=== PATIENT | female | born 1955 | race Caucasian/White ===

== ENCOUNTER 2016-10-02 20:45 | Observation (INO) | payer MEDICARE ==
[~2016-10-02] VITALS: Ht 165.1 cm; Wt 68.7 kg
[~2016-10-02 20:45] MED LIST: 1-ME1LIQ PO; ASPI81TA82 PO; CARV25TA PO; CLOP75 PO; HYDR7.5T32 PO; MEPR400T4 PO; NITR0.2D TD; POTA10IN2 PO; PROT40TA PO; SIMV40TA PO; TRAZ50TA4 PO; VENTAER INH; VITA100018 PO; ZOLP10TA3 PO
[2016-10-02 20:48] VITALS: BP 201/111; PULSE 118; RESP 20; TEMP 98; O2SAT 96
[2016-10-02] MEDS ORDERED: SODIUM CHLOR 0.9% 1000 ML INJ 1,000 ML IV SCH (21:06)
[2016-10-02 21:10] VITALS: O2SAT 98
[2016-10-02] MEDS ORDERED: MORPHINE SULFATE 4 MG/ML INJ IV PUSH ONE (21:15)
[2016-10-02] MEDS ORDERED: SODIUM CHLORIDE 0.9% FLUSH 10 ML FLUSH IV FLUSH PRN (21:15)
[2016-10-02] MEDS ORDERED: ONDANSETRON HCL 4 MG/2 ML VIAL IVP ONE (21:15)
--- NOTE | 2016-10-02 21:26 | PD ---
HPI Chief Complaint: GI Complaint Time Seen by Provider: 20:51 Travel History International Travel<30 days: No Contact w/Intl Traveler<30days: No Traveled to known affect area: No History of Present Illness HPI This is a 61-year-old female who presents to the emergency department with vomiting that's been present since early this afternoon, constant, severe, associated with lower abdominal cramping. She denies any fevers or chills. She said she had one episode of coffee ground emesis. She's never had symptoms like this before. She said her last bowel movement was yesterday and was normal. She has had a bleeding ulcer in the past and has a hiatal hernia. One week ago she started on a new medication for rheumatoid arthritis. She says she doesn't take any anti-inflammatories for pain. PFSH Past Medical History Arthritis: Yes Blood Disorders: No Cancer: No Cardiac Catheterization: Yes (stents placed) Cardiovascular Problems: Yes (HTN) High Cholesterol: Yes Chemotherapy: No Chest Pain: Yes COPD: Yes Coronary Artery Disease: Yes Endocrine: No Genitourinary: Yes Hypertension: Yes Immune Disorder: No Implanted Vascular Access Dvce: Yes Kidney Stones: Yes Musculoskeletal: Yes Neurologic: Yes Psychiatric: No Reproductive: No Respiratory: Yes Radiation Therapy: No : 2 Para: 2 Past Surgical History Body Medical Devices: STENTS IN PAST AND PLATE IN NECK Section: Yes (x2) Coronary Stent: Yes (3) Gynecologic Surgery: Yes (2 C- SECTION) Joint Replacement: Yes Tonsillectomy: Yes Other Surgery: Yes Social History Alcohol Use: Yes (occassional) Tobacco Use: Yes (1/2 PPD) Substance Use: No Allergies-Medications (Allergen,Severity, Reaction): Coded Allergies: Terbutaline (Verified Allergy, Intermediate, 10/02/16) Neurontin (Verified Allergy, Mild, 10/02/16) Reported Meds & Prescriptions Reported Meds & Active Scripts Active Reported K-Tab (Potassium Chloride) 8 Meq Tab 8 Meq PO HS Ventolin Hfa 18 GM Inh (Albuterol Sulfate) 90 Mcg/Act Aer 2 Puff INH Q4H PRN Amlodipine (Amlodipine Besylate) 10 Mg Tab 10 Mg PO DAILY Aspirin EC (Aspirin) 81 Mg Tabdr 81 Mg PO HS Carvedilol 25 Mg Tab 25 Mg PO BID Plavix (Clopidogrel Bisulfate) 75 Mg Tab 75 Mg PO HS Hydrocodone-Acetaminophen 10-325 mg Tab 1 Tab PO Q8HR PRN Meprobamate 400 Mg Tab 400 Mg PO TID Pantoprazole (Pantoprazole Sodium) 40 Mg Tab 40 Mg PO HS Simvastatin 40 Mg Tab 40 Mg PO HS Hydrochlorothiazide 25 Mg Tab 25 Mg PO HS Lyrica (Pregabalin) Unknown Strength Cap Unknown Dose PO BID Elavil (Amitriptyline HCl) 25 Mg Tab 25 Mg PO HS Xeljanz Xr (Tofacitinib ER) 11 Mg Tab 11 Mg PO HS Sulfasalazine 500 Mg Tab 500 Mg PO HS Review of Systems Except as stated in HPI: all other systems reviewed are Neg Physical Exam Narrative GENERAL: Uncomfortable appearing SKIN: Dry with skin tenting HEAD: Atraumatic. Normocephalic. EYES: Pupils equal and round. No injection or drainage. ENT: Dry mucous membranes NECK: Trachea midline. CARDIOVASCULAR: Regular rate and rhythm. No murmur appreciated. RESPIRATORY: Clear to auscultation. Breath sounds equal bilaterally. GASTROINTESTINAL: Abdomen soft, diffusely tender to palpation worse in the lower abdomen MUSCULOSKELETAL: No obvious deformities. NEUROLOGICAL: Awake and alert. No obvious cranial nerve deficits. Moving all extremities. PSYCHIATRIC: Appropriate mood and affect; insight and judgment normal. Data Data Last Documented VS Vital Signs Date Time Temp Pulse Resp B/P Pulse Ox O2 Delivery O2 Flow Rate FiO2 10/02/16 22:20 16 10/02/16 21:10 98 10/02/16 20:48 98.0 118 201/111 Orders Complete Blood Count With Diff (10/02/16 21:06) Comprehensive Metabolic Panel (10/02/16 21:06) Lipase (10/02/16 21:06) Prothrombin Time / Inr (Pt) (10/02/16 21:06) Act Partial Throm Time (Ptt) (10/02/16 21:06) Urinalysis - C+S If Indicated (10/02/16 21:06) Iv Access Insert/Monitor (10/02/16 21:06) Ecg Monitoring (10/02/16 21:06) Oximetry (10/02/16 21:06) Ondansetron Inj (Zofran Inj) (10/02/16 21:15) Sodium Chlor 0.9% 1000 Ml Inj (Ns 1000 M (10/02/16 21:06) Sodium Chloride 0.9% Flush (Ns Flush) (10/02/16 21:15) Ct Abd/Pel W Iv Contrast(Rout) (10/02/16 ) Labetalol Inj (Trandate Inj) (10/02/16 21:15) Morphine Inj (Morphine Inj) (10/02/16 21:15) Potassium Chlor 20 Meq Premix (Kcl 20 Me (10/02/16 22:00) Iohexol 350 Inj (Omnipaque 350 Inj) (10/02/16 22:13) Type And Screen (10/02/16 22:25) Troponin I (10/02/16 22:35) Electrocardiogram (10/02/16 ) Pantoprazole Inj (Protonix Inj) (10/02/16 22:45) Pantoprazole Inj (Protonix Inj) (10/02/16 22:45) Vital Signs (Adult) ANGEL LUIS.Q4H (10/02/16 23:04) Activity Bed Rest (10/02/16 23:04) Scd&Teds Bilateral/Knee High ANGEL LUIS.QSHIFT (10/02/16 23:04) Diet Clear Liquid (10/03/16 Breakfast) Ondansetron Inj (Zofran Inj) (10/02/16 23:15) Ns + Kcl 20 Meq Inj (Ns + Kcl 20 Meq Inj (10/02/16 23:15) Basic Metabolic Panel (Bmp) (10/03/16 06:00) Complete Blood Count With Diff (10/03/16 06:00) Consult Gastroenterology (10/02/16 ) Carvedilol (Coreg) (10/03/16 09:00) Amlodipine (Norvasc) (10/03/16 09:00) Pantoprazole Inj (Protonix Inj) (10/03/16 00:00) Admit Order (Ed Use Only) (10/02/16 23:18) Labs Laboratory Tests Test 10/02/16 10/02/16 21:15 22:35 White Blood Count 8.8 TH/MM3 Red Blood Count 4.37 MIL/MM3 Hemoglobin 14.5 GM/DL Hematocrit 41.6 % Mean Corpuscular Volume 95.3 FL Mean Corpuscular Hemoglobin 33.1 PG Mean Corpuscular Hemoglobin 34.8 % Concent Red Cell Distribution Width 14.5 % Platelet Count 296 TH/MM3 Mean Platelet Volume 8.9 FL Neutrophils (%) (Auto) 68.4 % Lymphocytes (%) (Auto) 22.7 % Monocytes (%) (Auto) 8.3 % Eosinophils (%) (Auto) 0.3 % Basophils (%) (Auto) 0.3 % Neutrophils # (Auto) 6.0 TH/MM3 Lymphocytes # (Auto) 2.0 TH/MM3 Monocytes # (Auto) 0.7 TH/MM3 Eosinophils # (Auto) 0.0 TH/MM3 Basophils # (Auto) 0.0 TH/MM3 CBC Comment DIFF FINAL Differential Comment Prothrombin Time 11.7 SEC Prothromb Time International 1.1 RATIO Ratio Activated Partial 27.0 SEC Thromboplast Time Sodium Level 139 MEQ/L Potassium Level 2.9 MEQ/L Chloride Level 100 MEQ/L Carbon Dioxide Level 28.8 MEQ/L Anion Gap 10 MEQ/L Blood Urea Nitrogen 7 MG/DL Creatinine 0.78 MG/DL Estimat Glomerular Filtration 75 ML/MIN Rate Random Glucose 133 MG/DL Calcium Level 9.6 MG/DL Total Bilirubin 0.4 MG/DL Aspartate Amino Transf 27 U/L (AST/SGOT) Alanine Aminotransferase 23 U/L (ALT/SGPT) Alkaline Phosphatase 88 U/L Total Protein 8.1 GM/DL Albumin 4.2 GM/DL Lipase 82 U/L Urine Color YELLOW Urine Turbidity CLEAR Urine pH 7.0 Urine Specific [place] 1.014 Urine Protein NEG mg/dL Urine Glucose (UA) NEG mg/dL Urine Ketones NEG mg/dL Urine Occult Blood NEG Urine Nitrite NEG Urine Bilirubin NEG Urine Urobilinogen LESS THAN 2.0 MG/DL Urine Leukocyte Esterase NEG Urine RBC LESS THAN 1 /hpf Urine WBC 1 /hpf Urine Bacteria RARE /hpf Urine Mucus FEW /lpf Microscopic Urinalysis Comment CULT NOT INDICATED MDM Medical Decision Making Medical Screen Exam Complete: Yes Emergency Medical Condition: Yes Interpretation(s) Afebrile, tachycardic, hypertensive No leukocytosis Urinalysis: No infection Differential Diagnosis Ulcer, gastritis, pancreatitis, hiatal hernia, bowel obstruction, myocardial infarction Narrative Course This is a 61-year-old female who has a history of ulcers in the past who presents to the emergency department with abdominal discomfort and multiple episodes of vomiting including an episode of coffee ground emesis prior to arrival. Here in the emergency department she was initially tachycardic in markedly hypertensive. She was unable to keep down any of her blood pressure medications today. She was given IV labetalol in the emergency department, IV hydration and Zofran. Hemoccult was negative but minimal stool was collected. Patient was started on IV Protonix. I'm concerned that she may have an upper GI bleed in the setting of her history of ulcer disease. Patient will be placed in observation for GI evaluation. H[facility]Prompt Point of Care Internal Pos. & Neg. Controls: Passed Fecal Specimen Occult Blood: Negative Physician Communication Physician Communication Discussed with Dr. antunez Diagnosis Primary Impression: Upper GI bleed Admitting Information Admitting Physician Requests: Observation Fallon Castillo MD October 02, 2016 21:26
[2016-10-02 21:30] LABS: BASOPHIL % 0.3 % (0.0-2.0); EOSINOPHIL % 0.3 % (0.0-4.0); HEMATOCRIT 41.6 % (35.0-46.0); HEMO FLAGS DIFF FINAL; LYMPH % 22.7 % (9.0-44.0); MEAN CELL VOLUME 95.3 FL (80.0-100.0); MEAN CORPUSCULAR HEMOGLOBIN 33.1 PG (27.0-34.0); MEAN CORPUSCULAR HGB CONC 34.8 % (32.0-36.0); MONO % 8.3 % (0.0-8.0); NEUT % 68.4 % (16.0-70.0); PLATELET COUNT 296 TH/MM3 (150-450); RED BLOOD COUNT 4.37 MIL/MM3 (4.00-5.30); RED CELL DISTRIBUTION WIDTH 14.5 % (11.6-17.2); WHITE BLOOD COUNT 8.8 TH/MM3 (4.0-11.0)
[2016-10-02] MEDS: LABETALOL HCL 100 MG/20 ML VIAL IV PUSH PRN (21:31)
[2016-10-02 21:47] LABS: INTERNATIONAL NORMALIZED RATIO 1.1 RATIO; PROTHROMBIN TIME - PATIENT 11.7 SEC (9.8-11.6)
[2016-10-02 21:57] LABS: ALKALINE PHOSPHATASE 88 U/L (45-117); ALT (GPT) 23 U/L (10-53); ANION GAP 10 MEQ/L (5-15); AST (GOT) 27 U/L (15-37); BICARBONATE 28.8 MEQ/L (21.0-32.0); BLOOD UREA NITROGEN 7 MG/DL (7-18); CHLORIDE 100 MEQ/L (98-107); GLOMERULAR FILTRATION RATE 75 ML/MIN (>89); SODIUM (NA) 139 MEQ/L (136-145); TOTAL BILIRUBIN ADULT 0.4 MG/DL (0.2-1.0)
[2016-10-02 21:59] LABS: POTASSIUM 2.9 MEQ/L (3.5-5.1)
[2016-10-02] MEDS ORDERED: IOHEXOL 350 MG/ML 10 ML VIAL (for RAD DIAG) IV ONE (22:13)
[2016-10-02] MEDS: POTASSIUM CHLOR 20 MEQ PREMIX 100 ML IV SCH (22:22)
--- NOTE | 2016-10-02 22:33 | RADRPT ---
EXAM DATE/TIME: 10/02/2016 22:10 [facility] COMPARISON: No previous studies available for comparison. INDICATIONS : Right lower quadrant pain. IV CONTRAST: 96 cc Omnipaque 350 (iohexol) IV ORAL CONTRAST: No oral contrast ingested. RADIATION DOSE: 4.54 CTDIvol (mGy) MEDICAL HISTORY : Hypertension. Cardiovascular disease Chronic obstructive pulmonary disease. SURGICAL HISTORY : section. C4-5 fusion ENCOUNTER: Initial ACUITY: 1 day PAIN SCALE: 6/10 LOCATION: Right abdomen TECHNIQUE: Volumetric scanning of the abdomen and pelvis was performed. Using automated exposure control and ad justment of the mA and/or kV according to patient size, radiation dose was kept as low as reasonably achievable to obtain optimal diagnostic quality images. FINDINGS: LOWER LUNGS: The visualized lower lungs are clear. LIVER: Homogeneous density without lesion. There is no dilation of the biliary tree. No calcified gallston es. SPLEEN: Normal size without lesion. PANCREAS: Within normal limits. KIDNEYS: There is a 1 cm cyst of the right lower pole and a subcentimeter cyst of the left mid zone. ADRENAL GLANDS: Within normal limits. VASCULAR: There is aortoiliac atherosclerosis. No aneurysm. BOWEL/MESENTERY: The stomach, small bowel, and colon demonstrate no acute abnormality. There is no free intraperitone al air or fluid. No evidence of appendicitis. ABDOMINAL WALL: Within normal limits. RETROPERITONEUM: There is no lymphadenopathy. BLADDER: No wall thickening or mass. REPRODUCTIVE: Within normal limits. INGUINAL: There is no lymphadenopathy or hernia. MUSCULOSKELETAL: Within normal limits for patient age. CONCLUSION: 1. No obstruction or acute inflammatory changes are demonstrated. 2. Atherosclerotic aorta. No aneurysm. 3. Benign-appearing bilateral renal cysts. Joseph Ledezma MD on October 02, 2016 at 22:28 Board Certified Radiologist. This report was verified electronically.
[2016-10-02] MEDS ORDERED: PANTOPRAZOLE INJ 80 MG in SODIUM CHLORIDE 0.9% INJ 35 ML IV ONE (22:45)
[2016-10-02] MEDS ORDERED: PANTOPRAZOLE INJ 80 MG in SODIUM CHLORIDE 0.9% INJ 100 ML IV SCH (22:45)
[2016-10-02] MEDS ORDERED: LYRI150C PO (22:58)
[2016-10-02] MEDS ORDERED: TOFA1TAB PO (22:58)
[2016-10-02] MEDS ORDERED: SULF500T3 PO (22:58)
[2016-10-02] MEDS ORDERED: AMIT1TAB79 PO (22:58)
[2016-10-02] MEDS ORDERED: MEPR400T4 PO (23:05)
[2016-10-02] MEDS ORDERED: PANT40TA3 PO (23:05)
[2016-10-02] MEDS ORDERED: PLAV75TA29 PO (23:05)
[2016-10-02] MEDS ORDERED: ASPI81TA11 PO (23:05)
[2016-10-02] MEDS ORDERED: SIMV40TA PO (23:05)
[2016-10-02] MEDS ORDERED: AMLO10TA2 PO (23:05)
[2016-10-02] MEDS ORDERED: CARV25TA PO (23:05)
[2016-10-02] MEDS ORDERED: HYDR-3583 PO (23:05)
[2016-10-02] MEDS ORDERED: HYDR25TA5 PO (23:05)
[2016-10-02] MEDS ORDERED: VENTAER INH (23:05)
[2016-10-02] MEDS ORDERED: POTA1TAB77 PO (23:06)
[2016-10-02] MEDS ORDERED: NS + KCL 20 MEQ INJ 1,000 ML IV SCH (23:15)
[2016-10-02] MEDS ORDERED: ONDANSETRON HCL 4 MG/2 ML VIAL IV PUSH PRN (23:15)
[2016-10-02 23:19] LABS: BACTERIA, URINE RARE /hpf; BLOOD, URINE NEG (NEG); COMMENT (UR) CULT NOT INDICATED; CULTURE IF INDICATED CULT NOT INDICATED; GLUCOSE,URINE NEG (NEG); KETONE, URINE NEG (NEG); MUCUS URINE FEW /lpf (OCC); NITRITE,URINE NEG (NEG); URINE COLOR YELLOW (YELLW/STRAW)
[2016-10-02] MEDS ORDERED: POTASSIUM CHLORIDE 25 MEQ EFFERVESCENT TAB PO ONE (23:30)
[2016-10-02 23:36] VITALS: BP 152/100; PULSE 77; RESP 16; O2SAT 95
[2016-10-03] VITALS (23 sets, daily range): BP systolic 121–167; BP diastolic 77–104; PULSE 54–76; RESP 16–18; TEMP 97.5–98.4; O2SAT 95–99
[2016-10-03] MEDS: LABETALOL HCL 100 MG/20 ML VIAL IV PUSH PRN (02:50)
[2016-10-03] MEDS: POTASSIUM CHLOR 20 MEQ PREMIX 100 ML IV SCH (03:33)
[2016-10-03 07:42] LABS: AUTOMATED NEUTROPHIL # 3.8 TH/MM3 (1.8-7.7); BASOPHIL % 0.7 % (0.0-2.0); EOSINOPHIL # 0.1 TH/MM3 (0-0.4); EOSINOPHIL % 1.7 % (0.0-4.0); HEMATOCRIT 35.3 % (35.0-46.0); HEMO FLAGS DIFF FINAL; LYMPH % 33.6 % (9.0-44.0); LYMPHOCYTE # 2.3 TH/MM3 (1.0-4.8); MEAN CELL VOLUME 97.9 FL (80.0-100.0); MEAN CORPUSCULAR HEMOGLOBIN 32.8 PG (27.0-34.0); MEAN CORPUSCULAR HGB CONC 33.5 % (32.0-36.0); MONO % 9.4 % (0.0-8.0); NEUT % 54.6 % (16.0-70.0); PLATELET COUNT 230 TH/MM3 (150-450); RED CELL DISTRIBUTION WIDTH 14.4 % (11.6-17.2)
[2016-10-03] MEDS: CARVEDILOL 12.5 MG TAB PO SCH ×2 (08:10→20:50)
[2016-10-03 08:12] LABS: BICARBONATE 27.9 MEQ/L (21.0-32.0); POTASSIUM 3.1 MEQ/L (3.5-5.1)
--- NOTE | 2016-10-03 09:49 | PD.CONS ---
HPI History of Present Illness This is a 61 year old female with hx of bleeding ulcer, hiatal hernia, CAD, cardiac stents 5 yrs ago on ASA, Plavix, HTN, COPD, RA who presents with acute onset of multiple episodes of vomiting and coffee ground emesis associated with sharp severe lower abdomen pain. This started noon time yesterday, and continued all day. She reports 2 episodes of coffee ground emesis. She denies melena, or hematochezia or change in bowels. She had a bowel movement yesterday and that was normal. She has had no vomiting today. States the abdomen pain is what promoted her to seek medical attention. The pain is much better now. CT on (10/02/16) --->1. No obstruction or acute inflammatory changes are demonstrated. 2. Atherosclerotic aorta. No aneurysm. 3. Benign-appearing bilateral renal cysts. She has chronic GERD which is under good control with Omeprazole. She denies NSAIDs or excessive alcohol intake. She is every day smoker. She was recently started on new medication for RA, Xeljanze. She report sporadic episodes of loose bloody stools that last for 2 days then followed by colts, then subsides. States this happened average of 3 different occasions in the last year. She had EGD/colonoscopy on (04/27/12) ------> antrum ulcer, three polyps in the ascending colon, sessile polyp in the descending colon, medium hemorrhoids with recommendation to have a repeat in 2 months and one year respectively, but that wasn't done. bx showed tubular adenoma and benign bx from the EGD. She had another EGD on (06/24/12) and that showed irregular Z-line , hiatal hernia, gastritis, ulcer int he antrum, bx was benign, she then had another EGD on (09/07/12) and that was normal. There is a drop in hgb from yesterday 14.5 ---> 11.8. Labs were also significant for hypokalemia, but that has improved. (Jose Champion) PFSH Past Medical History COPD HTN RA fibromyalgia Chest pain CAD cardiac stents neck plate degenerative disc kidney stones scoliosis gastric ulcers polyps GERD Past Surgical History neck plate tons. cardiac stents EGD/colonoscopy (Jose Champion) Coded Allergies: Terbutaline (Verified Allergy, Intermediate, 10/02/16) Neurontin (Verified Allergy, Mild, 10/02/16) Medications Current Medications Medications (Trade) Dose Ordered Sig/Carmencita Route Start Time Stop Time Status Last Admin (NS Flush) 2 ml UNSCH PRN IV FLUSH 10/02/16 21:15 (Trandate Inj) 10 mg Q20M PRN IV PUSH 10/02/16 21:15 10/03/16 02:50 Ondansetron HCl 4 mg 4 mg Q6H PRN IV PUSH 10/02/16 23:15 (NS + KCl 20 Meq Inj) 1,000 ml @ 84 mls/hr [id number] IV 10/02/16 23:15 10/03/16 03:05 (Protonix Inj) 40 mg Q24H IV PUSH 10/03/16 00:00 (Coreg) 25 mg Q12HR PO 10/03/16 09:00 10/03/16 08:10 (Norvasc) 10 mg DAILY PO 10/03/16 09:00 10/03/16 08:10 Family History No family hx of colon or gastric cancer Social History occasional alcohol every day smoker 1/2 Pack per day No illicit drug use (Jose Champion) Review of Systems Constitutional: COMPLAINS OF: Fatigue, Chills Endocrine: DENIES: Polyuria Eyes: DENIES: Double Vision Ears, nose, mouth, throat: DENIES: Hoarseness Respiratory: DENIES: Shortness of breath Cardiovascular: DENIES: Lower Extremity Edema Gastrointestinal: COMPLAINS OF: Abdominal pain, Nausea, Vomiting, Anorexia, Heartburn, Hematemesis, DENIES: Black stools, Bloody stools, Constipation, Diarrhea, Difficulty Swallowing, Odynophagia, Swelling of Abdomen Genitourinary: DENIES: Hematuria Musculoskeletal: DENIES: Neck pain Integumentary: DENIES: Jaundice Hematologic/lymphatic: DENIES: Bruising Immunologic/allergic: DENIES: Eczema Neurologic: DENIES: Abnormal gait Psychiatric: DENIES: Anxiety (Jose Champion) GI Exam Vitals I&O Vital Signs Date Time Temp Pulse Resp B/P Pulse Ox O2 Delivery O2 Flow Rate FiO2 10/03/16 08:12 61 10/03/16 08:12 98.0 61 18 148/81 96 10/03/16 07:31 76 5/6/17 06:00 60 10/03/16 05:00 58 10/03/16 04:00 54 10/03/16 03:13 97.7 60 18 154/94 97 10/03/16 03:00 56 10/03/16 02:45 167/104 10/03/16 01:51 61 16 156/93 96 10/02/16 23:36 77 16 152/100 95 10/02/16 22:20 16 10/02/16 21:10 98 10/02/16 20:48 98.0 118 20 201/111 96 I/O 10/02/16 10/02/16 10/02/16 10/03/16 10/03/16 10/03/16 07:00 15:00 23:00 07:00 15:00 23:00 Intake Total 540 ml Balance 540 ml Intake Oral 240 ml IV Total 300 ml # Voids 2 # Bowel Movements 0 Imaging Last Impressions Abdomen/Pelvis CT 10/02/16 0000 Signed Impressions: Service Date/Time: Sunday, October 02, 2016 22:10 - CONCLUSION: 1. No obstruction or acute inflammatory changes are demonstrated. 2. Atherosclerotic aorta. No aneurysm. 3. Benign-appearing bilateral renal cysts. Joseph Ledezma MD Laboratory Test 10/02/16 10/02/16 10/02/16 10/03/16 21:15 21:23 22:35 07:03 White Blood Count 8.8 TH/MM3 7.0 TH/MM3 Red Blood Count 4.37 MIL/MM3 3.60 MIL/MM3 Hemoglobin 14.5 GM/DL 11.8 GM/DL Hematocrit 41.6 % 35.3 % Mean Corpuscular Volume 95.3 FL 97.9 FL Mean Corpuscular Hemoglobin 33.1 PG 32.8 PG Mean Corpuscular Hemoglobin 34.8 % 33.5 % Concent Red Cell Distribution Width 14.5 % 14.4 % Platelet Count 296 TH/MM3 230 TH/MM3 Mean Platelet Volume 8.9 FL 8.7 FL Neutrophils (%) (Auto) 68.4 % 54.6 % Lymphocytes (%) (Auto) 22.7 % 33.6 % Monocytes (%) (Auto) 8.3 % 9.4 % Eosinophils (%) (Auto) 0.3 % 1.7 % Basophils (%) (Auto) 0.3 % 0.7 % Neutrophils # (Auto) 6.0 TH/MM3 3.8 TH/MM3 Lymphocytes # (Auto) 2.0 TH/MM3 2.3 TH/MM3 Monocytes # (Auto) 0.7 TH/MM3 0.7 TH/MM3 Eosinophils # (Auto) 0.0 TH/MM3 0.1 TH/MM3 Basophils # (Auto) 0.0 TH/MM3 0.0 TH/MM3 CBC Comment DIFF FINAL DIFF FINAL Differential Comment Prothrombin Time 11.7 SEC Prothromb Time International 1.1 RATIO Ratio Activated Partial 27.0 SEC Thromboplast Time Sodium Level 139 MEQ/L 143 MEQ/L Potassium Level 2.9 MEQ/L 3.1 MEQ/L Chloride Level 100 MEQ/L 108 MEQ/L Carbon Dioxide Level 28.8 MEQ/L 27.9 MEQ/L Anion Gap 10 MEQ/L 7 MEQ/L Blood Urea Nitrogen 7 MG/DL 5 MG/DL Creatinine 0.78 MG/DL 0.58 MG/DL Estimat Glomerular Filtration 75 ML/MIN 105 ML/MIN Rate Random Glucose 133 MG/DL 128 MG/DL Calcium Level 9.6 MG/DL 8.1 MG/DL Total Bilirubin 0.4 MG/DL Aspartate Amino Transf 27 U/L (AST/SGOT) Alanine Aminotransferase 23 U/L (ALT/SGPT) Alkaline Phosphatase 88 U/L Total Protein 8.1 GM/DL Albumin 4.2 GM/DL Lipase 82 U/L Troponin I LESS THAN 0.02 NG/ML Urine Color YELLOW Urine Turbidity CLEAR Urine pH 7.0 Urine Specific [place] 1.014 Urine Protein NEG mg/dL Urine Glucose (UA) NEG mg/dL Urine Ketones NEG mg/dL Urine Occult Blood NEG Urine Nitrite NEG Urine Bilirubin NEG Urine Urobilinogen LESS THAN 2.0 MG/DL Urine Leukocyte Esterase NEG Urine RBC LESS THAN 1 /hpf Urine WBC 1 /hpf Urine Bacteria RARE /hpf Urine Mucus FEW /lpf Microscopic Urinalysis Comment CULT NOT INDICATED Blood Type A POSITIVE Antibody Screen NEGATIVE Blood Bank Comment Physical Examination HEENT: Pupils round and reactive to light; normocephalic; atraumatic; no jaundice. Throat is clear. NECK: Neck is supple, no JVD, no lymphadenopathy. CHEST: Chest is clear to auscultation and percussion. CARDIAC: Regular rate and rhythm with no murmur gallop or rubs. ABDOMEN: Soft, nondistended, mild tenderness in lower abd.; no hepatosplenomegaly; bowel sounds are present in all four quadrants. EXTREMITIES: No clubbing, cyanosis, or edema. SKIN: Normal; no rash; no jaundice. SOFTWARE ANALYST: No focal deficits; alert and oriented times three. (Jose Champion) Assessment and Plan Plan - GI bleed/coffee ground emesis- with hx of bleeding ulcer, hiatal hernia, cardiac stents 5 yrs ago on ASA, Plavix presents with acute onset of multiple episodes of vomiting and coffee ground emesis associated with sharp severe lower abdomen pain that started yesterday. She was recently started on new medication for RA, Xeljanze.She denies NSAIDs or excessive alcohol intake. She is every day smoker. There is a drop in hgb from yesterday 14.5 --- > 11.8. ppi CT on (10/02/16) --->1. No obstruction or acute inflammatory changes are demonstrated. 2. Atherosclerotic aorta. No aneurysm. 3. Benign-appearing bilateral renal cysts. EGD/colonoscopy on (04/27/12) ------> antrum ulcer, three polyps in the ascending colon, sessile polyp in the descending colon, medium hemorrhoids with recommendation to have a repeat in 2 months and one year respectively, but that wasn't done. bx showed tubular adenoma and benign bx from the EGD. EGD on (06/24/12) and that showed irregular Z-line, hiatal hernia, gastritis, ulcer int he antrum, bx was benign, she then had another EGD on (09/07/12) and that was normal. - multiple random episodes of loose bloody diarrhea followed by clots over the past year- averages 3 times, lasts for few days then subsides, last episode was 2 months ago EGD/colonoscopy on (04/27/12) ------> antrum ulcer, three polyps in the ascending colon, sessile polyp in the descending colon, medium hemorrhoids with recommendation to have a repeat in 2 months and one year respectively, but that wasn't done. bx showed tubular adenoma and benign bx from the EGD. - GERD which is under good control with Omeprazole - Cardiac stents on ASA, Plavix on hold - CAD,, HTN, COPD, RA per attending Plan: - Full liquid diet - EGD/colonoscopy on Wednesday - Obtain consents - Mikely tomorrow - Clear liquids in am - Monitor hh - Transfuse as needed - Notify GI for active bleeding - Cont. PPI - Supportive care - Patient seen and examined by Dr. Harrison and myself and this note is written on his behalf. (Jose Champion) Physician Comments Seen and examined with BE, egd/colonoscopy planned for wednesday. Monitor labs. Liquid diet. Will follow. Thank you (Julieth Harrison MD) Jose Champion October 03, 2016 09:49 Julieth Harrison MD October 03, 2016 14:20
--- NOTE | 2016-10-03 09:54 | HHI.HP ---
HPI Service [facility] Hospitalists Primary Care Physician Eric Cowan MD Admission Diagnosis upper gi bleed Chief Complaint: vomiting blood Travel History International Travel<30 Days: No Contact w/Intl Traveler <30 Da: No Traveled to Known Affected Are: No History of Present Illness Pt is 61 yo with hx of gastric ulcer and RA on plavix. Pt on sulfasalazine and recently added Xeljantz. Says over past 6-9 months saw 3 episodes of bloody stool but yesterday have several episodes of vomiting up to 6 or 7 times with coffee grounds. Some lower abdomen pains. denies motrin/advil/alleve,etc. denies recent etoh intake. Pt says she was seen by [facility] in past and dx with "gastric ulcer". Hgb stable overnight. Review of Systems Other vomiting with coffee grounds some brbpr Past Family Social History Past Medical History cad. pci ruthy ramus intermedius. renal art. stent right iliac stent. pad cervical neck fusion anxiety gerd "gastric ulcer" says she had egd and colon 4 or 5 yrs ago. polyps hemorrhoids. RA htn hyperlipidemia Reported Medications K-Tab (Potassium Chloride) 8 Meq Tab 8 Meq PO HS Ventolin Hfa 18 GM Inh (Albuterol Sulfate) 90 Mcg/Act Aer 2 Puff INH Q4H PRN Amlodipine (Amlodipine Besylate) 10 Mg Tab 10 Mg PO DAILY Aspirin EC (Aspirin) 81 Mg Tabdr 81 Mg PO HS Carvedilol 25 Mg Tab 25 Mg PO BID Plavix (Clopidogrel Bisulfate) 75 Mg Tab 75 Mg PO HS Hydrocodone-Acetaminophen 10-325 mg Tab 1 Tab PO Q8HR PRN Meprobamate 400 Mg Tab 400 Mg PO TID Pantoprazole (Pantoprazole Sodium) 40 Mg Tab 40 Mg PO HS Simvastatin 40 Mg Tab 40 Mg PO HS Hydrochlorothiazide 25 Mg Tab 25 Mg PO HS Lyrica (Pregabalin) Unknown Strength Cap Unknown Dose PO BID Elavil (Amitriptyline HCl) 25 Mg Tab 25 Mg PO HS Xeljanz Xr (Tofacitinib ER) 11 Mg Tab 11 Mg PO HS Sulfasalazine 500 Mg Tab 500 Mg PO HS Allergies: Coded Allergies: Terbutaline (Verified Allergy, Intermediate, 10/02/16) Neurontin (Verified Allergy, Mild, 10/02/16) Physical Exam Vital Signs nad heart reg lung cta abd s/nt ext no edema Vital Signs Date Time Temp Pulse Resp B/P Pulse Ox O2 Delivery O2 Flow Rate FiO2 10/03/16 09:24 60 10/03/16 08:12 61 10/03/16 08:12 98.0 61 18 148/81 96 10/03/16 07:31 76 10/03/16 06:00 60 10/03/16 05:00 58 10/03/16 04:00 54 10/03/16 03:13 97.7 60 18 154/94 97 10/03/16 03:00 56 10/03/16 02:45 167/104 10/03/16 01:51 61 16 156/93 96 10/02/16 23:36 77 16 152/100 95 10/02/16 22:20 16 10/02/16 21:10 98 10/02/16 20:48 98.0 118 20 201/111 96 Laboratory Laboratory Tests Test 10/02/16 10/02/16 10/02/16 10/03/16 21:15 21:23 22:35 07:03 White Blood Count 8.8 7.0 Red Blood Count 4.37 3.60 Hemoglobin 14.5 11.8 Hematocrit 41.6 35.3 Mean Corpuscular Volume 95.3 97.9 Mean Corpuscular Hemoglobin 33.1 32.8 Mean Corpuscular Hemoglobin 34.8 33.5 Concent Red Cell Distribution Width 14.5 14.4 Platelet Count 296 230 Mean Platelet Volume 8.9 8.7 Neutrophils (%) (Auto) 68.4 54.6 Lymphocytes (%) (Auto) 22.7 33.6 Monocytes (%) (Auto) 8.3 9.4 Eosinophils (%) (Auto) 0.3 1.7 Basophils (%) (Auto) 0.3 0.7 Neutrophils # (Auto) 6.0 3.8 Lymphocytes # (Auto) 2.0 2.3 Monocytes # (Auto) 0.7 0.7 Eosinophils # (Auto) 0.0 0.1 Basophils # (Auto) 0.0 0.0 CBC Comment DIFF FINAL DIFF FINAL Differential Comment Prothrombin Time 11.7 Prothromb Time International 1.1 Ratio Activated Partial 27.0 Thromboplast Time Sodium Level 139 143 Potassium Level 2.9 3.1 Chloride Level 100 108 Carbon Dioxide Level 28.8 27.9 Anion Gap 10 7 Blood Urea Nitrogen 7 5 Creatinine 0.78 0.58 Estimat Glomerular Filtration 75 105 Rate Random Glucose 133 128 Calcium Level 9.6 8.1 Total Bilirubin 0.4 Aspartate Amino Transf 27 (AST/SGOT) Alanine Aminotransferase 23 (ALT/SGPT) Alkaline Phosphatase 88 Total Protein 8.1 Albumin 4.2 Lipase 82 Troponin I LESS THAN 0.02 Urine Color YELLOW Urine Turbidity CLEAR Urine pH 7.0 Urine Specific [place]ondo 1.014 Urine Protein NEG Urine Glucose (UA) NEG Urine Ketones NEG Urine Occult Blood NEG Urine Nitrite NEG Urine Bilirubin NEG Urine Urobilinogen LESS THAN 2.0 Urine Leukocyte Esterase NEG Urine RBC LESS THAN 1 Urine WBC 1 Urine Bacteria RARE Urine Mucus FEW Microscopic Urinalysis Comment CULT NOT INDICATED Blood Type A POSITIVE Antibody Screen NEGATIVE Blood Bank Comment Result Diagram: 10/03/1670210/03/16702 Assessment and Plan Problem List: (1) Upper GI bleed Status: Acute Plan: Pt is 61 yo with cad, pad, RA Presents with ugib/coffee ground emesis and c/p brbpr x 3 over past 6-9 months pt says she had egd/colon over past 5 yrs. "polyps/ulcer" GI consulted to determine egd /colon iv ppi hold plavix today. dvt prophylaxis liquids (2) BRBPR (bright red blood per rectum) Status: Acute Plan: see above (3) RA (rheumatoid arthritis) Status: Chronic Plan: cont home meds (4) HTN (hypertension) Status: Chronic Plan: home meds (5) CAD (coronary artery disease) Status: Chronic Plan: home meds hold plavix today (6) PAD (peripheral artery disease) Status: Chronic James Olivier MD October 03, 2016 09:54
--- NOTE | 2016-10-03 09:55 | EKG ---
Date Performed: 10/02/2016 Time Performed: 23:24:12 PTAGE: 61 years EKG: Sinus rhythm NORMAL ECG PREVIOUS TRACING : 03/21/2012 08.48 DOCTOR: Ke Milligan Interpretating Date/Time 10/03/2016 09:52:53
[2016-10-03] MEDS: NS + KCL 40 MEQ INJ 1,000 ML IV SCH ×2 (10:15→20:50)
[2016-10-03] MEDS ORDERED: cloNIDine HCL 0.1 MG TAB PO PRN (10:15)
[2016-10-03] MEDS ORDERED: INSULIN ASPART SUPPLEMENTAL SCALE SQ SCH (11:00)
[2016-10-03] MEDS: PRAVASTATIN SOD 80 MG TAB PO SCH (20:50)
[2016-10-03] MEDS: sulfaSALAzine 500 MG TAB PO SCH (20:50)
[2016-10-03] MEDS ORDERED: TEMAZEPAM 15 MG CAP PO ONE (22:00)
[2016-10-03] MEDS: PANTOPRAZOLE SODIUM 40 MG VIAL IV PUSH SCH ×2 (22:04)
[2016-10-03] MEDS ORDERED: TEMAZEPAM 15 MG CAP PO PRN (22:15)
[2016-10-04] VITALS (25 sets, daily range): BP systolic 108–154; BP diastolic 73–104; PULSE 54–70; RESP 16–18; TEMP 97.4–98.4; O2SAT 97–100
[2016-10-04 06:10] LABS: BICARBONATE 27.2 MEQ/L (21.0-32.0)
[2016-10-04 06:14] LABS: AUTOMATED NEUTROPHIL # 2.2 TH/MM3 (1.8-7.7); BASOPHIL # 0.1 TH/MM3 (0-0.2); BASOPHIL % 2.2 % (0.0-2.0); EOSINOPHIL # 0.1 TH/MM3 (0-0.4); EOSINOPHIL % 1.9 % (0.0-4.0); HEMATOCRIT 38.1 % (35.0-46.0); HEMO FLAGS DIFF FINAL; LYMPH % 45.3 % (9.0-44.0); LYMPHOCYTE # 2.4 TH/MM3 (1.0-4.8); MEAN CELL VOLUME 99.2 FL (80.0-100.0); MEAN CORPUSCULAR HEMOGLOBIN 32.5 PG (27.0-34.0); MEAN CORPUSCULAR HGB CONC 32.7 % (32.0-36.0); MONO % 9.1 % (0.0-8.0); NEUT % 41.5 % (16.0-70.0); PLATELET COUNT 223 TH/MM3 (150-450); RED BLOOD COUNT 3.84 MIL/MM3 (4.00-5.30); RED CELL DISTRIBUTION WIDTH 14.8 % (11.6-17.2); WHITE BLOOD COUNT 5.3 TH/MM3 (4.0-11.0)
[2016-10-04] MEDS: CARVEDILOL 12.5 MG TAB PO SCH ×2 (08:16→21:39)
--- NOTE | 2016-10-04 11:21 | HHI.PR ---
Subjective Remarks no bleeding overnight. Objective Vitals heart reg lung cta abd s/nt ext no edema Vital Signs Date Time Temp Pulse Resp B/P Pulse Ox O2 Delivery O2 Flow Rate FiO2 10/04/16 06:00 62 10/04/16 05:00 70 10/04/16 04:00 Room Air 10/04/16 04:00 98.4 68 18 110/73 99 10/04/16 04:00 66 10/04/16 03:00 64 10/04/16 02:00 54 10/04/16 01:00 54 10/04/16 00:00 62 10/03/16 23:00 60 10/03/16 23:00 97.8 62 18 121/83 96 10/03/16 23:00 Room Air 10/03/16 22:07 124/85 10/03/16 22:00 62 10/03/16 21:00 58 10/03/16 20:00 Room Air 10/03/16 20:00 97.7 63 18 155/100 97 10/03/16 20:00 60 10/03/16 19:00 62 10/03/16 18:48 62 10/03/16 17:00 62 10/03/16 16:00 65 10/03/16 15:48 98.4 61 18 157/97 99 10/03/16 15:00 60 10/03/16 14:00 58 10/03/16 10/03/16 10/04/16 15:00 23:00 07:00 Intake Total 1909 ml 1443 ml Output Total 350 ml Balance 1909 ml 1093 ml Intake Oral 750 ml 480 ml IV Total 1159 ml 963 ml Output Urine Total 350 ml # Voids 5 # Bowel Movements 2 1 Result Diagram: 10/04/16 0413 10/04/16 0413 A/P Problem List: (1) Upper GI bleed Status: Acute Plan: Pt is 61 yo with cad, pad, RA Presents with ugib/coffee ground emesis and c/p brbpr x 3 over past 6-9 months pt says she had egd/colon over past 5 yrs. "polyps/ulcer" GI consulted and egd/colon in AM. prep tonight. iv ppi hold plavix today. dvt prophylaxis liquids d/c home after procedure tomorrow (2) BRBPR (bright red blood per rectum) Status: Acute Plan: see above (3) RA (rheumatoid arthritis) Status: Chronic Plan: cont home meds (4) HTN (hypertension) Status: Chronic Plan: home meds (5) CAD (coronary artery disease) Status: Chronic Plan: home meds hold plavix today (6) PAD (peripheral artery disease) Status: Chronic James Olivier MD October 04, 2016 11:21
--- NOTE | 2016-10-04 14:32 | HHI.GIFU ---
Subjective Remarks Pt resting comfortably in bed. Had tarry stools yesterday, no BM today. No n/v , hematemesis today. No abd pain. (Milena Jain) Objective Vitals I&O Vital Signs Date Time Temp Pulse Resp B/P Pulse Ox O2 Delivery O2 Flow Rate FiO2 10/04/16 12:00 98.0 68 18 111/81 97 10/04/16 08:00 97.5 68 18 108/73 99 10/04/16 06:00 62 10/04/16 05:00 70 10/04/16 04:00 Room Air 10/04/16 04:00 98.4 68 18 110/73 99 10/04/16 04:00 66 10/04/16 03:00 64 10/04/16 02:00 54 10/04/16 01:00 54 10/04/16 00:00 62 10/03/16 23:00 60 10/03/16 23:00 97.8 62 18 121/83 96 10/03/16 23:00 Room Air 10/03/16 22:07 124/85 10/03/16 22:00 62 10/03/16 21:00 58 10/03/16 20:00 Room Air 10/03/16 20:00 97.7 63 18 155/100 97 10/03/16 20:00 60 10/03/16 19:00 62 10/03/16 18:48 62 10/03/16 17:00 62 10/03/16 16:00 65 10/03/16 15:48 98.4 61 18 157/97 99 10/03/16 15:00 60 I/O 10/03/16 10/03/16 10/03/16 10/04/16 10/04/16 10/04/16 07:00 15:00 23:00 07:00 15:00 23:00 Intake Total 540 ml 1909 ml 1443 ml Output Total 350 ml Balance 540 ml 1909 ml 1093 ml Intake Oral 240 ml 750 ml 480 ml IV Total 300 ml 1159 ml 963 ml Output Urine Total 350 ml # Voids 2 5 # Bowel Movements 0 2 1 Laboratory Laboratory Tests Test 10/04/16 04:13 White Blood Count 5.3 Red Blood Count 3.84 Hemoglobin 12.5 Hematocrit 38.1 Mean Corpuscular Volume 99.2 Mean Corpuscular Hemoglobin 32.5 Mean Corpuscular Hemoglobin 32.7 Concent Red Cell Distribution Width 14.8 Platelet Count 223 Mean Platelet Volume 9.0 Neutrophils (%) (Auto) 41.5 Lymphocytes (%) (Auto) 45.3 Monocytes (%) (Auto) 9.1 Eosinophils (%) (Auto) 1.9 Basophils (%) (Auto) 2.2 Neutrophils # (Auto) 2.2 Lymphocytes # (Auto) 2.4 Monocytes # (Auto) 0.5 Eosinophils # (Auto) 0.1 Basophils # (Auto) 0.1 CBC Comment DIFF FINAL Differential Comment Sodium Level 144 Potassium Level 4.0 Chloride Level 111 Carbon Dioxide Level 27.2 Anion Gap 6 Blood Urea Nitrogen 4 Creatinine 0.59 Estimat Glomerular Filtration 103 Rate Random Glucose 84 Calcium Level 8.2 Imaging Last Impressions Abdomen/Pelvis CT 10/02/16 0000 Signed Impressions: Service Date/Time: Sunday, October 02, 2016 22:10 - CONCLUSION: 1. No obstruction or acute inflammatory changes are demonstrated. 2. Atherosclerotic aorta. No aneurysm. 3. Benign-appearing bilateral renal cysts. Joseph Ledezma MD Physical Exam HEENT: EOMI; normocephalic; atraumatic; no jaundice. CHEST: Chest is clear to auscultation and percussion. CARDIAC: Regular rate and rhythm with no murmur gallop or rubs. ABDOMEN: Soft, nondistended, nontender; no hepatosplenomegaly; bowel sounds are present in all four quadrants. EXTREMITIES: No clubbing, cyanosis, or edema. SKIN: Normal; no rash; no jaundice. SPRAY DYER: No focal deficits; alert and oriented times three. (Milena Jain [facility]) Assessment and Plan Plan - GI bleed/coffee ground emesis- with hx of bleeding ulcer, hiatal hernia, cardiac stents 5 yrs ago on ASA, Plavix presents with acute onset of multiple episodes of vomiting and coffee ground emesis associated with sharp severe lower abdomen pain that started yesterday. She was recently started on new medication for RA, Xeljanze.She denies NSAIDs or excessive alcohol intake. She is every day smoker. There is a drop in hgb from yesterday 14.5 --- > 11.8. ppi CT on (10/02/16) --->1. No obstruction or acute inflammatory changes are demonstrated. 2. Atherosclerotic aorta. No aneurysm. 3. Benign-appearing bilateral renal cysts. EGD/colonoscopy on (04/27/12) ------> antrum ulcer, three polyps in the ascending colon, sessile polyp in the descending colon, medium hemorrhoids with recommendation to have a repeat in 2 months and one year respectively, but that wasn't done. bx showed tubular adenoma and benign bx from the EGD. EGD on (06/24/12) and that showed irregular Z-line, hiatal hernia, gastritis, ulcer int he antrum, bx was benign, she then had another EGD on (09/07/12) and that was normal. - multiple random episodes of loose bloody diarrhea followed by clots over the past year- averages 3 times, lasts for few days then subsides, last episode was 2 months ago EGD/colonoscopy on (04/27/12) ------> antrum ulcer, three polyps in the ascending colon, sessile polyp in the descending colon, medium hemorrhoids with recommendation to have a repeat in 2 months and one year respectively, but that wasn't done. bx showed tubular adenoma and benign bx from the EGD. - GERD which is under good control with Omeprazole - Cardiac stents on ASA, Plavix on hold - CAD,, HTN, COPD, RA per attending Plan: - EGD/colonoscopy on Wednesday - Obtain consents - Golytely today - Clear liquids - Monitor hh - Transfuse as needed - Notify GI for active bleeding - Cont. PPI - Supportive care - Patient seen and examined by Dr. Harrison and myself and this note is written on his behalf. (Milena Jain) Physician Comments Seen and examined with SISAL OPERATOR, no active bleeding. EGD/Colonoscopy planned for tomorrow. Dr. Moser will follow. (Julieth Harrison MD) Milena Jain October 04, 2016 14:32 Julieth Harrison MD October 04, 2016 16:34
[2016-10-04] MEDS ORDERED: PEG (High)/E-LYTE SOLN 4000 ML BTL PO ONE (16:00)
[2016-10-04] MEDS: PRAVASTATIN SOD 80 MG TAB PO SCH (21:39)
[2016-10-04] MEDS: sulfaSALAzine 500 MG TAB PO SCH (21:39)
[2016-10-05] VITALS (10 sets, daily range): BP systolic 107–136; BP diastolic 68–80; PULSE 54–67; RESP 12–14; TEMP 96.6–98.3; O2SAT 96–98
[2016-10-05] MEDS: PANTOPRAZOLE SODIUM 40 MG VIAL IV PUSH SCH
[2016-10-05] MEDS ORDERED: PROPOFOL 200 MG/20 ML AMP IV ONE (12:17)
--- NOTE | 2016-10-05 12:37 | GIPROC ---
[facility] [address] [facility], [address] COLONOSCOPY PROCEDURE REPORT EXAM DATE: 10/05/2016 PATIENT NAME: Yessica Alanis MR #: [id number] BIRTHDATE: 1955 ENDOSCOPIST: Radha Moser MD ORDER #: [id number] COOK MORNING: Mitesh Mullins Hogan, Darren, and Tonia Miller STATUS: inpatient INDICATIONS: The patient is a 61 yr old female here for a colonoscopy due to abdominal pain PROCEDURE PERFORMED: Colonoscopy with polypectomy MEDICATIONS: Per Anesthesia and None. PREP QUALITY: fair PREP TYPE:GoLytely ESTIMATED BLOOD LOSS: None CONSENT: The patient understands the risks and benefits of the procedure and understands that these risks include, but are not limited to: sedation, allergic reaction, infection, perforation and/or bleeding. Alternative means of evaluation and treatment include, among others: physical exam, x-rays, and/or surgical intervention. The patient elects to proceed with this endoscopic procedure. medical equipment was checked for proper function. Hand hygiene and appropriate measures for infection prevention was taken. After the risks, benefits and alternatives of the procedure were thoroughly explained, Informed consent was verified, confirmed and timeout was successfully executed by the treatment team. A digital exam revealed external hemorrhoids The Pentax EC-[id number] endoscope was introduced through the anus and advanced to the cecum, which was identified by both the appendix and ileocecal valve. The instrument was then slowly withdrawn as the colon was fully examined. COLON FINDINGS: Diverticulosis sigmoid,descending polyp sessile in ascending colon-7 mm-cold snare polypectomy with complete removal. Retroflexed views revealed internal hemorrhoids and Retroflexed views revealed small internal hemorrhoids The scope was then completely withdrawn from the patient and the procedure terminated. PROCEDURE WITHDRAWAL TIME:6minutes ADVERSE EVENTS: There were no complications. IMPRESSIONS: 1. Diverticulosis sigmoid,descending polyp sessile in ascending colon-7 mm-cold snare polypectomy with complete removal 2. Retroflexed views revealed internal hemorrhoids 3. Retroflexed views revealed small internal hemorrhoids 4. Revealed external hemorrhoids RECOMMENDATIONS: 1. Await biopsy results. Biopsy results will not be ready for 7-10 days. If you don't hear from us in two weeks, call our office for results. 2. Benefiber 2 tsp daily 3. Probiotics from any [employer] or health food store 4. Yearly rectal exams RECALL: Colonoscopy, pending biopsy results Radha Moser MD eSigned: Radha Moser MD 10/05/2016 12:36 PM cc: PATIENT NAME: Yessica Alanis MR#: [id number]
--- NOTE | 2016-10-05 12:40 | GIPROC ---
[facility] [address] [facility]. [facility], [address] EGD PROCEDURE REPORT EXAM DATE: 10/05/2016 PATIENT NAME: Yessica Alanis MR #: [id number] BIRTHDATE: 1955 ATTENDING: Radha Moser MD ORDER #: [id number] HEAD GREASE MAKER: Mitesh Mullins Hogan, Darren, and Tonia Miller STATUS: inpatient INDICATIONS: The patient is a 61 yr old female here for an EGD due to nausea, vomiting, abdominal pain PROCEDURE PERFORMED: EGD w/ biopsy MEDICATIONS: Per Anesthesia and None. TOPICAL ANESTHETIC: none CONSENT: The patient understands the risks and benefits of the procedure and understands that these risks include, but are not limited to: sedation, allergic reaction, infection, perforation and/or bleeding. Alternative means of evaluation and treatment include, among others: physical exam, x-rays, and/or surgical intervention. The patient elects to proceed with this endoscopic procedure. medical equipment was checked for proper function. Hand hygiene and appropriate measures for infection prevention was taken. After the risks, benefits and alternatives of the procedure were thoroughly explained, Informed consent was verified, confirmed and timeout was successfully executed by the treatment team. The patient was anesthetized with topical anesthesia and the EC-[id number] (Pedi C) endoscope was introduced through the mouth and advanced to the second portion of the duodenum. Retroflexed views revealed a hiatal hernia The gastroscope was then slowly withdrawn and removed. Gastritis antrum-biopsy duodenitis second portion-biopsy esophagitis distal esophagus-biopsy. ADVERSE EVENTS: There were no complications. IMPRESSIONS: 1. Gastritis antrum-biopsy duodenitis second portion-biopsy esophagitis distal esophagus-biopsy 2. Retroflexed views revealed a hiatal hernia RECOMMENDATIONS: 1. Await biopsy results. Biopsy results will not be ready for 7-10 days. If you don't hear from us in two weeks, call our office for biopsy results. 2. Anti-reflux regimen 3. Continue PPI PATIENT CONDITION: stable DISPOSITION: Inpatient REPEAT EXAM: EGD pending biopsy results Radha Moser MD eSigned: Radha Moser MD 10/05/2016 12:39 PM cc: PATIENT NAME: Yessica Alanis MR#: [id number]
[2016-10-05] MEDS ORDERED: DO NOT ADM ANY ANTICOAGULANT DRUGS PRN (12:42)
[2016-10-05] MEDS ORDERED: POTA10CA PO ×2 (14:12→14:13)
--- NOTE | 2016-10-05 14:15 | HHI.DCPOC ---
Discharge Care Plan Diagnosis: (1) Upper GI bleed (2) BRBPR (bright red blood per rectum) (3) RA (rheumatoid arthritis) (4) HTN (hypertension) (5) CAD (coronary artery disease) (6) PAD (peripheral artery disease) (7) Hypokalemia Goals to Promote Your Health - We will recheck a BMP on 10/09/16, with results to her PCP. - Patient is being prescribed an increase her dose of potassium chloride to 10meq twice daily and she will hold the HCTZ at discharge. - Patient will need to keep a log of her BP to provide to her PCP upon followup. - Pt will need to followup with GI in 2 weeks. Call for this appt. - Pt will need to followup with her PCP, Dr. Cowan in 1 week. Call for this appt Directions to Meet Your Goals Take your medications as prescribed Follow your dietary instruction Follow activity as directed Keep your appointments as scheduled Take your immunizations and boosters as scheduled If your symptoms worsen call your PCP, if no PCP go to Urgent Care Center or Emergency Room Smoking is Dangerous to Your Health. Avoid second hand smoke Call the 24-hour hour crisis hotline for domestic abuse at [facility] October 05, 2016 14:15 Pietro Wood DO October 06, 2016 00:27
[2016-10-05] MEDS: CARVEDILOL 12.5 MG TAB PO SCH (14:35)
--- NOTE | 2016-10-05 14:35 | HHI.DS ---
Discharge Summary Admission Date October 02, 2016 at 23:19 Discharge Date: October 05, 2016 Admitting Diagnosis upper gi bleed (1) Upper GI bleed Diagnosis: Principal (2) BRBPR (bright red blood per rectum) Diagnosis: Secondary (3) RA (rheumatoid arthritis) Diagnosis: Secondary (4) HTN (hypertension) Diagnosis: Secondary (5) CAD (coronary artery disease) (6) PAD (peripheral artery disease) Diagnosis: Secondary Consultants Dr. Julieth Harrison/Dr. Radha Moser Procedures EGd/colonoscopy (10/05/16) --> Esophagitis, gastritis, duodenitis, hiatal hernia, diverticulosis in the sigmoid and descending colon, and sessile polyp in ascending colon, and small internal hemorrhoids Brief History Pt is 61 yo with hx of gastric ulcer and RA on plavix. Pt on sulfasalazine and recently added Xeljantz. Says over past 6-9 months saw 3 episodes of bloody stool but yesterday have several episodes of vomiting up to 6 or 7 times with coffee grounds. Some lower abdomen pains. denies motrin/advil/alleve,etc. denies recent etoh intake. Pt says she was seen by [facility] in past and dx with "gastric ulcer". Hgb stable overnight. CBC/BMP: 10/04/16 0413 10/04/16 0413 Significant Findings Laboratory Tests Test 10/02/16 10/02/16 10/02/16 10/03/16 21:15 21:23 22:35 07:03 Monocytes (%) (Auto) 8.3 % (0.0-8.0) 9.4 % (0.0-8.0) Prothrombin Time 11.7 SEC (9.8-11.6) Potassium Level 2.9 MEQ/L 3.1 MEQ/L (3.5-5.1) (3.5-5.1) Estimat Glomerular Filtration 75 ML/MIN (>89) Rate Random Glucose 133 MG/DL 128 MG/DL (74-106) (74-106) Troponin I LESS THAN 0.02 NG/ML (0.02-0.05) Urine Bacteria RARE /hpf (NONE) Urine Mucus FEW /lpf (OCC) Red Blood Count 3.60 MIL/MM3 (4.00-5.30) Chloride Level 108 MEQ/L (98-107) Blood Urea Nitrogen 5 MG/DL (7-18) Calcium Level 8.1 MG/DL (8.5-10.1) Test 10/04/16 04:13 Red Blood Count 3.84 MIL/MM3 (4.00-5.30) Lymphocytes (%) (Auto) 45.3 % (9.0-44.0) Monocytes (%) (Auto) 9.1 % (0.0-8.0) Basophils (%) (Auto) 2.2 % (0.0-2.0) Chloride Level 111 MEQ/L (98-107) Blood Urea Nitrogen 4 MG/DL (7-18) Calcium Level 8.2 MG/DL (8.5-10.1) Imaging Last Impressions Abdomen/Pelvis CT 10/02/16 0000 Signed Impressions: Service Date/Time: Sunday, October 02, 2016 22:10 - CONCLUSION: 1. No obstruction or acute inflammatory changes are demonstrated. 2. Atherosclerotic aorta. No aneurysm. 3. Benign-appearing bilateral renal cysts. Joseph Ledezma MD Hospital Course Pt is 61 y/o female with CAD, PAD, and RA who presented to the ED at [facility] on 10/02 with reported UGIB/coffee ground emesis and BRBPR x 3 episodes over past 6- 9 months. Pt is on ASA and Plavix as an outpt. CT Abd/pelvis on (10/02/16) noted no obstruction or acute inflammatory changes are demonstrated, atherosclerotic aorta, no aneurysm, and benign-appearing bilateral renal cysts. There was a drop in hgb from 14.5 ---> 11.8 following admission. She was also found to have significant hypokalemia at admission. HCTZ was held and potassium was replaced. GI was consulted and pt underwent EGD/colonoscopy on 10/05/16 which noted esophagitis, gastritis, duodenitis, hiatal hernia, diverticulosis in the sigmoid and descending colon, and sessile polyp in ascending colon, and small internal hemorrhoids. Pt did not have any active bleeding during the admission. Pts H/H remained stable. Pt will be continued on her Protonix. The case was discussed with GI, Dr. Moser, prior to discharge and pt was cleared to resume her Plavix upon discharge. We will recheck a BMP on 10/09/16, with results to her PCP. We will increase her dose of KCL to 10meq BID and she will hold the HCTZ at discharge. Pt will need to keep a log of her BP to provide to her PCP upon followup. Pt will need to followup with GI in 2 weeks Pt will need to followup with her PCP, Dr. Cowan in 1 week. Pt Condition on Discharge: Stable Discharge Disposition: Discharge Home Discharge Instructions DIET: Follow Instructions for: Heart Healthy Diet Activities you can perform: Regular-No Restrictions Follow up Referrals: Gastroenterology - 2 Weeks with Radha Moser MD PCP Follow-up - [address] Donis Contreras Changed Medications: Potassium Chloride ER (Potassium Chloride ER) 10 Meq Cap 10 MEQ PO BID Electrolyte Replacement #30 Ref 0 CAP (Changed from: DAILY) Continued Medications: Albuterol 18 GM Inh (Ventolin Hfa 18 GM Inh) 90 Mcg/Act Aer 2 PUFF INH Q4H PRN SHORTNESS OF BREATH #1 Ref 0 INHALER Amitriptyline HCl (Elavil) 25 Mg Tab 25 MG PO HS Amlodipine (Amlodipine) 10 Mg Tab 10 MG PO DAILY Blood Pressure Management #[address] (Aspirin EC) 81 Mg Tabdr 81 MG PO HS Ref 0 TAB Carvedilol (Carvedilol) 25 Mg Tab 25 MG PO BID #60 Ref 0 TAB Clopidogrel (Plavix) 75 Mg Tab 75 MG PO HS Blood Clot Prevention #30 Ref 0 TAB Hydrocodone-Acetaminophen (Hydrocodone-Acetaminophen) 10-325 mg Tab 1 TAB PO Q8HR PRN PAIN Ref 0 TAB Meprobamate (Meprobamate) 400 Mg Tab 400 MG PO TID ANXIETY Ref 0 TAB Pantoprazole (Pantoprazole) 40 Mg Tab 40 MG PO HS Reflux #30 Ref 0 TAB Pregabalin (Lyrica) Unknown Strength Cap Unknown Dose PO BID #60 Ref 0 CAP Simvastatin (Simvastatin) 40 Mg Tab 40 MG PO HS Cholesterol Management #30 Ref 0 TAB Sulfasalazine (Sulfasalazine) 500 Mg Tab 500 MG PO HS #90 Ref 0 TAB Tofacitinib ER (Xeljanz Xr) 11 Mg Tab 11 MG PO HS Arthritis #30 Ref 0 TAB Discontinued Medications: Hydrochlorothiazide (Hydrochlorothiazide) 25 Mg Tab 25 MG PO HS #30 Ref 0 TAB Additional Information Patient examined. Assessment and plan formulated with Nisa Salmon PA-C. I agree with the above. Detail of pt's hospitalization were reviewed with Ms. Alanis and 2 granddaughters at the bedside. I explained in detail the results of her EGD/Colonoscopy. Pt to keep f/u with Dr. Moser. We discussed the pt's blood pressure at length and my decision to stop her HCTZ at this time d/t electrolyte abnormalities. Pt will keep home BP log and f/u with her [facility] PCP, Dr. Cowan, in 1 week. Nisa Salmon October 05, 2016 14:35 Pietro Wood DO October 06, 2016 00:26
== END 2016-10-05 16:27 | disposition home or self-care (01) ==
LOC: NEPE 20:45 → NEDA 23:19 → HCIS 10-03 02:20 → N07B 10-05 06:10
PROVIDERS: ADMIT Hospitalist; ATTEND Hospitalist
PROC: 0DB68ZX Excision of Stomach, Via Natural or Artificial Opening Endoscopic, Diagnostic (ICD-10-PCS; 2016-10-05)
PROC: 0DB38ZX Excision of Lower Esophagus, Via Natural or Artificial Opening Endoscopic, Diagnostic (ICD-10-PCS; 2016-10-05)
PROC: 0DBK8ZX Excision of Ascending Colon, Via Natural or Artificial Opening Endoscopic, Diagnostic (ICD-10-PCS; principal; 2016-10-05 11:29)
PROC: 0DB98ZX Excision of Duodenum, Via Natural or Artificial Opening Endoscopic, Diagnostic (ICD-10-PCS; 2016-10-05 11:29)
DX: D12.2 Benign neoplasm of ascending colon (principal); K29.70 Gastritis, unspecified, without bleeding; K29.80 Duodenitis without bleeding; K57.30 Diverticulosis of large intestine without perforation or abscess without bleeding; K64.8 Other hemorrhoids; K64.4 Residual hemorrhoidal skin tags; M06.9 Rheumatoid arthritis, unspecified; I10 Essential (primary) hypertension; I25.10 Atherosclerotic heart disease of native coronary artery without angina pectoris; I73.9 Peripheral vascular disease, unspecified; K44.9 Diaphragmatic hernia without obstruction or gangrene; R00.0 Tachycardia, unspecified; K21.0 Gastro-esophageal reflux disease with esophagitis; I70.0 Atherosclerosis of aorta; N28.1 Cyst of kidney, acquired; J44.9 Chronic obstructive pulmonary disease, unspecified; E78.00 Pure hypercholesterolemia, unspecified; M79.7 Fibromyalgia; F41.9 Anxiety disorder, unspecified; M41.9 Scoliosis, unspecified; M19.90 Unspecified osteoarthritis, unspecified site; F17.200 Nicotine dependence, unspecified, uncomplicated; E78.5 Hyperlipidemia, unspecified; M54.9 Dorsalgia, unspecified; M54.2 Cervicalgia; Z98.1 Arthrodesis status; Z95.5 Presence of coronary angioplasty implant and graft; Z79.82 Long term (current) use of aspirin; Z79.899 Other long term (current) drug therapy
CPT/HCPCS: 00740; 00810; 43239; 45385; 74177; 80048; 80053; 81001; 83690; 84484; 85025; 85610; 85730; 86850; 86900; 86901; 88305; 88312; 93005; 96361; 96365; 96375; 99285; C9113; G0378; J2270; J2405; J3480; J7030; Q9967

== ENCOUNTER 2017-10-05 17:45 | Inpatient (IN) | payer MEDICARE ==
[~2017-10-05] VITALS: Ht 157.5 cm; Wt 48.2 kg
[~2017-10-05 17:45] MED LIST changes: -1-ME1LIQ PO; +AMIT1TAB79 PO; +AMLO10TA2 PO; +ASPI81TA23 PO; -ASPI81TA82 PO; -CLOP75 PO; +HYDR-3583 PO; -HYDR7.5T32 PO; +LYRI150C PO; -NITR0.2D TD; +PANT40TA3 PO; +PLAV75TA29 PO; +POTA10CA PO; -POTA10IN2 PO; -PROT40TA PO; +SULF500T3 PO; +TOFA1TAB PO; -TRAZ50TA4 PO; -VITA100018 PO; -ZOLP10TA3 PO
[2017-10-05 17:51] VITALS: BP 148/88; PULSE 104; RESP 21; TEMP 98.7; O2SAT 98
[2017-10-05 18:12] VITALS: BP 133/93; PULSE 81; RESP 18; O2SAT 98
[2017-10-05] MEDS ORDERED: AMIT25TA9 PO (18:19)
--- NOTE | 2017-10-05 18:29 | PD ---
HPI Chief Complaint: Respiratory Symptoms Time Seen by Provider: 18:17 Travel History International Travel<30 days: No Contact w/Intl Traveler<30days: No Traveled to known affect area: No History of Present Illness HPI 62-year-old female presents with cough and chest pain since May. She states in May, July and in July she was treated for pneumonia. She states she went to her primary today it did outpatient imaging that was concerning and she was advised to come here. She states that she has not had heart workup for a couple of years. She denies having a current cruise agent. She denies any other concurrent complaints. She denies specific modifying factors. Intermittently and duration since May. PFSH Past Medical History Arthritis: Yes Blood Disorders: No Cancer: No Cardiac Catheterization: Yes (stents placed) Cardiovascular Problems: Yes High Cholesterol: Yes Chemotherapy: No Chest Pain: Yes COPD: Yes Coronary Artery Disease: Yes Endocrine: No Gastrointestinal Disorders: No Genitourinary: Yes (kidney stents) Hiatal Hernia: Yes Hypertension: Yes Immune Disorder: No Implanted Vascular Access Dvce: No Kidney Stones: Yes Musculoskeletal: Yes Neurologic: No Psychiatric: No Reproductive: No Respiratory: Yes Radiation Therapy: No Ulcer: Yes Influenza Vaccination: No ?: Not : 2 Para: 2 Past Surgical History Body Medical Devices: STENTS IN PAST AND PLATE IN NECK Cardiac Surgery: Yes (stent placement) Section: Yes (x2) Coronary Stent: Yes (3) Gynecologic Surgery: Yes () Joint Replacement: Yes Tonsillectomy: Yes Other Surgery: Yes Social History Alcohol Use: Yes (occassional) Tobacco Use: Yes (1/2 PPD) Substance Use: No Allergies-Medications (Allergen,Severity, Reaction): Coded Allergies: terbutaline (Unverified Allergy, Intermediate, 10/05/17) gabapentin (Unverified Allergy, Mild, 10/05/17) Reported Meds & Prescriptions Reported Meds & Active Scripts Active Potassium Chloride ER (Potassium Chloride) 10 Meq Cap 10 Meq PO BID Reported Amitriptyline (Amitriptyline HCl) 25 Mg Tab 25 Mg PO HS Ventolin Hfa 18 GM Inh (Albuterol Sulfate) 90 Mcg/Act Aer 2 Puff INH Q4H PRN Amlodipine (Amlodipine Besylate) 10 Mg Tab 10 Mg PO DAILY Aspirin EC (Aspirin) 81 Mg Tabdr 81 Mg PO HS Carvedilol 25 Mg Tab 25 Mg PO BID Plavix (Clopidogrel Bisulfate) 75 Mg Tab 75 Mg PO HS Hydrocodone-Acetaminophen 10-325 mg Tab 1 Tab PO Q8HR PRN Meprobamate 400 Mg Tab 400 Mg PO TID Pantoprazole (Pantoprazole Sodium) 40 Mg Tab 40 Mg PO HS Simvastatin 40 Mg Tab 40 Mg PO HS Lyrica (Pregabalin) Unknown Strength Cap Unknown Dose PO BID Sulfasalazine 500 Mg Tab 500 Mg PO HS Review of Systems Except as stated in HPI: all other systems reviewed are Neg Physical Exam Narrative GENERAL: 62 y/o female presents in no apparent distress SKIN: Focused skin assessment warm/dry. HEAD: Atraumatic. Normocephalic. EYES: Pupils equal and round. No scleral icterus. No injection or drainage. ENT: No nasal bleeding or discharge. Mucous membranes pink and moist. NECK: Trachea midline. No JVD. CARDIOVASCULAR: Regular rate and rhythm. RESPIRATORY: No accessory muscle use. Clear to auscultation. Breath sounds equal bilaterally. GASTROINTESTINAL: Abdomen soft, non-tender, nondistended. MUSCULOSKELETAL: No obvious deformities. No clubbing. No cyanosis. NEUROLOGICAL: Awake and alert. No obvious cranial nerve deficits. Motor grossly within normal limits. Normal speech. PSYCHIATRIC: Appropriate mood and affect; insight and judgment normal. Data Data Last Documented VS Vital Signs Date Time Temp Pulse Resp B/P (MAP) Pulse Ox O2 Delivery O2 Flow Rate FiO2 10/05/17 18:42 18 98 Room Air 10/05/17 18:12 81 10/05/17 17:51 98.7 Orders Orders Electrocardiogram (10/05/17 18:17) Complete Blood Count With Diff (10/05/17 18:17) Comprehensive Metabolic Panel (10/05/17 18:17) Prothrombin Time / Inr (Pt) (10/05/17 18:17) Act Partial Throm Time (Ptt) (10/05/17 18:17) Lactic Acid Sepsis Protocol (10/05/17 18:17) Magnesium (Mg) (10/05/17 18:17) Phosphorus (Po4) (10/05/17 18:17) Ckmb (Isoenzyme) Profile (10/05/17 18:17) Troponin I (10/05/17 18:17) Influenzae A/B Antigen (10/05/17 18:17) Blood Culture (10/05/17 18:17) Chest, Single Ap (10/05/17 18:17) Blood Glucose (10/05/17 18:17) Ecg Monitoring (10/05/17 18:17) Iv Access Insert/Monitor (10/05/17 18:17) Oximetry (10/05/17 18:17) B-Type Natriuretic Peptide (10/05/17 18:17) Aspirin (Aspirin) (10/05/17 18:30) Albuterol-Ipratropium Neb (Duoneb Neb) (10/05/17 18:30) Ceftriaxone Inj (Rocephin Inj) (10/05/17 18:45) Azithromycin Inj (Zithromax Inj) (10/05/17 18:45) Labs Laboratory Tests Test 10/05/17 18:23 White Blood Count 7.4 TH/MM3 Red Blood Count 4.72 MIL/MM3 Hemoglobin 15.6 GM/DL Hematocrit 44.8 % Mean Corpuscular Volume 94.9 FL Mean Corpuscular Hemoglobin 33.0 PG Mean Corpuscular Hemoglobin Concent 34.8 % Red Cell Distribution Width 14.5 % Platelet Count 315 TH/MM3 Mean Platelet Volume 10.2 FL Neutrophils (%) (Auto) 61.2 % Lymphocytes (%) (Auto) 25.0 % Monocytes (%) (Auto) 7.6 % Eosinophils (%) (Auto) 4.9 % Basophils (%) (Auto) 1.3 % Neutrophils # (Auto) 4.5 TH/MM3 Lymphocytes # (Auto) 1.8 TH/MM3 Monocytes # (Auto) 0.6 TH/MM3 Eosinophils # (Auto) 0.4 TH/MM3 Basophils # (Auto) 0.1 TH/MM3 CBC Comment DIFF FINAL Differential Comment MDM Medical Decision Making Medical Screen Exam Complete: Yes Emergency Medical Condition: Yes Medical Record Reviewed: Yes (pmh confirmed) Interpretation(s) Last 24 hours Impressions Chest X-Ray 10/05/171816 Signed Impressions: Service Date/Time: Thursday, October 05, 2017 18:22 - CONCLUSION: Increased density at the mid lower right lung with volume loss likely related to a combination of consolidation and atelectasis. Joseph Mario MD Differential Diagnosis Pneumonia, CHF, CA, gastritis Narrative Course Will check blood work, chest x-ray, EKG and dose with aspirin And DuoNeb and reevaluate Given x-ray was given Rocephin and azithromycin Physician Communication Physician Communication oncoming physician to follow workup and reevaluate Fany Wilks MD October 05, 2017 18:29
[2017-10-05] MEDS ORDERED: ASPIRIN 325 MG TAB PO ONE (18:30)
[2017-10-05] MEDS ORDERED: RESP: ALBUTEROL 2.5 MG/IPRATROPIUM 0.5 MG NEB (SCH) NEB ONE (18:30)
--- NOTE | 2017-10-05 18:39 | RADRPT ---
EXAM DATE/TIME: 10/05/2017 18:22 [place] COMPARISON: No previous studies available for comparison. INDICATIONS : Cough. Congestion. Possible pneumonia. MEDICAL HISTORY : None. SURGICAL HISTORY : None. ENCOUNTER: Initial ACUITY: 3 days PAIN SCORE: 6/10 LOCATION: Bilateral chest FINDINGS: There is increased density in lower right lung. There is shift of the heart and mediastinal structure s towards the right This is likely secondary to some degree of atelectasis. The left lung is clear. There is anterior cervical fusion plate present. CONCLUSION: Increased density at the mid lower right lung with volume loss likely related to a combination of con solidation and atelectasis. Joseph Mario MD on October 05, 2017 at 18:35 Board Certified Radiologist. This report was verified electronically.
[2017-10-05 18:42] VITALS: RESP 18; O2SAT 98
[2017-10-05] MEDS ORDERED: cefTRIAXone INJ 1,000 MG in SODIUM CHLORIDE 0.9% INJ 100 ML IV ONE (18:45)
[2017-10-05] MEDS ORDERED: AZITHROMYCIN INJ 500 MG in SODIUM CHLOR 0.9% 250 ML INJ 250 ML IV ONE (18:45)
[2017-10-05 19:00] LABS: AUTOMATED NEUTROPHIL # 4.5 TH/MM3 (1.8-7.7); BASOPHIL # 0.1 TH/MM3 (0-0.2); BASOPHIL % 1.3 % (0.0-2.0); EOSINOPHIL # 0.4 TH/MM3 (0-0.4); EOSINOPHIL % 4.9 % (0.0-4.0); HEMATOCRIT 44.8 % (35.0-46.0); HEMOGLOBIN 15.6 GM/DL (11.6-15.3); LYMPHOCYTE # 1.8 TH/MM3 (1.0-4.8); MEAN CELL VOLUME 94.9 FL (80.0-100.0); MEAN CORPUSCULAR HGB CONC 34.8 % (32.0-36.0); MEAN PLATELET VOLUME 10.2 FL (7.0-11.0); MONO % 7.6 % (0.0-8.0); MONOCYTE # 0.6 TH/MM3 (0-0.9); NEUT % 61.2 % (16.0-70.0); PLATELET COUNT 315 TH/MM3 (150-450); RED BLOOD COUNT 4.72 MIL/MM3 (4.00-5.30); RED CELL DISTRIBUTION WIDTH 14.5 % (11.6-17.2); WHITE BLOOD COUNT 7.4 TH/MM3 (4.0-11.0)
[2017-10-05 19:11] LABS: INTERNATIONAL NORMALIZED RATIO 1.1 RATIO; PROTHROMBIN TIME - PATIENT 11.3 SEC (9.8-11.6)
[2017-10-05 19:22] LABS: ALBUMIN 3.8 GM/DL (3.4-5.0); ALT (GPT) 16 U/L (10-53); AST (GOT) 14 U/L (15-37); BICARBONATE 29.1 MEQ/L (21.0-32.0); BLOOD UREA NITROGEN 15 MG/DL (7-18); CALCIUM 9.5 MG/DL (8.5-10.1); CHLORIDE 98 MEQ/L (98-107); CREATININE 0.84 MG/DL (0.50-1.00); GLOMERULAR FILTRATION RATE 68 ML/MIN (>89); GLUCOSE,RANDOM 103 MG/DL (74-106); MAGNESIUM 1.9 MG/DL (1.5-2.5); PHOSPHORUS 3.1 MG/DL (2.5-4.9); SODIUM (NA) 138 MEQ/L (136-145)
[2017-10-05 19:26] LABS: ALKALINE PHOSPHATASE 80 U/L (45-117); TOTAL BILIRUBIN ADULT 0.4 MG/DL (0.2-1.0); TOTAL PROTEIN 7.8 GM/DL (6.4-8.2); TROPONIN I LESS THAN 0.02 NG/ML (0.02-0.05)
[2017-10-05] MEDS ORDERED: POTASSIUM CHLORIDE 20 MEQ CONTROLLED RELEASE TAB PO ONE (19:30)
--- NOTE | 2017-10-05 19:30 | PD ---
Data Data Last Documented VS Vital Signs Date Time Temp Pulse Resp B/P (MAP) Pulse Ox O2 Delivery O2 Flow Rate FiO2 10/05/17 19:05 83 18 98 Room Air 10/05/17 18:42 10/05/17 17:51 98.7 Orders Orders Electrocardiogram (10/05/17 18:17) Complete Blood Count With Diff (10/05/17 18:17) Comprehensive Metabolic Panel (10/05/17 18:17) Prothrombin Time / Inr (Pt) (10/05/17 18:17) Act Partial Throm Time (Ptt) (10/05/17 18:17) Lactic Acid Sepsis Protocol (10/05/17 18:17) Magnesium (Mg) (10/05/17 18:17) Phosphorus (Po4) (10/05/17 18:17) Ckmb (Isoenzyme) Profile (10/05/17 18:17) Troponin I (10/05/17 18:17) Influenzae A/B Antigen (10/05/17 18:17) Blood Culture (10/05/17 18:17) Chest, Single Ap (10/05/17 18:17) Blood Glucose (10/05/17 18:17) Ecg Monitoring (10/05/17 18:17) Iv Access Insert/Monitor (10/05/17 18:17) Oximetry (10/05/17 18:17) B-Type Natriuretic Peptide (10/05/17 18:17) Aspirin (Aspirin) (10/05/17 18:30) Albuterol-Ipratropium Neb (Duoneb Neb) (10/05/17 18:30) Ceftriaxone Inj (Rocephin Inj) (10/05/17 18:45) Azithromycin Inj (Zithromax Inj) (10/05/17 18:45) Potassium Chloride (Kcl) (10/05/17 19:30) Admit Order (Ed Use Only) (10/05/17 20:22) Labs Laboratory Tests Test 10/05/17 18:23 White Blood Count 7.4 TH/MM3 Red Blood Count 4.72 MIL/MM3 Hemoglobin 15.6 GM/DL Hematocrit 44.8 % Mean Corpuscular Volume 94.9 FL Mean Corpuscular Hemoglobin 33.0 PG Mean Corpuscular Hemoglobin Concent 34.8 % Red Cell Distribution Width 14.5 % Platelet Count 315 TH/MM3 Mean Platelet Volume 10.2 FL Neutrophils (%) (Auto) 61.2 % Lymphocytes (%) (Auto) 25.0 % Monocytes (%) (Auto) 7.6 % Eosinophils (%) (Auto) 4.9 % Basophils (%) (Auto) 1.3 % Neutrophils # (Auto) 4.5 TH/MM3 Lymphocytes # (Auto) 1.8 TH/MM3 Monocytes # (Auto) 0.6 TH/MM3 Eosinophils # (Auto) 0.4 TH/MM3 Basophils # (Auto) 0.1 TH/MM3 CBC Comment DIFF FINAL Differential Comment Prothrombin Time 11.3 SEC Prothromb Time International Ratio 1.1 RATIO Activated Partial Thromboplast Time 25.4 SEC Blood Urea Nitrogen 15 MG/DL Creatinine 0.84 MG/DL Random Glucose 103 MG/DL Total Protein 7.8 GM/DL Albumin 3.8 GM/DL Calcium Level 9.5 MG/DL Phosphorus Level 3.1 MG/DL Magnesium Level 1.9 MG/DL Alkaline Phosphatase 80 U/L Aspartate Amino Transf (AST/SGOT) 14 U/L Alanine Aminotransferase (ALT/SGPT) 16 U/L Total Bilirubin 0.4 MG/DL Sodium Level 138 MEQ/L Potassium Level 2.5 MEQ/L Chloride Level 98 MEQ/L Carbon Dioxide Level 29.1 MEQ/L Anion Gap 11 MEQ/L Estimat Glomerular Filtration Rate 68 ML/MIN Lactic Acid Level 1.8 mmol/L Total Creatine Kinase 47 U/L Troponin I LESS THAN 0.02 NG/ML B-Type Natriuretic Peptide 16 PG/ML [facility] Medical Record Reviewed: Yes Supervised Visit with JESSICA: No Narrative Course During the course of the patient's emergency department visit, the patient's history, examination, and differential diagnosis were reviewed with the patient. The patient was placed on a child monitor with oximetry and frequent blood pressure monitoring. The patient had IV access obtained and blood work sent for analysis. The patient's case was checked out to me by Dr. Wilks. Please see her complete history and physical. The patient's case was checked out to me at the conclusion of her shift. The patient had an EKG done on arrival. The patient's EKG shows a sinus rhythm heart rate of 75, QRS duration is 86 ms, QTC 410 ms. The patient has nonspecific ST segment depression, downsloping in lead II, 3, aVF. No acute ST segment elevation. T waves are inverted in V1, V2. The patient was initially provided by Dr. Wilks 1 adult aspirin, Rocephin and Zithromax for pneumonia, and duo nebs were also administered for wheezing. The patient's laboratory studies were reviewed and remarkable for a white count of 7.4, hemoglobin 15.6, platelets 315 with 4.9 eosinophils, CMP is remarkable for potassium of 2.5 which was supplemented orally, GFR of 68, AST 14 , cardiac enzymes within normal limits, BNP 16, lactic acid 1.8, PT PTT within normal limits. The patient's chest x-ray revealed increased density at the mid lower right lung with volume loss likely related to a combination of consolidation and atelectasis. The patient's results were discussed with the patient, including the plan of care. I explained that further testing and/ or monitoring is indicated based on the patient's history, examination, and/ or laboratory findings. Therefore, I recommended admission for additional evaluation. The patient expressed understanding and was agreeable with this plan. The patient was admitted to the hospital in stable condition and sent to a bed under the care of the [facility] service. Physician Communication Physician Communication The patient's case including history, pertinent physical examination findings, and laboratory studies were discussed with Dr. Neff. It was agreed that the patient would be admitted to the [facility] service. Diagnosis Primary Impression: Pneumonia Qualified Codes: J18.1 - Lobar pneumonia, unspecified organism Admitting Information Admitting Physician Requests: Admit Dana Blancas MD October 05, 2017 19:30
--- NOTE | 2017-10-05 20:55 | HHI.HP ---
HPI Service [facility] Hospitalists Primary Care Physician Eric Cowan MD Admission Diagnosis Recurring Pneumonia, failed outpatient management Chief Complaint: Pneumonia, failed outpt tx, sent by PCP Travel History International Travel<30 Days: No Contact w/Intl Traveler <30 Da: No Traveled to Known Affected Are: No History of Present Illness Is a 62-year-old female COPD and chronic tobacco use with noted apparent 3-4 month history of pneumonia presents to the ER under advisement of her primary care physician who she saw her earlier today. Patient presented today for follow-up as well discussed her continuing respiratory symptoms. Repeat chest x -ray revealed worsening right sided consolidation. Given her symptoms and that she had filled at least 3 outpatient antibiotics, her primary care physician recommended she go to the ER for evaluation and possibly pulmonology consult with bronchoscopy. It is noted the patient had a CT scan of the chest done in July 16 of this year revealing consolidative changes and patchy infiltrates in the right middle and lower lobes with scattered noncalcified nodules. There was no clear dominant mass. She appears to have been treated with Levaquin for approximately 2 week course in July of this year and Augmentin as well. It is additionally noted the patient is no longer on Xeljanz or methotrexate or sulfasalazine. She reports that no one else in her household has any respiratory symptoms but she has had a cough for the last 4 months or so. The cough is generally productive of a white phlegm. There has been no foreign travel but patient does have 2 parents in her home that are approximately 18 years old each. They do not live in her immediate dwelling spaces but are typically in the [facility] or "[place] room". Patient denies any hemoptysis. Review of her outpatient records reveals that she has lost about 8 pounds since May. Patient reports she actually lost more than that but is regaining some of her appetite over the last week and has been eating better. Review of Systems Constitutional: COMPLAINS OF: Fatigue, Weight loss, Chills, Change in appetite , DENIES: Diaphoretic episodes, Fever, Weight gain, Dizziness, Night Sweats Eyes: DENIES: Blurred vision, Diplopia, Eye inflammation, Eye pain, Vision loss , Photosensitivity, Double Vision Ears, nose, mouth, throat: DENIES: Tinnitus, Hearing loss, Vertigo, Nasal discharge, Oral lesions, Throat pain, Hoarseness, Ear Pain, Running Nose, Epistaxis, Sinus Pain, Toothache, Odynophagia Respiratory: COMPLAINS OF: Cough, Wheezing, Sputum production, Shortness of breath, DENIES: Apneas, Snoring, Hemoptysis Cardiovascular: COMPLAINS OF: Chest pain, Dyspnea on Exertion, DENIES: Palpitations, Syncope, PND, Lower Extremity Edema, Orthopnea, Claudication Gastrointestinal: DENIES: Abdominal pain, Black stools, Bloody stools, BRB per rectum, Constipation, Diarrhea, GERD, Nausea, Reflux, Vomiting, Difficulty Swallowing, Anorexia, See HPI Musculoskeletal: COMPLAINS OF: Joint pain, Joint Swelling, Back pain, Neck pain Hematologic/lymphatic: COMPLAINS OF: Bruising, DENIES: Lymphadenopathy Immunologic/allergic: DENIES: Eczema, Urticaria Neurologic: DENIES: Abnormal gait, Headache, Localized weakness, Paresthesias, Seizures, Speech Problems, Tremor, Poor Balance Psychiatric: COMPLAINS OF: Anxiety Past Family Social History Past Medical History Aortic ectasia Atherosclerosis of aorta Coronary artery disease COPD 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 GERD Hypertension Hyperlipidemia Inflammatory polyarthritis Irritable bowel syndrome Major depressive disorder Peripheral vascular disease PTSD Rheumatoid arthritis Vitamin D deficiency Persistent pneumonia since July 2017 Past Surgical History Coronary artery bypass grafting 2 Exploratory laparotomy C4, C5 cervical fusion in 2006 [employer]OL[employer] of iliac artery on the left 2007 Tonsillectomy and adenoidectomy Reported Medications Potassium Chloride ER (Potassium Chloride) 10 Meq Cap 10 Meq PO BID Amitriptyline (Amitriptyline HCl) 25 Mg Tab 25 Mg PO HS Ventolin Hfa 18 GM Inh (Albuterol Sulfate) 90 Mcg/Act Aer 2 Puff INH Q4H PRN Amlodipine (Amlodipine Besylate) 10 Mg Tab 10 Mg PO DAILY Aspirin EC (Aspirin) 81 Mg Tabdr 81 Mg PO HS Carvedilol 25 Mg Tab 25 Mg PO BID Plavix (Clopidogrel Bisulfate) 75 Mg Tab 75 Mg PO HS Hydrocodone-Acetaminophen 10-325 mg Tab 1 Tab PO Q8HR PRN Hydrochlorothiazide 25 mg p.o. daily Meprobamate 400 Mg Tab 400 Mg PO TID Omeprazole 20 mg p.o. daily Simvastatin 40 Mg Tab 40 Mg PO HS Lyrica (Pregabalin) 100 mg p.o. nightly Nitro-Dur patch 0.2 mg/h 1 patch daily for 12 hours Allergies: Coded Allergies: terbutaline (Unverified Allergy, Intermediate, 5/8/18) gabapentin (Unverified Allergy, Mild, 10/05/17) Family History Son has von Willebrand disease and peptic ulcer disease Also noted coronary artery disease, hypertension as well as breast and colon cancer in the family Social History Patient has been on disability for several years due to cervical spine issues Lives with her son, granddaughter and the granddaughter's mother Has been smoking about 5 cigarettes a day the last couple of months she has been ill, but prior to that smoked 1 pack per day for over 40 years She occasionally drank alcohol in the past but has not had any alcohol in over 6 months Denies illicit drug use but has used cannabis in the past Physical Exam Vital Signs Vital Signs Date Time Temp Pulse Resp B/P (MAP) Pulse Ox O2 Delivery O2 Flow Rate FiO2 10/05/17 19:05 83 18 98 Room Air 10/05/17 18:42 18 98 Room Air 10/05/17 18:12 81 18 133/93 (106) 98 Room Air 10/05/17 17:51 98.7 104 21 148/88 (108) 98 Physical Exam GENERAL: This is a well-nourished, thin, well-developed patient, in no apparent distress. Alert and oriented. SKIN: Few areas of ecchymosis on forearms. Cool and dry. HEAD: Atraumatic. Normocephalic. No temporal or scalp tenderness. EYES: Pupils equal round and reactive. Extraocular motions intact. No scleral icterus. No injection or drainage. ENT: Nose without bleeding, purulent drainage or septal hematoma. Airway patent. NECK: Trachea midline. No JVD or lymphadenopathy. Supple, nontender, no meningeal signs. CARDIOVASCULAR: Regular rate and rhythm without murmurs, gallops, or rubs. RESPIRATORY: Coarse breath sound in bases with reduced breath sounds on the right and increased transmitted breath sounds. Expiratory wheeze bilaterally. Fair air movement. GASTROINTESTINAL: Abdomen soft, non-tender, nondistended. No hepato-splenomegaly , or palpable masses. No guarding. No bruit. MUSCULOSKELETAL: Extremities without clubbing, cyanosis, or edema. No joint tenderness, effusion, or edema noted. No calf tenderness. NEUROLOGICAL: Awake and alert. Cranial nerves II through XII intact. Motor and sensory grossly within normal limits. Five out of 5 muscle strength in all muscle groups. Normal speech. Laboratory Laboratory Tests Test 5/8/18 18:23 White Blood Count 7.4 Red Blood Count 4.72 Hemoglobin 15.6 Hematocrit 44.8 Mean Corpuscular Volume 94.9 Mean Corpuscular Hemoglobin 33.0 Mean Corpuscular Hemoglobin Concent 34.8 Red Cell Distribution Width 14.5 Platelet Count 315 Mean Platelet Volume 10.2 Neutrophils (%) (Auto) 61.2 Lymphocytes (%) (Auto) 25.0 Monocytes (%) (Auto) 7.6 Eosinophils (%) (Auto) 4.9 Basophils (%) (Auto) 1.3 Neutrophils # (Auto) 4.5 Lymphocytes # (Auto) 1.8 Monocytes # (Auto) 0.6 Eosinophils # (Auto) 0.4 Basophils # (Auto) 0.1 CBC Comment DIFF FINAL Differential Comment Prothrombin Time 11.3 Prothromb Time International Ratio 1.1 Activated Partial Thromboplast Time 25.4 Blood Urea Nitrogen 15 Creatinine 0.84 Random Glucose 103 Total Protein 7.8 Albumin 3.8 Calcium Level 9.5 Phosphorus Level 3.1 Magnesium Level 1.9 Alkaline Phosphatase 80 Aspartate Amino Transf (AST/SGOT) 14 Alanine Aminotransferase (ALT/SGPT) 16 Total Bilirubin 0.4 Sodium Level 138 Potassium Level 2.5 Chloride Level 98 Carbon Dioxide Level 29.1 Anion Gap 11 Estimat Glomerular Filtration Rate 68 Lactic Acid Level 1.8 Total Creatine Kinase 47 Troponin I LESS THAN 0.02 B-Type Natriuretic Peptide 16 Date/Time Source Procedure Growth Status 10/05/17 18:38 Blood Peripheral Aerobic Blood Culture Pending Received 10/05/17 18:38 Blood Peripheral Anaerobic Blood Culture Pending Received 10/05/17 18:34 Nasal Aspirate Influenza Types A,B Antigen (MIRELLA) Pending Received Result Diagram: 10/05/17 18210/05/17 1823 Imaging Last 72 hours Impressions Chest X-Ray 10/05/171816 Signed Impressions: Service Date/Time: Thursday, October 05, 2017 18:22 - CONCLUSION: Increased density at the mid lower right lung with volume loss likely related to a combination of consolidation and atelectasis. MD William Ratliffi VTE Risk Assessment Caprini VTE Risk Assessment: Mod/High Risk (score >= 2) Caprini Risk Assessment Model Point Value = 1 Point Value = 2 Point Value = 3 Point Value = 5 Age 41-60 Minor surgery BMI > 25 kg/m2 Swollen legs Varicose veins or History of unexplained or recurrent spontaneous Oral contraceptives or hormone replacement Sepsis (< 1 month) Serious lung disease, including pneumonia (< 1 month) Abnormal pulmonary function Acute myocardial infarction Congestive heart failure (< 1 month) History of inflammatory bowel disease Medical patient at bed rest Age 61-74 Arthroscopic surgery Major open surgery (> 45 min) Laparoscopic surgery (> 45 min) Malignancy Confined to bed (> 72 hours) Immobilizing plaster cast Central venous access Age >= 75 History of VTE Family history of VTE Factor V Leiden Prothrombin [id number] Lupus anticoagulant Anticardiolipin antibodies Elevated serum homocysteine Heparin-induced thrombocytopenia Other congenital or acquired thrombophilia Stroke (< 1 month) Elective arthroplasty Hip, pelvis, or leg fracture Acute spinal cord injury (< 1 month) Prophylaxis Regimen Total Risk Factor Score Risk Level Prophylaxis Regimen 0-1 Low Early ambulation 2 Moderate Order ONE of the following: *Sequential Compression Device (SCD) *Heparin 5000 units SQ BID 3-4 Higher Order ONE of the following medications: *Heparin 5000 units SQ TID *Enoxaparin/Lovenox 40 mg SQ daily (WT < 150 kg, CrCl > 30 mL/min) *Enoxaparin/Lovenox 30 mg SQ daily (WT < 150 kg, CrCl > 10-29 mL/min) *Enoxaparin/Lovenox 30 mg SQ BID (WT < 150 kg, CrCl > 30 mL/min) AND/OR *Sequential Compression Device (SCD) 5 or more Highest Order ONE of the following medications: *Heparin 5000 units SQ TID (Preferred with Epidurals) *Enoxaparin/Lovenox 40 mg SQ daily (WT < 150 kg, CrCl > 30 mL/min) *Enoxaparin/Lovenox 30 mg SQ daily (WT < 150 kg, CrCl > 10-29 mL/min) *Enoxaparin/Lovenox 30 mg SQ BID (WT < 150 kg, CrCl > 30 mL/min) AND *Sequential Compression Device (SCD) Assessment and Plan Problem List: (1) Pneumonia ICD Codes: J18.9 - Pneumonia, unspecified organism Status: Chronic Plan: Recurring issue. Patient does not appear toxic. Will provide antibiotics that will cover atypical infections as well. We will have pulmonology see the patient given duration of symptoms and persistent consolidation of the lung field. Repeat CT scan. (2) CAD (coronary artery disease) ICD Codes: I25.10 - Atherosclerotic heart disease of [place] coronary artery without angina pectoris Status: Chronic Plan: Appears relatively stable. She does have some sharp pains at times associated with her chronic coughing but no dull aching or pressure-like pain. (3) HTN (hypertension) ICD Codes: I10 - Essential (primary) hypertension Status: Chronic Plan: Continue medication as blood pressure allows. (4) RA (rheumatoid arthritis) ICD Codes: M06.9 - Rheumatoid arthritis, unspecified Status: Chronic (5) Hypokalemia ICD Codes: E87.6 - Hypokalemia Status: Acute Plan: Replace and recheck. Code Status Full Discussed Condition With Patient and ER provider Physician Certification 2 Midnight Certification Type: Admission for Inpatient Services Order for Inpatient Services The services are ordered in accordance with Medicare regulations or non- Medicare payer requirements, as applicable. In the case of services not specified as inpatient-only, they are appropriately provided as inpatient services in accordance with the 2-midnight benchmark. Estimated LOS (days): 3 days is the estimated time the patient will need to remain in the hospital, assuming treatment plan goals are met and no additional complications. Post-Hospital Plan: Home Problem Qualifiers (1) Pneumonia: (2) CAD (coronary artery disease): (3) HTN (hypertension): Qualified Codes: I10 - Essential (primary) hypertension Dallas Neff MD PhD October 05, 2017 20:55
[2017-10-05] MEDS: AMITRIPTYLINE HCL 25 MG TAB PO SCH (21:00)
[2017-10-05] MEDS ORDERED: SODIUM CHLORIDE 0.9% FLUSH 10 ML FLUSH IV FLUSH PRN (21:00)
[2017-10-05] MEDS ORDERED: methylPREDNISolone SOD SUCC 40 MG/1 ML VIAL IV PUSH ONE (21:00)
[2017-10-05] MEDS ORDERED: RESP: ALBUTEROL 2.5 MG/IPRATROPIUM 0.5 MG NEB (PRN) INH (21:00)
[2017-10-05 21:52] VITALS: BP 110/88; PULSE 74; RESP 20; TEMP 98; O2SAT 94
--- NOTE | 2017-10-05 22:18 | RADRPT ---
EXAM DATE/TIME: 10/05/2017 21:28 [place] COMPARISON: No previous studies available for comparison. INDICATIONS : Persistent pneumonia; weight loss. RADIATION DOSE: 5.06 CTDIvol (mGy) MEDICAL HISTORY : Chronic obstructive pulmonary disease. Cardiovascular disease Hypertension. Renal calculi SURGICAL HISTORY : Carotid stent. Ureteral stents, cervical fusion ENCOUNTER: Initial ACUITY: 1 month PAIN SCALE: 3/10 LOCATION: chest TECHNIQUE: Volumetric scanning of the chest was performed. Using automated exposure control and adjustment of t he mA and/or kV according to patient size, radiation dose was kept as low as reasonably achievable to obtain optimal diagnostic quality images. DICOM format image data is available electronically for r eview and comparison. Follow-up recommendations for detected pulmonary nodules are based at a minimum on nodule size and pa tient risk factors according to Fleischner Society Guidelines. FINDINGS: LUNGS: There is consolidation seen in the right perihilar region extending to the right middle and lower lob es. There appears to be nodular disease throughout the remaining aspect of the right lung likely rela catarina to post obstructive change. There is volume loss with shift of the heart and mediastinal structur es to the right. There are several small nodules seen in the left lung measuring no more than 6 mm. T hese are nonspecific. PLEURAE: There is no pleural thickening or pleural effusion. MEDIASTINUM: Again noted is the soft tissue density in the right hilar region. Significant mediastinal adenopathy is not seen. Coronary artery pulsations are present. AXILLAE: Within normal limits. No lymphadenopathy. MUSCULOSKELETAL: Within normal limits for patient age. There is anterior cervical fusion plate present. MISCELLANEOUS: The visualized upper abdominal organs demonstrate no acute abnormality. CONCLUSION: 1. Increased density in the right perihilar region extending into the right lower and right middle lo be. There is some volume loss with shift of the heart and mediastinal structures towards the right. A central area of inflammatory change and pneumonia versus a central neoplasm could have this appearan ce. There appears to be post obstructive change throughout the rest of the right lung. A central neop lasm thought to be more likely given the appearance. 2. Multiple small pulmonary nodules seen in the left. Metastatic lesions or granulomas could have thi s appearance. Joseph Mario MD on October 05, 2017 at 22:11 Board Certified Radiologist. This report was verified electronically.
[2017-10-05] MEDS: PRAVASTATIN SOD 80 MG TAB PO SCH (22:56)
[2017-10-05] MEDS: SODIUM CHLORIDE 0.9% FLUSH 10 ML FLUSH IV FLUSH SCH (22:57)
[2017-10-05] MEDS: CARVEDILOL 12.5 MG TAB PO SCH (22:57)
[2017-10-05] MEDS: ACETAMINOPHEN/HYDROcodone 325 MG/10 MG TAB PO PRN (22:58)
[2017-10-06] VITALS (7 sets, daily range): BP systolic 98–119; BP diastolic 71–88; PULSE 69–79; RESP 16–20; TEMP 97.6–98.4; O2SAT 94–99
[2017-10-06] MEDS ORDERED: POTASSIUM CHLORIDE 20 MEQ CONTROLLED RELEASE TAB PO ONE (03:00)
[2017-10-06] MEDS: POTASSIUM CHLORIDE 10 MEQ CONTROLLED RELEASE TAB PO SCH ×2 (04:58→08:46)
[2017-10-06] MEDS ORDERED: NICOTINE 14 MG/24 HR PATCH T-DERMAL ONE (05:00)
[2017-10-06] MEDS ORDERED: guaiFENesin/CODEINE SYRUP 200 MG/20 MG/10 ML CUP PO ONE (05:00)
[2017-10-06] MEDS: SODIUM CHLORIDE 0.9% FLUSH 10 ML FLUSH IV FLUSH SCH ×2 (07:41→22:04)
[2017-10-06 08:01] LABS: BICARBONATE 25.7 MEQ/L (21.0-32.0); CREATININE 0.6 MG/DL (0.50-1.00)
[2017-10-06] MEDS: CARVEDILOL 12.5 MG TAB PO SCH ×3 (08:46→22:03)
[2017-10-06] MEDS: ASPIRIN EC 325 MG TABEC PO SCH (08:46)
[2017-10-06] MEDS: ACETAMINOPHEN/HYDROcodone 325 MG/10 MG TAB PO PRN (08:48)
[2017-10-06] MEDS ORDERED: MEPROBAMATE 400 MG PO SCH (09:00)
--- NOTE | 2017-10-06 09:23 | EKG ---
Date Performed: 10/05/2017 Time Performed: 18:10:31 PTAGE: 62 years EKG: Sinus rhythm MODERATE ST DEPRESSION ABNORMAL ECG PREVIOUS TRACING : 10/02/2016 23.24 DOCTOR: Andrew Caro Interpretating Date/Time 10/06/2017 09:16:51
--- NOTE | 2017-10-06 09:48 | HHI.PR ---
Subjective Remarks Patient reports feeling, "ok." No new complaints feels about the same as yesterday Objective Vitals Vital Signs Date Time Temp Pulse Resp B/P (MAP) Pulse Ox O2 Delivery O2 Flow Rate FiO2 10/06/17 04:00 97.6 77 19 111/72 (85) 94 10/06/17 00:00 98.4 79 17 119/88 (98) 99 10/05/17 21:52 98.0 74 20 110/88 (95) 94 10/05/17 19:05 83 18 98 Room Air 10/05/17 18:42 18 98 Room Air 10/05/17 18:12 81 18 133/93 (106) 98 Room Air 10/05/17 17:51 98.7 104 21 148/88 (108) 98 Result Diagram: 10/05/17 1823 10/06/17 0535 Other Results Laboratory Tests Test 10/05/17 18:23 10/06/17 01:06 10/06/17 05:35 White Blood Count 7.4 TH/MM3 Red Blood Count 4.72 MIL/MM3 Hemoglobin 15.6 GM/DL Hematocrit 44.8 % Mean Corpuscular Volume 94.9 FL Mean Corpuscular Hemoglobin 33.0 PG Mean Corpuscular Hemoglobin Concent 34.8 % Red Cell Distribution Width 14.5 % Platelet Count 315 TH/MM3 Mean Platelet Volume 10.2 FL Neutrophils (%) (Auto) 61.2 % Lymphocytes (%) (Auto) 25.0 % Monocytes (%) (Auto) 7.6 % Eosinophils (%) (Auto) 4.9 % Basophils (%) (Auto) 1.3 % Neutrophils # (Auto) 4.5 TH/MM3 Lymphocytes # (Auto) 1.8 TH/MM3 Monocytes # (Auto) 0.6 TH/MM3 Eosinophils # (Auto) 0.4 TH/MM3 Basophils # (Auto) 0.1 TH/MM3 CBC Comment DIFF FINAL Differential Comment Prothrombin Time 11.3 SEC Prothromb Time International Ratio 1.1 RATIO Activated Partial Thromboplast Time 25.4 SEC Blood Urea Nitrogen 15 MG/DL 12 MG/DL Creatinine 0.84 MG/DL 0.60 MG/DL Random Glucose 103 MG/DL 97 MG/DL Total Protein 7.8 GM/DL Albumin 3.8 GM/DL Calcium Level 9.5 MG/DL 9.0 MG/DL Phosphorus Level 3.1 MG/DL Magnesium Level 1.9 MG/DL Alkaline Phosphatase 80 U/L Aspartate Amino Transf (AST/SGOT) 14 U/L Alanine Aminotransferase (ALT/SGPT) 16 U/L Total Bilirubin 0.4 MG/DL Sodium Level 138 MEQ/L 142 MEQ/L Potassium Level 2.5 MEQ/L 2.8 MEQ/L 3.9 MEQ/L Chloride Level 98 MEQ/L 107 MEQ/L Carbon Dioxide Level 29.1 MEQ/L 25.7 MEQ/L Anion Gap 11 MEQ/L 9 MEQ/L Estimat Glomerular Filtration Rate 68 ML/MIN 101 ML/MIN Lactic Acid Level 1.8 mmol/L Total Creatine Kinase 47 U/L Troponin I LESS THAN 0.02 NG/ML B-Type Natriuretic Peptide 16 PG/ML Imaging Last 72 hours Impressions Chest X-Ray 10/05/171816 Signed Impressions: Service Date/Time: Thursday, October 05, 2017 18:22 - CONCLUSION: Increased density at the mid lower right lung with volume loss likely related to a combination of consolidation and atelectasis. Joseph Mario MD Objective Remarks GENERAL: This is a thin, well-developed patient, in no apparent distress. CARDIOVASCULAR: Regular rate and rhythm without murmurs, gallops, or rubs. RESPIRATORY: decreased entire R lung field particularly in the right upper lobe. Clear on the left GASTROINTESTINAL: Abdomen soft, non-tender, nondistended. Normal active bowel sounds MUSCULOSKELETAL: Extremities without clubbing, cyanosis, or edema. NEURO: Alert & Oriented x4 to person, place, time, situation. Moves all ext x4 A/P Problem List: (1) Pneumonia ICD Codes: J18.9 - Pneumonia, unspecified organism Status: Chronic Plan: This is a 62-year-old female COPD and chronic tobacco Outpatient CT scan of the chest done in July 16 of this year revealed consolidative changes and patchy infiltrates in the right middle and lower lobes with scattered noncalcified nodules. There was no clear dominant mass. She appears to have been treated with Levaquin for approximately 2 week course in July of this year and Augmentin as well. She reports that no one else in her household has any respiratory symptoms but she has had a cough for the last 4 months or so. The cough is generally productive of a white phlegm. There has been no foreign travel but patient does have 2 parrots in her home that are approximately 18 years old each. They do not live in her immediate dwelling spaces but are typically in the [facility] or "[place] room". Patient denies any hemoptysis. Review of her outpatient records reveals that she has lost about 8 pounds since May. Patient reports she actually lost more than that but is regaining some of her appetite over the last week and has been eating better. Recurring issue. Patient does not appear toxic. Continue Rocephin and Azithromycin consult placed to pulmonology awaiting further recommendations, patient may need bronchoscopy with bx given her recurrent/continued symptoms Repeat CT scan (10/05):Increased density in the right perihilar region extending into the right lower and right middle lobe. There is some volume loss with shift of the heart and mediastinal structures toward the right. A central area of inflammatory change and pneumonia versus a central neoplasm could have this appearance. There appears to be postobstructive change throughout the rest of the right lung. A central neoplasm thought to be more likely given the appearance. Multiple small pulmonary nodules are seen in the left. Mediastinal lesions or granulomatous could have this appearance. Dr. Wood reviewed images with patient discussed possible dx and answered patient's questions. Offered to call patient's family patient said that was not necessary. Patient's Plavix has been placed on hold for possible bronchoscopy with biopsy (2) CAD (coronary artery disease) ICD Codes: I25.10 - Atherosclerotic heart disease of [place] coronary artery without angina pectoris Status: Chronic Plan: Appears relatively stable. She does have some sharp pains at times associated with her chronic coughing but no dull aching or pressure-like pain. (3) HTN (hypertension) ICD Codes: I10 - Essential (primary) hypertension Status: Chronic Plan: Continue home amlodipine 10 mg p.o. daily and carvedilol 25 mg p.o. twice daily as blood pressure allows. (4) RA (rheumatoid arthritis) ICD Codes: M06.9 - Rheumatoid arthritis, unspecified Status: Chronic (5) Hypokalemia ICD Codes: E87.6 - Hypokalemia Status: Acute Plan: Potassium on admission 2.5 replaced now (10/06) 3.9 Magnesium 1.9 Assessment and Plan Patient examined. Assessment and plan formulated with Yelena Arteaga PA-C. I agree with the above. bronchoscopy in AM Problem Qualifiers (1) Pneumonia: (2) CAD (coronary artery disease): (3) HTN (hypertension): Qualified Codes: I10 - Essential (primary) hypertension Yelena Arteaga October 06, 2017 09:47 Pietro Wood DO October 08, 2017 06:49
[2017-10-06] MEDS ORDERED: REMOVE OLD NICODERM (NICOTINE) PATCH T-DERMAL ONE (13:15)
[2017-10-06] MEDS: NICOTINE 21 MG/24 HR PATCH T-DERMAL SCH (13:22)
[2017-10-06] MEDS: guaiFENesin/CODEINE SYRUP 200 MG/20 MG/10 ML CUP PO PRN ×2 (13:22→22:04)
[2017-10-06] MEDS ORDERED: DEXT 5%-NACL 0.45% 1000 ML INJ 1,000 ML IV SCH (16:12)
[2017-10-06] MEDS ORDERED: RESP: LIDOCAINE HCL 4% PF 5 ML NEB NEB SCH (16:15)
--- NOTE | 2017-10-06 16:38 | MB ---
cc: Gabrielle Anthony MD DATE: 10/06/2017 REASON FOR CONSULTATION: Pneumonia. Question underlying malignancy. HISTORY OF PRESENT ILLNESS: Ms. Alanis is a 62-year-old female with a known history of COPD who has history of pneumonia for about 3 [address] A previous [address] scan of the chest in July revealed the consolidative changes and infiltrate in the right middle and lower lobes. The patient's symptomatology persists. She has a persistent cough, expectoration of small amount of whitish sputum. She did lose about 8 pounds in the last 2-3 months. Denies history of fever, chills or hemoptysis. No history of TB or previous industrial exposure. PAST MEDICAL HISTORY: COPD, hypertension, hyperlipidemia, coronary artery disease, polyarthritis, irritable bowel syndrome, mood disorder namely depression, peripheral vascular disease, posttraumatic stress disorder, rheumatoid arthritis and acid reflux. PAST SURGICAL HISTORY: coronary artery bypass graft surgery in the past, T and A as a child, [employer] of the left iliac artery in 2006, C-spine fusion in 2006. MEDICATIONS AT HOME: 1. Amitriptyline. 2. Albuterol inhaler. 3. Amlodipine. 4. Carvedilol. 5. Aspirin. 6. Plavix. 7. Hydrocodone/acetaminophen. 8. Meprobamate 9. Omeprazole. 10. Simvastatin. 11. Lyrica. 12. Nitro-Dur. ALLERGIES: TERBUTALINE, GABAPENTIN. FAMILY HISTORY: Positive for von Willebrand disease, peptic ulcer disease, coronary artery disease, hypertension, and breast and colon cancer. SOCIAL HISTORY: Disabled due to cervical arthritis, long heavy smoking history, now down to 5 cigarettes a day. She has a [id number] history. She used to drink but not at present. Does not use drugs. REVIEW OF SYSTEMS: A 12-point review of systems is as per HPI and past history, otherwise negative. PHYSICAL EXAMINATION: GENERAL: The patient is alert. VITAL SIGNS: Temperature 98.5, pulse 90, respiration 18, blood pressure 130/86, oxygen saturation 98% on room air. HEENT: Exam unremarkable. Eyes without icterus. NECK: Without adenopathy or thyroid enlargement. Central trachea. CHEST: A few scattered rhonchi on the right. HEART: PMI distant. S1, S2 audible. No murmur, no rub. ABDOMEN: Lax Bowel sounds are audible. EXTREMITIES: No clubbing, cyanosis or edema. LABORATORY DATA: White count 7000, hemoglobin 15, hematocrit 44, platelets 315,000. Sodium 138, potassium 2.5, BUN 15, creatinine 0.8. IMAGING STUDIES: CT scan of the chest with right perihilar infiltrate or mass extending to the right middle and lower lobes with volume loss with question of endobronchial obstruction. Multiple nodularities in the left lung are noted as well, significance unclear. IMPRESSION: 1. Persistent pneumonia, rule out underlying malignancy. 2. Chronic obstructive pulmonary disease. 3. Coronary artery disease. 4. Hypertension. 5. Hyperlipidemia. 6. Acid reflux disease. 7. Rheumatoid arthritis. PLAN: The patient is admitted to the hospital. She will obviously require bronchoscopic examination to rule out the possibility of endobronchial obstruction and postobstructive pneumonia. Antibiotic therapy on an empiric basis would be appropriate; however, the patient has received multiple antibiotic courses previously without response and actually with worsening above. Above has been discussed with the patient in full detail and she is agreeable to proceed. I do thank you for asking me to partake in Mrs. Alanis's care. Gabrielle Anthony MD WWW/LONI , 04:10 PM , 04:37 PM
[2017-10-06 17:37] LABS: INTERNATIONAL NORMALIZED RATIO 1.1 RATIO; PROTHROMBIN TIME - PATIENT 11.4 SEC (9.8-11.6)
[2017-10-06] MEDS ORDERED: REMOVE OLD PATCH T-DERMAL ONE (21:00)
[2017-10-06] MEDS: REMOVE OLD PATCH T-DERMAL SCH (21:00)
[2017-10-06] MEDS: AMITRIPTYLINE HCL 25 MG TAB PO SCH (22:02)
[2017-10-06] MEDS: cefTRIAXone INJ 1,000 MG in SODIUM CHLORIDE 0.9% INJ 100 ML IV SCH (22:02)
[2017-10-06] MEDS: PRAVASTATIN SOD 80 MG TAB PO SCH (22:02)
[2017-10-06] MEDS: AZITHROMYCIN INJ 500 MG in SODIUM CHLOR 0.9% 250 ML INJ 250 ML IV SCH (22:03)
[2017-10-06] MEDS ORDERED: ONDANSETRON ODT 4 MG TAB PO PRN (23:30)
[2017-10-07] VITALS (10 sets, daily range): BP systolic 96–121; BP diastolic 61–80; PULSE 63–87; RESP 16–20; TEMP 97.5–98.3; O2SAT 93–97
[2017-10-07] MEDS: PANTOPRAZOLE SOD 40 MG DELAYED RELEASE TAB PO SCH ×2 (00:05→09:12)
[2017-10-07] MEDS ORDERED: POVIDONE IODINE 5% (ANTISEPSIS KIT) 4 APPLICATIONS EACH NARE PRN (06:15)
[2017-10-07] MEDS ORDERED: SODIUM CHLORID 0.9% 500 ML IV PRN (06:15)
[2017-10-07] MEDS ORDERED: CHLORHEXIDINE GLUCONATE 2 % 1 PACK (2 CLOTHS) TOPICAL PRN (06:15)
[2017-10-07] MEDS ORDERED: LACTATED RINGER'S 1000 ML IV PRN (06:15)
[2017-10-07] MEDS: ASPIRIN EC 325 MG TABEC PO SCH (09:00)
[2017-10-07] MEDS ORDERED: REMOVE OLD PATCH T-DERMAL SCH (09:00)
[2017-10-07] MEDS: CARVEDILOL 12.5 MG TAB PO SCH (09:00)
[2017-10-07] MEDS: NICOTINE 21 MG/24 HR PATCH T-DERMAL SCH (09:12)
[2017-10-07] MEDS: SODIUM CHLORIDE 0.9% FLUSH 10 ML FLUSH IV FLUSH SCH ×2 (09:14→21:35)
--- NOTE | 2017-10-07 11:23 | HHI.PR ---
Subjective Remarks reports breathing is, "okay." occasional coughing spells, cough better with Robitussin AC plan for bronchoscopy 3pm today Objective Vitals Vital Signs Date Time Temp Pulse Resp B/P (MAP) Pulse Ox O2 Delivery O2 Flow Rate FiO2 10/07/17 08:21 94 21 10/07/17 08:00 98.1 81 18 99/69 (79) 97 10/07/17 04:00 98.0 70 20 106/61 (76) 94 10/07/17 00:00 97.5 83 18 109/62 (78) 96 10/06/17 20:00 98.0 76 16 99/76 (84) 98 10/06/17 17:49 98 21 10/06/17 16:00 98.2 78 20 98/71 (80) 96 10/06/17 12:00 97.8 74 20 100/73 (82) 98 Result Diagram: 10/05/17 1823 10/06/17 0535 Other Results Laboratory Tests Test 10/05/17 18:23 10/06/17 01:06 10/06/17 05:35 10/06/17 17:06 White Blood Count 7.4 TH/MM3 Red Blood Count 4.72 MIL/MM3 Hemoglobin 15.6 GM/DL Hematocrit 44.8 % Mean Corpuscular Volume 94.9 FL Mean Corpuscular Hemoglobin 33.0 PG Mean Corpuscular Hemoglobin Concent 34.8 % Red Cell Distribution Width 14.5 % Platelet Count 315 TH/MM3 Mean Platelet Volume 10.2 FL Neutrophils (%) (Auto) 61.2 % Lymphocytes (%) (Auto) 25.0 % Monocytes (%) (Auto) 7.6 % Eosinophils (%) (Auto) 4.9 % Basophils (%) (Auto) 1.3 % Neutrophils # (Auto) 4.5 TH/MM3 Lymphocytes # (Auto) 1.8 TH/MM3 Monocytes # (Auto) 0.6 TH/MM3 Eosinophils # (Auto) 0.4 TH/MM3 Basophils # (Auto) 0.1 TH/MM3 CBC Comment DIFF FINAL Differential Comment Prothrombin Time 11.3 SEC 11.4 SEC Prothromb Time International Ratio 1.1 RATIO 1.1 RATIO Activated Partial Thromboplast Time 25.4 SEC 26.4 SEC Blood Urea Nitrogen 15 MG/DL 12 MG/DL Creatinine 0.84 MG/DL 0.60 MG/DL Random Glucose 103 MG/DL 97 MG/DL Total Protein 7.8 GM/DL Albumin 3.8 GM/DL Calcium Level 9.5 MG/DL 9.0 MG/DL Phosphorus Level 3.1 MG/DL Magnesium Level 1.9 MG/DL Alkaline Phosphatase 80 U/L Aspartate Amino Transf (AST/SGOT) 14 U/L Alanine Aminotransferase (ALT/SGPT) 16 U/L Total Bilirubin 0.4 MG/DL Sodium Level 138 MEQ/L 142 MEQ/L Potassium Level 2.5 MEQ/L 2.8 MEQ/L 3.9 MEQ/L Chloride Level 98 MEQ/L 107 MEQ/L Carbon Dioxide Level 29.1 MEQ/L 25.7 MEQ/L Anion Gap 11 MEQ/L 9 MEQ/L Estimat Glomerular Filtration Rate 68 ML/MIN 101 ML/MIN Lactic Acid Level 1.8 mmol/L Total Creatine Kinase 47 U/L Troponin I LESS THAN 0.02 NG/ML B-Type Natriuretic Peptide 16 PG/ML Imaging Last 72 hours Impressions Chest X-Ray 10/05/171816 Signed Impressions: Service Date/Time: Thursday, October 05, 2017 18:22 - CONCLUSION: Increased density at the mid lower right lung with volume loss likely related to a combination of consolidation and atelectasis. Joseph Mario MD Objective Remarks GENERAL: This is a thin, well-developed patient, in no apparent distress. CARDIOVASCULAR: Regular rate and rhythm without murmurs, gallops, or rubs. RESPIRATORY: decreased through out scattered expiratory wheezing GASTROINTESTINAL: Abdomen soft, non-tender, nondistended. Normal active bowel sounds MUSCULOSKELETAL: Extremities without clubbing, cyanosis, or edema. NEURO: Alert & Oriented x4 to person, place, time, situation. Moves all ext x4 A/P Problem List: (1) Pneumonia ICD Codes: J18.9 - Pneumonia, unspecified organism Status: Chronic Plan: This is a 62-year-old female COPD and chronic tobacco Outpatient CT scan of the chest done in July 16 of this year revealed consolidative changes and patchy infiltrates in the right middle and lower lobes with scattered noncalcified nodules. There was no clear dominant mass. She appears to have been treated with Levaquin for approximately 2 week course in July of this year and Augmentin as well. She reports that no one else in her household has any respiratory symptoms but she has had a cough for the last 4 months or so. The cough is generally productive of a white phlegm. There has been no foreign travel but patient does have 2 parrots in her home that are approximately 18 years old each. They do not live in her immediate dwelling spaces but are typically in the [facility] or "[place] room". Patient denies any hemoptysis. Review of her outpatient records reveals that she has lost about 8 pounds since May. Patient reports she actually lost more than that but is regaining some of her appetite over the last week and has been eating better. Recurring issue. Patient does not appear toxic. Continue Rocephin and Azithromycin Duonebs Q6H while awake and PRN consult placed to pulmonology awaiting further recommendations, patient may need bronchoscopy with bx given her recurrent/continued symptoms Repeat CT scan (10/05):Increased density in the right perihilar region extending into the right lower and right middle lobe. There is some volume loss with shift of the heart and mediastinal structures toward the right. A central area of inflammatory change and pneumonia versus a central neoplasm could have this appearance. There appears to be postobstructive change throughout the rest of the right lung. A central neoplasm thought to be more likely given the appearance. Multiple small pulmonary nodules are seen in the left. Mediastinal lesions or granulomatous could have this appearance. On 10/06/17 Dr. Wood reviewed images with patient discussed possible dx and answered patient's questions. Offered to call patient's family patient said that was not necessary. Patient's Plavix on hold for bronchoscopy with biopsy. Will resume aspirin and Plavix tomorrow Plan for bronchoscopy this afternoon with Dr. Anthony Will start Solumedrol 60 mg Q6H after bronchoscopy (2) CAD (coronary artery disease) ICD Codes: I25.10 - Atherosclerotic heart disease of [place] coronary artery without angina pectoris Status: Chronic Plan: Appears relatively stable. She does have some sharp pains at times associated with her chronic coughing but no dull aching or pressure-like pain. (3) HTN (hypertension) ICD Codes: I10 - Essential (primary) hypertension Status: Chronic Plan: Continue home amlodipine 10 mg p.o. daily and carvedilol 25 mg p.o. twice daily as blood pressure allows. BP has been running will DC amlodipine 10 mg p.o. daily and carvedilol 25 mg p.o. twice daily Patient has lost weight since May and may no longer be able to tolerate curret BP regiment add clonidine PRN (4) RA (rheumatoid arthritis) ICD Codes: M06.9 - Rheumatoid arthritis, unspecified Status: Chronic (5) Hypokalemia ICD Codes: E87.6 - Hypokalemia Status: Acute Plan: Potassium on admission 2.5 replaced now (10/06) 3.9 Magnesium 1.9 Assessment and Plan Patient examined. Assessment and plan formulated with Yelena Arteaga PA-C. I agree with the above. awaiting bronchoscopy starting IV solumedrol in the evening. Problem Qualifiers (1) Pneumonia: (2) CAD (coronary artery disease): (3) HTN (hypertension): Qualified Codes: I10 - Essential (primary) hypertension Yelena Arteaga October 07, 2017 11:23 Pietro Wood DO October 08, 2017 06:50
[2017-10-07] MEDS ORDERED: cloNIDine HCL 0.1 MG TAB PO PRN (11:30)
[2017-10-07] MEDS: RESP: ALBUTEROL 2.5 MG/IPRATROPIUM 0.5 MG NEB (SCH) NEB ×2 (13:29→19:55)
[2017-10-07] MEDS: ACETAMINOPHEN/HYDROcodone 325 MG/10 MG TAB PO PRN (13:50)
[2017-10-07] MEDS ORDERED: CALCIUM CARBONATE 500 MG CHEWABLE TAB CHEW PRN (14:00)
[2017-10-07] MEDS ORDERED: PANTOPRAZOLE SODIUM 40 MG VIAL IV PUSH ONE (14:00)
--- NOTE | 2017-10-07 15:17 | HHI.PR ---
Subjective Remarks alert no sob Objective Vital Signs Date Time Temp Pulse Resp B/P (MAP) Pulse Ox O2 Delivery O2 Flow Rate FiO2 10/07/17 12:00 97.9 66 18 100/61 (74) 95 10/07/17 08:21 94 21 10/07/17 08:00 98.1 81 18 99/69 (79) 97 10/07/17 04:00 98.0 70 20 106/61 (76) 94 10/07/17 00:00 97.5 83 18 109/62 (78) 96 10/06/17 20:00 98.0 76 16 99/76 (84) 98 10/06/17 17:49 98 21 10/06/17 16:00 98.2 78 20 98/71 (80) 96 I/O 10/06/17 10/06/17 10/06/17 10/07/17 10/07/17 10/07/17 07:00 15:00 23:00 07:00 15:00 23:00 Intake Total 340 ml 360 ml Output Total 200 ml Balance 140 ml 360 ml Intake Oral 240 ml 360 ml IV Total 100 ml Output Urine Total 200 ml # Voids 1 1 2 # Bowel Movements 0 1 Result Diagram: 10/05/17 1823 10/06/17 0535 Objective Remarks GENERAL: SKIN: Warm and dry. HEAD: Atraumatic. Normocephalic. EYES: Pupils equal and round. No scleral icterus. No injection or drainage. ENT: No nasal bleeding or discharge. Mucous membranes pink and moist. NECK: Trachea midline. No JVD. CARDIOVASCULAR: Regular rate and rhythm. RESPIRATORY: No accessory muscle use. Clear to auscultation. Breath sounds equal bilaterally. GASTROINTESTINAL: Abdomen soft, non-tender, nondistended. Hepatic and splenic margins not palpable. MUSCULOSKELETAL: Extremities without clubbing, cyanosis, or edema. No obvious deformities. NEUROLOGICAL: Awake and alert. No obvious cranial nerve deficits. Motor grossly within normal limits. Five out of 5 muscle strength in the arms and legs. Normal speech. PSYCHIATRIC: Appropriate mood and affect; insight and judgment normal. Assessment and Plan Assessment and Plan right lung mass copd plan bronchoscopy today Gabrielle Anthony MD October 07, 2017 15:17
[2017-10-07] MEDS: REMOVE OLD PATCH T-DERMAL SCH (21:00)
[2017-10-07] MEDS: AZITHROMYCIN INJ 500 MG in SODIUM CHLOR 0.9% 250 ML INJ 250 ML IV SCH (21:34)
[2017-10-07] MEDS: methylPREDNISolone SOD SUCC 125 MG/2 ML VIAL IV PUSH SCH (21:34)
[2017-10-07] MEDS: PRAVASTATIN SOD 80 MG TAB PO SCH (21:35)
[2017-10-07] MEDS: AMITRIPTYLINE HCL 25 MG TAB PO SCH (21:35)
[2017-10-07] MEDS: cefTRIAXone INJ 1,000 MG in SODIUM CHLORIDE 0.9% INJ 100 ML IV SCH (21:35)
[2017-10-08] MEDS: guaiFENesin/CODEINE SYRUP 200 MG/20 MG/10 ML CUP PO PRN (02:47)
[2017-10-08] MEDS: methylPREDNISolone SOD SUCC 125 MG/2 ML VIAL IV PUSH SCH ×2 (02:47→08:05)
[2017-10-08 04:10] VITALS: BP 95/70; PULSE 82; RESP 16; TEMP 97.5; O2SAT 98
[2017-10-08 07:43] VITALS: O2SAT 98
[2017-10-08] MEDS: NICOTINE 21 MG/24 HR PATCH T-DERMAL SCH (08:04)
[2017-10-08] MEDS: PANTOPRAZOLE SOD 40 MG DELAYED RELEASE TAB PO SCH (08:04)
[2017-10-08] MEDS: SODIUM CHLORIDE 0.9% FLUSH 10 ML FLUSH IV FLUSH SCH (08:05)
[2017-10-08 08:11] VITALS: BP 116/72; PULSE 74; RESP 17; TEMP 97.8; O2SAT 96
[2017-10-08 08:30] VITALS: BP 127/96; PULSE 75; RESP 18; TEMP 97.8; O2SAT 97
[2017-10-08] MEDS ORDERED: *RESP: ALBUTEROL 2.5 MG/3 ML NEB (PRN) PERIprocedural Use ONLY NEB ONE (09:50)
--- NOTE | 2017-10-08 09:52 | MP ---
cc: Gabrielle Anthony MD DATE OF OPERATION: 10/08/2017 PROCEDURE PERFORMED: Fiberoptic bronchoscopy flexible REASON FOR BRONCHOSCOPY: Right lung mass underlying malignancy suspect. PROCEDURE: Fiberoptic bronchoscopy performed via LMA. Vocal cords visualized, appeared intact. Trachea moderately hyperemic. Neda sharp. Right main stem bronchus, right upper, middle, and lower lobe, left main bronchus, left upper and lower lobes inspected. No obstructive pathology seen. No mass lesion identified. Washings obtained from both sides of the tracheobronchial tree for routine TB, fungal cultures and cytological exam. The bronchoscope was introduced in the right upper lobe which showed some irregularity in its mucosa without obstruction. A cytologic brush biopsy obtained for cytological exam. Procedure well tolerated. The patient was transferred to the recovery in stable condition. IMPRESSION: 1. Moderate tracheobronchitis. 2. Excess mucoid secretion. 3. Samples obtained as above. 4. Mild irregularity in right upper lobe noted. 5. Procedure well tolerated. The patient was transferred to Recovery in stable condition. Gabrielle Anthony MD WWW/LONI , 09:39 AM , 09:51 AM
[2017-10-08] MEDS ORDERED: MIDAZOLAM HCL 2 MG/2 ML VIAL ONE (09:59)
[2017-10-08] MEDS ORDERED: DO NOT ADM ANY ANTICOAGULANT DRUGS PRN (10:00)
[2017-10-08 12:11] VITALS: BP 130/74; PULSE 77; RESP 17; TEMP 97.1; O2SAT 98
--- NOTE | 2017-10-08 13:07 | HHI.DCPOC ---
Discharge Care Plan Diagnosis: (1) Lung mass (2) Pneumonia Goals to Promote Your Health * To prevent worsening of your condition and complications * To maintain your health at the optimal level Directions to Meet Your Goals Take your medications as prescribed Follow your dietary instruction Follow activity as directed Keep your appointments as scheduled Take your immunizations and boosters as scheduled If your symptoms worsen call your PCP, if no PCP go to Urgent Care Center or Emergency Room Smoking is Dangerous to Your Health. Avoid second hand smoke Call the 24-hour hour crisis hotline for domestic abuse at Yelena Arteaga October 08, 2017 13:07 Pietro Wood DO October 12, 2017 09:29
[2017-10-08] MEDS ORDERED: LEVO500T8 PO (13:09)
--- NOTE | 2017-10-08 13:16 | HHI.DS ---
Discharge Summary Admission Date October 05, 2017 at 20:23 Discharge Date: October 08, 2017 Admitting Diagnosis Recurring Pneumonia, failed outpatient management (1) Pneumonia Diagnosis: Principal ICD Codes: J18.9 - Pneumonia, unspecified organism Status: Chronic (2) Hypokalemia Diagnosis: Principal ICD Codes: E87.6 - Hypokalemia Status: Acute (3) CAD (coronary artery disease) Diagnosis: Secondary ICD Codes: I25.10 - Atherosclerotic heart disease of [place] coronary artery without angina pectoris Status: Chronic (4) HTN (hypertension) Diagnosis: Secondary ICD Codes: I10 - Essential (primary) hypertension Status: Chronic (5) RA (rheumatoid arthritis) Diagnosis: Secondary ICD Codes: M06.9 - Rheumatoid arthritis, unspecified Status: Chronic Consultants Dr. Anthony, pulmonology Brief History Is a 62-year-old female COPD and chronic tobacco use with noted apparent 3-4 month history of pneumonia presents to the ER under advisement of her primary care physician who she saw her earlier today. Patient presented today for follow-up as well discussed her continuing respiratory symptoms. Repeat chest x -ray revealed worsening right sided consolidation. Given her symptoms and that she had filled at least 3 outpatient antibiotics, her primary care physician recommended she go to the ER for evaluation and possibly pulmonology consult with bronchoscopy. It is noted the patient had a CT scan of the chest done in July 16 of this year revealing consolidative changes and patchy infiltrates in the right middle and lower lobes with scattered noncalcified nodules. There was no clear dominant mass. She appears to have been treated with Levaquin for approximately 2 week course in July of this year and Augmentin as well. It is additionally noted the patient is no longer on Xeljanz or methotrexate or sulfasalazine. She reports that no one else in her household has any respiratory symptoms but she has had a cough for the last 4 months or so. The cough is generally productive of a white phlegm. There has been no foreign travel but patient does have 2 parents in her home that are approximately 18 years old each. They do not live in her immediate dwelling spaces but are typically in the [facility] or "[place] room". Patient denies any hemoptysis. Review of her outpatient records reveals that she has lost about 8 pounds since May. Patient reports she actually lost more than that but is regaining some of her appetite over the last week and has been eating better. CBC/BMP: 10/05/17 1823 10/06/17 0535 Significant Findings Laboratory Tests Test 10/05/17 18:23 10/06/17 01:06 10/06/17 05:35 10/06/17 17:06 Hemoglobin 15.6 GM/DL (11.6-15.3) Eosinophils (%) (Auto) 4.9 % (0.0-4.0) Aspartate Amino Transf (AST/SGOT) 14 U/L (15-37) Potassium Level 2.5 MEQ/L (3.5-5.1) 2.8 MEQ/L (3.5-5.1) Estimat Glomerular Filtration Rate 68 ML/MIN (>89) Troponin I LESS THAN 0.02 NG/ML Imaging Last Impressions Chest X-Ray 10/05/17 1817 Signed Impressions: Service Date/Time: Thursday, October 05, 2017 18:22 - CONCLUSION: Increased density at the mid lower right lung with volume loss likely related to a combination of consolidation and atelectasis. Joseph Mario MD Chest CT 10/05/17 0000 Signed Impressions: Service Date/Time: Thursday, October 05, 2017 21:28 - CONCLUSION: 1. Increased density in the right perihilar region extending into the right lower and right middle lobe. There is some volume loss with shift of the heart and mediastinal structures towards the right. A central area of inflammatory change and pneumonia versus a central neoplasm could have this appearance. There appears to be post obstructive change throughout the rest of the right lung. A central neoplasm thought to be more likely given the appearance. 2. Multiple small pulmonary nodules seen in the left. Metastatic lesions or granulomas could have this appearance. Joseph Mario MD PE at Discharge GENERAL: This is a thin, well-developed patient, in no apparent distress. CARDIOVASCULAR: Regular rate and rhythm without murmurs, gallops, or rubs. RESPIRATORY: decreased through out scattered expiratory wheezing GASTROINTESTINAL: Abdomen soft, non-tender, nondistended. Normal active bowel sounds MUSCULOSKELETAL: Extremities without clubbing, cyanosis, or edema. NEURO: Alert & Oriented x4 to person, place, time, situation. Moves all ext x4 Hospital Course Pneumonia This is a 62-year-old female COPD and chronic tobacco Outpatient CT scan of the chest done in July 16 of this year revealed consolidative changes and patchy infiltrates in the right middle and lower lobes with scattered noncalcified nodules. There was no clear dominant mass. She appears to have been treated with Levaquin for approximately 2 week course in July of this year and Augmentin as well. She reports that no one else in her household has any respiratory symptoms but she has had a cough for the last 4 months or so. The cough is generally productive of a white phlegm. There has been no foreign travel but patient does have 2 parrots in her home that are approximately 18 years old each. They do not live in her immediate dwelling spaces but are typically in the [facility] or "[place] room". Patient denies any hemoptysis. Review of her outpatient records reveals that she has lost about 8 pounds since May. Patient reports she actually lost more than that but is regaining some of her appetite over the last week and has been eating better. Recurring issue. Patient does not appear toxic. Continue Rocephin and Azithromycin Duonebs Q6H while awake and PRN consult placed to pulmonology awaiting further recommendations, patient may need bronchoscopy with bx given her recurrent/continued symptoms Repeat CT scan (10/05):Increased density in the right perihilar region extending into the right lower and right middle lobe. There is some volume loss with shift of the heart and mediastinal structures toward the right. A central area of inflammatory change and pneumonia versus a central neoplasm could have this appearance. There appears to be postobstructive change throughout the rest of the right lung. A central neoplasm thought to be more likely given the appearance. Multiple small pulmonary nodules are seen in the left. Mediastinal lesions or granulomatous could have this appearance. On 10/06/17 Dr. Wood reviewed images with patient discussed possible dx and answered patient's questions. Offered to call patient's family patient said that was not necessary. Patient's Plavix on hold for bronchoscopy with biopsy. Will resume aspirin and Plavix tomorrow Plan for bronchoscopy this afternoon with Dr. Anthony CAD (coronary artery disease) Appears relatively stable. She does have some sharp pains at times associated with her chronic coughing but no dull aching or pressure-like pain. HTN (hypertension) Continue home amlodipine 10 mg p.o. daily and carvedilol 25 mg p.o. twice daily as blood pressure allows. BP has been running low will DC amlodipine 10 mg p.o. daily and carvedilol 25 mg p.o. twice daily Patient has lost weight since May and may no longer be able to tolerate curret BP regiment Patient has been instructed to keep a BP log and follow up with PCP for adjustment of BP RA (rheumatoid arthritis) Chronic Hypokalemia- resolved Potassium on admission 2.5 replaced now (10/06) 3.9 Magnesium 1.9 Patient seen S/P Bronchoscopy 10/08/17, she is asking to be DC home. Patient understands risks and is refusing to stay in the hospital any longer. Patient to follow up with Dr. Anthony regarding bronchoscopy results. Will DC on Levaquin 500 mg PO daily for an additional 5 days. will DC home on Prednisone 20 mg x 5 days Pt Condition on Discharge: Stable Discharge Disposition: Discharge Home Discharge Instructions DIET: Follow Instructions for: Heart Healthy Diet Activities you can perform: Regular-No Restrictions Follow up Referrals: PCP Follow-up - [address] Cowan Pulmonology - 1 Week with Gabrielle Anthony MD New Medications: Levofloxacin (Levofloxacin) 500 Mg Tablet 500 MG PO DAILY for Infection, #5 TAB 0 Refills Prednisone (Prednisone) 20 Mg Tab 20 MG PO DAILY for steroid for 5 Days, #5 TAB 0 Refills Continued Medications: Albuterol 18 GM Inh (Ventolin Hfa 18 GM Inh) 90 Mcg/Act Aer 2 PUFF INH Q4H PRN for SHORTNESS OF BREATH, #1 INHALER 0 Refills Amitriptyline (Amitriptyline) 25 Mg Tab 25 MG PO HS, TAB Clopidogrel (Plavix) 75 Mg Tab 75 MG PO HS for Blood Clot Prevention, #30 TAB 0 Refills Hydrocodone-Acetaminophen (Hydrocodone-Acetaminophen) 10-325 mg Tab 1 TAB PO Q8HR PRN for PAIN, TAB 0 Refills Meprobamate (Meprobamate) 400 Mg Tab 400 MG PO TID for ANXIETY, TAB 0 Refills Pantoprazole (Pantoprazole) 40 Mg Tab 40 MG PO HS for Reflux, #30 TAB 0 Refills Potassium Chloride ER (Potassium Chloride ER) 10 Meq Cap 10 MEQ PO BID for Electrolyte Replacement, #30 CAP 0 Refills Pregabalin (Lyrica) Unknown Strength Cap Unknown Dose PO BID, #60 CAP 0 Refills Simvastatin (Simvastatin) 40 Mg Tab 40 MG PO HS for Cholesterol Management, #30 TAB 0 Refills Sulfasalazine (Sulfasalazine) 500 Mg Tab 500 MG PO HS, #90 TAB 0 Refills Discontinued Medications: Amlodipine (Amlodipine) 10 Mg Tab 10 MG PO DAILY for Blood Pressure Management, #30 TAB [address] (Aspirin EC) 81 Mg Tabdr 81 MG PO HS, TAB 0 Refills Carvedilol (Carvedilol) 25 Mg Tab 25 MG PO BID, #60 TAB 0 Refills Additional Information Patient examined. Assessment and plan formulated with Yelena Arteaga PA-C. I agree with the above. Yelena Arteaga October 08, 2017 13:16 Pietro Wood DO October 12, 2017 09:29
[2017-10-08] MEDS ORDERED: PRED10 PO (14:03)
[2017-10-08] MEDS ORDERED: IPRA0.02 NEB (14:03)
[2017-10-08] MEDS ORDERED: ALBU0.08 NEB (14:03)
[2017-10-08] MEDS ORDERED: ASPIRIN EC 81 MG TABEC PO SCH (21:00)
[2017-10-08] MEDS ORDERED: CLOPIDOGREL 75 MG TAB PO SCH (21:00)
== END 2017-10-08 16:00 | disposition home or self-care (01) | DRG 167 ==
LOC: NEPE 17:45 → NEDA 20:23 → N04A 21:44
PROVIDERS: ADMIT Hospitalist; ATTEND Hospitalist
PROC: 0B9M8ZZ Drainage of Bilateral Lungs, Via Natural or Artificial Opening Endoscopic (ICD-10-PCS; principal; 2017-10-08)
PROC: 0BD48ZX Extraction of Right Upper Lobe Bronchus, Via Natural or Artificial Opening Endoscopic, Diagnostic (ICD-10-PCS; 2017-10-08)
DX: J18.9 Pneumonia, unspecified organism (principal); J44.0 Chronic obstructive pulmonary disease with (acute) lower respiratory infection; I10 Essential (primary) hypertension; E87.6 Hypokalemia; K21.9 Gastro-esophageal reflux disease without esophagitis; I25.10 Atherosclerotic heart disease of native coronary artery without angina pectoris; I73.9 Peripheral vascular disease, unspecified; M06.9 Rheumatoid arthritis, unspecified; F43.10 Post-traumatic stress disorder, unspecified; M13.0 Polyarthritis, unspecified; E78.5 Hyperlipidemia, unspecified; F17.210 Nicotine dependence, cigarettes, uncomplicated; J40 Bronchitis, not specified as acute or chronic; K58.9 Irritable bowel syndrome, unspecified; F32.9 Major depressive disorder, single episode, unspecified; E55.9 Vitamin D deficiency, unspecified; Z79.82 Long term (current) use of aspirin; Z79.891 Long term (current) use of opiate analgesic; Z79.899 Other long term (current) drug therapy; Z95.1 Presence of aortocoronary bypass graft
CPT/HCPCS: 31623; 71045; 71250; 80048; 80053; 82550; 83605; 83735; 83880; 84100; 84132; 84484; 85025; 85610; 85730; 87015; 87040; 87070; 87102; 87116; 87205; 87206; 87804; 88112; 93005; 94640; 94664; 96365; C9113; J0456; J0696; J2250; J2920; J2930; J7050; J7613

== ENCOUNTER 2017-12-30 18:55 | Inpatient (IN) ==
--- NOTE | 2017-12-30 21:08 | ED ---
HPI General Chief complaint: Respiratory Symptoms Stated complaint: SOB/pain in chest Time Seen by Provider: 12/30/17 21:07 Source: patient Mode of arrival: ambulatory Limitations: no limitations History of Present Illness HPI narrative: 62-year-old female with history of CAD, COPD, hypertension, resents emergency department for evaluation of worsening shortness of breath, chest tightness, and back pain. Patient tells me she recently finished a 14 day course of Augmentin prescribed to her by Dr. Mendoza, her primary care provider. She was hospitalized in September for recurrent pneumonia. She states she was given Levaquin and that seemed to help things improve. She did feel better after that. She denies any fever chills. She states she has been tired and weak. Short of breath but she does have COPD. She has no other symptoms to report. Related Data Home Medications Medication Instructions Recorded Confirmed amitriptyline 25 mg PO HS 12/30/17 12/30/17 furosemide [Lasix] mg PO DAILY 12/30/17 hydrocodone-acetaminophen 2 tab PO Q8H PRN 12/30/17 12/30/17 potassium chloride 10 meq PO DAILY 12/30/17 12/30/17 pregabalin [Lyrica] 50 mg PO HS 12/30/17 12/30/17 Allergies Allergy/AdvReac Type Severity Reaction Status Date / Time terbutaline Allergy Intermediate Nausea Unverified 12/30/17 20:40 gabapentin Allergy Mild Nausea Unverified 12/30/17 20:40 Review of Systems Except as stated in HPI: all other systems reviewed are negative PMFSH History History Provided By: Patient Medical History Medical History Anxiety (Acute) Arthritis (Acute) Bulging disc (Acute) CAD (coronary artery disease) (Acute) COPD (chronic obstructive pulmonary disease) (Acute) Claustrophobia (Acute) Hiatal hernia (Acute) High cholesterol (Acute) Hx of recurrent pneumonia (Acute) Hypertension (Acute) Joint pain (Acute) Kidney stones (Acute) Neuropathy (Acute) Ulcer (Acute) Surgical History Surgical History H/O neck surgery (Acute) History of renal stent (Acute) Hx of cardiac cath (Acute) Hx of cervical spine surgery (Acute) Hx of section (Acute) Hx of heart artery stent (Acute) Hx of tonsillectomy (Acute) Social History Social History Substance History: No History of Abuse Smoking Status: Former smoker How Often Do You Have a Drink Containing Alcohol: Monthly or less Recent Travel in [facility] within the Last 8 Weeks: No Recent Out of Country Travel within the Last 8 Weeks: No Exam Narrative Exam Narrative: GENERAL: Chronically ill, thin appearing female patient, in no acute distress. SKIN: Focused skin assessment warm/dry. HEAD: Atraumatic. Normocephalic. EYES: Pupils equal and round. No scleral icterus. No injection or drainage. ENT: No nasal bleeding or discharge. Mucous membranes pink and moist. NECK: Trachea midline. No JVD. CARDIOVASCULAR: Regular rate and rhythm. No murmur appreciated. RESPIRATORY: No accessory muscle use. Diminished, coarse, intermittent wheeze most prominent on the right. Even respirations. GASTROINTESTINAL: Abdomen soft, non-tender, nondistended. Hepatic and splenic margins not palpable. MUSCULOSKELETAL: No obvious deformities. No clubbing. No cyanosis. No edema. NEUROLOGICAL: Awake and alert. No obvious cranial nerve deficits. Motor grossly within normal limits. Normal speech. PSYCHIATRIC: Appropriate mood and affect; insight and judgment normal. Course Initial Documented Vital Signs Temperature 99.0 F 12/30/17 20:40 Pulse Rate 85 12/30/17 20:40 Respiratory Rate 18 12/30/17 20:40 Blood Pressure 160/92 H 12/30/17 20:40 Pulse Oximetry 95 12/30/17 20:40 Last Documented Vital Signs Temperature 99.0 F 12/30/17 20:40 Pulse Rate 79 12/30/17 21:06 Respiratory Rate 16 12/30/17 21:06 Blood Pressure 172/106 H 12/30/17 21:06 Pulse Oximetry 95 12/30/17 21:06 Medical Decision Making JESSICA Attestation JESSICA supervised visit: Yes MDM Narrative Medical decision making narrative: chest x-ray is reviewed with the worsening right lower [id number] female presents emergency department for evaluation of chest tightness, worsening shortness of breath and a cough. Patient appears chronically ill. She appears without distress. CBC is without acute concern. BMP is with hypokalemia 2.6. She is given 60 mEq oral potassium in the ER. Patient consolidation, possible effusion. Blood cultures are drawn and she is given IV Rocephin and azithromycin. I discussed patient my attending physician. CT imaging of the chest is ordered for further evaluation of this. Patient will be admitted for COPD exacerbation, recurrent pneumonia with failure of outpatient treatment, chest pain shortness of breath. I discussed the patient with Dr. Elizalde. He request the patient be admitted to Dr. Wood and ready to move orders placed. Differential Diagnosis Differential Diagnosis: Pneumonia versus COPD exacerbation versus pleural effusion versus electrolyte abnormality versus neoplasm Medical Records Medical records reviewed: Yes I reviewed the patient's medical records. Lab Data Lab results reviewed: Yes I reviewed the patient's lab results. Result diagrams: 12/30/17 21:02 12/30/17 21: Lab Results 12/30/17 12/30/17 12/30/17 Range/Units 21:02 21:02 21:02 WBC 8.7 (4.0-11.0) th/mm3 RBC 4.59 (4.00-5.30) mil/mm3 Hgb 15.2 (11.6-15.3) gm/dL Hct 44.0 (35.0-46.0) % MCV 95.9 (80.0-100.0) fL MCH 33.1 (27.0-34.0) pg MCHC 34.5 (32.0-36.0) % RDW 14.6 (11.6-17.2) % Plt Count 385 (150-450) th/mm3 MPV 9.0 (7.0-11.0) fL Neut % (Auto) 66.6 (16.0-70.0) % Lymph % (Auto) 21.9 (9.0-44.0) % Archer % (Auto) 6.2 (0.0-8.0) % Eos % (Auto) 3.9 (0.0-4.0) % Baso % (Auto) 1.4 (0.0-2.0) % Neut # (Auto) 5.8 (1.8-7.7) th/mm3 Lymph # (Auto) 1.9 (1.0-4.8) th/mm3 Archer # (Auto) 0.5 (0.0-0.9) th/mm3 Eos # (Auto) 0.3 (0.0-0.4) th/mm3 Baso # (Auto) 0.1 (0.0-0.2) th/mm3 WBC Differential . Differential Comment Auto diff final APTT 25.9 (24.3-30.1) sec Sodium 138 (136-145) meq/L Potassium 2.6 L* (3.5-5.1) meq/L Chloride 100 (98-107) meq/L Carbon Dioxide 29.7 (21.0-32.0) meq/L Anion Gap 8 (5-15) meq/L BUN 7 (7-18) mg/dL Creatinine 0.57 (0.50-1.00) mg/dL Estimated GFR Greater than 89 (>89) mL/min Random Glucose 98 (74-106) mg/dL Calcium 9.3 (8.5-10.1) mg/dL Total Bilirubin 0.1 L (0.2-1.0) mg/dL AST 14 L (15-37) U/L ALT 12 (10-53) U/L Alkaline Phosphatase 75 (45-117) U/L Troponin I Less than 0.02 L (0.02-0.05) ng/mL Total Protein 7.4 (6.4-8.2) g/dL Albumin 3.4 (3.4-5.0) g/dL Imaging Data Radiologist's impression: Chest X-Ray 12/30/17 00:00 CONCLUSION: Worsening right lung consolidation since October 05 with probable right pleural effusion present. Differential diagnosis includes infection and post obstructive pneumonitis. Discharge Plan Physicians Team ED Provider: Abdirashid Buckner ED Midlevel Provider: Merlyn Link Primary Care Provider: Eric Newton Rxs /Orders / Referrals /Forms Prescriptions: No Action potassium chloride 10 mEq Capsule, Extended Release 10 meq PO DAILY RF: 0 hydrocodone-acetaminophen 10-325 mg Tablet 2 tab PO Q8H PRN (Reason: Pain) RF: 0 amitriptyline 25 mg Tablet 25 mg PO HS RF: 0 furosemide [Lasix] 20 mg Tablet PO DAILY RF: 0 pregabalin [Lyrica] 50 mg Capsule 50 mg PO HS RF: 0 Discharge Interventions Interventions: Vital Signs Last Done: 12/30/17 21:06 Status ED Status: Admitted Patient
[2017-12-30 21:38] LABS: Baso # (Auto) 0.1 th/mm3 (0.0-0.2); Baso % (Auto) 1.4 % (0.0-2.0); Eos # (Auto) 0.3 th/mm3 (0.0-0.4); Eos % (Auto) 3.9 % (0.0-4.0); Hemoglobin 15.2 gm/dL (11.6-15.3); Lymph # (Auto) 1.9 th/mm3 (1.0-4.8); Lymph % (Auto) 21.9 % (9.0-44.0); Mean Corpuscular HGB Conc 34.5 % (32.0-36.0); Mean Corpuscular Hemoglobin 33.1 pg (27.0-34.0); Mean Corpuscular Volume 95.9 fL (80.0-100.0); Mono # (Auto) 0.5 th/mm3 (0.0-0.9); Mono % (Auto) 6.2 % (0.0-8.0); Neut # (Auto) 5.8 th/mm3 (1.8-7.7); Neut % (Auto) 66.6 % (16.0-70.0); Platelet Count 385 th/mm3 (150-450); Red Blood Count 4.59 mil/mm3 (4.00-5.30); Red Cell Distribution Width 14.6 % (11.6-17.2); White Blood Count 8.7 th/mm3 (4.0-11.0)
--- NOTE | 2017-12-30 21:40 | XR ---
EXAM DATE: 12/30/2017 9:04 PM EDT AGE/SEX: 62 years / Female INDICATIONS: Shortness of breath, cough, and chest pain. CLINICAL DATA: This is the patient's initial encounter. Patient reports that signs and symptoms have been present for 1 month and indicates a pain score of 6/10. MEDICAL/SURGICAL HISTORY: . Hypertension. Cardiovascular disease. Chronic obstructive pulmonary disease. . section. C4-5 fusion COMPARISON: [facility] [place], CT THORAX W/O CONTRAST, 10/05/2017. . FINDINGS: Comparison is October 05, 2017. There is increasing airspace consolidation in the right perihilar region a nd right lung base. Left lung remains clear. No pneumothorax. Heart size normal. Previous fusion lowe r cervical spine. CONCLUSION: Worsening right lung consolidation since October 05 with probable right pleural effusion present. Differgaby tial diagnosis includes infection and post obstructive pneumonitis. Electronically signed by: Sean Real MD 12/30/2017 9:39 PM EDT
[2017-12-30 22:10] LABS: Alanine Aminotransferase 12 U/L (10-53); Albumin 3.4 g/dL (3.4-5.0); Alkaline Phosphatase 75 U/L (45-117); Anion Gap 8 meq/L (5-15); Aspartate Aminotransferase 14 U/L (15-37); Blood Urea Nitrogen 7 mg/dL (7-18); Calcium 9.3 mg/dL (8.5-10.1); Carbon Dioxide 29.7 meq/L (21.0-32.0); Chloride 100 meq/L (98-107); Glomerular Filtration Rate Greater Than 89 mL/min (>89); Glucose,Random 98 mg/dL (74-106); Sodium 138 meq/L (136-145); Total Protein 7.4 g/dL (6.4-8.2)
[2017-12-30 22:12] LABS: Potassium 2.6 meq/L (3.5-5.1)
[2017-12-30] MEDS ORDERED: Azithromycin Inj 500 MG in Sodium Chlor 0.9% Inj 250 ML IV.SIG ONE (22:25)
--- NOTE | 2017-12-30 23:28 | CT ---
EXAM DATE: 12/30/2017 11:20 PM EDT AGE/SEX: 62 years / Female INDICATIONS: Evaluate right pleural effusion versus infiltrates. CLINICAL DATA: This is the patient's initial encounter. Patient reports that signs and symptoms have been present for 1 day and indicates a pain score of 5/10. MEDICAL/SURGICAL HISTORY: Cardiovascular disease. Hypertension. Chronic obstructive pulmonary dis ease. Renal stones Coronary artery stent. section. Fusion, cervical. Renal stent RADIATION DOSE: 4.97 CTDI (mGy) COMPARISON: [facility], CT THORAX W/O CONTRAST, 10/05/2017. [facility], CT CHEST W/ CONTRAST, 07/16/2017. [facility], CHEST 1V SINGLE AP, 12/30/2017. [facility], CHEST SINGLE AP, 10/05/2017. . TECHNIQUE: Multiple contiguous axial images were obtained through the chest during bolus infusion of 68 ml Omnipaque 350 (iohexol) nonionic water-soluble contrast as a single exam dose. Images were obtained in suspended respiration using multiple row detector helical technique. Using automated exp osure control and adjustment of the mA and/or kV according to patient size, radiation dose was kept a s low as reasonably achievable to obtain optimal diagnostic quality images. DICOM format image data is available electronically for review and comparison. FINDINGS: Lungs: There is increasing consolidation in the right mid and lower lung with associated volume loss and consolidation. Most of the right lower and middle lobe is now involved. The degree of midline sh ift towards the right is similar to prior CT in September 2017. There is marked narrowing of the bronchi to the right middle and right lower lung, worse than on prior CT. In the left lower lung and the costop hrenic angle, there are multiple nodular densities measuring up to 4 mm in size, similar to prior CT. Mediastinum: There is good visualization of the great vessels of the middle mediastinum. No evidenc e of mediastinal or hilar adenopathy/mass. Coronary artery calcifications. Pleurae: There is a small amount of pleural fluid present medially in the lower right chest measurin g up to 1.5 cm in thickness. Axillae: Unremarkable. Bony Structures: Unremarkable. Miscellaneous: The examination was extended to include the upper abdomen, and both adrenal glands ar e normal in size and configuration. CONCLUSION: 1. Most of the increasing opacity in the right mid and lower lungs is due to pulmonary consolidation . There is a small right pleural effusion. 2. Multiple nodular densities in the lower left lung similar to prior. Electronically signed by: Carl Kevin MD 12/30/2017 11:27 PM EDT
[2017-12-31] MEDS: guaiFENesin/Codeine Syrup 200 MG/20 MG 10 ML UDC PO PRN (01:49)
[2017-12-31] MEDS ORDERED: Azithromycin Inj 500 MG in Sodium Chlor 0.9% Inj 250 ML IV.SIG SCH (06:00)
[2017-12-31 07:47] LABS: Baso # (Auto) 0.1 th/mm3 (0.0-0.2); Baso % (Auto) 1.3 % (0.0-2.0); Eos # (Auto) 0.3 th/mm3 (0.0-0.4); Eos % (Auto) 4.8 % (0.0-4.0); Hematocrit 38.1 % (35.0-46.0); Hemoglobin 12.9 gm/dL (11.6-15.3); Lymph % (Auto) 28.1 % (9.0-44.0); Mean Corpuscular HGB Conc 33.9 % (32.0-36.0); Mean Corpuscular Hemoglobin 32.5 pg (27.0-34.0); Mean Corpuscular Volume 95.7 fL (80.0-100.0); Mono # (Auto) 0.5 th/mm3 (0.0-0.9); Neut # (Auto) 4.1 th/mm3 (1.8-7.7); Neut % (Auto) 58.8 % (16.0-70.0); Platelet Count 327 th/mm3 (150-450); Red Blood Count 3.98 mil/mm3 (4.00-5.30); Red Cell Distribution Width 14.2 % (11.6-17.2); White Blood Count 6.9 th/mm3 (4.0-11.0)
[2017-12-31 08:29] LABS: Anion Gap 7 meq/L (5-15); Blood Urea Nitrogen 5 mg/dL (7-18); Calcium 8.6 mg/dL (8.5-10.1); Carbon Dioxide 30.9 meq/L (21.0-32.0); Chloride 104 meq/L (98-107); Glomerular Filtration Rate Greater Than 89 mL/min (>89); Glucose,Random 100 mg/dL (74-106); Sodium 142 meq/L (136-145)
--- NOTE | 2017-12-31 08:39 | ECG ---
Date Performed: 12/30/2017 Time Performed: 21:12:11 PTAGE: 62 years EKG: Sinus rhythm NONSPECIFIC ST DEPRESSION ABNORMAL ECG NO PREVIOUS TRACING DOCTOR: Rich Wiley Interpretating Date/Time 12/31/2017 08:39:05
[2017-12-31 08:43] LABS: Potassium 2.8 meq/L (3.5-5.1)
[2017-12-31] MEDS ORDERED: Ketorolac Inj 30 MG/ML (IVP) Vial IV.PUSH ONE (12:49)
--- NOTE | 2017-12-31 18:25 | P.HPIM ---
History of Present Illness Primary Care Physician: Eric Newton Chief Complaint: continued cough, worsening SOB History of Present Illness: She is a pleasant 62-year-old female with history of COPD, coronary artery disease status post stent placed 6 years ago, history of rheumatoid arthritis. The patient was seen by Dr. Bush and she was given some pills, which she was taking 3 pills every and it was not methotrexate apparently she says. The patient states that she took the pill until May of this year for about 3 months and she started having cold-like symptoms and she stopped taking the medication. She has been having cough. She has taken multiple courses of antibiotic. She was admitted into the hospital in September. At that time, the patient was seen by Dr. Anthony and she had a bronchoscopy done. She followed with Dr. Anthony and was told that nothing significant was found. She comes back to the hospital with worsening of her shortness of breath, cough and congestion, swallowing. No hemoptysis. She has lost about 10-pound weight. The patient walked up in the hospital. She had a CT scan of the chest done, which shows she has increasing opacity in the right middle lung and lower lobe due to the pulmonary consolidation. She has small pleural effusion with nodular density in the left lung. CBC shows WBC count 6.9, hemoglobin 12.8, hematocrit 38.1, MCV 95, platelet count 327. Sodium 142, potassium 2.8, chloride 104, CO2 30, BUN 5, creatinine 0.5. PMH: cad. pci ruthy ramus intermedius. renal art. stent right iliac stent. pad cervical neck fusion anxiety gerd "gastric ulcer" says she had egd and colon 4 or 5 yrs ago. polyps hemorrhoids. RA htn hyperlipidemia PSH: [facility] bronchoscopy with biopsy (09/2017) FXH: She had 2 sons. Her son who is mentally challenged lives with her and other son who left 2 of his children with her. Has a granddaughter living with her. SHX: She has history of smoking, which she quit 1 month ago. No alcohol abuse. 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 She said she is . ALL: TO TERBUTALINE AND GABAPENTIN. - Diagnosis (1) Consolidation lung (2) Pleural effusion Inpatient Certification: I certify that the inpatient services were ordered in accordance with Medicare regulations governing the order. This includes certification that hospital inpatient services are reasonable and necessary and in the case of services not specified as inpatient-only under 42 CFR 419.22(n), that they are appropriately provided as inpatient services in accordance to with the 2-midnight benchmark under 43 CFR 412.3(e) Estimated Total Length of Stay (Days): 3 Plans for Post Hospital Care: Not yet determined Review of Systems Constitutional: Denies anorexia, Denies body ache(s), Denies chills, Denies fever(s), Denies night sweats, Denies poor appetite, Denies weight gain, Denies weight loss Eyes: Denies blind spots, Denies blurry vision, Denies change in vision, Denies double vision, Denies discharge, Denies loss of peripheral vision, Denies loss of vision, Denies other visual disturbances, Denies pain Ears, Nose, Mouth, and Throat: Denies bleeding gums, Denies difficulty swallowing, Denies dizziness, Denies headache(s), Denies hearing loss, Denies pain with swallowing, Denies poor balance, Denies ringing in the ears, Denies sore throat, Denies throat swelling, Denies tongue swelling Cardiovascular: Denies chest pain, Denies excessive sweating, Denies fainting, Denies fast heart rate, Denies generalized swelling, Denies irregular heart rhythm, Denies leg swelling, Denies lightheadedness, Denies slow heart rate Respiratory: Reports cough, Reports shortness of breath, Reports shortness of breath with activity, Denies snoring, Denies wheezing Gastrointestinal: Denies abdominal pain, Denies belching, Denies black, tarry stools, Denies bright, red blood in stools, Denies change in bowel habits, Denies change in stools, Denies coffee ground vomit, Denies constipation, Denies cramping, Denies difficulty swallowing, Denies heartburn, Denies incontinent of stools, Denies loose stools, Denies nausea, Denies pain with swallowing, Denies vomiting, Denies vomiting blood Genitourinary: Denies abnormal vaginal bleeding, Denies blood in urine, Denies difficulty starting urination, Denies difficulty urinating, Denies frequent nighttime urination, Denies painful urination, Denies pelvic pain, Denies side pain, Denies urinary incontinence, Denies urinary hesitancy, Denies urinary urgency Musculoskeletal: Denies abnormal walking, Denies back pain, Denies body aches, Denies decreased muscle mass, Denies joint pain, Denies joint swelling, Denies muscle weakness, Denies neck pain, Denies numbness, Denies stiffness, Denies tingling Skin/Breast: Denies bleeding lesions, Denies change in skin color, Denies changing lesions, Denies itching, Denies lesions, Denies new lesions, Denies non -healing lesions, Denies redness, Denies sensitivity to light, Denies rash, Denies skin pain, Denies skin swelling, Denies skin ulcer, Denies sores, Denies unusual bruising, Denies wounds, Denies yellowing of the skin Neurologic: Denies abnormal hearing, Denies abnormal movements, Denies abnormal speech, Denies abnormal walking, Denies behavioral changes, Denies burning sensations, Denies confusion, Denies dizziness, Denies fainting, Denies frequent falls, Denies headache(s), Denies lack of coordination, Denies localized weakness, Denies loss of vision, Denies memory loss, Denies numbness, Denies other visual disturbances, Denies radiating pain, Denies restless legs, Denies convulsions, Denies seizure-like activity, Denies sensory deficit, Denies tingling/numbness/burning sensations, Denies tremor(s), Denies unsteadiness, Denies weakness Psychiatric: Denies abnormal sleep pattern, Denies anxiety, Denies behavioral changes, Denies change in appetite, Denies confusion, Denies depression, Denies difficulty concentrating, Denies hearing things others do not hear, Denies irritability, Denies lack of enjoyment, Denies memory loss, Denies mood swings, Denies panic attacks, Denies paranoia, Denies seeing things others do not see, Denies thoughts of hurting/killing others, Denies thoughts of hurting/killing yourself Endocrine: Denies cold intolerance, Denies excessive sweating, Denies fatigue, Denies flushing, Denies heat intolerance, Denies increased hunger, Denies increased thirst, Denies increased urination, Denies rapid, pounding, or irregular heartbeat Hematologic/Lymphatic: Denies easy bleeding, Denies easy bruising, Denies enlarged lymph nodes Allergic/Immunologic: Denies hives, Denies lip swelling, Denies throat swelling , Denies wheezing PMFSH - History History Provided By: Patient - Medical History Medical History: Medical History (Last Reviewed 01/01/18 @ 07:12 by Tanner Akhtar) Anxiety Arthritis Bulging disc CAD (coronary artery disease) COPD (chronic obstructive pulmonary disease) Claustrophobia Hiatal hernia High cholesterol Hx of recurrent pneumonia Hypertension Joint pain Kidney stones Neuropathy Ulcer - Surgical History Surgical History: Surgical History (Last Reviewed 01/01/18 @ 07:12 by Tanner Akhtar) H/O neck surgery History of renal stent Hx of cardiac cath Hx of cervical spine surgery Hx of section Hx of heart artery stent Hx of tonsillectomy - Tobacco History Tobacco Use In Past 30 Days: Yes Smoking Status: Former smoker - Alcohol History How Often Do You Have a Drink Containing Alcohol: Monthly or less - Substance Use History Substance History: No History of Abuse - Travel History Recent Travel in the [place] Within the Last 8 Weeks: No Recent Travel Out of the Country Within the Last 8 Weeks: No - Immunization History Tetanus Immunization: Unsure Hx Influenza Vaccine This Season: No Medications and Allergies Active Medications: Active Medications Guaifenesin/Codeine Phosphate (Robitussin Ac 200/20 Mg/10 Ml Liq) 5 ml PO Q6H PRN PRN Reason: COUGH Last Admin: 12/31/17 01:49 Dose: 5 ml Azithromycin 500 mg/ Sodium (Chloride) 250 mls @ 250 mls/hr IV.SIG Q24H G[facility]MER Ceftriaxone Sodium 1,000 mg/ (Sodium Chloride) 100 mls @ 200 mls/hr IV.SIG Q24H GILMER Last Admin: 12/31/17 05:56 Dose: 200 mls/hr Allergies Allergy/AdvReac Type Severity Reaction Status Date / Time terbutaline Allergy Intermediate Nausea Verified 12/31/17 11:40 gabapentin Allergy Mild Nausea Verified 12/31/17 11:40 Home Medications Medication Instructions Recorded Confirmed Type amitriptyline 50 mg PO HS 12/30/17 12/31/17 History hydrocodone-acetaminophen 2 tab PO Q8H PRN 12/30/17 12/30/17 History potassium chloride 10 meq PO DAILY 12/30/17 12/30/17 History pregabalin [Lyrica] 100 mg PO HS 12/30/17 12/31/17 History Exam Vital signs: VSS, see chart Narrative: GENERAL: This is a well-nourished, well-developed patient, in no apparent distress. CARDIOVASCULAR: Regular rate and rhythm without murmurs, gallops, or rubs. RESPIRATORY: decreased air movement x b/l, rales on right. GASTROINTESTINAL: Abdomen soft, non-tender, nondistended. Normal active bowel sounds MUSCULOSKELETAL: Extremities without clubbing, cyanosis, or edema. NEURO: Alert & Oriented x4 to person, place, time, situation. Moves all ext x4 Results - Labs CBC & Chem 7: 01/07/18 08:07 01/07/18 08:07 - Imaging Impressions Chest X-Ray 12/30/17 00:00 CONCLUSION: Worsening right lung consolidation since October 05 with probable right pleural effusion present. Differential diagnosis includes infection and post obstructive pneumonitis. Chest CT 12/30/17 21:46 CONCLUSION: 1. Most of the increasing opacity in the right mid and lower lungs is due to pulmonary consolidation. There is a small right pleural effusion. 2. Multiple nodular densities in the lower left lung similar to prior. Caprini VTE Risk Assessment Caprini VTE Risk Assessment: Moderate/High Risk (score >= 2) Caprini Risk Assessment Model: Point Value = 1 Point Value = 2 Point Value = 3 Point Value = 5 Age 41-60 Minor surgery BMI > 25 kg/m2 Swollen legs Varicose veins or History of unexplained or recurrent spontaneous Oral contraceptives or hormone replacement Sepsis (< 1 month) Serious lung disease, including pneumonia (< 1 month) Abnormal pulmonary function Acute myocardial infarction Congestive heart failure (< 1 month) History of inflammatory bowel disease Medical patient at bed rest Age 61-74 Arthroscopic surgery Major open surgery (> 45 min) Laparoscopic surgery (> 45 min) Malignancy Confined to bed (> 72 hours) Immobilizing plaster cast Central venous access Age >= 75 History of VTE Family history of VTE Factor V Leiden Prothrombin [id number] Lupus anticoagulant Anticardiolipin antibodies Elevated serum homocysteine Heparin-induced thrombocytopenia Other congenital or acquired thrombophilia Stroke (< 1 month) Elective arthroplasty Hip, pelvis, or leg fracture Acute spinal cord injury (< 1 month) Prophylaxis Regimen: Total Risk Factor Score Risk Level Prophylaxis Regimen 0-1 Low Early ambulation 2 Moderate Order ONE of the following: *Sequential Compression Device (SCD) *Heparin 5000 units SQ BID 3-4 Higher Order ONE of the following medications: *Heparin 5000 units SQ TID *Enoxaparin/Lovenox 40 mg SQ daily (WT < 150 kg, CrCl > 30 mL/min) *Enoxaparin/Lovenox 30 mg SQ daily (WT < 150 kg, CrCl > 10-29 mL/min) *Enoxaparin/Lovenox 30 mg SQ BID (WT < 150 kg, CrCl > 30 mL/min) AND/OR *Sequential Compression Device (SCD) 5 or more Highest Order ONE of the following medications: *Heparin 5000 units SQ TID (Preferred with Epidurals) *Enoxaparin/Lovenox 40 mg SQ daily (WT < 150 kg, CrCl > 30 mL/min) *Enoxaparin/Lovenox 30 mg SQ daily (WT < 150 kg, CrCl > 10-29 mL/min) *Enoxaparin/Lovenox 30 mg SQ BID (WT < 150 kg, CrCl > 30 mL/min) AND *Sequential Compression Device (SCD) Assessment and Plan - Assessment (1) Consolidation lung Code(s): J18.1 - Lobar pneumonia, unspecified organism Status: Acute Plan: She is a pleasant 62-year-old female with history of COPD, coronary artery disease status post stent placed 6 years ago, history of rheumatoid arthritis. The patient was seen by Dr. Bush and she was given some pills, which she was taking 3 pills every and it was not methotrexate apparently she says. The patient states that she took the pill until May of this year for about 3 months and she started having cold-like symptoms and she stopped taking the medication. She has been having cough. She has taken multiple courses of antibiotic. She was admitted into the hospital in September. She comes back to the hospital with worsening of her shortness of breath, cough and congestion, swallowing. No hemoptysis. She has lost about 10-pound weight. - Pt had hospitalization September 2017 for similar complaints. - CT thorax 09/2017 showed abnormal right lung process - Pt underwent Bronchoscopy [address] Trejo - no malignant cells identified - Pt somewhat lost to f/u following hospitalization d/t social issues - Pt presented to PCP, Dr. Newton, with c/o continued SOB - CT thorax 8/2 with IV contrast 1. Most of the increasing opacity in the right mid and lower lungs is due to pulmonary consolidation. There is a small right pleural effusion. 2. Multiple nodular densities in the lower left lung similar to prior. - I am concerned that right lung process might represent postobstructive process with underlying malignancy - Pt also with hypokalemia - Appreciate input from Pulmonary Medicine, Dr. Renner. - Hold ASA/plavix - obtain repeat Bronchoscopy 01/04/18 - obtain sputum gram stain/Cx - obtain Urine for legionella/pneumococcal - continue Rocephin, azithromycin, and duonebs - SCDs for DVT prophylaxis - supportive care Hypokalemia - PO repletion with improvement - repeat BMP, Mag level in AM (2) Pleural effusion Code(s): J90 - Pleural effusion, not elsewhere classified Status: Acute
[2017-12-31] MEDS ORDERED: ALPRAZolam 0.25 MG Tablet PO PRN (18:36)
--- NOTE | 2017-12-31 21:13 | MB ---
cc: Adolfo Renner MD DATE: 12/31/2017 REQUESTING PHYSICIAN: Dr. Pietro Wood REASON FOR CONSULTATION: Bilateral lung infiltrate. HISTORY OF PRESENT ILLNESS: She is a pleasant 62-year-old female with history of COPD, coronary artery disease status post stent placed 6 years ago, history of rheumatoid arthritis. The patient was seen by Dr. Bush and she was given some pills, which she was taking 3 pills every and it was not methotrexate apparently she says. The patient states that she took the pill until May of this year for about 3 months and she started having cold-like symptoms and she stopped taking the medication. She has been having cough. She has taken multiple courses of antibiotic. She was admitted into the hospital in September. At that time, the patient was seen by Dr. Anthony and she had a bronchoscopy done. She followed with Dr. Anthony and was told that nothing significant was found. She comes back to the hospital with worsening of her shortness of breath, cough and congestion, swallowing. No hemoptysis. She has lost about 10-pound weight. The patient walked up in the hospital. She had a CT scan of the chest done, which shows she has increasing opacity in the right middle lung and lower lobe due to the pulmonary consolidation. She has small pleural effusion with nodular density in the left lung. CBC shows WBC count 6.9, hemoglobin 12.8, hematocrit 38.1, MCV 95, platelet count 327. Sodium 142, potassium 2.8, chloride 104, CO2 30, BUN 5, creatinine 0.5. PAST MEDICAL HISTORY: Significant for history of COPD, coronary artery disease status post stent placement, rheumatoid arthritis, hypertension. MEDICATIONS: She is currently taking 1. [place] 7.5/325 mg. 2. DuoNeb nebulizer treatment. 3. Xanax 0.25 mg. 4. Amitriptyline 50 mg at night. 6. Rocephin 1 g a day. 7. Clonidine 0.2 mg p.r.n. 8. Lyrica 100 mg a day. 9. Potassium supplement. ALLERGIES: SHE IS ALLERGIC TO TERBUTALINE AND GABAPENTIN. SOCIAL HISTORY: She has history of smoking, which she quit 1 month ago. No alcohol abuse. 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 She said she is . FAMILY HISTORY: She had 2 sons. Her son who is mentally challenged lives with her and other son who left 2 of his children with her. Has a granddaughter living with her. REVIEW OF SYSTEMS: She has lost about 10 pounds of weight. No hemoptysis, no DVT. She is anxious. PHYSICAL EXAMINATION: GENERAL: Thin built female, mildly short of breath, anxious, not in any acute distress. VITAL SIGNS: Blood pressure 165/89, heart rate 69, respirations 16, temperature 97.6. HEENT: Pupils are equal and reactive to light. Oral mucosa and nasal mucosa normal. NECK: Supple. JVD not raised. CHEST: Quiet. She has rales on the right chest. CARDIOVASCULAR: S1, S2 normal. ABDOMEN: Benign. EXTREMITIES: No edema. IMPRESSION: 1. Consolidative infiltrate in her right lung, which are chronic and getting worse. Possible postobstructive pneumonia. However, she had a bronchoscopy done by Dr. Anthony in September of 2016, which did not show any endobronchial lesions. The patient was taking medication for rheumatoid arthritis, which can make her immunocompromised. However, she has stopped taking medications 6 months ago. 2. Postobstructive pneumonia. Malignancy like adenocarcinoma need to be ruled out. 3. Chronic obstructive pulmonary disease. 4. Coronary artery disease status post stent placement. 5. Hypertension. PLAN: I discussed with the patient she will need a bronchoscopy. She is on Plavix, which is already on hold. We will continue present antibiotic, check her cultures, give her aerosol treatment. I will discuss with Dr. Anthony, and she will need bronchoscopy and biopsy. If those are also negative, then probably she will need a PET scan and consider CT-guided biopsy. Further details pending her course. Thank you, Dr. Pietro Wood for this consult. MD BELKYS Norman/adriel , 08:05 PM , 08:18 PM JOSE ANTONIO
[2017-12-31] MEDS: Azithromycin Inj 500 MG in Sodium Chlor 0.9% Inj 250 ML IV.SIG SCH (22:14)
[2017-12-31] MEDS: Potassium Chloride 10 MEQ ER Capsule PO SCH (22:15)
[2018-01-01] MEDS: Potassium Chloride 10 MEQ ER Capsule PO SCH (09:46)
[2018-01-01] MEDS: guaiFENesin/Codeine Syrup 200 MG/20 MG 10 ML UDC PO PRN (09:49)
[2018-01-01 10:02] LABS: Anion Gap 8 meq/L (5-15); Blood Urea Nitrogen 5 mg/dL (7-18); Calcium 8.9 mg/dL (8.5-10.1); Carbon Dioxide 26.3 meq/L (21.0-32.0); Chloride 110 meq/L (98-107); Glomerular Filtration Rate Greater Than 89 mL/min (>89); Glucose,Random 81 mg/dL (74-106); Magnesium 1.8 mg/dL (1.5-2.5); Potassium 4.2 meq/L (3.5-5.1); Sodium 144 meq/L (136-145)
--- NOTE | 2018-01-01 12:42 | P.PNIM ---
Subjective Interval history: Pt denies fever or chills. Pt does c/o sweats. Pt has occasional paroxysmal coughing spells, but NOT during my visit. Pt c/o SOB/wheezing but some improvement from admission with duonebs. Pt c/o right sided chest/rib pain worse with coughing. Physical Exam Vital signs: 01/01/18 04:11 01/01/18 08:00 01/01/18 09:00 Temperature 97.8 F Pulse Rate 65 84 Respiratory Rate 18 Blood Pressure 133/88 Pulse Oximetry 96 93 L 01/01/18 09:54 Temperature Pulse Rate 67 Respiratory Rate 17 Blood Pressure Pulse Oximetry Narrative: GENERAL: This is a well-nourished, well-developed patient, in no apparent distress. CARDIOVASCULAR: Regular rate and rhythm without murmurs, gallops, or rubs. RESPIRATORY: Decreased air movement in right lung field GASTROINTESTINAL: Abdomen soft, non-tender, nondistended. Normal active bowel sounds MUSCULOSKELETAL: Extremities without clubbing, cyanosis, or edema. NEURO: Alert & Oriented x4 to person, place, time, situation. Moves all ext x4 Results - Labs CBC & Chem 7: 01/07/18 08:07 01/07/18 08:07 Microbiology 12/30/17 22:50 Blood - Peripheral Aerobic Blood Culture - Preliminary No growth in 2 days 12/30/17 22:50 Blood - Peripheral Anaerobic Blood Culture - Preliminary No growth in 2 days 12/30/17 22:55 Blood - Peripheral Aerobic Blood Culture - Preliminary No growth in 2 days 12/30/17 22:55 Blood - Peripheral Anaerobic Blood Culture - Preliminary No growth in 2 days - Imaging Chest X-Ray 12/30/17 00:00 CONCLUSION: Worsening right lung consolidation since October 05 with probable right pleural effusion present. Differential diagnosis includes infection and post obstructive pneumonitis. Chest CT 12/30/17 21:46 CONCLUSION: 1. Most of the increasing opacity in the right mid and lower lungs is due to pulmonary consolidation. There is a small right pleural effusion. 2. Multiple nodular densities in the lower left lung similar to prior. Assessment and Plan - Assessment (1) Recurrent pneumonia Code(s): J18.9 - Pneumonia, unspecified organism Status: Acute Plan: - Pt had hospitalization September 2017 for similar complaints. - CT thorax 09/2017 showed abnormal right lung process - Pt underwent Bronchoscopy [address] Whaba - no malignant cells identified - Pt somewhat lost to f/u following hospitalization d/t social issues - Pt presented to PCP, Dr. Cowan, with c/o continued SOB - CT thorax 12/30 with IV contrast Chest CT 12/30/17 21:46 1. Most of the increasing opacity in the right mid and lower lungs is due to pulmonary consolidation. There is a small right pleural effusion. 2. Multiple nodular densities in the lower left lung similar to prior. - I am concerned that right lung process might represent postobstructive process with underlying malignancy - Pt also with hypokalemia - Appreciate input from Pulmonary Medicine, Dr. Renner. - Hold ASA/plavix - obtain repeat Bronchoscopy 01/04/18 - obtain sputum gram stain/Cx - obtain Urine for legionella/pneumococcal - continue Rocephin, azithromycin, and duonebs - SCDs for DVT prophylaxis - supportive care Hypokalemia - PO repletion with improvement - repeat BMP, Mag level in AM (2) Chronic hypokalemia Code(s): E87.6 - Hypokalemia Status: Acute
--- NOTE | 2018-01-01 13:12 | P.PNPL ---
Subjective Interval history: 62 YOWF with rt lung consolidative infilt, SOB, cough, H/O RA, took Xeljanz for 3 months untill 06/17 Feels weak no fever No CP Physical Exam Vital signs: Vital Signs 12/31/17 13:16 12/31/17 18:08 12/31/17 18:09 Temperature 98.1 F 97.6 F 97.6 F Pulse Rate 81 69 69 Respiratory Rate 16 16 16 Blood Pressure 135/86 165/89 H 165/89 H Pulse Oximetry 94 L 12/31/17 20:00 01/01/18 00:00 01/01/18 04:00 Temperature 97.5 F L 97.8 F 97.7 F Pulse Rate 69 69 67 Respiratory Rate 18 18 18 Blood Pressure 150/95 H 118/77 115/76 Pulse Oximetry 98 95 95 01/01/18 04:11 01/01/18 08:00 01/01/18 09:00 Temperature 97.8 F Pulse Rate 65 84 Respiratory Rate 18 Blood Pressure 133/88 Pulse Oximetry 96 93 L 01/01/18 09:54 01/01/18 12:00 Temperature 97.8 F Pulse Rate 67 69 Respiratory Rate 17 18 Blood Pressure 140/82 Pulse Oximetry 94 L Intake & Output 12/31/17 01/01/18 01/01/18 18:59 06:59 18:59 Intake Total 690 / 690 Balance 690 / 690 Weight 45.5 kg Intake: IV 450 / 450 Azithromycin Inj 500 MG In NS 250 / 250 Inj 250 ML @ 250 mls/hr IV.SIG Q24H [facility] Rx#:[id number] Rocephin Inj 1,000 MG In NS Inj 200 / 200 100 ML @ 200 mls/hr IV.SIG Q24H GILMER Rx#:[id number] Oral 240 / 240 Other: # Voids 2 Date of Last Bowel Movement 01/01/18 # Bowel Movements 1 1 GENERAL: Frail elderly WF,NAD SKIN: Warm and dry. HEAD: Normocephalic. EYES: No scleral icterus. No injection or drainage. NECK: Supple, trachea midline. No JVD or lymphadenopathy. CARDIOVASCULAR: Regular rate and rhythm without murmurs, gallops, or rubs. RESPIRATORY: Breath sounds equal bilaterally. No accessory muscle use. rales rt chest GASTROINTESTINAL: Abdomen soft, non-tender, nondistended. MUSCULOSKELETAL: No cyanosis, or edema. BACK: Nontender without obvious deformity. No CVA tenderness. Assessment and Plan - Plan IMPRESSION: 1. Consolidative infiltrate in her right lung, which are chronic and getting worse. Possible postobstructive pneumonia. However, she had a bronchoscopy done by Dr. Anthony in September of 2016, which did not show any endobronchial lesions. The patient was taking medication for rheumatoid arthritis, which can make her immunocompromised. However, she has stopped taking medications 6 months ago. 2. Postobstructive pneumonia. Malignancy like adenocarcinoma need to be ruled out. 3. Chronic obstructive pulmonary disease. 4. Coronary artery disease status post stent placement. 5. Hypertension. PLAN: Cont Abx Sputum for C/S Chek Legionella, Pneumococcal ag Plavix on hold Prob Bronch wednesday DW Pt Dw Dr Wood.
[2018-01-01] MEDS: Azithromycin Inj 500 MG in Sodium Chlor 0.9% Inj 250 ML IV.SIG SCH (20:35)
[2018-01-02] MEDS: guaiFENesin/Codeine Syrup 200 MG/20 MG 10 ML UDC PO PRN ×2 (05:49→19:31)
[2018-01-02] MEDS: Potassium Chloride 10 MEQ ER Capsule PO SCH (08:12)
[2018-01-02 10:01] LABS: Anion Gap 10 meq/L (5-15); Blood Urea Nitrogen 10 mg/dL (7-18); Calcium 8.9 mg/dL (8.5-10.1); Carbon Dioxide 23.6 meq/L (21.0-32.0); Chloride 107 meq/L (98-107); Glomerular Filtration Rate Greater Than 89 mL/min (>89); Glucose,Random 74 mg/dL (74-106); Magnesium 1.9 mg/dL (1.5-2.5); Potassium 4.3 meq/L (3.5-5.1); Sodium 141 meq/L (136-145)
--- NOTE | 2018-01-02 15:25 | P.PNPL ---
Subjective Interval history: 62 YOWF with rt lung consolidative infilt, SOB, cough, H/O RA, took Xeljanz for 3 months untill 06/17 Feels weak no fever No CP has minimal sp Physical Exam Vital signs: Vital Signs 01/01/18 16:00 01/01/18 17:07 01/01/18 20:00 Temperature 98.1 F 98 F Pulse Rate 65 67 81 Respiratory Rate 18 15 Blood Pressure 136/67 107/64 Pulse Oximetry 96 93 L 01/02/18 00:00 01/02/18 04:00 01/02/18 08:00 Temperature 97.6 F 97.7 F 97.6 F Pulse Rate 72 67 67 Respiratory Rate 17 16 18 Blood Pressure 98/67 L 111/76 110/76 Pulse Oximetry 94 L 94 L 92 L 01/02/18 09:00 01/02/18 09:42 01/02/18 12:00 Temperature 97.8 F Pulse Rate 66 67 72 Respiratory Rate 14 18 Blood Pressure 107/70 Pulse Oximetry 94 L Intake & Output 01/01/18 01/02/18 01/02/18 18:59 06:59 18:59 Intake Total 730 / 730 Balance 730 / 730 Weight 47.4 kg Intake: IV 250 / 250 Azithromycin Inj 500 MG In NS 250 / 250 Inj 250 ML @ 250 mls/hr IV.SIG Q24H [facility] Rx#:[id number] Oral 480 / 480 Other: # Voids 1 GENERAL: Frail elderly WF, NAD SKIN: Warm and dry. HEAD: Normocephalic. EYES: No scleral icterus. No injection or drainage. NECK: Supple, trachea midline. No JVD or lymphadenopathy. CARDIOVASCULAR: Regular rate and rhythm without murmurs, gallops, or rubs. RESPIRATORY: Breath sounds equal bilaterally. No accessory muscle use. GASTROINTESTINAL: Abdomen soft, non-tender, nondistended. MUSCULOSKELETAL: No cyanosis, or edema. BACK: Nontender without obvious deformity. No CVA tenderness. Narrative: GENERAL: This is a well-nourished, well-developed patient, in no apparent distress. CARDIOVASCULAR: Regular rate and rhythm without murmurs, gallops, or rubs. RESPIRATORY: Decreased air movement in right lung field GASTROINTESTINAL: Abdomen soft, non-tender, nondistended. Normal active bowel sounds MUSCULOSKELETAL: Extremities without clubbing, cyanosis, or edema. NEURO: Alert & Oriented x4 to person, place, time, situation. Moves all ext x4 Assessment and Plan - Plan IMPRESSION: 1. Consolidative infiltrate in her right lung, which are chronic and getting worse. Possible postobstructive pneumonia. However, she had a bronchoscopy done by Dr. Anthony in September of 2016, which did not show any endobronchial lesions. The patient was taking medication for rheumatoid arthritis, which can make her immunocompromised. However, she has stopped taking medications 6 months ago. 2. Postobstructive pneumonia. Malignancy like adenocarcinoma need to be ruled out. 3. Chronic obstructive pulmonary disease. 4. Coronary artery disease status post stent placement. 5. Hypertension. PLAN: Cont Abx Sputum for C/S Chek Legionella, Pneumococcal ag Plavix on hold Prob Bronch wednesday DW Pt Dw Dr Wood. Dr Anthony will FU in office
--- NOTE | 2018-01-02 16:24 | P.PNIM ---
Subjective Interval history: Pt has NO new complaints. Physical Exam Vital signs: 01/02/18 09:42 01/02/18 12:00 Temperature 97.8 F Pulse Rate 67 72 Respiratory Rate 14 18 Blood Pressure 107/70 Pulse Oximetry 94 L Narrative: GENERAL: This is a well-nourished, well-developed patient, in no apparent distress. CARDIOVASCULAR: Regular rate and rhythm without murmurs, gallops, or rubs. RESPIRATORY: Decreased air movement in right lung field GASTROINTESTINAL: Abdomen soft, non-tender, nondistended. Normal active bowel sounds MUSCULOSKELETAL: Extremities without clubbing, cyanosis, or edema. NEURO: Alert & Oriented x4 to person, place, time, situation. Moves all ext x4 Results - Labs CBC & Chem 7: 01/07/18 08:07 01/07/18 08:07 Laboratory Results - last 24 hr 01/02/18 07:28 Sodium 141 Potassium 4.3 Chloride 107 Carbon Dioxide 23.6 Anion Gap 10 BUN 10 Creatinine 0.55 Estimated GFR Greater than 89 Random Glucose 74 Calcium 8.9 Magnesium 1.9 Microbiology 01/01/18 19:30 Sputum - Expectorated Sputum Gram Stain - Final 01/01/18 19:30 Sputum - Expectorated Sputum Sputum Culture - Preliminary Immature growth - reincubate 12/30/17 22:50 Blood - Peripheral Aerobic Blood Culture - Preliminary No growth in 3 days 12/30/17 22:50 Blood - Peripheral Anaerobic Blood Culture - Preliminary No growth in 3 days 12/30/17 22:55 Blood - Peripheral Aerobic Blood Culture - Preliminary No growth in 3 days 12/30/17 22:55 Blood - Peripheral Anaerobic Blood Culture - Preliminary No growth in 3 days 01/01/18 23:00 Urine - Clean Catch Urine Streptococcus pneumoniae Antigen ( M - Final Presumptive negative for streptococcus pneumoniae antigen, suggesting no current or recent infection. Infection due to Streptococcus pneumoniae cannot be ruled out since the antigen present in the sample may be below the detection limit of the test. 01/01/18 23:00 Urine - Clean Catch Urine Legionella Antigen - Final Presumptive negative for Legionella pneumophila serogroup 1 antigen in urine, suggesting no recent or recurrent infection. Infection due to Legionella cannot be ruled out since other serogroups and species may cause disease, antigen may not be present in urine in early infection, and the level of antigen present in the urine may be below the detection limit of the test. - Imaging Chest X-Ray 12/30/17 00:00 CONCLUSION: Worsening right lung consolidation since October 05 with probable right pleural effusion present. Differential diagnosis includes infection and post obstructive pneumonitis. Chest CT 12/30/17 21:46 CONCLUSION: 1. Most of the increasing opacity in the right mid and lower lungs is due to pulmonary consolidation. There is a small right pleural effusion. 2. Multiple nodular densities in the lower left lung similar to prior. Assessment and Plan - Assessment (1) Recurrent pneumonia Code(s): J18.9 - Pneumonia, unspecified organism Status: Acute Plan: - Pt had hospitalization September 2017 for similar complaints. - CT thorax 09/2017 showed abnormal right lung process - Pt underwent Bronchoscopy [address] Trejo - no malignant cells identified - Pt somewhat lost to f/u following hospitalization d/t social issues - Pt presented to PCP, Dr. Cowan, with c/o continued SOB - CT thorax 12/30 with IV contrast Chest CT 12/30/17 1. Most of the increasing opacity in the right mid and lower lungs is due to pulmonary consolidation. There is a small right pleural effusion. 2. Multiple nodular densities in the lower left lung similar to prior. - I am concerned that right lung process might represent postobstructive process with underlying malignancy - Pt also with hypokalemia on admission - Appreciate input from Pulmonary Medicine, Dr. Renner. - Hold ASA/plavix - obtain repeat Bronchoscopy 01/04/18 - sputum gram stain/Cx (01/01/18) - gram stain --> mixed ace, few WBCs - sputum Cx --> pending - Urine legionella/pneumococcal --> negative - continue Rocephin, azithromycin, and duonebs - SCDs for DVT prophylaxis - supportive care Hypokalemia - PO repletion with improvement (2) Chronic hypokalemia Code(s): E87.6 - Hypokalemia Status: Acute
[2018-01-02] MEDS: MethylPREDNISolone Sod Succinate Inj 125 MG/2 ML Vial IV.PUSH SCH (18:37)
[2018-01-02] MEDS: Azithromycin Inj 500 MG in Sodium Chlor 0.9% Inj 250 ML IV.SIG SCH (20:03)
[2018-01-03] MEDS: Potassium Chloride 10 MEQ ER Capsule PO SCH (09:25)
[2018-01-03] MEDS: MethylPREDNISolone Sod Succinate Inj 125 MG/2 ML Vial IV.PUSH SCH ×3 (09:25→22:14)
--- NOTE | 2018-01-03 10:15 | P.PNIM ---
Subjective Interval history: Follo up recurrent pna Patient continues to have nonproductive cough and SOB with exertion offer no new complaints plan for bronchoscopy with possible biopsy tomorrow Physical Exam Vital signs: Vital Signs 01/02/18 12:00 01/02/18 16:00 01/02/18 20:00 Temperature 97.8 F 98.1 F 97.7 F Pulse Rate 72 91 H 78 Respiratory Rate 18 18 19 Blood Pressure 107/70 134/90 127/79 Pulse Oximetry 94 L 96 93 L 01/02/18 21:27 01/03/18 00:00 01/03/18 04:00 Temperature 98.6 F 97.5 F L Pulse Rate 83 92 H 75 Respiratory Rate 17 18 20 Blood Pressure 104/63 123/63 Pulse Oximetry 93 L 95 95 01/03/18 07:41 Temperature Pulse Rate 73 Respiratory Rate 16 Blood Pressure Pulse Oximetry 93 L Intake & Output 01/02/18 01/03/18 01/03/18 18:59 06:59 18:59 Intake Total 350 / 350 Balance 350 / 350 Weight 48.1 kg Intake: IV 350 / 350 Azithromycin Inj 500 MG In NS 250 / 250 Inj 250 ML @ 250 mls/hr IV.SIG Q24H [facility] Rx#:[id number] Rocephin Inj 1,000 MG In NS Inj 100 / 100 100 ML @ 200 mls/hr IV.SIG Q24H [facility] Rx#:[id number] Other: Date of Last Bowel Movement 01/02/18 Narrative: GENERAL: This is a thin, well-developed patient CARDIOVASCULAR: Regular rate and rhythm RESPIRATORY: Decreased with coarse rhonchi through out GASTROINTESTINAL: Abdomen soft, non-tender, nondistended. Normal active bowel sounds MUSCULOSKELETAL: Extremities without clubbing, cyanosis, or edema. NEURO: Alert & Oriented x4 to person, place, time, situation. Moves all ext x4 Results - Labs CBC & Chem 7: 12/31/17 06:15 01/02/18 07:28 Microbiology 01/01/18 19:30 Sputum - Expectorated Sputum Gram Stain - Final 01/01/18 19:30 Sputum - Expectorated Sputum Sputum Culture - Preliminary Immature growth - reincubate 12/30/17 22:50 Blood - Peripheral Aerobic Blood Culture - Preliminary No growth in 3 days 12/30/17 22:50 Blood - Peripheral Anaerobic Blood Culture - Preliminary No growth in 3 days 12/30/17 22:55 Blood - Peripheral Aerobic Blood Culture - Preliminary No growth in 3 days 12/30/17 22:55 Blood - Peripheral Anaerobic Blood Culture - Preliminary No growth in 3 days 01/01/18 23:00 Urine - Clean Catch Urine Streptococcus pneumoniae Antigen ( M - Final Presumptive negative for streptococcus pneumoniae antigen, suggesting no current or recent infection. Infection due to Streptococcus pneumoniae cannot be ruled out since the antigen present in the sample may be below the detection limit of the test. 01/01/18 23:00 Urine - Clean Catch Urine Legionella Antigen - Final Presumptive negative for Legionella pneumophila serogroup 1 antigen in urine, suggesting no recent or recurrent infection. Infection due to Legionella cannot be ruled out since other serogroups and species may cause disease, antigen may not be present in urine in early infection, and the level of antigen present in the urine may be below the detection limit of the test. Assessment and Plan - Assessment (1) Recurrent pneumonia Code(s): J18.9 - Pneumonia, unspecified organism Status: Acute Plan: Recurrent pna - Pt had hospitalization September 2017 for similar complaints. - CT thorax 09/2017 showed abnormal right lung process - Pt underwent Bronchoscopy [address] Trejo - no malignant cells identified - Pt somewhat lost to f/u following hospitalization d/t social issues - Pt presented to PCP, Dr. Cowan, with c/o continued SOB - CT thorax 12/30 with IV contrast Chest CT 12/30/17 1. Most of the increasing opacity in the right mid and lower lungs is due to pulmonary consolidation. There is a small right pleural effusion. 2. Multiple nodular densities in the lower left lung similar to prior. - concern that right lung process might represent postobstructive process with underlying malignancy - Pt also with hypokalemia on admission - Appreciate input from Pulmonary Medicine, Dr. Renner. - Hold ASA/plavix - Plan for repeat Bronchoscopy 01/04/18 - sputum gram stain/Cx (01/01/18) - gram stain --> mixed ace, few WBCs - sputum Cx --> pending - Urine legionella/pneumococcal --> negative - continue Rocephin, azithromycin, and duonebs - change solumedrol to 60 mg Q8H - continue Robitussin AC - SCDs for DVT prophylaxis - supportive care Hypokalemia - PO repletion with improvement The exam, history, and the medical decision-making described in the above note were completed with the assistance of the mid-level provider. I reviewed and agree with the findings presented. I attest that I had a [id number] encounter with the patient on the same day, and personally performed and documented my assessment and findings in the medical record. (2) Chronic hypokalemia Code(s): E87.6 - Hypokalemia Status: Acute
--- NOTE | 2018-01-03 18:39 | P.PN ---
Subjective Interval history: alert c/o dry cough Physical Exam Vital signs: Vital Signs 01/02/18 20:00 01/02/18 21:27 01/03/18 00:00 Temperature 97.7 F 98.6 F Pulse Rate 78 83 92 H Respiratory Rate 19 17 18 Blood Pressure 127/79 104/63 Pulse Oximetry 93 L 93 L 95 01/03/18 04:00 01/03/18 07:41 01/03/18 08:00 Temperature 97.5 F L 98.8 F Pulse Rate 75 73 88 Respiratory Rate 20 16 18 Blood Pressure 123/63 129/79 Pulse Oximetry 95 93 L 97 01/03/18 12:00 01/03/18 13:48 Temperature 98.5 F Pulse Rate 103 H 89 Respiratory Rate 18 16 Blood Pressure 126/77 Pulse Oximetry 97 Intake & Output 01/02/18 01/03/18 01/03/18 18:59 06:59 18:59 Intake Total 350 / 350 Balance 350 / 350 Weight 48.1 kg Intake: IV 350 / 350 Azithromycin Inj 500 MG In NS 250 / 250 Inj 250 ML @ 250 mls/hr IV.SIG Q24H [facility] Rx#:[id number] Rocephin Inj 1,000 MG In NS Inj 100 / 100 100 ML @ 200 mls/hr IV.SIG Q24H [facility] Rx#:[id number] Other: Date of Last Bowel Movement 01/02/18 Narrative: GENERAL: This is a thin, well-developed patient CARDIOVASCULAR: Regular rate and rhythm RESPIRATORY: Decreased with coarse rhonchi through out GASTROINTESTINAL: Abdomen soft, non-tender, nondistended. Normal active bowel sounds MUSCULOSKELETAL: Extremities without clubbing, cyanosis, or edema. NEURO: Alert & Oriented x4 to person, place, time, situation. Moves all ext x4 Results - Labs CBC & Chem 7: 12/31/17 06:15 01/02/18 07:28 Microbiology 01/01/18 19:30 Sputum - Expectorated Sputum Gram Stain - Final 01/01/18 19:30 Sputum - Expectorated Sputum Sputum Culture - Final Heavy growth normal respiratory ace 12/30/17 22:50 Blood - Peripheral Aerobic Blood Culture - Preliminary No growth in 4 days 12/30/17 22:50 Blood - Peripheral Anaerobic Blood Culture - Preliminary No growth in 4 days 12/30/17 22:55 Blood - Peripheral Aerobic Blood Culture - Preliminary No growth in 4 days 12/30/17 22:55 Blood - Peripheral Anaerobic Blood Culture - Preliminary No growth in 4 days Assessment and Plan - Plan continue antibx bronchodilator therapy bronchoscopy
[2018-01-03] MEDS: Piperacil/Tazo 3.375 GM Premix 50 ML IV.SIG SCH (19:05)
[2018-01-03] MEDS: guaiFENesin/Codeine Syrup 200 MG/20 MG 10 ML UDC PO PRN (19:05)
[2018-01-04] MEDS: Piperacil/Tazo 3.375 GM Premix 50 ML IV.SIG SCH ×3 (00:59→15:40)
[2018-01-04] MEDS: MethylPREDNISolone Sod Succinate Inj 125 MG/2 ML Vial IV.PUSH SCH ×3 (04:34→18:17)
[2018-01-04] MEDS: Potassium Chloride 10 MEQ ER Capsule PO SCH (09:19)
--- NOTE | 2018-01-04 11:00 | P.PNIM ---
Subjective Interval history: Follow up recurrent pna Patient c/o nonproductive cough and pain left side worse with coughing Physical Exam Vital signs: Vital Signs 01/03/18 12:00 01/03/18 13:48 01/03/18 16:00 Temperature 98.5 F 98.7 F Pulse Rate 103 H 89 101 H Respiratory Rate 18 16 18 Blood Pressure 126/77 133/84 Pulse Oximetry 97 97 01/03/18 20:15 01/03/18 20:24 01/04/18 00:30 Temperature 98.3 F 98 F Pulse Rate 106 H 94 H 101 H Respiratory Rate 16 12 16 Blood Pressure 135/73 125/72 Pulse Oximetry 96 96 01/04/18 06:00 01/04/18 07:00 01/04/18 07:36 Temperature 98 F Pulse Rate 99 H 65 Respiratory Rate 18 12 18 Blood Pressure 120/66 Pulse Oximetry 95 92 L 01/04/18 08:00 01/04/18 09:00 Temperature 98.1 F Pulse Rate 78 89 Respiratory Rate 20 Blood Pressure 139/76 Pulse Oximetry 95 Intake & Output 01/03/18 01/04/18 01/04/18 18:59 06:59 18:59 Intake Total 1080 / 1080 1650 / 1650 50 / 50 Output Total Balance 1079 / 1079 1650 / 1650 50 / 50 Weight 48.5 kg Intake: IV 100 / 100 50 / 50 Zosyn 3.375 GM Premix 50 ML @ 100 / 100 50 / 50 100 mls/hr IV.SIG Q8H [facility] Rx#: [id number] Oral 1080 / 1080 1550 / 1550 Output: Stool Other: # Voids 2 4 Date of Last Bowel Movement 01/02/18 # Bowel Movements 0 Narrative: GENERAL: This is a thin, well-developed patient CARDIOVASCULAR: Regular rate and rhythm RESPIRATORY: RLL coarse rhonchi GASTROINTESTINAL: Abdomen soft, non-tender, nondistended. Normal active bowel sounds MUSCULOSKELETAL: Extremities without clubbing, cyanosis, or edema. NEURO: Alert & Oriented x4 to person, place, time, situation. Moves all ext x4 Results - Labs CBC & Chem 7: 12/31/17 06:15 01/02/18 07:28 Microbiology 01/01/18 19:30 Sputum - Expectorated Sputum Gram Stain - Final 01/01/18 19:30 Sputum - Expectorated Sputum Sputum Culture - Final Heavy growth normal respiratory ace 12/30/17 22:50 Blood - Peripheral Aerobic Blood Culture - Preliminary No growth in 4 days 12/30/17 22:50 Blood - Peripheral Anaerobic Blood Culture - Preliminary No growth in 4 days 12/30/17 22:55 Blood - Peripheral Aerobic Blood Culture - Preliminary No growth in 4 days 12/30/17 22:55 Blood - Peripheral Anaerobic Blood Culture - Preliminary No growth in 4 days Assessment and Plan - Assessment (1) Recurrent pneumonia Code(s): J18.9 - Pneumonia, unspecified organism Status: Acute Plan: Recurrent pna - Pt had hospitalization September 2017 for similar complaints. - CT thorax 09/2017 showed abnormal right lung process - Pt underwent Bronchoscopy [address] Trejo - no malignant cells identified - Pt somewhat lost to f/u following hospitalization d/t social issues - Pt presented to PCP, Dr. Cowan, with c/o continued SOB - CT thorax 12/30 with IV contrast Chest CT 12/30/17 1. Most of the increasing opacity in the right mid and lower lungs is due to pulmonary consolidation. There is a small right pleural effusion. 2. Multiple nodular densities in the lower left lung similar to prior. - concern that right lung process might represent postobstructive process with underlying malignancy - Pt also with hypokalemia on admission - Appreciate input from Pulmonary Medicine - Hold ASA/plavix - Plan for repeat Bronchoscopy - sputum gram stain/Cx (01/01/18) - gram stain --> mixed ace, few WBCs - sputum Cx --> pending - Urine legionella/pneumococcal --> negative - continue Rocephin, azithromycin, and duonebs - continue solumedrol to 60 mg Q8H - continue Robitussin AC - SCDs for DVT prophylaxis - add Mucomyst Neb - supportive care - repeat CXR in AM Hypokalemia - PO repletion with improvement The exam, history, and the medical decision-making described in the above note were completed with the assistance of the mid-level provider. I reviewed and agree with the findings presented. I attest that I had a [id number] encounter with the patient on the same day, and personally performed and documented my assessment and findings in the medical record. (2) Chronic hypokalemia Code(s): E87.6 - Hypokalemia Status: Acute
[2018-01-04] MEDS ORDERED: Ketorolac Inj 30 MG/ML (IVP) Vial IV.PUSH ONE (12:07)
--- NOTE | 2018-01-04 13:43 | XR ---
EXAM DATE: 01/04/2018 1:38 PM EDT AGE/SEX: 62 years / Female INDICATIONS: Short of breath. CLINICAL DATA: This is the patient's subsequent encounter. Patient reports that signs and symptoms h ave been present for 4 - 6 days and indicates a pain score of 0/10. MEDICAL/SURGICAL HISTORY: . Cardiovascular disease. Hypertension. Chronic obstructive pulmonary disease. Renal stones . Coronary artery stent. section. Fusion, cervical. Renal stent [place] [facility] [place]. [place]INGLE [place] [facility] [place]. . FINDINGS: A single AP view of the chest demonstrates extensive consolidated changes in the right lung with pleu ral effusion. There is volume loss and mediastinal shift to the right. Left lung clear. Heart normal in size. Osseous structures are intact. CONCLUSION: 1. Extensive consolidation throughout the right hemithorax with associated volume loss. An outpatien t PET/CT scan recommended given the chronic nature. 2. Left lung clear. Electronically signed by: Reji Freeman MD 01/04/2018 1:42 PM EDT
--- NOTE | 2018-01-04 23:09 | P.PN ---
Subjective Interval history: ALERT NO SOB AT REST Physical Exam Vital signs: Vital Signs 01/04/18 00:30 01/04/18 06:00 01/04/18 07:00 Temperature 98 F 98 F Pulse Rate 101 H 99 H Respiratory Rate 16 18 12 Blood Pressure 125/72 120/66 Pulse Oximetry 96 95 01/04/18 07:36 01/04/18 08:00 01/04/18 09:00 Temperature 98.1 F Pulse Rate 65 78 89 Respiratory Rate 18 20 Blood Pressure 139/76 Pulse Oximetry 92 L 95 01/04/18 12:00 01/04/18 13:05 01/04/18 14:20 Temperature 98.1 F Pulse Rate 67 68 97 H Respiratory Rate 20 16 Blood Pressure 145/76 H Pulse Oximetry 96 01/04/18 16:00 01/04/18 17:02 01/04/18 17:39 Temperature 98.6 F Pulse Rate 105 H 84 103 H Respiratory Rate 20 17 Blood Pressure 129/76 Pulse Oximetry 96 01/04/18 20:44 01/04/18 20:47 01/04/18 22:27 Temperature 98.7 F Pulse Rate 81 80 Respiratory Rate 20 18 Blood Pressure 140/80 Pulse Oximetry 97 95 Intake & Output 01/04/18 01/04/18 01/05/18 06:59 18:59 06:59 Intake Total 1650 / 1650 1060 / 1060 950 / 950 Output Total 3 / 3 Balance 1650 / 1650 1057 / 1057 950 / 950 Weight 48.5 kg Intake: IV 100 / 100 100 / 100 Zosyn 3.375 GM Premix 50 ML @ 100 / 100 100 / 100 100 mls/hr IV.SIG Q8H [facility] Rx#: [id number] Oral 1550 / 1550 960 / 960 950 / 950 Output: Urine 3 / 3 Other: # Voids 4 2 # Bowel Movements 0 0 Narrative: GENERAL: This is a thin, well-developed patient CARDIOVASCULAR: Regular rate and rhythm RESPIRATORY: RLL coarse rhonchi GASTROINTESTINAL: Abdomen soft, non-tender, nondistended. Normal active bowel sounds MUSCULOSKELETAL: Extremities without clubbing, cyanosis, or edema. NEURO: Alert & Oriented x4 to person, place, time, situation. Moves all ext x4 Results - Labs CBC & Chem 7: 12/31/17 06:15 01/02/18 07:28 Microbiology 12/30/17 22:50 Blood - Peripheral Aerobic Blood Culture - Final No growth in 5 days 12/30/17 22:50 Blood - Peripheral Anaerobic Blood Culture - Final No growth in 5 days 12/30/17 22:55 Blood - Peripheral Aerobic Blood Culture - Final No growth in 5 days 12/30/17 22:55 Blood - Peripheral Anaerobic Blood Culture - Final No growth in 5 days - Imaging Impressions Chest X-Ray 01/04/18 13:23 CONCLUSION: 1. Extensive consolidation throughout the right hemithorax with associated volume loss. An outpatient PET/CT scan recommended given the chronic nature. 2. Left lung clear. Assessment and Plan - Plan ALERT NO SOB AT REST PLAN continue antibx bronchodilator therapy bronchoscopy AM
[2018-01-05] MEDS: Piperacil/Tazo 3.375 GM Premix 50 ML IV.SIG SCH ×3 (00:20→15:53)
[2018-01-05] MEDS ORDERED: Metoprolol Tartrate 25 MG Tablet PO SCH (04:00)
[2018-01-05] MEDS ORDERED: Chlorhexidine Gluconate 2% 1 Pack (2 Cloths) TOPICAL SCH (04:00)
[2018-01-05] MEDS ORDERED: Sodium Chlor 0.9% Inj 500 ML IV.SIG SCH (04:00)
[2018-01-05] MEDS: MethylPREDNISolone Sod Succinate Inj 125 MG/2 ML Vial IV.PUSH SCH ×3 (04:26→18:18)
[2018-01-05 06:57] LABS: Baso % (Auto) 0.2 % (0.0-2.0); Eos % (Auto) 0.4 % (0.0-4.0); Hematocrit 38.3 % (35.0-46.0); Hemoglobin 12.5 gm/dL (11.6-15.3); Lymph # (Auto) 0.7 th/mm3 (1.0-4.8); Lymph % (Auto) 5.6 % (9.0-44.0); Mean Corpuscular HGB Conc 32.5 % (32.0-36.0); Mean Corpuscular Hemoglobin 32.4 pg (27.0-34.0); Mean Corpuscular Volume 99.7 fL (80.0-100.0); Mean Platelet Volume 9.2 fL (7.0-11.0); Mono # (Auto) 0.3 th/mm3 (0.0-0.9); Mono % (Auto) 2.3 % (0.0-8.0); Neut # (Auto) 11.7 th/mm3 (1.8-7.7); Neut % (Auto) 91.5 % (16.0-70.0); Platelet Count 361 th/mm3 (150-450); Red Blood Count 3.84 mil/mm3 (4.00-5.30); Red Cell Distribution Width 14.8 % (11.6-17.2); White Blood Count 12.7 th/mm3 (4.0-11.0)
[2018-01-05 07:28] LABS: Calcium 9.3 mg/dL (8.5-10.1); Carbon Dioxide 26.9 meq/L (21.0-32.0); Potassium 4.1 meq/L (3.5-5.1)
[2018-01-05] MEDS: Potassium Chloride 10 MEQ ER Capsule PO SCH (08:09)
[2018-01-05] MEDS: Dextrose 5%/NaCl 0.45% Inj 1,000 ML IV.CONT SCH (08:19)
--- NOTE | 2018-01-05 11:12 | P.PNIM ---
Subjective Interval history: less pain today. Physical Exam Vital signs: Vital Signs 01/04/18 12:00 01/04/18 13:05 01/04/18 14:20 Temperature 98.1 F Pulse Rate 67 68 97 H Respiratory Rate 20 16 Blood Pressure 145/76 H Pulse Oximetry 96 01/04/18 16:00 01/04/18 17:02 01/04/18 17:39 Temperature 98.6 F Pulse Rate 105 H 84 103 H Respiratory Rate 20 17 Blood Pressure 129/76 Pulse Oximetry 96 01/04/18 20:44 01/04/18 20:47 01/04/18 22:27 Temperature 98.7 F Pulse Rate 81 80 Respiratory Rate 20 18 Blood Pressure 140/80 Pulse Oximetry 97 95 01/05/18 00:00 01/05/18 06:00 01/05/18 08:00 Temperature 98.1 F 97 F L 98.2 F Pulse Rate 84 63 73 Respiratory Rate 17 16 20 Blood Pressure 129/89 125/80 147/80 H Pulse Oximetry 96 97 96 01/05/18 08:14 Temperature Pulse Rate 74 Respiratory Rate 16 Blood Pressure Pulse Oximetry 98 Intake & Output 01/04/18 01/05/18 01/05/18 18:59 06:59 18:59 Intake Total 1060 / 1060 1949 / 1949 50 / 50 Output Total 3 / 3 Balance 1057 / 1057 1949 / 1949 50 / 50 Weight 48.5 kg Intake: IV 100 / 100 50 / 50 50 / 50 Zosyn 3.375 GM Premix 50 ML @ 100 / 100 50 / 50 50 / 50 100 mls/hr IV.SIG Q8H [facility] Rx#: [id number] Oral 960 / 960 1900 / 1900 Output: Urine 3 / 3 Other: # Voids 4 # Bowel Movements 0 heart reg lung left lung crackles. egophany ext no edema Results - Labs CBC & Chem 7: 01/05/18 06:25 01/05/18 06:25 Laboratory Results - last 24 hr 01/05/18 01/05/18 06:25 06:25 WBC 12.7 H RBC 3.84 L Hgb 12.5 Hct 38.3 MCV 99.7 MCH 32.4 MCHC 32.5 RDW 14.8 Plt Count 361 MPV 9.2 Neut % (Auto) 91.5 H Lymph % (Auto) 5.6 L [place] % (Auto) 2.3 Eos % (Auto) 0.4 Baso % (Auto) 0.2 Neut # (Auto) 11.7 H Lymph # (Auto) 0.7 L [place] # (Auto) 0.3 Eos # (Auto) 0.0 Baso # (Auto) 0.0 WBC Differential . Differential Comment Auto diff final Sodium 139 Potassium 4.1 Chloride 105 Carbon Dioxide 26.9 Anion Gap 7 BUN 15 Creatinine 0.68 Estimated GFR 87 L Random Glucose 117 H Calcium 9.3 Microbiology 12/30/17 22:50 Blood - Peripheral Aerobic Blood Culture - Final No growth in 5 days 12/30/17 22:50 Blood - Peripheral Anaerobic Blood Culture - Final No growth in 5 days 12/30/17 22:55 Blood - Peripheral Aerobic Blood Culture - Final No growth in 5 days 12/30/17 22:55 Blood - Peripheral Anaerobic Blood Culture - Final No growth in 5 days - Imaging Impressions Chest X-Ray 01/04/18 13:23 CONCLUSION: 1. Extensive consolidation throughout the right hemithorax with associated volume loss. An outpatient PET/CT scan recommended given the chronic nature. 2. Left lung clear. Assessment and Plan - Assessment (1) Recurrent pneumonia Code(s): J18.9 - Pneumonia, unspecified organism Status: Acute Plan: Recurrent pna - Pt had hospitalization September 2017 for similar complaints. - CT thorax 09/2017 showed abnormal right lung process - Pt underwent Bronchoscopy [address] Trejo - no malignant cells identified - Pt somewhat lost to f/u following hospitalization d/t social issues - Pt presented to PCP, Dr. Cowan, with c/o continued SOB - CT thorax 12/30 with IV contrast Chest CT 12/30/17 1. Most of the increasing opacity in the right mid and lower lungs is due to pulmonary consolidation. There is a small right pleural effusion. 2. Multiple nodular densities in the lower left lung similar to prior. - concern that right lung process might represent postobstructive process with underlying malignancy - Pt also with hypokalemia on admission - Appreciate input from Pulmonary Medicine - Hold ASA/plavix - sputum- gram stain --> mixed ace, few WBCs - sputum Cx --> pending - Urine legionella/pneumococcal --> negative - continue Rocephin, azithromycin, and duonebs - continue solumedrol to 60 mg Q8H - continue Robitussin AC - SCDs for DVT prophylaxis - add Mucomyst Neb - supportive care awaiting repeat bronchoscopy later today. - Hypokalemia - PO repletion with improvement (2) Chronic hypokalemia Code(s): E87.6 - Hypokalemia Status: Acute
--- NOTE | 2018-01-05 16:43 | P.PN ---
Subjective Interval history: ALERT NO SOB COUGH THICK MUCUS CAME TO DO BRONCH AT 4 PM, TOLD BRONCH SWEET CLOSED OR NOT AWARE I LET PATIENT EAT Physical Exam Vital signs: Vital Signs 01/04/18 17:02 01/04/18 17:39 01/04/18 20:44 Temperature Pulse Rate 84 103 H 81 Respiratory Rate 17 20 Blood Pressure Pulse Oximetry 01/04/18 20:47 01/04/18 22:27 01/05/18 00:00 Temperature 98.7 F 98.1 F Pulse Rate 80 84 Respiratory Rate 18 17 Blood Pressure 140/80 129/89 Pulse Oximetry 97 95 96 01/05/18 06:00 01/05/18 08:00 01/05/18 08:14 Temperature 97 F L 98.2 F Pulse Rate 63 73 74 Respiratory Rate 16 20 16 Blood Pressure 125/80 147/80 H Pulse Oximetry 97 96 98 01/05/18 09:00 01/05/18 12:00 01/05/18 13:03 Temperature 98.4 F Pulse Rate 56 L 60 69 Respiratory Rate 20 16 Blood Pressure 143/82 H Pulse Oximetry 95 01/05/18 16:05 Temperature Pulse Rate 70 Respiratory Rate 16 Blood Pressure Pulse Oximetry Intake & Output 01/04/18 01/05/18 01/05/18 18:59 06:59 18:59 Intake Total 1060 / 1060 1949 50 / 50 Output Total 3 / 3 Balance 1057 / 1057 1949 50 / 50 Weight 48.5 kg Intake: IV 100 / 100 50 / 50 50 / 50 Zosyn 3.375 GM Premix 50 ML @ 100 / 100 50 / 50 50 / 50 100 mls/hr IV.SIG Q8H [facility] Rx#: [id number] Oral 960 / 960 1900 / 1900 Output: Urine 3 / 3 Other: # Voids 4 Date of Last Bowel Movement 01/04/18 # Bowel Movements 0 Narrative: GENERAL: This is a thin, well-developed patient CARDIOVASCULAR: Regular rate and rhythm RESPIRATORY: RLL coarse rhonchi GASTROINTESTINAL: Abdomen soft, non-tender, nondistended. Normal active bowel sounds MUSCULOSKELETAL: Extremities without clubbing, cyanosis, or edema. NEURO: Alert & Oriented x4 to person, place, time, situation. Moves all ext x4 Results - Labs CBC & Chem 7: 01/05/18 06:25 01/05/18 06:25 Laboratory Results - last 24 hr 01/05/18 01/05/18 06:25 06:25 WBC 12.7 H RBC 3.84 L Hgb 12.5 Hct 38.3 MCV 99.7 MCH 32.4 MCHC 32.5 RDW 14.8 Plt Count 361 MPV 9.2 Neut % (Auto) 91.5 H Lymph % (Auto) 5.6 L [place] % (Auto) 2.3 Eos % (Auto) 0.4 Baso % (Auto) 0.2 Neut # (Auto) 11.7 H Lymph # (Auto) 0.7 L [place] # (Auto) 0.3 Eos # (Auto) 0.0 Baso # (Auto) 0.0 WBC Differential . Differential Comment Auto diff final Sodium 139 Potassium 4.1 Chloride 105 Carbon Dioxide 26.9 Anion Gap 7 BUN 15 Creatinine 0.68 Estimated GFR 87 L Random Glucose 117 H Calcium 9.3 Assessment and Plan - Plan ALERT NO SOB AT REST PLAN continue antibx bronchodilator therapy bronchoscopy WHEN POSSIBLE
[2018-01-06] MEDS: Piperacil/Tazo 3.375 GM Premix 50 ML IV.SIG SCH ×3 (08:56→15:12)
[2018-01-06] MEDS: MethylPREDNISolone Sod Succinate Inj 125 MG/2 ML Vial IV.PUSH SCH ×3 (08:56→18:06)
[2018-01-06] MEDS: Potassium Chloride 10 MEQ ER Capsule PO SCH (08:58)
[2018-01-06] MEDS: Dextrose 5%/NaCl 0.45% Inj 1,000 ML IV.CONT SCH (08:59)
[2018-01-06] MEDS ORDERED: Ketorolac Inj 30 MG/ML (IVP) Vial IV.PUSH PRN (11:08)
--- NOTE | 2018-01-06 11:08 | P.PNIM ---
Subjective Interval history: Pt unable to have bronch performed yesterday due to scheduling conflicts She reports that she is tentatively rescheduled for tomorrow for bronch Pt complains of pain with coughing and this has decreased her coughing response She has only received one Mucomyst neb treatment Afebrile Physical Exam Vital signs: Vital Signs 01/05/18 12:00 01/05/18 13:03 01/05/18 16:00 Temperature 98.4 F 97.5 F L Pulse Rate 60 69 88 Respiratory Rate 20 16 18 Blood Pressure 143/82 H 159/86 H Pulse Oximetry 95 98 01/05/18 16:05 01/05/18 20:00 01/06/18 00:00 Temperature 98.5 F 97.7 F Pulse Rate 70 81 83 Respiratory Rate 16 18 18 Blood Pressure 135/79 132/68 Pulse Oximetry 98 92 L 01/06/18 04:00 01/06/18 08:00 01/06/18 08:23 Temperature 97.4 F L 97.9 F Pulse Rate 69 66 67 Respiratory Rate 18 18 16 Blood Pressure 131/82 124/76 Pulse Oximetry 95 94 L 98 Intake & Output 01/05/18 01/06/18 01/06/18 18:59 06:59 18:59 Intake Total 530 / 530 240 / 240 50 / 50 Balance 530 / 530 240 / 240 50 / 50 Weight 49.2 kg Intake: IV 50 / 50 50 / 50 Zosyn 3.375 GM Premix 50 ML @ 50 / 50 50 / 50 100 mls/hr IV.SIG Q8H [facility] Rx#: [id number] Oral 480 / 480 240 / 240 Other: # Voids 3 Date of Last Bowel Movement 01/04/18 01/05/18 # Bowel Movements 0 Narrative: GENERAL: This is a thin, well-developed patient CARDIO: Regular RESP: RLL some rhonchi noted but not much air movement ABD: +BS, soft, non-tender, nondistended. EXT: Extremities without clubbing, cyanosis, or edema. Results - Labs CBC & Chem 7: 01/05/18 06:25 01/05/18 06:25 - Imaging Chest X-Ray 12/30/17 00:00 CONCLUSION: Worsening right lung consolidation since October 05 with probable right pleural effusion present. Differential diagnosis includes infection and post obstructive pneumonitis. Chest CT 12/30/17 21:46 CONCLUSION: 1. Most of the increasing opacity in the right mid and lower lungs is due to pulmonary consolidation. There is a small right pleural effusion. 2. Multiple nodular densities in the lower left lung similar to prior. Chest X-Ray 01/04/18 13:23 CONCLUSION: 1. Extensive consolidation throughout the right hemithorax with associated volume loss. An outpatient PET/CT scan recommended given the chronic nature. 2. Left lung clear. Assessment and Plan - Assessment (1) Recurrent pneumonia Code(s): J18.9 - Pneumonia, unspecified organism Status: Acute Plan: Recurrent pna - Pt had hospitalization September 2017 for similar complaints. - CT thorax 09/2017 showed abnormal right lung process - Pt underwent Bronchoscopy [address] Trejo - no malignant cells identified - Pt somewhat lost to f/u following hospitalization d/t social issues - Pt presented to PCP, Dr. Cowan, with c/o continued SOB - Chest CT with IV Contrast 12/30/17 1. Most of the increasing opacity in the right mid and lower lungs is due to pulmonary consolidation. There is a small right pleural effusion. 2. Multiple nodular densities in the lower left lung similar to prior. - Concern that right lung process might represent postobstructive process with underlying malignancy - Appreciate input from Pulmonary Medicine - Hold ASA/plavix - sputum- gram stain --> mixed ace, few WBCs - sputum Cx --> with heavy growth of normal respiratory ace - Urine legionella/pneumococcal --> negative - continue Rocephin, azithromycin, and duonebs - continue Solu-Medrol to 60 mg Q8H - continue Robitussin AC - Mucomyst added on 01/05 - Pt unable to have bronch on 01/05 due to scheduling errors, pt reports this is planned for tomorrow. - Pt has [place] PRN ordered for pain but reports that the IV Toradol she received previously helped more with the pain and allowed her to have a more forceful cough - Give a few more doses of PRN Toradol to help with cough response - IS - Acapella - Supportive care - SCDs for DVT prophylaxis Hypokalemia - Pt with hypokalemia on admission - PO repletion with improvement The exam, history, and the medical decision-making described in the above note were completed with the assistance of the mid-level provider. I reviewed and agree with the findings presented. I attest that I had a [id number] encounter with the patient on the same day, and personally performed and documented my assessment and findings in the medical record. awaiting bronchoscopy. cont rx. (2) Chronic hypokalemia Code(s): E87.6 - Hypokalemia Status: Acute
--- NOTE | 2018-01-06 15:05 | P.PN ---
Subjective Interval history: alert no distress ambulating Physical Exam Vital signs: Vital Signs 01/05/18 16:00 01/05/18 16:05 01/05/18 20:00 Temperature 97.5 F L 98.5 F Pulse Rate 88 70 81 Respiratory Rate 18 18 Blood Pressure 159/86 H 135/79 Pulse Oximetry 98 98 01/06/18 00:00 01/06/18 04:00 01/06/18 08:00 Temperature 97.7 F 97.4 F L 97.9 F Pulse Rate 83 69 66 Respiratory Rate 18 18 Blood Pressure 132/68 131/82 124/76 Pulse Oximetry 92 L 95 94 L 01/06/18 08:23 01/06/18 11:46 01/06/18 12:00 Temperature 98.3 F Pulse Rate 67 90 72 Respiratory Rate 16 18 Blood Pressure 134/69 Pulse Oximetry 98 93 L Intake & Output 01/05/18 01/06/18 01/06/18 18:59 06:59 18:59 Intake Total 530 / 530 240 / 240 50 / 50 Balance 530 / 530 240 / 240 50 / 50 Weight 49.2 kg Intake: IV 50 / 50 50 / 50 Zosyn 3.375 GM Premix 50 ML @ 50 / 50 50 / 50 100 mls/hr IV.SIG Q8H [facility] Rx#: [id number] Oral 480 / 480 240 / 240 Other: # Voids 3 Date of Last Bowel Movement 01/04/18 01/05/18 01/04/18 # Bowel Movements 0 Narrative: GENERAL: This is a thin, well-developed patient CARDIO: Regular RESP: RLL some rhonchi noted but not much air movement ABD: +BS, soft, non-tender, nondistended. EXT: Extremities without clubbing, cyanosis, or edema. Results - Labs CBC & Chem 7: 01/05/18 06:25 01/05/18 06:25 Assessment and Plan - Plan ALERT NO SOB AT REST PNA ? POST OBSTRUCTIVE PLAN continue antibx bronchodilator therapy bronchoscopy AM
[2018-01-07] MEDS: Piperacil/Tazo 3.375 GM Premix 50 ML IV.SIG SCH ×4 (01:40→23:03)
[2018-01-07] MEDS: MethylPREDNISolone Sod Succinate Inj 125 MG/2 ML Vial IV.PUSH SCH ×3 (03:57→18:14)
[2018-01-07] MEDS ORDERED: RESP: Lidocaine PF 4% 5 ML Neb NEB SCH (07:45)
[2018-01-07] MEDS ORDERED: RESP: Albuterol Concentrated 2.5 MG/0.5 ML Neb NEB SCH (07:45)
[2018-01-07 08:21] LABS: Baso % (Auto) 0.1 % (0.0-2.0); Eos % (Auto) 0.4 % (0.0-4.0); Hematocrit 38.4 % (35.0-46.0); Hemoglobin 13.3 gm/dL (11.6-15.3); Lymph # (Auto) 0.8 th/mm3 (1.0-4.8); Lymph % (Auto) 7.6 % (9.0-44.0); Mean Corpuscular HGB Conc 34.5 % (32.0-36.0); Mean Corpuscular Hemoglobin 33.8 pg (27.0-34.0); Mean Platelet Volume 8.7 fL (7.0-11.0); Mono # (Auto) 0.3 th/mm3 (0.0-0.9); Mono % (Auto) 2.4 % (0.0-8.0); Neut # (Auto) 9.7 th/mm3 (1.8-7.7); Neut % (Auto) 89.5 % (16.0-70.0); Platelet Count 386 th/mm3 (150-450); Red Blood Count 3.92 mil/mm3 (4.00-5.30); Red Cell Distribution Width 14.8 % (11.6-17.2); White Blood Count 10.9 th/mm3 (4.0-11.0)
[2018-01-07 08:27] LABS: Activated Partial Thrombo Time 23.5 sec (24.3-30.1); INR 1.1 Ratio; Prothrombin Time 11.3 sec (9.8-11.6)
[2018-01-07 08:46] LABS: Calcium 9.1 mg/dL (8.5-10.1); Carbon Dioxide 27.7 meq/L (21.0-32.0); Potassium 4.5 meq/L (3.5-5.1)
--- NOTE | 2018-01-07 08:58 | P.PN ---
Subjective Interval history: ALERT AFEBRILE NAD Physical Exam Vital signs: Vital Signs 01/06/18 11:46 01/06/18 12:00 01/06/18 16:00 Temperature 98.3 F 98.1 F Pulse Rate 90 84 76 Respiratory Rate 20 18 18 Blood Pressure 134/69 182/84 H Pulse Oximetry 93 L 97 01/06/18 16:06 01/06/18 20:00 01/06/18 21:01 Temperature 98.1 F Pulse Rate 102 H 92 H 67 Respiratory Rate 22 18 17 Blood Pressure 179/103 H Pulse Oximetry 95 95 01/07/18 00:00 01/07/18 04:00 01/07/18 07:10 Temperature 97.9 F 97.6 F 97.3 F L Pulse Rate 60 58 L 60 Respiratory Rate 18 18 18 Blood Pressure 164/89 H 175/104 H 167/90 H Pulse Oximetry 95 95 96 01/07/18 07:17 01/07/18 07:50 Temperature 98.0 F Pulse Rate 60 Respiratory Rate 18 Blood Pressure 156/88 H Pulse Oximetry 95 96 Intake & Output 01/06/18 01/07/18 01/07/18 18:59 06:59 18:59 Intake Total 100 / 100 50 / 50 Balance 100 / 100 50 / 50 Weight 47.8 kg Intake: IV 100 / 100 50 / 50 Zosyn 3.375 GM Premix 50 ML @ 100 / 100 50 / 50 100 mls/hr IV.SIG Q8H [facility] Rx#: [id number] Other: Date of Last Bowel Movement 01/04/18 01/05/18 01/04/18 # Bowel Movements 1 Narrative: GENERAL: This is a thin, well-developed patient CARDIO: Regular RESP: RLL some rhonchi noted but not much air movement ABD: +BS, soft, non-tender, nondistended. EXT: Extremities without clubbing, cyanosis, or edema. Results - Labs CBC & Chem 7: 01/07/18 08:07 01/07/18 08:07 Laboratory Results - last 24 hr 01/07/18 01/07/18 01/07/18 08:07 08:07 08:07 WBC 10.9 RBC 3.92 L Hgb 13.3 Hct 38.4 MCV 98.0 MCH 33.8 MCHC 34.5 RDW 14.8 Plt Count 386 MPV 8.7 Neut % (Auto) 89.5 H Lymph % (Auto) 7.6 L [place] % (Auto) 2.4 Eos % (Auto) 0.4 Baso % (Auto) 0.1 Neut # (Auto) 9.7 H Lymph # (Auto) 0.8 L [place] # (Auto) 0.3 Eos # (Auto) 0.0 Baso # (Auto) 0.0 WBC Differential . Differential Comment Auto diff final PT 11.3 INR 1.1 APTT 23.5 L Sodium 139 Potassium 4.5 Chloride 104 Carbon Dioxide 27.7 Anion Gap 7 BUN 21 H Creatinine 0.69 Estimated GFR 86 L Random Glucose 130 H Calcium 9.1 Assessment and Plan - Plan ALERT NO SOB AT REST PNA ? POST OBSTRUCTIVE PLAN continue antibx bronchodilator therapy bronchoscopy TODAY
[2018-01-07] MEDS ORDERED: fentaNYL Citrate Inj 100 MCG/2 ML Ampul ONE (09:30)
--- NOTE | 2018-01-07 09:31 | MR ---
cc: Gabrielle Anthony MD DATE: 01/07/2018 PROCEDURE: Fiberoptic bronchoscopy, flexible REASON FOR BRONCHOSCOPY: Worsening atelectasis, infiltrates right middle lobe, right lower lobe. Rule out underlying malignancy, rule out chronic inflammatory process. PROCEDURE IN DETAIL: Fiberoptic bronchoscopy performed via endotracheal tube. Lower trachea hyperemic, evaristo sharp. Left main bronchus, left upper and lower lobe no obstruction, no mass lesion. Right main bronchus, right upper, middle, and lower lobes, without obstruction; however, significant hyperemia of both orifices of the middle and lower lobes, more so in the middle lobe. Washings obtained from both sides of bronchial tree for routine TB fungal cultures cytological exam. Cytologic brush biopsy right middle lobe obtained. Biopsy at the bifurcation of the right middle and lower lobes obtained for pathologic exam. Mucosa in general edematous; however, no endobronchial obstruction seen. Procedure well tolerated. Patient transferred to recovery in stable condition. IMPRESSION: 1. Moderate tracheobronchitis. 2. No obstruction, no mass lesion. 3. Hyperemia, edema, right middle, less so lower lobes. Samples obtained as above. 4. Procedure well tolerated. 5. Patient transferred to recovery in stable condition. Gabrielle Anthony MD [id number] , 08:52 AM , 08:58 AM
[2018-01-07] MEDS: Potassium Chloride 10 MEQ ER Capsule PO SCH (09:51)
--- NOTE | 2018-01-07 10:13 | P.PNIM ---
Subjective Interval history: Pt just returned from bronchoscopy No new complaints Physical Exam Vital signs: Vital Signs 01/06/18 11:46 01/06/18 12:00 01/06/18 16:00 Temperature 98.3 F 98.1 F Pulse Rate 90 84 76 Respiratory Rate 20 18 18 Blood Pressure 134/69 182/84 H Pulse Oximetry 93 L 97 01/06/18 16:06 01/06/18 20:00 01/06/18 21:01 Temperature 98.1 F Pulse Rate 102 H 92 H 67 Respiratory Rate 22 18 17 Blood Pressure 179/103 H Pulse Oximetry 95 95 01/07/18 00:00 01/07/18 04:00 01/07/18 07:10 Temperature 97.9 F 97.6 F 97.3 F L Pulse Rate 60 58 L 60 Respiratory Rate 18 18 18 Blood Pressure 164/89 H 175/104 H 167/90 H Pulse Oximetry 95 95 96 01/07/18 07:17 01/07/18 07:50 01/07/18 09:10 Temperature 98.0 F 98.5 F Pulse Rate 60 129 H Respiratory Rate 18 14 Blood Pressure 156/88 H 164/111 H Pulse Oximetry 95 96 94 L 01/07/18 09:15 01/07/18 09:30 01/07/18 09:45 Temperature 98.5 F 98.5 F 98.5 F Pulse Rate 128 H 93 H 87 Respiratory Rate 16 16 16 Blood Pressure 144/106 H 134/95 H 127/87 Pulse Oximetry 93 L 97 94 L Intake & Output 01/06/18 01/07/18 01/07/18 18:59 06:59 18:59 Intake Total 100 / 100 50 / 50 Balance 100 / 100 50 / 50 Weight 47.8 kg Intake: IV 100 / 100 50 / 50 Zosyn 3.375 GM Premix 50 ML @ 100 / 100 50 / 50 100 mls/hr IV.SIG Q8H [facility] Rx#: [id number] Other: Date of Last Bowel Movement 01/04/18 01/05/18 01/04/18 # Bowel Movements 1 Narrative: GENERAL: This is a thin, well-developed patient CARDIO: Regular RESP: RLL some rhonchi noted but not much air movement ABD: +BS, soft, non-tender, nondistended. EXT: Extremities without clubbing, cyanosis, or edema. Results - Labs CBC & Chem 7: 01/07/18 08:07 01/07/18 08:07 Laboratory Results - last 24 hr 01/07/18 01/07/18 01/07/18 08:07 08:07 08:07 WBC 10.9 RBC 3.92 L Hgb 13.3 Hct 38.4 MCV 98.0 MCH 33.8 MCHC 34.5 RDW 14.8 Plt Count 386 MPV 8.7 Neut % (Auto) 89.5 H Lymph % (Auto) 7.6 L [place] % (Auto) 2.4 Eos % (Auto) 0.4 Baso % (Auto) 0.1 Neut # (Auto) 9.7 H Lymph # (Auto) 0.8 L [place] # (Auto) 0.3 Eos # (Auto) 0.0 Baso # (Auto) 0.0 WBC Differential . Differential Comment Auto diff final PT 11.3 INR 1.1 APTT 23.5 L Sodium 139 Potassium 4.5 Chloride 104 Carbon Dioxide 27.7 Anion Gap 7 BUN 21 H Creatinine 0.69 Estimated GFR 86 L Random Glucose 130 H Calcium 9.1 - Imaging Chest X-Ray 12/30/17 00:00 CONCLUSION: Worsening right lung consolidation since October 05 with probable right pleural effusion present. Differential diagnosis includes infection and post obstructive pneumonitis. Chest CT 12/30/17 21:46 CONCLUSION: 1. Most of the increasing opacity in the right mid and lower lungs is due to pulmonary consolidation. There is a small right pleural effusion. 2. Multiple nodular densities in the lower left lung similar to prior. Chest X-Ray 01/04/18 13:23 CONCLUSION: 1. Extensive consolidation throughout the right hemithorax with associated volume loss. An outpatient PET/CT scan recommended given the chronic nature. 2. Left lung clear. - Procedures Bronchoscopy on 01/07/[address] Anthony Assessment and Plan - Assessment (1) Recurrent pneumonia Code(s): J18.9 - Pneumonia, unspecified organism Status: Acute Plan: Recurrent pna - Pt had hospitalization September 2017 for similar complaints. - CT thorax 09/2017 showed abnormal right lung process - Pt underwent Bronchoscopy [address] Trejo - no malignant cells identified - Pt somewhat lost to f/u following hospitalization d/t social issues - Pt presented to PCP, Dr. Cowan, with c/o continued SOB - Chest CT with IV Contrast 12/30/17 1. Most of the increasing opacity in the right mid and lower lungs is due to pulmonary consolidation. There is a small right pleural effusion. 2. Multiple nodular densities in the lower left lung similar to prior. - Concern that right lung process might represent postobstructive process with underlying malignancy - Appreciate input from Pulmonary Medicine - Hold ASA/plavix - sputum- gram stain --> mixed ace, few WBCs - sputum Cx --> with heavy growth of normal respiratory ace - Urine legionella/pneumococcal --> negative - continue Rocephin, azithromycin, and duonebs - continue Solu-Medrol to 60 mg Q8H - continue Robitussin AC - Mucomyst added on 01/05 but pt has not been receiving this as ordered - Pt unable to have bronch on 01/05 due to scheduling errors, pt reports this is planned for tomorrow. - Pt has [place] PRN ordered for pain but reports that the IV Toradol she received previously helped more with the pain and allowed her to have a more forceful cough - Give a few more doses of PRN Toradol to help with cough response - Pt underwent bronchoscopy on 01/07/[address] Anthony --> Moderate tracheobronchitis, no obstruction, no mass lesion. Hyperemia, edema, right middle, less so lower lobes. - IS - Acapella - Supportive care - SCDs for DVT prophylaxis Hypokalemia - Pt with hypokalemia on admission - PO repletion with improvement (2) Chronic hypokalemia Code(s): E87.6 - Hypokalemia Status: Acute
[2018-01-07] MEDS ORDERED: Succinylcholine Inj 100 MG/5 ML Syringe IV.PUSH ONE (12:00)
[2018-01-07] MEDS ORDERED: Lidocaine PF 1% Inj 5 ML Syringe INFILTRATN ONE (12:00)
[2018-01-07] MEDS: Sodium Chloride 0.45 % Inj 1,000 ML IV.CONT SCH (15:05)
[2018-01-08] MEDS: MethylPREDNISolone Sod Succinate Inj 125 MG/2 ML Vial IV.PUSH SCH (03:27)
[2018-01-08] MEDS ORDERED: MethylPREDNISolone Sod Succinate Inj 125 MG/2 ML Vial IM ONE (03:45)
[2018-01-08 09:04] VITALS: PULSE 72; RESP 16
[2018-01-08] MEDS: Potassium Chloride 10 MEQ ER Capsule PO SCH (09:42)
[2018-01-08 09:49] VITALS: BP 137/74; TEMP 98.7; O2SAT 94
[2018-01-08] MEDS: Sodium Chloride 0.45 % Inj 1,000 ML IV.CONT SCH (10:18)
--- NOTE | 2018-01-08 10:55 | P.PNIM ---
Subjective Interval history: Pt is insisting on leaving today. She has some family issues going on at home with her Bipolar son who ran out of medications last night Pt lost her IV site this morning and is refusing to have another IV placed. Physical Exam Vital signs: Vital Signs 01/07/18 12:00 01/07/18 12:32 01/07/18 16:00 Temperature 97.9 F Pulse Rate 67 65 96 H Respiratory Rate 19 20 Blood Pressure 155/89 H Pulse Oximetry 94 L 01/07/18 16:33 01/07/18 20:00 01/07/18 20:04 Temperature 98.7 F Pulse Rate 62 80 Respiratory Rate 24 18 Blood Pressure 131/71 Pulse Oximetry 95 98 01/08/18 00:00 01/08/18 04:00 01/08/18 06:21 Temperature 98.1 F 97.6 F Pulse Rate 89 66 Respiratory Rate 18 18 18 Blood Pressure 144/81 H 148/89 H Pulse Oximetry 95 95 01/08/18 08:00 01/08/18 09:02 Temperature 98.7 F Pulse Rate 93 H 72 Respiratory Rate 16 16 Blood Pressure 137/74 Pulse Oximetry 94 L Intake & Output 01/07/18 01/08/18 01/08/18 18:59 06:59 18:59 Intake Total 1060 / 1060 Balance 1060 / 1060 Weight 48.8 kg Intake: IV 100 / 100 Zosyn 3.375 GM Premix 50 ML @ 100 / 100 100 mls/hr IV.SIG Q8H [facility] Rx#: [id number] Oral 960 / 960 Other: # Voids 4 Date of Last Bowel Movement 01/04/18 01/07/18 01/07/18 Narrative: GENERAL: This is a thin, well-developed patient CARDIO: Regular RESP: RLL some rhonchi, slightly improved air movement on the right side ABD: +BS, soft, non-tender, nondistended. EXT: Extremities without clubbing, cyanosis, or edema. Results - Labs CBC & Chem 7: 01/07/18 08:07 01/07/18 08:07 Microbiology 01/07/18 08:47 Bronchial - Bronchial Gram Stain - Final 01/07/18 08:47 Bronchial Washings - Bronchial Fungal Smear - Final No fungal elements seen 01/07/18 08:47 Bronchial Washings - Bronchial Acid Fast Bacilli Smear - Final No acid fast bacilli seen - Imaging Chest X-Ray 12/30/17 00:00 CONCLUSION: Worsening right lung consolidation since October 05 with probable right pleural effusion present. Differential diagnosis includes infection and post obstructive pneumonitis. Chest CT 12/30/17 21:46 CONCLUSION: 1. Most of the increasing opacity in the right mid and lower lungs is due to pulmonary consolidation. There is a small right pleural effusion. 2. Multiple nodular densities in the lower left lung similar to prior. Chest X-Ray 01/04/18 13:23 CONCLUSION: 1. Extensive consolidation throughout the right hemithorax with associated volume loss. An outpatient PET/CT scan recommended given the chronic nature. 2. Left lung clear. - Procedures Bronchoscopy on 01/07/[address] Anthony Assessment and Plan - Assessment (1) Recurrent pneumonia Code(s): J18.9 - Pneumonia, unspecified organism Status: Acute Plan: Recurrent pna - Pt had hospitalization September 2017 for similar complaints. - CT thorax 09/2017 showed abnormal right lung process - Pt underwent Bronchoscopy September [address] Trejo - no malignant cells identified - Pt somewhat lost to f/u following hospitalization d/t social issues - Pt presented to PCP, Dr. Cowan, with c/o continued SOB - Chest CT with IV Contrast 12/30/17 1. Most of the increasing opacity in the right mid and lower lungs is due to pulmonary consolidation. There is a small right pleural effusion. 2. Multiple nodular densities in the lower left lung similar to prior. - Concern that right lung process might represent postobstructive process with underlying malignancy - Appreciate input from Pulmonary Medicine - Hold ASA/plavix - sputum- gram stain --> mixed ace, few WBCs - sputum Cx --> with heavy growth of normal respiratory ace - Urine legionella/pneumococcal --> negative - continue Rocephin, azithromycin, and duonebs - continue Solu-Medrol to 60 mg Q8H - continue Robitussin AC - Mucomyst added on 01/05 - Pt unable to have bronch on 01/05 due to scheduling errors, pt reports this is planned for tomorrow. - Pt has Crimora PRN ordered for pain but reports that the IV Toradol she received previously helped more with the pain and allowed her to have a more forceful cough - PRN Toradol added back to help with cough response but pt has not been using this much - Pt underwent bronchoscopy on 01/07/[address] Anthony --> Moderate tracheobronchitis, no obstruction, no mass lesion. Hyperemia, edema, right middle, less so lower lobes. - IS - Acapella - Pt insisting on leaving on 01/08/18 due to some social issues at home with her son, who is reportedly bipolar and ran out of medications last night. - Discussed with the patient that we don't yet know what the underlying cause for her recurrent pneumonia is as cultures are still pending and there is still concern regarding possible inflammatory process vs. malignancy. She states that she will followup closely with Dr. Cowan and Dr. Anthony but we do not feel that the pt is clinically ready for discharge. If she insists on leaving today she will have to leave AMA. - Supportive care - SCDs for DVT prophylaxis Hypokalemia - Pt with hypokalemia on admission - PO repletion with improvement (2) Chronic hypokalemia Code(s): E87.6 - Hypokalemia Status: Acute
--- NOTE | 2018-01-14 09:15 | P.DS ---
Date of admission: 12/30/17 22:26 Primary care physician: Eric Newton Anticipated date of discharge: 01/08/18 Brief History from admission: Pt with pneumonia diagnosis of right lung in September. Underwent bronch at that time and no endobronchial lesions noted and bronch washings negative for fungal growth, no afb, and light strep species growth. Pt has had about 4 courses of abx levaquin and augementin. Presents with continued right lung consolidation. DS: Diagnosis - Discharge Diagnosis (1) Recurrent pneumonia Status: Acute (2) Chronic hypokalemia Status: Acute DS: Medications - Discharge Medications Prescriptions: levofloxacin 500 mg PO DAILY 7 Days #7 tab prednisone 20 mg PO DIRECTED 9 Days #11 tab DS: Summary Hospital Course: Assessment and Plan (1) Recurrent pneumonia Recurrent pna - Pt had hospitalization September 2017 for similar complaints. - CT thorax 09/2017 showed abnormal right lung process - Pt underwent Bronchoscopy September [address] Trejo - no malignant cells identified - Pt somewhat lost to f/u following hospitalization d/t social issues - Pt presented to PCP, Dr. Newton, with c/o continued SOB - Chest CT with IV Contrast 12/30/17 1. Most of the increasing opacity in the right mid and lower lungs is due to pulmonary consolidation. There is a small right pleural effusion. 2. Multiple nodular densities in the lower left lung similar to prior. - Concern that right lung process might represent postobstructive process with underlying malignancy - Appreciate input from Pulmonary Medicine - Hold ASA/plavix - sputum- gram stain --> mixed ace, few WBCs - sputum Cx --> with heavy growth of normal respiratory ace - Urine legionella/pneumococcal --> negative - continue Rocephin, azithromycin, and duonebs during hospitalization - continue Solu-Medrol to 60 mg Q8H during hospitaliazation - Pt underwent bronchoscopy on 01/07/[address] Anthony --> Moderate tracheobronchitis, no obstruction, no mass lesion. Hyperemia, edema, right middle, less so lower lobes. - Pt insisting on leaving on 01/08/18 due to some social issues at home with her son, who is reportedly bipolar and ran out of medications last night. - Discussed with the patient that we don't yet know what the underlying cause for her recurrent pneumonia is as cultures are still pending and there is still concern regarding possible inflammatory process vs. malignancy. She states that she will followup closely with Dr. Newton and Dr. Anthony but we do not feel that the pt is clinically ready for discharge. If she insists on leaving today she will have to leave AMA. Called pcp after pt left AMA. bronch washings and lung bx consistent with primary lung adenoca. Also some prelim fungal growth. She will see next day in office. Hypokalemia - Pt with hypokalemia on admission - PO repletion with improvement (2) Chronic hypokalemia - Time Spent with Patient Total time spent providing and/or coordinating discharge services: Greater than 30 minutes Exam Vital signs: heart reg lung diminished righ lung base abd s/nt ext no edema Results Procedures completed during hospitalization: Bronchoscopy on 01/07/[address] Anthony Labs on day of discharge: Preliminary micro results at discharge 01/07/18 08:47 Fungal Culture - Preliminary Bronchial Washings - Bronchial - Impressions ITS Impressions Chest CT 12/30/17 21:46 CONCLUSION: 1. Most of the increasing opacity in the right mid and lower lungs is due to pulmonary consolidation. There is a small right pleural effusion. 2. Multiple nodular densities in the lower left lung similar to prior. Chest X-Ray 01/04/18 13:23 CONCLUSION: 1. Extensive consolidation throughout the right hemithorax with associated volume loss. An outpatient PET/CT scan recommended given the chronic nature. 2. Left lung clear. Discharge Plan - Discharge Disposition Patient Disposition: Left Against Medical Advice - Discharge Condition Condition: Stable - Physicians Team Primary Care Provider: Eric Newton Attending Provider: Pietro Wood Other Providers: Adlofo Renner MD
== END 2018-01-08 14:00 | disposition left against medical advice (07) ==
LOC: NEPE 18:55 → NEDA 22:26 → N05 23:39
PROVIDERS: ADMIT Hospitalist; ATTEND Hospitalist

== ENCOUNTER 2018-02-14 19:56 | Inpatient (IN) ==
--- NOTE | 2018-02-14 20:56 | ED ---
Triage General Time Seen by Provider: 02/14/18 20:54 History of Present Illness HPI narrative: 62 y/o female presents with intermittent cough for 9 months, worse today, concerned she may have pneumonia. Seen at triage desk, awaiting bed placement. Home Meds Home Medications Medication Instructions Recorded Confirmed amitriptyline 50 mg PO HS 12/30/17 12/31/17 hydrocodone-acetaminophen 2 tab PO Q8H PRN 12/30/17 12/30/17 potassium chloride 10 meq PO DAILY 12/30/17 12/30/17 pregabalin [Lyrica] 100 mg PO HS 12/30/17 12/31/17 Allergies Allergies Allergy/AdvReac Type Severity Reaction Status Date / Time terbutaline Allergy Intermediate Nausea Verified 02/14/18 20:54 gabapentin Allergy Mild Nausea Verified 02/14/18 20:54 metoclopramide [From Reglan] AdvReac Bleeding Verified 02/14/18 20:54 Vital Signs Recall Vital Signs: Initial Documented Vital Signs Temperature 98.2 F 02/14/18 20:50 Pulse Rate 115 H 02/14/18 20:50 Respiratory Rate 20 02/14/18 20:50 Blood Pressure 153/107 H 02/14/18 20:50 Pulse Oximetry 96 02/14/18 20:50 Last Documented Vital Signs Temperature 98.2 F 02/14/18 20:50 Pulse Rate 115 H 02/14/18 20:50 Respiratory Rate 20 02/14/18 20:50 Blood Pressure 153/107 H 02/14/18 20:50 Pulse Oximetry 96 02/14/18 20:50 Vital Signs 3 l l l l 02/14/18 20:50 l l 02/14/18 20:50 l l Height 157.48 cm l l Weight 43.091 kg l l BMI 17.4 l l BP 153/107 H l l Blood Pressure Location l l Position Sitting l l Respiration 20 l l Pulse 115 H l l Pulse Source l l Temp 98.2 F l l Temp Source Oral l l Pulse Oximetry (%) 96 l l Oxygen Delivery Method l l Oxygen Flow Rate l l Comment PMFSH Social History Social History Substance History: No History of Abuse Smoking Status: Former smoker How Often Do You Have a Drink Containing Alcohol: Monthly or less
--- NOTE | 2018-02-14 21:18 | XR ---
EXAM DATE: 02/14/2018 9:10 PM EDT AGE/SEX: 62 years / Female INDICATIONS: . cough CLINICAL DATA: This is the patient's sequela encounter. Patient reports that signs and symptoms have been present for 7 - 11 months and indicates a pain score of 10/10. MEDICAL/SURGICAL HISTORY: . Cardiovascular disease. Hypertension. Chronic obstructive pulmonary disease. Renal stones . . Coronary artery stent. section. Fusion, cervical. Renal stent COMPARISON: [facility] [place]ST 1V SINGLE AP, 01/04/2018. . FINDINGS: Comparison is January 04. There is now complete opacification of the right hemithorax likely from conso lidation and right pleural effusion. There is some reticulonodular opacity at the left lung base. No significant left effusion. Heart size within normal limits. Tortuous aorta. Previous fusion lower cer vical spine. CONCLUSION: Complete opacification of the right hemithorax probably from right effusion and lung consolidation/at electasis. Cannot exclude underlying lung mass. Stable reticulonodular pattern left lung base. Electronically signed by: Sean Real MD 02/14/2018 9:16 PM EDT
[2018-02-14] MEDS ORDERED: Azithromycin Inj 500 MG in Sodium Chlor 0.9% Inj 250 ML IV.SIG STA (21:43)
[2018-02-14] MEDS ORDERED: Sodium Chlor 0.9% Inj 500 ML IV.SIG ONE (21:43)
--- NOTE | 2018-02-14 22:17 | ED ---
HPI General Chief complaint: Respiratory Symptoms Stated complaint: Eunice Sandoval Time Seen by Provider: 02/14/18 20:54 Source: patient Limitations: no limitations History of Present Illness HPI narrative: The patient is a 62 year old female who presents to the [facility] emergency department with a history of worsening chest pain and shortness of breath throughout the day today. The patient reports that she was diagnosed with pneumonia and left AGAINST MEDICAL ADVICE in December of this year. The patient reports that she has seen her primary care physician in follow-up, however she has not seen the loading supervisor, Dr. Hanna who did her bronchoscopy. She reports that approximately a week ago she received 2 injections with her primary care physician. She is unsure of what these injections were. The patient reports that she was last on oral antibiotic approximately a month ago. The patient reports that the pain is in the right side of the chest. She reports that it is sharp in character. She reports that it radiates around to the back of her chest. She reports that it is worse with taking a deep breath or moving. The patient reports having an associated cough that at times is productive. The patient reports that she is also had a low-grade fever with a T-max of 99.92 days ago. She denies having any nausea, vomiting, or diarrhea. She reports that she has been moving her bowels regularly and last moved her bowels yesterday. The patient reports that she has had some lower extremity edema and was scheduled for an ultrasound, however she has not obtained it yet. She denies having any prior history of DVT or PE. On review of systems otherwise, the patient denies having any neck pain, abdominal pain, vomiting, diarrhea, urinary symptoms, or neurologic symptoms. Related Data Home Medications Medication Instructions Recorded Confirmed amitriptyline 50 mg PO HS 12/30/17 02/15/18 hydrocodone-acetaminophen 2 tab PO Q8H PRN 12/30/17 02/15/18 potassium chloride 10 meq PO DAILY 12/30/17 02/15/18 pregabalin [Lyrica] 100 mg PO HS 12/30/17 02/15/18 aspirin 325 mg PO DAILY 02/15/18 02/15/18 clopidogrel [Plavix] 75 mg PO DAILY 02/15/18 02/15/18 hydrochlorothiazide 25 mg PO DAILY 02/15/18 02/15/18 ipratropium-albuterol 3 ml INHALATION Q4-6H PRN 02/15/18 02/15/18 meprobamate 400 mg PO QID PRN 02/15/18 02/15/18 omeprazole 20 mg PO DAILY 02/15/18 02/15/18 simvastatin 40 mg PO QPM 02/15/18 02/15/18 Allergies Allergy/AdvReac Type Severity Reaction Status Date / Time terbutaline Allergy Intermediate Nausea Verified 02/14/18 20:54 gabapentin Allergy Mild Nausea Verified 02/14/18 20:54 metoclopramide [From Reglan] AdvReac Bleeding Verified 02/14/18 20:54 Review of Systems ROS: all other systems reviewed are negative [facility] Social History Social History Substance History: No History of Abuse Second Hand Smoke Exposure: No Smoking Status: Former smoker Tobacco Type: Cigarettes How Often Do You Have a Drink Containing Alcohol: Monthly or less Recent Travel in [facility] within the Last 8 Weeks: No Recent Out of Country Travel within the Last 8 Weeks: No Immunization History Tetanus Immunization: Unsure Exam Const General: cooperative, no acute distress and well developed Nutritional Appearance: underweight Orientation: alert, awake and oriented x3 HENMT Head: normocephalic and atraumatic Nose: no nasal discharge and no epistaxis Mouth: moist mucous membranes Throat: posterior oropharynx normal and uvula midline Eyes Sclera: normal sclerae Pupils: PERRL Neck Neck: no meningeal signs, trachea midline and no JVD Resp Effort & Inspection: no use of accessory muscles Auscultation: other (Decreased breath sounds on the right side with scattered crackles audible in the lower lung field, no wheezes or rhonchi audible. The patient's left lung is clear to auscultation.) Cardio Rate: tachycardic (Sinus tachycardia in the 1 teens, no pulse deficits to the extremities on simultaneous auscultation and palpation of her radial artery) Rhythm: regular rhythm Heart Sounds: no gallops, no murmurs and no rubs GI Inspection: non-distended Palpation: soft, no hepatosplenomegaly and tender in the RUQ; not in the LLQ, not in the RLQ, not in the LUQ, not at McBurney's point, Grossman's sign negative and with no rebound tenderness Auscultation: normal bowel sounds Back/Spine/Pelvis Back: no CVA tenderness Skin General: dry skin (warm) Neuro General: alert, awake, oriented x3 and other (Grossly nonfocal.) Speech: speech normal Motor: no movement abnormalities noted Extrem General: normal to inspection, calf tenderness (On palpation of bilateral calves. 2+ pulses in bilateral lower extremities.), no clubbing, no cyanosis and no edema Psych Mood: congruent mood Affect: normal affect Judgment: judgment good Course Consultations Consultation #1: The patient's case including history, pertinent physical examination findings, and laboratory studies were discussed with Dr. Olivier. It was agreed that the patient would be admitted to the [facility] hospitalist service. Initial Documented Vital Signs Temperature 98.2 F 02/14/18 20:50 Pulse Rate 115 H 02/14/18 20:50 Respiratory Rate 20 02/14/18 20:50 Blood Pressure 153/107 H 02/14/18 20:50 Pulse Oximetry 96 02/14/18 20:50 Last Documented Vital Signs Temperature 98 F 02/15/18 12:00 Pulse Rate 91 H 02/15/18 16:07 Respiratory Rate 18 02/15/18 16:07 Blood Pressure 121/80 02/15/18 12:00 Pulse Oximetry 98 02/15/18 16:09 Medical Decision Making MDM Narrative Medical decision making narrative: During the course of the patient's emergency department visit, the patient's history, examination, and differential diagnosis were reviewed with the patient. The patient was placed on a lunchroom monitor with oximetry and frequent blood pressure monitoring. The patient had IV access obtained and blood work sent for analysis. A diagnostic workup was started regarding the patient's recurrent right-sided chest pain, cough, shortness of breath with exertion. Electronic medical record was reviewed and the patient on repeat bronchoscopy did have pathology that confirmed adenocarcinoma of the lung. The patient was initially provided Coverage with broad-spectrum antibiotic for suspected underlying pneumonia. The patient was provided morphine for pain, Zofran for nausea. Diagnostic studies are remarkable for a normal white count of 9.6, hemoglobin 13.3, platelets 614 was 76.5 neutrophils, PT 10.9, PTT 28.5 chemistry is remarkable for a potassium of 3.1, GFR of 77, glucose 158, total bilirubin 0.1, alk phos 120, CPK 461 with a normal MB percent, troponin I less than 0.02, BNP 11, lipase 57. Lactic acid was within normal limits. An ultrasound to rule out DVT was negative for DVT, chest x-ray revealed complete opacification of the right hemithorax probably from right effusion and lung consolidation. The patient's results were discussed with the patient, including the plan of care. I explained that further testing and/ or monitoring is indicated based on the patient's history, examination, and/ or laboratory findings. Therefore, I recommended admission for additional evaluation. The patient expressed understanding and was agreeable with this plan. The patient was admitted to the hospital in guarded condition and sent to a bed under the care of the [facility] hospitalist service. The patient's results were discussed with the patient, including the plan of care. I explained that further testing and/ or monitoring is indicated based on the patient's history, examination, and/ or laboratory findings. Therefore, I recommended admission for additional evaluation. The patient expressed understanding and was agreeable with this plan. The patient was admitted to the hospital in guarded condition and sent to a bed under the care of the [facility] hospitalist service. Medical Screen Exam Complete: Yes Emergency Medical Condition: Yes Differential Diagnosis Differential Diagnosis: Pneumonia, versus pleural effusion, versus pulmonary embolism, versus hemothorax, versus congestive heart failure Medical Records Medical records reviewed: Yes I reviewed the patient's medical records. Lab Data Lab results reviewed: Yes I reviewed the patient's lab results. Result diagrams: 02/14/18 22:25 02/14/18 22:25 Lab Results 02/14/18 02/14/18 02/14/18 Range/Units 02:22 22:25 22:25 WBC 9.6 (4.0-11.0) th/mm3 RBC 4.02 (4.00-5.30) mil/mm3 Hgb 13.3 (11.6-15.3) gm/dL Hct 38.3 (35.0-46.0) % MCV 95.5 (80.0-100.0) fL MCH 33.1 (27.0-34.0) pg MCHC 34.7 (32.0-36.0) % RDW 15.1 (11.6-17.2) % Plt Count 614 H (150-450) th/mm3 MPV 8.6 (7.0-11.0) fL Neut % (Auto) 76.5 H (16.0-70.0) % Lymph % (Auto) 15.6 (9.0-44.0) % [place] % (Auto) 5.0 (0.0-8.0) % Eos % (Auto) 2.2 (0.0-4.0) % Baso % (Auto) 0.7 (0.0-2.0) % Neut # (Auto) 7.3 (1.8-7.7) th/mm3 Lymph # (Auto) 1.5 (1.0-4.8) th/mm3 [place] # (Auto) 0.5 (0.0-0.9) th/mm3 Eos # (Auto) 0.2 (0.0-0.4) th/mm3 Baso # (Auto) 0.1 (0.0-0.2) th/mm3 WBC Differential . Differential Comment Auto diff final PT 10.9 (9.8-11.6) sec INR 1.1 Ratio APTT 28.5 (24.3-30.1) sec Sodium (136-145) meq/L Potassium (3.5-5.1) meq/L Chloride (98-107) meq/L Carbon Dioxide (21.0-32.0) meq/L Anion Gap (5-15) meq/L BUN (7-18) mg/dL Creatinine (0.50-1.00) mg/dL Estimated GFR (>89) mL/min Random Glucose (74-106) mg/dL Lactic Acid 2.8 H (0.4-2.0) mmol/L Calcium (8.5-10.1) mg/dL Magnesium (1.5-2.5) mg/dL Total Bilirubin (0.2-1.0) mg/dL AST (15-37) U/L ALT (10-53) U/L Alkaline Phosphatase (45-117) U/L Total Creatine Kinase (26-192) U/L CK-MB (CK-2) (0.5-3.6) ng/mL CK-MB (CK-2) % (0.0-4.0) % Troponin I (0.02-0.05) ng/mL B-Natriuretic Peptide (0-100) pg/mL Total Protein (6.4-8.2) g/dL Albumin (3.4-5.0) g/dL Lipase (73-393) U/L 02/14/18 02/14/18 02/15/18 Range/Units 22:25 22:25 01:05 WBC (4.0-11.0) th/mm3 RBC (4.00-5.30) mil/mm3 Hgb (11.6-15.3) gm/dL Hct (35.0-46.0) % MCV (80.0-100.0) fL MCH (27.0-34.0) pg MCHC (32.0-36.0) % RDW (11.6-17.2) % Plt Count (150-450) th/mm3 MPV (7.0-11.0) fL Neut % (Auto) (16.0-70.0) % Lymph % (Auto) (9.0-44.0) % [place] % (Auto) (0.0-8.0) % Eos % (Auto) (0.0-4.0) % Baso % (Auto) (0.0-2.0) % Neut # (Auto) (1.8-7.7) th/mm3 Lymph # (Auto) (1.0-4.8) th/mm3 [place] # (Auto) (0.0-0.9) th/mm3 Eos # (Auto) (0.0-0.4) th/mm3 Baso # (Auto) (0.0-0.2) th/mm3 WBC Differential Differential Comment PT (9.8-11.6) sec INR Ratio APTT (24.3-30.1) sec Sodium 140 (136-145) meq/L Potassium 3.1 L (3.5-5.1) meq/L Chloride 101 (98-107) meq/L Carbon Dioxide 27.6 (21.0-32.0) meq/L Anion Gap 11 (5-15) meq/L BUN 12 (7-18) mg/dL Creatinine 0.76 (0.50-1.00) mg/dL Estimated GFR 77 L (>89) mL/min Random Glucose 158 H (74-106) mg/dL Lactic Acid 1.6 (0.4-2.0) mmol/L Calcium 9.1 (8.5-10.1) mg/dL Magnesium 1.9 (1.5-2.5) mg/dL Total Bilirubin 0.1 L (0.2-1.0) mg/dL AST 31 (15-37) U/L ALT 19 (10-53) U/L Alkaline Phosphatase 120 H (45-117) U/L Total Creatine Kinase 461 H (26-192) U/L CK-MB (CK-2) 3.3 (0.5-3.6) ng/mL CK-MB (CK-2) % 0.7 (0.0-4.0) % Troponin I Less than 0.02 L (0.02-0.05) ng/mL B-Natriuretic Peptide 11 (0-100) pg/mL Total Protein 8.1 (6.4-8.2) g/dL Albumin 2.7 L (3.4-5.0) g/dL Lipase 57 L (73-393) U/L Imaging Data Radiologist's impression: Chest X-Ray 02/14/18 20:56 CONCLUSION: Complete opacification of the right hemithorax probably from right effusion and lung consolidation/atelectasis. Cannot exclude underlying lung mass. Stable reticulonodular pattern left lung base. Venous Doppler Study 02/14/18 22:17 CONCLUSION: 1. The study is negative for bilateral lower extremity deep venous thrombosis. ECG Data Attestation: I personally reviewed and interpreted this ECG as follows: Interpretation: The patient had a EKG done on arrival that shows a sinus rhythm heart rate of 97, QRS duration 86 ms, QTC [address] segment elevation. T waves are inverted in V1. Discharge Plan Discharge Disposition Patient Disposition: 30 Still Patient Discharge Details Diagnosis: Recurrent pneumonia, Pleural effusion Physicians Team ED Provider: Dana Blancas Primary Care Provider: Eric Newton Attending Provider: James Olivier Other Providers: Ariana Gutierrez ; Gabrielle Anthony Status ED Status: Left Department Discharge Information Discharge Date/Time: 02/15/18 03:05
--- NOTE | 2018-02-14 22:52 | US ---
EXAM DATE: 02/14/2018 10:44 PM EDT AGE/SEX: 62 years / Female INDICATIONS: Bilateral leg swelling. CLINICAL DATA: This is the patient's initial encounter. Patient reports that signs and symptoms have been present for 1 month and indicates a pain score of 2/10. MEDICAL/SURGICAL HISTORY: Hypercholesterolemia. Hypertension. Anxiety. Arthritis. Bulging disc . Coronary artery disease. Claustrophobia. Hiatal hernia. Pneumonia. Kidney stones. Neuropathy. Ulcer . section. Tonsillectomy. Neck surgery. Renal stent. Cardiac catheterization. Cervical spi ne surgery. COMPARISON: No prior exams available for comparison. TECHNIQUE: Venous ultrasound of both lower extremities was performed from the inguinal ligament to t he proximal calf. Real-time, color Doppler and spectral tracing, compression and augmentation techni ques were used. FINDINGS: Right Leg: Normal compression of the deep venous system from the inguinal region to the proximal iman f. No echogenic clot is seen. Normal response of the venous system to augmentation and respiration. Left Leg: Normal compression of the deep venous system from the inguinal region to the proximal calf . No echogenic clot is seen. Normal response of the venous system to augmentation and respiration. Other: None. CONCLUSION: 1. The study is negative for bilateral lower extremity deep venous thrombosis. Electronically signed by: Sean Real MD 02/14/2018 10:51 PM EDT
[2018-02-14 22:57] LABS: Baso # (Auto) 0.1 th/mm3 (0.0-0.2); Baso % (Auto) 0.7 % (0.0-2.0); Eos # (Auto) 0.2 th/mm3 (0.0-0.4); Eos % (Auto) 2.2 % (0.0-4.0); Hematocrit 38.3 % (35.0-46.0); Hemoglobin 13.3 gm/dL (11.6-15.3); Lymph # (Auto) 1.5 th/mm3 (1.0-4.8); Lymph % (Auto) 15.6 % (9.0-44.0); Mean Corpuscular HGB Conc 34.7 % (32.0-36.0); Mean Corpuscular Hemoglobin 33.1 pg (27.0-34.0); Mean Corpuscular Volume 95.5 fL (80.0-100.0); Mean Platelet Volume 8.6 fL (7.0-11.0); Mono # (Auto) 0.5 th/mm3 (0.0-0.9); Neut # (Auto) 7.3 th/mm3 (1.8-7.7); Neut % (Auto) 76.5 % (16.0-70.0); Platelet Count 614 th/mm3 (150-450); Red Blood Count 4.02 mil/mm3 (4.00-5.30); Red Cell Distribution Width 15.1 % (11.6-17.2); White Blood Count 9.6 th/mm3 (4.0-11.0)
[2018-02-14 23:04] LABS: Activated Partial Thrombo Time 28.5 sec (24.3-30.1); INR 1.1 Ratio; Prothrombin Time 10.9 sec (9.8-11.6)
[2018-02-14 23:15] LABS: Alanine Aminotransferase 19 U/L (10-53); Anion Gap 11 meq/L (5-15); Aspartate Aminotransferase 31 U/L (15-37); Blood Urea Nitrogen 12 mg/dL (7-18); Calcium 9.1 mg/dL (8.5-10.1); Carbon Dioxide 27.6 meq/L (21.0-32.0); Chloride 101 meq/L (98-107); Glomerular Filtration Rate 77 mL/min (>89); Glucose,Random 158 mg/dL (74-106); Lipase 57 U/L (73-393); Magnesium 1.9 mg/dL (1.5-2.5); Potassium 3.1 meq/L (3.5-5.1); Sodium 140 meq/L (136-145)
[2018-02-14 23:19] LABS: Alkaline Phosphatase 120 U/L (45-117); Creatine Kinase 461 U/L (26-192); Total Protein 8.1 g/dL (6.4-8.2)
[2018-02-14 23:31] LABS: CKMB Percent 0.7 % (0.0-4.0); Creatine Kinase MB 3.3 ng/mL (0.5-3.6)
[2018-02-14 23:43] LABS: Albumin 2.7 g/dL (3.4-5.0)
[2018-02-15] MEDS ORDERED: Morphine Inj 4 MG/ML Vial IV.PUSH ONE (00:02)
[2018-02-15] MEDS: Enoxaparin Inj 40 MG/0.4 ML Syringe SQ SCH (09:04)
--- NOTE | 2018-02-15 09:19 | P.HP ---
<James Olivier - Last Filed: 02/15/18 15:17> History of Present Illness Primary Care Physician: Eric Newton - Diagnosis (1) Adenocarcinoma (2) Recurrent pneumonia Inpatient Certification: I certify that the inpatient services were ordered in accordance with Medicare regulations governing the order. This includes certification that hospital inpatient services are reasonable and necessary and in the case of services not specified as inpatient-only under 42 CFR 419.22(n), that they are appropriately provided as inpatient services in accordance to with the 2-midnight benchmark under 43 CFR 412.3(e) [facility] - Medical History Medical History: Medical History (Last Reviewed 02/15/18 @ 03:50 by Ramona Galeas RN) Joint pain (Acute) Claustrophobia (Acute) Anxiety (Acute) Arthritis (Acute) Kidney stones (Acute) Hiatal hernia (Acute) Ulcer (Acute) Bulging disc CAD (coronary artery disease) COPD (chronic obstructive pulmonary disease) High cholesterol Hx of recurrent pneumonia Hypertension Neuropathy - Surgical History Surgical History: Surgical History (Last Reviewed 02/15/18 @ 03:50 by Ramona Galeas RN) Hx of cervical spine surgery (Acute) History of renal stent (Acute) Hx of section (Acute) H/O neck surgery Hx of cardiac cath Hx of heart artery stent Hx of tonsillectomy Medications and Allergies Allergies Allergy/AdvReac Type Severity Reaction Status Date / Time terbutaline Allergy Intermediate Nausea Verified 02/14/18 20:54 gabapentin Allergy Mild Nausea Verified 02/14/18 20:54 metoclopramide [From Reglan] AdvReac Bleeding Verified 02/14/18 20:54 Home Medications Medication Instructions Recorded Confirmed Type amitriptyline 50 mg PO HS 12/30/17 02/15/18 History hydrocodone-acetaminophen 2 tab PO Q8H PRN 12/30/17 02/15/18 History potassium chloride 10 meq PO DAILY 12/30/17 02/15/18 History pregabalin [Lyrica] 100 mg PO HS 12/30/17 02/15/18 History aspirin 325 mg PO DAILY 02/15/18 02/15/18 History clopidogrel [Plavix] 75 mg PO DAILY 02/15/18 02/15/18 History hydrochlorothiazide 25 mg PO DAILY 02/15/18 02/15/18 History ipratropium-albuterol 3 ml INHALATION Q4-6H PRN 02/15/18 02/15/18 History meprobamate 400 mg PO QID PRN 02/15/18 02/15/18 History omeprazole 20 mg PO DAILY 02/15/18 02/15/18 History simvastatin 40 mg PO QPM 02/15/18 02/15/18 History Active Medications: Active Medications Hydrocodone Bitart/Acetaminophen ([place] 10/325) 1 tab PO Q4H PRN PRN Reason: PAIN 3-10 Last Admin: 02/15/18 11:40 Dose: 1 tab Albuterol (Duoneb Neb (Prn)) 1 ampul NEB Q2HR NEB PRN PRN Reason: SHORTNESS OF BREATH Last Admin: 02/15/18 04:32 Dose: 1 ampul Albuterol (Duoneb Neb (Carmencita)) 1 ampul NEB Q4HR WHILE AWAKE NEB CARMENCITA Last Admin: 02/15/18 11:45 Dose: 1 ampul Amitriptyline HCl (Elavil) 50 mg PO HS [facility] Aspirin (Aspirin) 325 mg PO DAILY [facility] Enoxaparin Sodium (Lovenox Inj) 40 mg SQ DAILY [facility] Last Admin: 02/15/18 09:04 Dose: Not Given Hydrochlorothiazide (Hydrodiuril) 25 mg PO DAILY [facility] Ondansetron HCl (Zofran Inj) 4 mg IV.PUSH Q6H PRN PRN Reason: Nausea And Vomiting Pantoprazole Sodium (Protonix) 20 mg PO DAILY [facility] Potassium Chloride (Kcl) 10 meq PO DAILY [facility] Pravastatin Sodium (Pravachol) 80 mg PO QPM [facility] Pregabalin (Lyrica) 100 mg PO HS [facility] Temazepam (Restoril) 15 mg PO HS PRN PRN Reason: INSOMNIA Exam Vital signs: Vital Signs 02/14/18 20:50 02/14/18 22:38 02/15/18 04:00 Temperature 98.2 F 98.5 F Pulse Rate 115 H 102 H 93 H Respiratory Rate 20 19 18 Blood Pressure 153/107 H 161/101 H 121/78 Pulse Oximetry 96 98 94 L 02/15/18 04:33 02/15/18 07:59 02/15/18 08:00 Temperature 97.7 F Pulse Rate 85 72 86 Respiratory Rate 17 16 18 Blood Pressure 101/67 Pulse Oximetry 94 L 02/15/18 11:45 02/15/18 12:00 Temperature 98 F Pulse Rate 81 94 H Respiratory Rate 20 19 Blood Pressure 121/80 Pulse Oximetry 95 Intake & Output 02/14/18 02/15/18 02/15/18 18:59 06:59 18:59 Intake Total 850 / 850 Balance 850 / 850 Weight 46 kg Intake: IV 850 / 850 NS Inj 500 ML @ Wide Open IV. 0 / 0 SIG BOLUS ONE Rx#:[id number] Other: # Voids 1 Date of Last Bowel Movement 02/14/18 Weight On Admission 46 kg Results - Labs CBC & Chem 7: 02/14/18 22:25 02/14/18 22:25 Labs: Laboratory Results - last 24 hr 02/14/18 02/14/18 02/14/18 02:22 22:25 22:25 WBC 9.6 RBC 4.02 Hgb 13.3 Hct 38.3 MCV 95.5 MCH 33.1 MCHC 34.7 RDW 15.1 Plt Count 614 H MPV 8.6 Neut % (Auto) 76.5 H Lymph % (Auto) 15.6 [place] % (Auto) 5.0 Eos % (Auto) 2.2 Baso % (Auto) 0.7 Neut # (Auto) 7.3 Lymph # (Auto) 1.5 [place] # (Auto) 0.5 Eos # (Auto) 0.2 Baso # (Auto) 0.1 WBC Differential . Differential Comment Auto diff final PT 10.9 INR 1.1 APTT 28.5 Sodium Potassium Chloride Carbon Dioxide Anion Gap BUN Creatinine Estimated GFR Random Glucose Lactic Acid 2.8 H Calcium Magnesium Total Bilirubin AST ALT Alkaline Phosphatase Total Creatine Kinase CK-MB (CK-2) CK-MB (CK-2) % Troponin I B-Natriuretic Peptide Total Protein Albumin Lipase 02/14/18 02/14/18 02/15/18 22:25 22:25 01:05 WBC RBC Hgb Hct MCV MCH MCHC RDW Plt Count MPV Neut % (Auto) Lymph % (Auto) [place] % (Auto) Eos % (Auto) Baso % (Auto) Neut # (Auto) Lymph # (Auto) [place] # (Auto) Eos # (Auto) Baso # (Auto) WBC Differential Differential Comment PT INR APTT Sodium 140 Potassium 3.1 L Chloride 101 Carbon Dioxide 27.6 Anion Gap 11 BUN 12 Creatinine 0.76 Estimated GFR 77 L Random Glucose 158 H Lactic Acid 1.6 Calcium 9.1 Magnesium 1.9 Total Bilirubin 0.1 L AST 31 ALT 19 Alkaline Phosphatase 120 H Total Creatine Kinase 461 H CK-MB (CK-2) 3.3 CK-MB (CK-2) % 0.7 Troponin I Less than 0.02 L B-Natriuretic Peptide 11 Total Protein 8.1 Albumin 2.7 L Lipase 57 L - Imaging Impressions Chest X-Ray 02/14/18 20:56 CONCLUSION: Complete opacification of the right hemithorax probably from right effusion and lung consolidation/atelectasis. Cannot exclude underlying lung mass. Stable reticulonodular pattern left lung base. Venous Doppler Study 02/14/18 22:17 CONCLUSION: 1. The study is negative for bilateral lower extremity deep venous thrombosis. Caprini VTE Risk Assessment Caprini Risk Assessment Model: Point Value = 1 Point Value = 2 Point Value = 3 Point Value = 5 Age 41-60 Minor surgery BMI > 25 kg/m2 Swollen legs Varicose veins or History of unexplained or recurrent spontaneous Oral contraceptives or hormone replacement Sepsis (< 1 month) Serious lung disease, including pneumonia (< 1 month) Abnormal pulmonary function Acute myocardial infarction Congestive heart failure (< 1 month) History of inflammatory bowel disease Medical patient at bed rest Age 61-74 Arthroscopic surgery Major open surgery (> 45 min) Laparoscopic surgery (> 45 min) Malignancy Confined to bed (> 72 hours) Immobilizing plaster cast Central venous access Age >= 75 History of VTE Family history of VTE Factor V Leiden Prothrombin [id number] Lupus anticoagulant Anticardiolipin antibodies Elevated serum homocysteine Heparin-induced thrombocytopenia Other congenital or acquired thrombophilia Stroke (< 1 month) Elective arthroplasty Hip, pelvis, or leg fracture Acute spinal cord injury (< 1 month) Prophylaxis Regimen: Total Risk Factor Score Risk Level Prophylaxis Regimen 0-1 Low Early ambulation 2 Moderate Order ONE of the following: *Sequential Compression Device (SCD) *Heparin 5000 units SQ BID 3-4 Higher Order ONE of the following medications: *Heparin 5000 units SQ TID *Enoxaparin/Lovenox 40 mg SQ daily (WT < 150 kg, CrCl > 30 mL/min) *Enoxaparin/Lovenox 30 mg SQ daily (WT < 150 kg, CrCl > 10-29 mL/min) *Enoxaparin/Lovenox 30 mg SQ BID (WT < 150 kg, CrCl > 30 mL/min) AND/OR *Sequential Compression Device (SCD) 5 or more Highest Order ONE of the following medications: *Heparin 5000 units SQ TID (Preferred with Epidurals) *Enoxaparin/Lovenox 40 mg SQ daily (WT < 150 kg, CrCl > 30 mL/min) *Enoxaparin/Lovenox 30 mg SQ daily (WT < 150 kg, CrCl > 10-29 mL/min) *Enoxaparin/Lovenox 30 mg SQ BID (WT < 150 kg, CrCl > 30 mL/min) AND *Sequential Compression Device (SCD) Assessment and Plan - Assessment (1) Adenocarcinoma Code(s): C80.1 - Malignant (primary) neoplasm, unspecified Status: Acute Plan: The exam, history, and the medical decision-making described in the above note were completed with the assistance of the mid-level provider. I reviewed and agree with the findings presented. I attest that I had a [id number] encounter with the patient on the same day, and personally performed and documented my assessment and findings in the medical record. adenocarcinoma found in right lung bronch bx. right lung white out now. pt needs oncology evaluation to decide on staging, any treatment option. pt also asked about hospice. u/s right chest to see if any significant pleural effusion to drain. pain control. (2) Recurrent pneumonia Code(s): J18.9 - Pneumonia, unspecified organism Status: Acute <Yelena Arteaga W - Last Filed: 02/15/18 15:37> History of Present Illness Primary Care Physician: Eric Newton History of Present Illness: Patient did initially diagnosed with pneumonia of the right lobe September 2017 underwent bronchoscopy at that time no endobronchial lesions noted in bronchial washings negative for fungal growth, no AFB and late strep species growth. Patient had 4 courses of antibiotics including Levaquin and Augmentin. Patient was admitted again to [facility] from December 31, 2017 to December. During that hospitalization patient underwent repeat bronchoscopy [address] Anthony which revealed: Moderate tracheobronchitis, no obstruction, no mass lesion. Hyperemia, edema, right middle, less so lower lobes. Pt insisting on leaving on 01/08/18 due to some social issues at home with her son, who is reportedly bipolar and ran out of medications last night. Discussed with the patient that we don't yet know what the underlying cause for her recurrent pneumonia is as cultures are still pending and there is still concern regarding possible inflammatory process vs. malignancy. She states that she will followup closely with Dr. Newton and Dr. Anthony but we do not feel that the pt is clinically ready for discharge. If she insists on leaving today she will have to leave AMA. Pathology from bronchoscopy 01/07/2018 was positive for malignant cells consistent with adenocarcinoma. On January 11, 2018 patient's primary care provider Dr. Newton reviewed pathology results including adenocarcinoma of the lung with patient. Per primary care dictation patient initially stated she did not want any treatment for this but later agreed to see an oncologist to determine treatment options. Patient was referred to hematology/oncology but there is no record of appointment made or visit. Patient presents to [facility] 02/14/18 due to SOB and right sided chest pain. The patient reports that the pain is in the right side of the chest. She reports that it is sharp in character. She reports that it radiates around to the back of her chest. She reports that it is worse with taking a deep breath or moving. The patient reports having an associated cough that at times is productive. The patient reports that she has also had a low-grade fever with a T-max of 99.9, 2 days ago. She denies having any nausea, vomiting, or diarrhea. She reports that she has been moving her bowels regularly and last moved her bowels yesterday. The patient reports that she has had some lower extremity edema and was scheduled for an ultrasound, however she has not obtained it yet. She denies having any prior history of DVT or PE. Patient also denies having any neck pain, abdominal pain, vomiting, diarrhea, urinary symptoms, or neurologic symptoms. Chest X-Ray 02/14/18 20:56 CONCLUSION: Complete opacification of the right hemithorax probably from right effusion and lung consolidation/atelectasis. Cannot exclude underlying lung mass. Stable reticulonodular pattern left lung base. Venous Doppler Study 02/14/18 22:17 CONCLUSION: 1. The study is negative for bilateral lower extremity deep venous thrombosis. PMH: cad. pci ruthy ramus intermedius. renal art. stent right iliac stent. pad cervical neck fusion anxiety gerd "gastric ulcer" says she had egd and colon 4 or 5 yrs ago. polyps hemorrhoids. RA htn hyperlipidemia adenocarcinoma of the lung PSH: [facility] bronchoscopy with biopsy (09/2017) bronchoscopy with biopsy (12/2017) FXH: She had 2 sons. Her son who is mentally challenged lives with her and other son who left 2 of his children with her. Has a granddaughter living with her. SHX: She has history of smoking, which she quit 1 month ago. No alcohol abuse. 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 She said she is . ALLERGEIS: TO TERBUTALINE AND GABAPENTIN. - Diagnosis (1) Adenocarcinoma (2) Recurrent pneumonia Inpatient Certification: I certify that the inpatient services were ordered in accordance with Medicare regulations governing the order. This includes certification that hospital inpatient services are reasonable and necessary and in the case of services not specified as inpatient-only under 42 CFR 419.22(n), that they are appropriately provided as inpatient services in accordance to with the 2-midnight benchmark under 43 CFR 412.3(e) Estimated Total Length of Stay (Days): 5 Plans for Post Hospital Care: Home Review of Systems All other systems reviewed negative except as stated in HPI PMFSH - History History Provided By: Patient - Medical History Medical History: Medical History (Last Reviewed 02/15/18 @ 03:50 by Ramona Galeas RN) Joint pain (Acute) Claustrophobia (Acute) Anxiety (Acute) Arthritis (Acute) Kidney stones (Acute) Hiatal hernia (Acute) Ulcer (Acute) Bulging disc CAD (coronary artery disease) COPD (chronic obstructive pulmonary disease) High cholesterol Hx of recurrent pneumonia Hypertension Neuropathy - Surgical History Surgical History: Surgical History (Last Reviewed 02/15/18 @ 03:50 by Ramona Galeas RN) Hx of cervical spine surgery (Acute) History of renal stent (Acute) Hx of section (Acute) H/O neck surgery Hx of cardiac cath Hx of heart artery stent Hx of tonsillectomy - Tobacco History Second Hand Smoke Exposure: No Tobacco Use In Past 30 Days: Yes Smoking Status: Former smoker Tobacco Type: Cigarettes - Alcohol History How Often Do You Have a Drink Containing Alcohol: Monthly or less - Substance Use History Substance History: No History of Abuse - Travel History Recent Travel in the [place] Within the Last 8 Weeks: No Recent Travel Out of the Country Within the Last 8 Weeks: No - Immunization History Tetanus Immunization: Unsure Medications and Allergies Active Medications: Active Medications Hydrocodone Bitart/Acetaminophen ([place] 10/325) 1 tab PO Q4H PRN PRN Reason: PAIN 3-10 Last Admin: 02/15/18 03:56 Dose: 1 tab Albuterol (Duoneb Neb (Prn)) 1 ampul NEB Q2HR NEB PRN PRN Reason: SHORTNESS OF BREATH Last Admin: 02/15/18 04:32 Dose: 1 ampul Albuterol (Duoneb Neb (Carmencita)) 1 ampul NEB Q4HR WHILE AWAKE NEB CARMENCITA Last Admin: 02/15/18 07:58 Dose: 1 ampul Enoxaparin Sodium (Lovenox Inj) 40 mg SQ DAILY [facility] Last Admin: 02/15/18 09:04 Dose: Not Given Ondansetron HCl (Zofran Inj) 4 mg IV.PUSH Q6H PRN PRN Reason: Nausea And Vomiting Temazepam (Restoril) 15 mg PO HS PRN PRN Reason: INSOMNIA Exam Vital signs: Vital Signs 02/14/18 20:50 02/14/18 22:38 02/15/18 04:00 Temperature 98.2 F 98.5 F Pulse Rate 115 H 102 H 93 H Respiratory Rate 20 19 18 Blood Pressure 153/107 H 161/101 H 121/78 Pulse Oximetry 96 98 94 L 02/15/18 04:33 02/15/18 07:59 02/15/18 08:00 Temperature 97.7 F Pulse Rate 85 72 86 Respiratory Rate 17 16 18 Blood Pressure 101/67 Pulse Oximetry 94 L Intake & Output 02/14/18 02/15/18 02/15/18 18:59 06:59 18:59 Intake Total 850 / 850 Balance 850 / 850 Weight 46 kg Intake: IV 850 / 850 NS Inj 500 ML @ Wide Open IV. 0 / 0 SIG BOLUS ONE Rx#:[id number] Other: # Voids 1 Date of Last Bowel Movement 02/14/18 Weight On Admission 46 kg Narrative: GENERAL: This is a well-nourished, well-developed patient, in no apparent distress. CARDIOVASCULAR: Regular rate and rhythm RESPIRATORY: decreased R side GASTROINTESTINAL: Abdomen soft, non-tender, nondistended. Normal active bowel sounds MUSCULOSKELETAL: Extremities without clubbing, cyanosis, or edema. NEURO: Alert & Oriented x4 to person, place, time, situation. Moves all ext x4 Results - Labs CBC & Chem 7: 02/14/18 22:25 02/14/18 22:25 Labs: Laboratory Results - last 24 hr 02/14/18 02/14/18 02/14/18 02:22 22:25 22:25 WBC 9.6 RBC 4.02 Hgb 13.3 Hct 38.3 MCV 95.5 MCH 33.1 MCHC 34.7 RDW 15.1 Plt Count 614 H MPV 8.6 Neut % (Auto) 76.5 H Lymph % (Auto) 15.6 [place] % (Auto) 5.0 Eos % (Auto) 2.2 Baso % (Auto) 0.7 Neut # (Auto) 7.3 Lymph # (Auto) 1.5 [place] # (Auto) 0.5 Eos # (Auto) 0.2 Baso # (Auto) 0.1 WBC Differential . Differential Comment Auto diff final PT 10.9 INR 1.1 APTT 28.5 Sodium Potassium Chloride Carbon Dioxide Anion Gap BUN Creatinine Estimated GFR Random Glucose Lactic Acid 2.8 H Calcium Magnesium Total Bilirubin AST ALT Alkaline Phosphatase Total Creatine Kinase CK-MB (CK-2) CK-MB (CK-2) % Troponin I B-Natriuretic Peptide Total Protein Albumin Lipase 02/14/18 02/14/18 02/15/18 22:25 22:25 01:05 WBC RBC Hgb Hct MCV MCH MCHC RDW Plt Count MPV Neut % (Auto) Lymph % (Auto) [place] % (Auto) Eos % (Auto) Baso % (Auto) Neut # (Auto) Lymph # (Auto) [place] # (Auto) Eos # (Auto) Baso # (Auto) WBC Differential Differential Comment PT INR APTT Sodium 140 Potassium 3.1 L Chloride 101 Carbon Dioxide 27.6 Anion Gap 11 BUN 12 Creatinine 0.76 Estimated GFR 77 L Random Glucose 158 H Lactic Acid 1.6 Calcium 9.1 Magnesium 1.9 Total Bilirubin 0.1 L AST 31 ALT 19 Alkaline Phosphatase 120 H Total Creatine Kinase 461 H CK-MB (CK-2) 3.3 CK-MB (CK-2) % 0.7 Troponin I Less than 0.02 L B-Natriuretic Peptide 11 Total Protein 8.1 Albumin 2.7 L Lipase 57 L - Imaging Impressions Chest X-Ray 02/14/18 20:56 CONCLUSION: Complete opacification of the right hemithorax probably from right effusion and lung consolidation/atelectasis. Cannot exclude underlying lung mass. Stable reticulonodular pattern left lung base. Venous Doppler Study 02/14/18 22:17 CONCLUSION: 1. The study is negative for bilateral lower extremity deep venous thrombosis. Caprini VTE Risk Assessment Caprini VTE Risk Assessment: Moderate/High Risk (score >= 2) Caprini Risk Assessment Model: Point Value = 1 Point Value = 2 Point Value = 3 Point Value = 5 Age 41-60 Minor surgery BMI > 25 kg/m2 Swollen legs Varicose veins or History of unexplained or recurrent spontaneous Oral contraceptives or hormone replacement Sepsis (< 1 month) Serious lung disease, including pneumonia (< 1 month) Abnormal pulmonary function Acute myocardial infarction Congestive heart failure (< 1 month) History of inflammatory bowel disease Medical patient at bed rest Age 61-74 Arthroscopic surgery Major open surgery (> 45 min) Laparoscopic surgery (> 45 min) Malignancy Confined to bed (> 72 hours) Immobilizing plaster cast Central venous access Age >= 75 History of VTE Family history of VTE Factor V Leiden Prothrombin [id number] Lupus anticoagulant Anticardiolipin antibodies Elevated serum homocysteine Heparin-induced thrombocytopenia Other congenital or acquired thrombophilia Stroke (< 1 month) Elective arthroplasty Hip, pelvis, or leg fracture Acute spinal cord injury (< 1 month) Prophylaxis Regimen: Total Risk Factor Score Risk Level Prophylaxis Regimen 0-1 Low Early ambulation 2 Moderate Order ONE of the following: *Sequential Compression Device (SCD) *Heparin 5000 units SQ BID 3-4 Higher Order ONE of the following medications: *Heparin 5000 units SQ TID *Enoxaparin/Lovenox 40 mg SQ daily (WT < 150 kg, CrCl > 30 mL/min) *Enoxaparin/Lovenox 30 mg SQ daily (WT < 150 kg, CrCl > 10-29 mL/min) *Enoxaparin/Lovenox 30 mg SQ BID (WT < 150 kg, CrCl > 30 mL/min) AND/OR *Sequential Compression Device (SCD) 5 or more Highest Order ONE of the following medications: *Heparin 5000 units SQ TID (Preferred with Epidurals) *Enoxaparin/Lovenox 40 mg SQ daily (WT < 150 kg, CrCl > 30 mL/min) *Enoxaparin/Lovenox 30 mg SQ daily (WT < 150 kg, CrCl > 10-29 mL/min) *Enoxaparin/Lovenox 30 mg SQ BID (WT < 150 kg, CrCl > 30 mL/min) AND *Sequential Compression Device (SCD) Assessment and Plan - Assessment (1) Adenocarcinoma Code(s): C80.1 - Malignant (primary) neoplasm, unspecified Status: Acute Plan: Adenocarcinoma - Pt had hospitalization September 2017 and December 2017 for similar complaints. - CT thorax 09/2017 showed abnormal right lung process - Pt underwent Bronchoscopy September [address] Trejo - no malignant cells identified - Pt somewhat lost to f/u following hospitalization d/t social issues - Pt presented to PCP, Dr. Newton, with c/o continued SOB - Chest CT with IV Contrast 12/30/17 1. Most of the increasing opacity in the right mid and lower lungs is due to pulmonary consolidation. There is a small right pleural effusion. 2. Multiple nodular densities in the lower left lung similar to prior. - Concern that right lung process might represent postobstructive process with underlying malignancy - Appreciate input from Pulmonary Medicine - Hold ASA/plavix - sputum- gram stain --> mixed ace, few WBCs - sputum Cx --> with heavy growth of normal respiratory ace - Urine legionella/pneumococcal --> negative - Pt underwent bronchoscopy on 01/07/[address] Anthony --> Moderate tracheobronchitis, no obstruction, no mass lesion. Hyperemia, edema, right middle, less so lower lobes. - Pt insisting on leaving on 01/08/18 due to some social issues at home with her son, who is reportedly bipolar and ran out of medications last night. - Discussed with the patient that we don't yet know what the underlying cause for her recurrent pneumonia is as cultures are still pending and there is still concern regarding possible inflammatory process vs. malignancy. She states that she will followup closely with Dr. Newton and Dr. Anthony but we do not feel that the pt is clinically ready for discharge. If she insists on leaving today she will have to leave AMA. - On January 11, 2018 patient's primary care provider Dr. Newton reviewed pathology results including adenocarcinoma of the lung with patient. Per primary care dictation patient initially stated she did not want any treatment for this but later agreed to see an oncologist to determine treatment options. Patient was referred to hematology/oncology but there is no record of appointment made or visit. - Consult oncology - Consult pulmonology - Duonebs Q4H while awake and PRN - [place] as needed for pain - Supportive care - Lovenox for DVT prophylaxis R Pleural effusion - CXR: Chest X-Ray 02/14/18: Complete opacification of the right hemithorax probably from right effusion and lung consolidation/atelectasis. Cannot exclude underlying lung mass. Stable reticulonodular pattern left lung base. - US guided thoracentesis ordered Hypokalemia potassium 3.1 on admission replaced (2) Recurrent pneumonia Code(s): J18.9 - Pneumonia, unspecified organism Status: Acute
--- NOTE | 2018-02-15 17:56 | ECG ---
Date Performed: 02/15/2018 Time Performed: 00:28:49 PTAGE: 62 years EKG: Sinus rhythm Nonspecific ST-T wave changes. Since previous tracing, no significant change noted ABNORMAL ECG PREVIOUS TRACING : 12/30/2017 21.12 DOCTOR: Veronica Tomlin Interpretating Date/Time 02/15/2018 17:52:58
--- NOTE | 2018-02-15 21:05 | CT ---
EXAM DATE: 02/15/2018 8:03 PM EDT AGE/SEX: 62 years / Female INDICATIONS: Atelectasis. CLINICAL DATA: This is the patient's initial encounter. Patient reports that signs and symptoms have been present for 1 day and indicates a pain score of 0/10. MEDICAL/SURGICAL HISTORY: Cardiovascular disease. Hypertension. . Cardiac surgery. RADIATION DOSE: 5.13 CTDI (mGy) COMPARISON: [facility] – [place], CT CHEST W CONTRAST, 12/30/2017. . TECHNIQUE: Multiple contiguous axial images were obtained through the chest without contrast. Image s were obtained in suspended respiration using multiple row detector helical technique. Using automa catarina exposure control and adjustment of the mA and/or kV according to patient size, radiation dose was kept as low as reasonably achievable to obtain optimal diagnostic quality images. DICOM format imag e data is available electronically for review and comparison. FINDINGS: The right mainstem bronchus is patent but the upper lobe, middle lobe and lower lobe bronchi are occl uded. There is complete atelectasis and consolidation of the right lung and there is a moderate to la rge right pleural effusion. Nodular opacities at the left lung base appear to be slightly more prominent than in December. There is some distal airway disease. No acute bony abnormalities. Severe coronary calcifications noted proximally. No acute findings in the upper abdomen. CONCLUSION: 1. Obstruction of the right upper lobe, right middle lobe and right lower lobe bronchi with complete atelectasis and consolidation of the right lung and moderate to large right pleural effusion. No sig nificant mediastinal shift. Lobar bronchial obstruction probably related to mucoid plugging but canno t exclude endobronchial mass. 2. Nodular opacities and distal airway disease at the left lung base appears stable to slightly wors e. Upper lung nodules also present. Differential diagnosis includes postinflammatory changes but wali ot exclude metastatic disease. Electronically signed by: Sean Real MD 02/15/2018 9:04 PM EDT
[2018-02-15] MEDS: Amitriptyline 25 MG Tablet PO SCH (21:42)
[2018-02-16 05:56] LABS: Anion Gap 10 meq/L (5-15); Blood Urea Nitrogen 7 mg/dL (7-18); Calcium 8.8 mg/dL (8.5-10.1); Chloride 104 meq/L (98-107); Glomerular Filtration Rate Greater Than 89 mL/min (>89); Glucose,Random 91 mg/dL (74-106); Potassium 3.5 meq/L (3.5-5.1); Sodium 141 meq/L (136-145)
--- NOTE | 2018-02-16 10:01 | XR ---
EXAM DATE: 02/16/2018 9:54 AM EDT AGE/SEX: 62 years / Female INDICATIONS: Status post Right Thoracentesis. Patient was having chest pain and discomfort. CLINICAL DATA: This is the patient's subsequent encounter. Patient reports that signs and symptoms h ave been present for 3 days and indicates a pain score of 10/10. MEDICAL/SURGICAL HISTORY: Chronic obstructive pulmonary disease. Cardiovascular disease. Hyper tension. Renal stones . Coronary artery stent. section. Fusion, cervical. Renal stent [place] [facility] [place] 2[place]&LAT[place]2018. . FINDINGS: No significant pneumothorax following right-sided thoracentesis. Slight improved aeration of a portio n of the right upper lobe with persistent significant near complete opacification of the right hemith orax. There is also associated volume loss with mediastinal shift to the right. Left lung is clear. C ardiomediastinal contours are stable. Remainder of exam is unchanged. CONCLUSION: 1. No significant pneumothorax following right-sided thoracentesis. 2. Slight improved aeration of a portion of the right upper lobe with persistent significant volume loss and near complete opacification of the right hemithorax. Electronically signed by: Sunil Heller MD 02/16/2018 9:59 AM EDT
[2018-02-16] MEDS ORDERED: Lidocaine PF 1% Inj 5 ML Vial ONE (10:15)
[2018-02-16] MEDS: Pantoprazole Sodium 20 MG DR Tablet PO SCH (10:44)
[2018-02-16] MEDS: Potassium Chloride 10 MEQ ER Capsule PO SCH (10:44)
[2018-02-16] MEDS: hydroCHLOROthiazide 25 MG Tablet PO SCH (10:44)
[2018-02-16] MEDS: ALPRAZolam 0.25 MG Tablet PO PRN (10:44)
[2018-02-16] MEDS: Enoxaparin Inj 40 MG/0.4 ML Syringe SQ SCH (10:45)
[2018-02-16] MEDS: Aspirin 325 MG Tablet PO SCH (10:45)
[2018-02-16] MEDS ORDERED: Ketorolac Inj 30 MG/ML (IVP) Vial IV.PUSH ONE (11:02)
--- NOTE | 2018-02-16 11:10 | US ---
EXAM DATE: 02/16/2018 10:11 AM EDT AGE/SEX: 62 years / Female INDICATIONS: Right pleural effusion. CLINICAL DATA: This is the patient's initial encounter. Patient reports that signs and symptoms have been present for 2 days and indicates a pain score of 7/10. MEDICAL/SURGICAL HISTORY: . Hypercholesterolemia. Hypertension. Anxiety. Arthritis. Bulging dis c. Coronary artery disease. Claustrophobia. Hiatal hernia. Pneumonia. Kidney stones. Neuropathy. Ulce r. . section. Tonsillectomy. Neck surgery. Renal stent. Cardiac catheterization. Cervical s pine surgery. COMPARISON: [facility] – [place], [place] CHEST W/O CONTRAST, 02/15/2018. . FLUID: Total volume of 1200 cc of clear, red fluid was removed. Fluid was sent to lab for ordered studies. . . TECHNIQUE: Ultrasound guidance for thoracentesis. Thoracentesis. The risks, benefits, and alternatives to ultrasound guided thoracentesis were explained to the patien t in lay simple terms, including the risk of bleeding and infection. Written and verbal informed con sent was obtained. Appropriate area for right thoracentesis was marked under ultrasound guidance with the patient in the upright position. Overlying skin was prepped and draped in the usual sterile fashion and with local anesthetic, a dermatotomy was made with an 11 blade scalpel. A 6 [place] thoracentesis catheter was placed in the pleural space and fluid was removed. Catheter was then removed and a sterile dressing applied. There were no immediate complications. The patient tolerated the procedure well and the lef t the ultrasound suite in stable condition. Chest radiograph is to be obtained. FINDINGS: Large right pleural effusion. CONCLUSION: 1. Uncomplicated ultrasound-guided right-sided thoracentesis. Electronically signed by: Sunil Heller MD 02/16/2018 11:08 AM EDT
--- NOTE | 2018-02-16 11:39 | P.PNIM ---
Subjective Interval history: pt crying..just had 1200cc thoracentesis. Physical Exam Vital signs: Vital Signs 02/15/18 11:45 02/15/18 12:00 02/15/18 16:07 Temperature 98 F Pulse Rate 81 94 H 91 H Respiratory Rate 20 19 18 Blood Pressure 121/80 Pulse Oximetry 95 02/15/18 16:09 02/15/18 20:13 02/15/18 20:28 Temperature 98.4 F Pulse Rate 93 H 92 H Respiratory Rate 16 20 Blood Pressure 120/83 Pulse Oximetry 98 100 02/15/18 21:43 02/16/18 00:14 02/16/18 08:43 Temperature 97.8 F 98.2 F Pulse Rate 94 H 100 H Respiratory Rate 18 19 18 Blood Pressure 123/79 136/95 H Pulse Oximetry 95 93 L 02/16/18 09:45 02/16/18 09:48 02/16/18 10:02 Temperature 98.5 F 98.5 F Pulse Rate 108 H 108 H Respiratory Rate 20 18 20 Blood Pressure 122/90 122/96 H Pulse Oximetry 91 L 91 L 02/16/18 10:03 Temperature Pulse Rate 104 H Respiratory Rate 20 Blood Pressure 128/97 H Pulse Oximetry 93 L Intake & Output 02/15/18 02/16/18 02/16/18 18:59 06:59 18:59 Intake Total 360 / 360 Balance 360 / 360 Weight 46 kg Intake: Oral 360 / 360 Other: # Voids 1 Date of Last Bowel Movement 02/14/18 # Bowel Movements 0 improved air entry right lung crying. no labored breathing. Results - Labs CBC & Chem 7: 02/14/18 22:25 02/16/18 04:54 Laboratory Results - last 24 hr 02/16/18 04:54 Sodium 141 Potassium 3.5 Chloride 104 Carbon Dioxide 27.0 Anion Gap 10 BUN 7 Creatinine 0.39 L Estimated GFR Greater than 89 Random Glucose 91 Calcium 8.8 Microbiology 02/14/18 22:10 Blood - Peripheral Aerobic Blood Culture - Preliminary No growth in 2 days 02/14/18 22:10 Blood - Peripheral Anaerobic Blood Culture - Preliminary No growth in 2 days 02/14/18 22:00 Blood - Peripheral Aerobic Blood Culture - Preliminary No growth in 2 days 02/14/18 22:00 Blood - Peripheral Anaerobic Blood Culture - Preliminary No growth in 2 days - Imaging Impressions Chest CT 02/15/18 00:00 CONCLUSION: 1. Obstruction of the right upper lobe, right middle lobe and right lower lobe bronchi with complete atelectasis and consolidation of the right lung and moderate to large right pleural effusion. No significant mediastinal shift. Lobar bronchial obstruction probably related to mucoid plugging but cannot exclude endobronchial mass. 2. Nodular opacities and distal airway disease at the left lung base appears stable to slightly worse. Upper lung nodules also present. Differential diagnosis includes postinflammatory changes but cannot exclude metastatic disease. Chest X-Ray 02/16/18 00:00 CONCLUSION: 1. No significant pneumothorax following right-sided thoracentesis. 2. Slight improved aeration of a portion of the right upper lobe with persistent significant volume loss and near complete opacification of the right hemithorax. Thoracentesis Ultrasound 02/16/18 00:00 CONCLUSION: 1. Uncomplicated ultrasound-guided right-sided thoracentesis. Assessment and Plan - Assessment (1) Adenocarcinoma Code(s): C80.1 - Malignant (primary) neoplasm, unspecified Status: Acute Plan: Adenocarcinoma - Pt had hospitalization September 2017 and December 2017 for similar complaints. - CT thorax 09/2017 showed abnormal right lung process - Pt underwent Bronchoscopy [address] Trejo - no malignant cells identified - Pt somewhat lost to f/u following hospitalization d/t social issues - Pt presented to PCP, Dr. Cowan, with c/o continued SOB - Chest CT with IV Contrast 12/30/17 1. Most of the increasing opacity in the right mid and lower lungs is due to pulmonary consolidation. There is a small right pleural effusion. 2. Multiple nodular densities in the lower left lung similar to prior. - Concern that right lung process might represent postobstructive process with underlying malignancy - Appreciate input from Pulmonary Medicine - Hold ASA/plavix - sputum- gram stain --> mixed ace, few WBCs - sputum Cx --> with heavy growth of normal respiratory ace - Urine legionella/pneumococcal --> negative - Pt underwent bronchoscopy on 01/07/[address] Anthony --> Moderate tracheobronchitis, no obstruction, no mass lesion. Hyperemia, edema, right middle, less so lower lobes. - Pt insisting on leaving on 01/08/18 due to some social issues at home with her son, who is reportedly bipolar and ran out of medications last night. - Discussed with the patient that we don't yet know what the underlying cause for her recurrent pneumonia is as cultures are still pending and there is still concern regarding possible inflammatory process vs. malignancy. She states that she will followup closely with Dr. Cowan and Dr. Anthony but we do not feel that the pt is clinically ready for discharge. If she insists on leaving today she will have to leave AMA. - On January 11, 2018 patient's primary care provider Dr. Cowan reviewed pathology results including adenocarcinoma of the lung with patient. Per primary care dictation patient initially stated she did not want any treatment for this but later agreed to see an oncologist to determine treatment options. Patient was referred to hematology/oncology but there is no record of appointment made or visit. -CT chest 02/15: CONCLUSION: 1. Obstruction of the right upper lobe, right middle lobe and right lower lobe bronchi with complete atelectasis and consolidation of the right lung and moderate to large right pleural effusion. No significant mediastinal shift. Lobar bronchial obstruction probably related to mucoid plugging but cannot exclude endobronchial mass. 2. Nodular opacities and distal airway disease at the left lung base appears stable to slightly worse. Upper lung nodules also present. Differential diagnosis includes postinflammatory changes but cannot exclude metastatic disease. -s/p right thoracentesis 02/16. red colored fluid. 1200cc. - Consulted oncology Dr Gutierrez. Pt refused to see her 02/15 due to family present The patient continues to refuse telling family of her diagnosis. She specifically told them she has no cancer. I had long discussion with her today with the RN..pt is clear and wants DNR status. She is willing to discuss with Oncology and Palliative about her goals moving forward...but pt seems to be leaning away from chemoradiation. -Her supervisor type bar and segment was consulted - Duonebs Q4H while awake and PRN - [place] as needed for pain - Supportive care - Lovenox for DVT prophylaxis R Pleural effusion - CXR: Chest X-Ray 02/14/18: Complete opacification of the right hemithorax probably from right effusion and lung consolidation/atelectasis. Cannot exclude underlying lung mass. Stable reticulonodular pattern left lung base. - US guided thoracentesis ordered ...see above. Hypokalemia potassium 3.1 on admission replaced (2) Recurrent pneumonia Code(s): J18.9 - Pneumonia, unspecified organism Status: Acute
--- NOTE | 2018-02-16 12:35 | P.CONPAL ---
Consult Service: Palliative Care Requesting Physician: James Olivier Reason for Consult: a. To assist with evaluation and management of symptoms including:Pain, shortness of breath b. To assist medical decision maker(s) with: better understanding of current medical conditions; weighing benefits/burdens of medical treatment options; making medical treatment decisions. Primary Care Provider: Eric Newton History of Present Illness History of Present Illness: Mrs Alanis is a 62-year-old patient with a medical history significant of recent diagnosis of lung cancer, recurrent pneumonia, hypertension, neuropathy, anxiety, coronary artery disease, chronic obstructive pulmonary disease, hiatal hernia and arthritis. Patient presented to the ER on 02/14/18 with complaints of worsening shortness of breath and right sided sharp chest pain. Patient reported in the ER that she had had an intermittent cough for the past 9 months. Patient was diagnosed in December 2017 with pneumonia and she left against medical advice due to social issues. 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 ER course: * Vital signs : Temperature 98.2, pulse 115, respirations 20, BP 153/107, O2 saturation 96% * EKG sinus rhythm with nonspecific STT wave changes. * Laboratory workup revealed WBC 9.6, hemoglobin 13.3, hematocrit 38.3, platelet count 614, 140, potassium 3.1, BUN/creatinine 12/0.76, lactic acid 2.8 , calcium 9.1, troponin less than 0.02, total protein 8.1, albumin 2.7 * Chest x-ray revealed complete opacification of the right hemithorax probably from right effusion and consolidation/atelectasis. Cannot exclude underlying lung stable reticulonodular pattern left lung base. * Ultrasound venous Doppler to bilateral lower extremities negative for deep venous thrombosis. * Broad-spectrum antibiotic administered for suspected underlying pneumonia, morphine administered and Zofran * Patient admitted for further evaluation and treatment Chest CT on 02/15/18 revealed obstruction of the right upper lobe, right middle lobe and right lower lobe bronchi with complete atelectasis and consolidation of the right lung and moderate to large right pleural effusion and stable to slightly with nodular opacities in distal airway at the left lung base. Upper lung nodules present. Oncology Dr. Gutierrez consulted on 02/15 and patient refused to see her because there was family present. Palliative care consulted to assist with symptom management and establishing goals of medical treatment.Patient underwent ultrasound-guided thoracentesis for right pleural effusion on 02/16/18 with removal of a total of 1200 mL's clear red fluid. Patient seen and examined in her room. Patient is in bed, awake, alert and oriented to self, place and situation. Introduced palliative care and its role in regards to symptom management as well as establishment of goals of medical treatment. Obtained patient's past medical history, psychosocial history and events leading to this hospitalization. Reviewed clinical complications and current medical management as well as recommendations. Patient appears to have insight regarding her medical condition. Patient is very tearful as she explains events that occurred prior to her recent diagnosis of lung cancer. Patient expressed anger to why, no medical staff noted that she had cancer through diagnostic tests she had outpatient. Patient states that she was treated with an oral chemotherapy drug for rheumatoid arthritis in February 2017. She thinks that the chemotherapy drug caused the lung cancer because prior to its use no tests had indicated that she had lung cancer. Patient states that she does not want anything to do with chemotherapy and radiation. Readdressed CODE STATUS, discussed risks, benefits and limitations of CPR given ongoing multiple comorbidities. Patient elected DO NOT RESUSCITATE/DO NOT INTUBATE. Patient explains that now that she has been recently diagnosed with lung cancer, she does not want to to have any tubes that would prolong her suffering. Patient has never completed advanced directives. She expresses that she definitely wants to get her affairs in order and would be glad to complete healthcare surrogate today. Patient designated her granddaughter Allyson Ramon as her healthcare surrogate and Sara Auguste (granddaughters mother) as her alternate healthcare surrogate. Encouraged patient to speak to oncologist and explore what options she has. After a prolonged discussion, patient agreed that she would want to speak to the oncologist. Patient has not informed her family about her recent diagnosis of lung cancer. She feels she is not ready yet to inform her family of her recent lung cancer diagnosis. Patient has requested that any medical presentation team member who comes to see her does not discuss her medical condition in front of her family. Patient stated that it is acceptable with her for medical staff to request her family to give them and patient privacy during their visit. Discussed briefly about hospice philosophy and benefits if patient strongly feels that she does not want to try any treatment. Provided patient with palliative care contact information. Function/Cognitive Trajectory: Patient was hospitalized in September and December 2017 with complaints of chest pain and shortness of breath. CT thorax in September 2017 showed abnormal right lung mass and patient underwent bronchoscopy with Dr. Anthony. Patient did not follow up after discharge from the hospital due to social issues. Patient presented again in December [address] on 12/30/17 showed increasing opacity in the right mid and lower lungs with a small right pleural effusion and multiple nodular densities in the lower left lung. Patient underwent another bronchoscopy on 01/07/[address] Anthony and it showed moderate tracheobronchitis, no obstruction, no mass lesion. 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 Pathology from bilateral bronchial washing collected on 01/07/18, was positive for malignant cells and consistent with adenocarcinoma. Results were reviewed with the patient by her PCP on . Patient was independent with all her ADLs prior to this hospitalization. Review of Systems Constitutional: Denies fever(s), Denies weakness, Denies weight loss Eyes: Denies irritation, Denies loss of vision Ears, Nose, Mouth, and Throat: Denies difficulty swallowing, Denies hearing loss , Denies hoarseness, Denies poor balance Cardiovascular: Reports shortness of breath, Reports shortness of breath with activity Respiratory: Reports pain on inspiration, Reports shortness of breath Gastrointestinal: Denies difficulty swallowing, Denies nausea, Denies vomiting Genitourinary: Denies urinary incontinence Musculoskeletal: Denies neck pain Skin/Breast: Denies skin pain, Denies unusual bruising Neurologic: Denies confusion, Denies frequent falls, Denies headache(s) Psychiatric: Denies anxiety, Denies change in appetite, Denies confusion Endocrine: Denies increased urination Hematologic/Lymphatic: Denies easy bruising PMFSH - History History Provided By: Patient, Medical Record - Medical History Medical History: Medical History (Last Reviewed 02/15/18 @ 03:50 by Ramona Galeas RN) Joint pain (Acute) Claustrophobia (Acute) Arthritis (Acute) Kidney stones (Acute) Hiatal hernia (Acute) Ulcer (Acute) Bulging disc CAD (coronary artery disease) COPD (chronic obstructive pulmonary disease) High cholesterol Hx of recurrent pneumonia Hypertension Neuropathy - Surgical History Surgical History: Surgical History (Last Reviewed 02/15/18 @ 03:50 by Ramona Galeas RN) Hx of cervical spine surgery (Acute) History of renal stent (Acute) Hx of section (Acute) H/O neck surgery Hx of cardiac cath Hx of heart artery stent Hx of tonsillectomy - Tobacco History Second Hand Smoke Exposure: No Tobacco Use In Past 30 Days: Yes Smoking Status: Former smoker Tobacco Type: Cigarettes - Alcohol History How Often Do You Have a Drink Containing Alcohol: Monthly or less - Substance Use History Substance History: No History of Abuse - Travel History Recent Travel in the [place] Within the Last 8 Weeks: No Recent Travel Out of the Country Within the Last 8 Weeks: No - Immunization History Tetanus Immunization: Unsure Medications and Allergies Active Medications: Active Medications Hydrocodone Bitart/Acetaminophen (Douglas 10/325) 1 tab PO Q4H PRN PRN Reason: PAIN 3-10 Last Admin: 02/16/18 10:02 Dose: 1 tab Albuterol (Duoneb Neb (Prn)) 1 ampul NEB Q2HR NEB PRN PRN Reason: SHORTNESS OF BREATH Last Admin: 02/15/18 04:32 Dose: 1 ampul Albuterol (Duoneb Neb (Carmencita)) 1 ampul NEB Q4HR WHILE AWAKE NEB [facility] Last Admin: 02/16/18 09:11 Dose: Not Given Alprazolam (Xanax) 0.25 mg PO Q8HR PRN PRN Reason: ANXIETY AND/OR AGITATION Last Admin: 02/16/18 10:44 Dose: 0.25 mg Amitriptyline HCl (Elavil) 50 mg PO HS [facility] Last Admin: 02/15/18 21:42 Dose: 50 mg Aspirin (Aspirin) 325 mg PO DAILY [facility] Last Admin: 02/16/18 10:45 Dose: 325 mg Enoxaparin Sodium (Lovenox Inj) 40 mg SQ DAILY [facility] Last Admin: 02/16/18 10:45 Dose: Not Given Hydrochlorothiazide (Hydrodiuril) 25 mg PO DAILY [facility] Last Admin: 02/16/18 10:44 Dose: 25 mg Ondansetron HCl (Zofran Inj) 4 mg IV.PUSH Q6H PRN PRN Reason: Nausea And Vomiting Pantoprazole Sodium (Protonix) 20 mg PO DAILY [facility] Last Admin: 02/16/18 10:44 Dose: 20 mg Potassium Chloride (Kcl) 10 meq PO DAILY [facility] Last Admin: 02/16/18 10:44 Dose: 10 meq Pravastatin Sodium (Pravachol) 80 mg PO QPM [facility] Last Admin: 02/15/18 18:09 Dose: 80 mg Pregabalin (Lyrica) 100 mg PO HS [facility] Last Admin: 02/15/18 21:42 Dose: 100 mg Temazepam (Restoril) 15 mg PO HS PRN PRN Reason: INSOMNIA Allergies Allergy/AdvReac Type Severity Reaction Status Date / Time terbutaline Allergy Intermediate Nausea Verified 02/14/18 20:54 gabapentin Allergy Mild Nausea Verified 02/14/18 20:54 metoclopramide [From Reglan] AdvReac Bleeding Verified 02/14/18 20:54 Home Medications Medication Instructions Recorded Confirmed Type amitriptyline 50 mg PO HS 12/30/17 02/15/18 History hydrocodone-acetaminophen 2 tab PO Q8H PRN 12/30/17 02/15/18 History potassium chloride 10 meq PO DAILY 12/30/17 02/15/18 History pregabalin [Lyrica] 100 mg PO HS 12/30/17 02/15/18 History aspirin 325 mg PO DAILY 02/15/18 02/15/18 History clopidogrel [Plavix] 75 mg PO DAILY 02/15/18 02/15/18 History hydrochlorothiazide 25 mg PO DAILY 02/15/18 02/15/18 History ipratropium-albuterol 3 ml INHALATION Q4-6H PRN 02/15/18 02/15/18 History meprobamate 400 mg PO QID PRN 02/15/18 02/15/18 History omeprazole 20 mg PO DAILY 02/15/18 02/15/18 History simvastatin 40 mg PO QPM 02/15/18 02/15/18 History Advance Directives Advance Directives Date on File: 02/16/18 ([facility] COMPLETED) Living Will: No Healthcare Surrogate: Yes ([facility]: Yenny Valadez [phone]) Health Care Surrogate Name and Number: Alt: Molina Ruiz Power of Scrap Baler: No Physical Exam Vital Signs: Vital Signs - 24 hr 02/15/18 11:45 02/15/18 12:00 02/15/18 16:07 Temperature 98 F Pulse Rate 81 94 H 91 H Respiratory Rate 20 19 18 Blood Pressure 121/80 Pulse Oximetry 95 02/15/18 16:09 02/15/18 20:13 02/15/18 20:28 Temperature 98.4 F Pulse Rate 93 H 92 H Respiratory Rate 16 20 Blood Pressure 120/83 Pulse Oximetry 98 100 02/15/18 21:43 02/16/18 00:14 02/16/18 08:43 Temperature 97.8 F 98.2 F Pulse Rate 94 H 100 H Respiratory Rate 18 19 18 Blood Pressure 123/79 136/95 H Pulse Oximetry 95 93 L 02/16/18 09:45 02/16/18 09:48 02/16/18 10:02 Temperature 98.5 F 98.5 F Pulse Rate 108 H 108 H Respiratory Rate 20 18 20 Blood Pressure 122/90 122/96 H Pulse Oximetry 91 L 91 L 02/16/18 10:03 Temperature Pulse Rate 104 H Respiratory Rate 20 Blood Pressure 128/97 H Pulse Oximetry 93 L I&O: Intake & Output 02/14/18 02/15/18 02/16/18 02/17/18 06:59 06:59 06:59 06:59 Intake Total 850 / 850 360 / 360 Balance 850 / 850 360 / 360 Weight 46 kg 46 kg Physical Exam: CONSTITUTIONAL/GENERAL: This is an adequately nourished patient, in no apparent distress. TUBES/LINES/DRAINS:PIV SKIN: No jaundice, rashes, or lesions. Ecchymoses on upper extremities. No wounds seen anteriorly. Skin temperature appropriate. Not diaphoretic. HEAD: Atraumatic. Normocephalic. EYES: Pupils equal and round and reactive. Extraocular motions intact. No scleral icterus. No injection or drainage. Fundi not examined. ENT: Hearing grossly normal. Nose without bleeding or purulent drainage. Throat without visible erythema, exudates, masses, or lesions. NECK: Trachea midline. Supple, nontender. No palpable thyroid enlargement or nodularity. CARDIOVASCULAR: Regular rate and rhythm without murmurs, gallops, or rubs. No JVD. Peripheral pulses symmetric. RESPIRATORY/CHEST: Symmetric, unlabored respirations. Clear to auscultation. Slightly diminished. No rhonchi, no wheezing GASTROINTESTINAL: Abdomen soft, non-tender, nondistended. No guarding. Bowel sounds present. GENITOURINARY: Without palpable bladder distension. MUSCULOSKELETAL: Extremities without clubbing, cyanosis, or edema. No joint tenderness or effusion noted. No calf tenderness. No mottling or clubbing. NEUROLOGICAL: Awake and alert. Motor and sensory grossly within normal limits. Follows commands. Cognitively sharp. Moves all extremities. PSYCHIATRIC: No obvious anxiety/depression. no apparent hallucinations or other psychotic thought process. Diagnostic Tests Laboratory: Laboratory Results - last 72 hr 02/14/18 02/14/18 02/14/18 02:22 22:25 22:25 WBC 9.6 RBC 4.02 Hgb 13.3 Hct 38.3 MCV 95.5 MCH 33.1 MCHC 34.7 RDW 15.1 Plt Count 614 H MPV 8.6 Neut % (Auto) 76.5 H Lymph % (Auto) 15.6 [place] % (Auto) 5.0 Eos % (Auto) 2.2 Baso % (Auto) 0.7 Neut # (Auto) 7.3 Lymph # (Auto) 1.5 [place] # (Auto) 0.5 Eos # (Auto) 0.2 Baso # (Auto) 0.1 WBC Differential . Differential Comment Auto diff final PT 10.9 INR 1.1 APTT 28.5 Sodium Potassium Chloride Carbon Dioxide Anion Gap BUN Creatinine Estimated GFR Random Glucose Lactic Acid 2.8 H Calcium Magnesium Total Bilirubin AST ALT Alkaline Phosphatase Total Creatine Kinase CK-MB (CK-2) CK-MB (CK-2) % Troponin I B-Natriuretic Peptide Total Protein Albumin Lipase 02/14/18 02/14/18 02/15/18 22:25 22:25 01:05 WBC RBC Hgb Hct MCV MCH MCHC RDW Plt Count MPV Neut % (Auto) Lymph % (Auto) [place] % (Auto) Eos % (Auto) Baso % (Auto) Neut # (Auto) Lymph # (Auto) [place] # (Auto) Eos # (Auto) Baso # (Auto) WBC Differential Differential Comment PT INR APTT Sodium 140 Potassium 3.1 L Chloride 101 Carbon Dioxide 27.6 Anion Gap 11 BUN 12 Creatinine 0.76 Estimated GFR 77 L Random Glucose 158 H Lactic Acid 1.6 Calcium 9.1 Magnesium 1.9 Total Bilirubin 0.1 L AST 31 ALT 19 Alkaline Phosphatase 120 H Total Creatine Kinase 461 H CK-MB (CK-2) 3.3 CK-MB (CK-2) % 0.7 Troponin I Less than 0.02 L B-Natriuretic Peptide 11 Total Protein 8.1 Albumin 2.7 L Lipase 57 L 02/16/18 04:54 WBC RBC Hgb Hct MCV MCH MCHC RDW Plt Count MPV Neut % (Auto) Lymph % (Auto) [place] % (Auto) Eos % (Auto) Baso % (Auto) Neut # (Auto) Lymph # (Auto) [place] # (Auto) Eos # (Auto) Baso # (Auto) WBC Differential Differential Comment PT INR APTT Sodium 141 Potassium 3.5 Chloride 104 Carbon Dioxide 27.0 Anion Gap 10 BUN 7 Creatinine 0.39 L Estimated GFR Greater than 89 Random Glucose 91 Lactic Acid Calcium 8.8 Magnesium Total Bilirubin AST ALT Alkaline Phosphatase Total Creatine Kinase CK-MB (CK-2) CK-MB (CK-2) % Troponin I B-Natriuretic Peptide Total Protein Albumin Lipase Result Diagrams: 02/14/18 22:25 02/16/18 04:54 Microbiology: Microbiology 02/14/18 22:10 Aerobic Blood Culture - Preliminary Blood - Peripheral No growth in 2 days Anaerobic Blood Culture - Preliminary No growth in 2 days 02/14/18 22:00 Aerobic Blood Culture - Preliminary Blood - Peripheral No growth in 2 days Anaerobic Blood Culture - Preliminary No growth in 2 days Imaging: Venous Doppler Study 02/14/18 22:17 CONCLUSION: 1. The study is negative for bilateral lower extremity deep venous thrombosis. Chest CT 02/15/18 00:00 CONCLUSION: 1. Obstruction of the right upper lobe, right middle lobe and right lower lobe bronchi with complete atelectasis and consolidation of the right lung and moderate to large right pleural effusion. No significant mediastinal shift. Lobar bronchial obstruction probably related to mucoid plugging but cannot exclude endobronchial mass. 2. Nodular opacities and distal airway disease at the left lung base appears stable to slightly worse. Upper lung nodules also present. Differential diagnosis includes postinflammatory changes but cannot exclude metastatic disease. Chest X-Ray 02/16/18 00:00 CONCLUSION: 1. No significant pneumothorax following right-sided thoracentesis. 2. Slight improved aeration of a portion of the right upper lobe with persistent significant volume loss and near complete opacification of the right hemithorax. Thoracentesis Ultrasound 02/16/18 00:00 CONCLUSION: 1. Uncomplicated ultrasound-guided right-sided thoracentesis. Procedures: 02/16/1886-[id number] thoracentesis for right pleural effusion(1200ML removed) Patient/Family Conference Family Conference Location: Bedside (with patient) Issues Discussed: * Palliative care role, purpose, approach * Additional medical, psychosocial, and spiritual history * Patients general health, functional status, and cognitive changes in the months leading up to the current hospitalization * Patient/family understanding of the current medical problems * Patient/family understanding of prognosis * Patients goals of care as best understood from advance directives and/or conversations and/or values * Current medical treatment options and benefits/burdens of those options * Likely scenarios comparing ongoing aggressive care with a transition to comfort measures only * Questions answered to the best of my ability * Palliative care contact information provided Assessment and Plan - Disease Oriented Problem List (1) Pleural effusion, right (2) Recurrent pneumonia (3) Chronic obstructive pulmonary disease (4) Coronary artery disease (5) Hypertension - Symptom Scale (1) Pain 0-10 Scale: 8 Comment: Patient came in complaining of chest pain to the right side and is s/p thoracentesis of right pleural effusion. Pain described as sharp to right chest wall, exacerbated with movement or cough. (2) Shortness of breath 0-10 Scale: Unable to quantify Comment: Came in with complaints of shortness of breath and intermittent cough. (3) Anxiety 0-10 Scale: Unable to quantify Comment: Most likely due to shortness of breath history of COPD Pertinent Non-Medical Issues: Psychosocial: Patient was born and raised in [place], [place]. Patient moved to [place] 10 years ago. Patient is . She has 2 sons and 4 grandchildren. 1 of her sons is mentally challenged-his bipolar. Patient lives with her son who is mentally challenged and 2 grandchildren from his old son ages 1 and 2. 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 Spiritual: Patient is [employer]. Legal: Completed healthcare surrogate today Ethical issues impacting care: None identified at this time Important Contacts: healthcare surrogate -Granddaughter-Allyson Ramon [phone] Alternate healthcare surrogate-Molina Ruiz Prognosis: Mrs Alanis is a 62-year-old patient with a medical history significant of recent diagnosis of lung cancer, recurrent pneumonia, hypertension, neuropathy, anxiety, coronary artery disease, chronic obstructive pulmonary disease, hiatal hernia and arthritis. Patient presented to the ER on 02/14/18 with complaints of worsening shortness of breath and right sided sharp chest pain. Clinical course complicated with pain and shortness of breath from pleural effusion. Given ongoing comorbidities, patient remains at high risk for complications, deterioration and decline. If patient continues to strongly feel that she does not want to pursue aggressive treatment, she would be appropriate for hospice. Code Status: No Code DNR Plan: PLAN: Legal decision maker: Patient is currently able to participate in medical decision making. In the event that she is deemed incapacitated, patient has designated her granddaughter Yenny Valadez is here healthcare surrogate and Molina Ruiz is here alternate healthcare surrogate Goals: Aggressive short of no code and pending discussion with oncologist. Patient has made herself a DO NOT RESUSCITATE/DO NOT INTUBATE. Patient currently states that she does not want to pursue aggressive treatment. Patient states that she was treated with an oral chemotherapy drug for rheumatoid arthritis in February 2017. She thinks that the chemotherapy drug caused lung cancer. Patient states that she does not want anything to do with chemotherapy and radiation. After a long discussion, patient has agreed to see the oncologist and hear treatment options available and at least weigh her options. Hospice philosophy and benefits introduced.Patient has not informed her family about her recent diagnosis of lung cancer. She feels she is not ready yet to inform her family of her recent lung cancer diagnosis. Patient has requested that any medical presentation team member who comes to see her does not discuss her medical condition in front of her family. Patient stated that it is acceptable with her for medical staff to request her family to give them and patient privacy during their visit. CODE STATUS: No code DNR/DNI SYMPTOMS: * Pain: Patient came in with complaints of sharp chest pain. Chest x-ray showed right pleural effusion. Patient underwent ultrasound-guided thoracentesis today. Patient is currently endorsing sharp pain to thoracentesis site worsened by movement and cough. Patient states that at least she is no longer coughing like she was before. Patient is on hydrocodone 10/ 325 every 4 prn. Pain medication appears to be adequate at this time. * Shortness of breath: Patient has lung cancer and had right pleural effusion. Underwent ultrasound-guided thoracentesis 02/16. Patient endorsing improvement in the breathing. Patient is currently on room air with no signs of respiratory distress. No recommendations at this time. Palliative care will continue to follow the patient during hospital course as condition evolves, to assist patient/decision-maker with understanding of their medical conditions, weighing benefits/burdens of treatment options, for clarification of goals of treatment. Additionally will assist with any symptoms of palliative concern Appreciation Thank you for the opportunity to participate in the care of Yessica Alanis. Attestation Attestation: To help prompt me to consider important information that might be impacting today's encounter and assessment, information from prior notes written by myself or my colleagues may have been "brought forward" into today's note. My signature on this note, however, is an attestation that I personally performed the exam, history, and/or decision-making noted today, and, unless otherwise indicated, the interactions with patient, family, and staff as well as the review of records all occurred today. I also attest that the listed assessment and stated plan reflect my best clinical judgment today based on the combination of historical information, prior notes, and today's exam/ interactions. When time spent is documented, it refers only to time spent today by the signer, or if indicated, combined time spent today by collaborating physician/nurse practitioner.
--- NOTE | 2018-02-16 20:09 | MB ---
cc: Gabrielle Anthony MD DATE: 02/16/2018 REASON FOR CONSULTATION: Right pleural effusion, lung cancer. HISTORY OF PRESENT ILLNESS: The patient is a 62-year-old female with a known history of severe COPD. Recent bronchoscopy with positive cytology for adenocarcinoma of the lung. The patient is admitted with worsening chest pain. She denies any history of fever, chills or hemoptysis. Thoracentesis undertaken today. I am not sure of the amount of fluid withdrawn. Persistent atelectasis of the right lung persists following thoracentesis. The patient has dyspnea with minimal exertion. She denies history of fever, chills, or hemoptysis. PAST MEDICAL HISTORY: COPD, coronary artery disease, degenerative joint disease, hypertension. FAMILY HISTORY: Noncontributory. SOCIAL HISTORY: A [id number] smoking history. Alcohol socially, does not use drugs. MEDICATIONS: 1. Restoril. 2. Nebulized albuterol/ipratropium. 3. Amitriptyline. 4. Alprazolam. REVIEW OF SYSTEMS: A 12-point review of systems as per HPI and past history, otherwise negative. PHYSICAL EXAMINATION: VITAL SIGNS: Temperature 98, pulse 80, respirations 18, blood pressure 120/80. HEENT: Unremarkable. Eyes without icterus. NECK: Without adenopathy or thyroid enlargement. CHEST: Decreased breath sounds over right hemithorax. CARDIAC: PMI not appreciated. S1, S2 audible. No murmur. No rub. ABDOMEN: Lax, audible bowel sounds. PSYCHIATRIC: No clubbing, cyanosis, or edema. LABORATORY DATA: White count 9.6, hemoglobin 13, hematocrit 38, platelets 614,000. Sodium 141, potassium 3.5, BUN 7, creatinine 0.3. IMPRESSION: 1. Non-small cell lung cancer. 2. Chronic obstructive pulmonary disease. 3. Pleural effusion. 4. Atelectasis, right lung. PLAN: The patient has documented malignant lung cancer. Oncology consultation is obtained, and Dr. Gutierrez to see the patient for same. I do not believe the patient is a surgical candidate. Chemotherapy has a place, and radiation therapy to be considered; however, having a nonexpanding lung would pose a problem. Thoracic surgery opinion may be obtained, although again, I do not believe she is a good surgical candidate. We will follow her course along with you. Continue her bronchodilators. Her outlook is poor. Gabrielle Anthony MD WWW/ , 05:45 PM , 06:00 PM
[2018-02-16] MEDS: Amitriptyline 25 MG Tablet PO SCH (20:44)
--- NOTE | 2018-02-16 21:48 | MB ---
cc: Ariana Gutierrez MD DATE: 02/16/2018 CHIEF COMPLAINT: Locally advanced lung adenocarcinoma, suspect stage IV, with pleural effusion and diffuse disease throughout entire lung. HISTORY OF PRESENT ILLNESS: Ms. Alanis is a 62-year-old lady who initially presented with intermittent cough of 9 months' duration. She had previous hospitalization in September 2017 and December [address] chest in September 2017 showed abnormal right lung process. She underwent bronchoscopy at that time under the direction of Dr. Anthony with no malignant cells identified. She was lost to followup due to social issues. She represented to her primary care doctor with worsening shortness of breath and CT scan from December 2017 with increasing opacity in the right, mid and lower lungs due to pulmonary consolidation, right pleural effusion, multiple nodular densities in the lower left lung similar to prior, concern the right lung process represents postobstructive process with underlying malignancy. At that time, she underwent bronchoscopy under the direction of Dr. Anthony and was found to have moderate tracheobronchitis. No obstruction, no mass lesion. She left due to social issues and she followed up closely with her primary attending ambulatory care with pathology read as showing adenocarcinoma of the lung. She represented to the hospital at this time with worsening respiratory symptoms. She is status post drainage of right-sided pleural effusion. Laboratory studies show white blood cell count 9.6, hemoglobin 13.3, platelet count of 614,000. Coags are within normal limits. Chemistry studies with alkaline phosphatase is elevated at 120, total bilirubin 0.1, AST 31, ALT is 19, creatinine is 0.76. She has been seen by the palliative care team. PAST MEDICAL HISTORY: 1. History of rheumatoid arthritis. 2. Coronary artery disease. 3. Chronic obstructive pulmonary disease. 4. Tobacco abuse. 5. Kidney stones. 6. Hiatal hernia. 7. Ulcers. ROS: as above in HPI. all others negative. PAST SURGICAL HISTORY: 1. Cervical spine surgery. 2. Renal stent. 3. section. 4. Neck surgery. 5. Cardiac catheterization. 6. Tonsillectomy. ALLERGIES: INCLUDE TERBUTALINE, GABAPENTIN, REGLAN. HOME MEDICATIONS: Include: 1. Amitriptyline. 2. Hydrocodone/acetaminophen. 3. Lyrica. 4. Aspirin. 5. Plavix. 6. Hydrochlorothiazide. 7. Ipratropium 8. Albuterol. 9. meprobamate 10. Omeprazole. 11. Simvastatin. PHYSICAL EXAMINATION: GENERAL: Thin, chronically ill-appearing lady in no distress. HEENT: Head is normocephalic, atraumatic. Eyes: PERRLA. EOMI. NECK: Supple. CARDIOVASCULAR: Regular rate and rhythm. RESPIRATORY: Clear to auscultation bilaterally. ABDOMEN: Soft, nontender, nondistended. EXTREMITIES: No edema. MUSCULOSKELETAL: Thin extremities, decreased muscle tone. NEUROLOGIC: Grossly nonfocal. PSYCHIATRIC: Flat affect, avoiding eye contact during conversation, labile mood. FAMILY HISTORY: A son with bipolar disorder. SOCIAL HISTORY: Quit smoking 1 month ago. Past significant history of tobacco abuse. No alcohol. ASSESSMENT/PLAN Lung adenocarcinoma, 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 She has diffuse disease that is present in her lung. Discussed adequate workup and NCCN guidelines for non-small cell lung cancer. Discussed obtaining MRI of the brain, as well as obtaining PET CT scan. The patient declines further imaging studies at this time. Discussed treatment of lung adenocarcinoma. Discussed pathology evaluation for PD-L1 and mutations to include EGFR, ALK and ROS1, BRAF and if further tissue available to perform testing for KRAS, MET, RET and HER2. Discussed that if the driving mutation is present, these can be targeted with oral agents. The patient reports that she would decline any chemotherapy or immune therapy treatment. She reports that she would consider a targeted agent should one of those mutations come back positive. If not enough tissue is available will consider Guardant 360 in the outpatient setting. She is status post evaluation by the pathology team. Inpatient oncology service will continue to follow. MD JERROD Mortensen/moni , 07:56 PM , 08:06 PM JOSE ANTONIO
[2018-02-17] MEDS: hydroCHLOROthiazide 25 MG Tablet PO SCH (08:39)
[2018-02-17] MEDS: Enoxaparin Inj 40 MG/0.4 ML Syringe SQ SCH (08:39)
[2018-02-17] MEDS: Pantoprazole Sodium 20 MG DR Tablet PO SCH (08:39)
[2018-02-17] MEDS: Potassium Chloride 10 MEQ ER Capsule PO SCH (08:39)
[2018-02-17] MEDS: Aspirin 325 MG Tablet PO SCH (08:39)
[2018-02-17] MEDS ORDERED: MethylPREDNISolone Sod Succinate Inj 125 MG/2 ML Vial IV.PUSH ONE (10:10)
--- NOTE | 2018-02-17 10:15 | P.PNIM ---
Subjective Interval history: pt had discussion about lung ca and rx with oncology she is still undecided about what to do. still having alot of right chest pain with inspiration. toradol helped a little yesterday. Physical Exam Vital signs: Vital Signs 02/16/18 12:00 02/16/18 12:08 02/16/18 15:11 Temperature 98.0 F Pulse Rate 107 H 104 H 116 H Respiratory Rate 16 18 18 Blood Pressure 116/80 Pulse Oximetry 94 L 95 02/16/18 15:12 02/16/18 16:00 02/16/18 19:56 Temperature 98.2 F Pulse Rate 118 H 118 H Respiratory Rate 16 16 Blood Pressure 106/72 Pulse Oximetry 98 94 L 02/16/18 20:00 02/16/18 23:33 02/17/18 00:00 Temperature 97.8 F 97.9 F Pulse Rate 100 H 101 H Respiratory Rate 18 16 Blood Pressure 123/89 106/76 Pulse Oximetry 95 97 02/17/18 04:55 02/17/18 07:30 02/17/18 07:38 Temperature 98.1 F Pulse Rate 68 87 Respiratory Rate 18 14 17 Blood Pressure 111/79 Pulse Oximetry 98 94 L Intake & Output 02/16/18 02/17/18 02/17/18 18:59 06:59 18:59 Intake Total 240 / 240 800 / 800 Balance 240 / 240 800 / 800 Weight 46.3 kg Intake: Oral 240 / 240 800 / 800 Other: # Voids 6 Date of Last Bowel Movement 02/14/18 02/14/18 lying in bed wincing with deep inspiration heart reg lung right lung diminished abd s/nt ext no edema Results - Labs CBC & Chem 7: 02/14/18 22:25 02/16/18 04:54 Microbiology 02/14/18 22:10 Blood - Peripheral Aerobic Blood Culture - Preliminary No growth in 2 days 02/14/18 22:10 Blood - Peripheral Anaerobic Blood Culture - Preliminary No growth in 2 days 02/14/18 22:00 Blood - Peripheral Aerobic Blood Culture - Preliminary No growth in 2 days 02/14/18 22:00 Blood - Peripheral Anaerobic Blood Culture - Preliminary No growth in 2 days - Imaging Impressions Thoracentesis Ultrasound 02/16/18 00:00 CONCLUSION: 1. Uncomplicated ultrasound-guided right-sided thoracentesis. Assessment and Plan - Assessment (1) Adenocarcinoma Code(s): C80.1 - Malignant (primary) neoplasm, unspecified Status: Acute Plan: Adenocarcinoma - Pt had hospitalization September 2017 and December 2017 for similar complaints. - CT thorax 09/2017 showed abnormal right lung process - Pt underwent Bronchoscopy [address] Trejo - no malignant cells identified - Pt somewhat lost to f/u following hospitalization d/t social issues - Pt presented to PCP, Dr. Cowan, with c/o continued SOB - Chest CT with IV Contrast 12/30/17 1. Most of the increasing opacity in the right mid and lower lungs is due to pulmonary consolidation. There is a small right pleural effusion. 2. Multiple nodular densities in the lower left lung similar to prior. - Concern that right lung process might represent postobstructive process with underlying malignancy - Appreciate input from Pulmonary Medicine - Hold ASA/plavix - sputum- gram stain --> mixed ace, few WBCs - sputum Cx --> with heavy growth of normal respiratory ace - Urine legionella/pneumococcal --> negative - Pt underwent bronchoscopy on 01/07/[address] Anthony --> Moderate tracheobronchitis, no obstruction, no mass lesion. Hyperemia, edema, right middle, less so lower lobes. - Pt insisting on leaving on 01/08/18 due to some social issues at home with her son, who is reportedly bipolar and ran out of medications last night. - Discussed with the patient that we don't yet know what the underlying cause for her recurrent pneumonia is as cultures are still pending and there is still concern regarding possible inflammatory process vs. malignancy. She states that she will followup closely with Dr. Cowan and Dr. Anthony but we do not feel that the pt is clinically ready for discharge. If she insists on leaving today she will have to leave AMA. - On January 11, 2018 patient's primary care provider Dr. Cowan reviewed pathology results including adenocarcinoma of the lung with patient. Per primary care dictation patient initially stated she did not want any treatment for this but later agreed to see an oncologist to determine treatment options. Patient was referred to hematology/oncology but there is no record of appointment made or visit. -CT chest 02/15: CONCLUSION: 1. Obstruction of the right upper lobe, right middle lobe and right lower lobe bronchi with complete atelectasis and consolidation of the right lung and moderate to large right pleural effusion. No significant mediastinal shift. Lobar bronchial obstruction probably related to mucoid plugging but cannot exclude endobronchial mass. 2. Nodular opacities and distal airway disease at the left lung base appears stable to slightly worse. Upper lung nodules also present. Differential diagnosis includes postinflammatory changes but cannot exclude metastatic disease. -s/p right thoracentesis 02/16. red colored fluid. 1200cc. - Consulted oncology Dr Gutierrez. Awaiting further testing to decide on targeted therapy Pt remains undecided about chemoradiation. would need more staging. -The patient continues to refuse telling family of her diagnosis. She specifically told them she has no cancer. I had long discussion with her in presence of the RN..pt is clear and wants DNR status. -She is willing to discuss with Oncology and Palliative about her goals moving forward...but pt seems to be leaning away from chemoradiation. -Her density control puncher was consulted - Duonebs Q4H while awake and PRN - Arcade as needed for pain - Supportive care - Lovenox for DVT prophylaxis will try 2 or 3 doses of solumedrol to see if any help with pleuritic type pain. R Pleural effusion - CXR: Chest X-Ray 02/14/18: Complete opacification of the right hemithorax probably from right effusion and lung consolidation/atelectasis. Cannot exclude underlying lung mass. Stable reticulonodular pattern left lung base. - US guided thoracentesis ordered ...see above. Hypokalemia potassium 3.1 on admission replaced (2) Recurrent pneumonia Code(s): J18.9 - Pneumonia, unspecified organism Status: Acute
--- NOTE | 2018-02-17 13:11 | P.PNWCN ---
Wound Care Nurse Consult Description: Wound consult ordered by Avani BISHOP for wound management. Communicated with: Biju NGUYEN, Avani BISHOP Recommendation: 1. Manually reposition patient every 2 hours for comfort and offloading. 2. Cleanse sacral/coccyx region with remedy soft cloth wipes. 3. Apply skin prep to periwound, Cover sacral region with Exuderm (hydrocolloid ) 4x4. 4. change dressing every 3-5 days or as needed for soiled or dislodgement. 5. sign and date all dressing. Additional information: Patient was seen today by feature writer for wound management.Patient alert resting in bed.Patient was able to reposition to left side with minimum assistance.Sacral / coccyx region cleansed with remedy soft cloth barrier wipes air dried.Patient noted to have a beginning stage 2 pressure injury to sacrum measuring 0.8cm x0.6cm x0.1cm wound base moist pink non granular tissue periwound intact blanchable no exudate noted.Skin prep applied to periwound and Exuderm dressing applied .Dressing signed and dated .patient tolerated wound care well. Wound/Pressure Injury - Patient Status Premedicated for Pain Prior to Dressing Change: No - Wound sacrum Wound Staging: Stage II Wound Assessment: Admission Wound Type: Pressure Injury Is This a Chronic Wound: No Requested from Provider a Wound Care Consult: No Length: 0.8 Width: 0.6 Depth: 0.1 Wound Bed Appearance: [place] Surrounding Tissue Appearance: Blanched/Dull Surrounding Tissue Temperature: Cool Drainage Amount: None Dressing Status: Changed Topical: CALAZIME Primary Dressing: Hydrocolloid Wound Dressing Change Date: 02/17/18 Incision - Patient Status Premedicated for Pain Prior to Dressing Change: No - Incision Right Lower Posterior Back Incision Assessment: Ongoing Incision Type: Incision Incision Description: Approximated Drainage Amount: None Drainage Odor: No Odor Incision Dressing Status: Dry & Intact Primary Dressing: Gauze Pad Cover Dressing: Adhesive Dressing Tape Type: Silk
--- NOTE | 2018-02-17 15:32 | P.PNPAL ---
Reason for Visit Reason for visit: a. To assist with evaluation and management of symptoms including:Pain, shortness of breath, anxiety b. To assist medical decision maker(s) with: better understanding of current medical conditions; weighing benefits/burdens of medical treatment options; making medical treatment decisions. Subjective Subjective/Interval History: Follow-up medically necessary for further clarification of goals of medical treatment. Patient seen and examined in his room. Patient is in bed, awake, alert, oriented to self place and situation. Patient currently denies pain, though she tends to guard was the right lateral chest wall when she repositions herself in bed. Patient has required 6 doses prn hydrocodone/acetaminophen 10/ 325 in the past 24 hours. Patient denies shortness of breath, denies nausea and shortness of breath. Remains on room air with no signs and symptoms of respiratory distress. O2 saturation in the mid to high 90s. Vital signs stable. Patient wants by oncologist Dr. Gutierrez on 02/16/18, recommended MRI of the brain and PET CT scan which patient declined. Patient confirmed during the visit that she did decline any chemotherapy or immunotherapy treatment offered by oncologist. She is willing to consider a targeted agent should 1 of the mutations come back positive. Pulmonology Dr. Anthony consulted on 02/16/18 for evaluation and management of patient with right pleural effusion and lung cancer , recommended nonsurgical treatment (chemo or radiation) unless warranted, then consider thoracic surgery to opine. Wound care consulted for management of sacral wound. Discussed patient's discussion with oncologist and she is willing to try targeted chemotherapy. Patient signed her [facility] DNR today-placed on a chart. Provided patient with a copy of 5 wishes to review and complete it at her on time. Patient appreciative. Spent most of the time providing supportive and active listening as patient expressed how she felt about her recent lung cancer diagnosis which is highly suspected to be stage IV. Patient` s main concern is her social issues, she currently is taking care of 1yr and 2 years old grandchildren whom her son left her with with no financial support in and was supposed to come back for them in October 2017 and has given patient excuses since then. She also has a son who has mental issues and she still takes care of him at home. She is appreciative of her 19 years old granddaughter who has been helping take care of her young grand children and her son while she is in the hospital. Left room when patient`s grand daughter arrived in the company of patient`s son and other grandchildren. Family/Friend Interactions: No family at bedside during visit and patient does not want her family to be informed yet of her recent lung cancer diagnosis. . Advance Directives Living Will: Never completed Health Care Surrogate: Copy in medical record Durable Power of Footwear Stitcher: Never completed Advance Directives Date on File: 02/16/18 ([facility] COMPLETED) Health Care Surrogate Name and Number: HCS:Yenny Valadez [phone] Alt: Molina Ruiz Objective Vital Signs: Vital Signs 02/16/18 15:11 02/16/18 15:12 02/16/18 16:00 Temperature 98.2 F Pulse Rate 116 H 118 H Respiratory Rate 18 16 Blood Pressure 106/72 Pulse Oximetry 98 94 L 02/16/18 19:56 02/16/18 20:00 02/16/18 23:33 Temperature 97.8 F Pulse Rate 118 H 100 H Respiratory Rate 16 18 Blood Pressure 123/89 Pulse Oximetry 95 02/17/18 00:00 02/17/18 04:55 02/17/18 07:30 Temperature 97.9 F Pulse Rate 101 H 68 Respiratory Rate 16 18 14 Blood Pressure 106/76 Pulse Oximetry 97 98 02/17/18 07:38 02/17/18 11:31 02/17/18 11:45 Temperature 98.1 F 97.3 F L Pulse Rate 87 88 43 L Respiratory Rate 17 16 19 Blood Pressure 111/79 123/92 H Pulse Oximetry 94 L 95 Intake & Output 02/16/18 02/17/18 02/17/18 18:59 06:59 18:59 Intake Total 240 / 240 800 / 800 Balance 240 / 240 800 / 800 Weight 46.3 kg Intake: Oral 240 / 240 800 / 800 Other: # Voids 6 Date of Last Bowel Movement 02/14/18 02/14/18 Physical Exam: CONSTITUTIONAL/GENERAL: This is an adequately nourished patient, in no apparent distress. TUBES/LINES/DRAINS:PIV SKIN: No jaundice, rashes, or lesions. Ecchymoses on upper extremities. No wounds seen anteriorly. Skin temperature appropriate. Documented sacral wound in EMR. HEAD: Atraumatic. Normocephalic. EYES: PERRLA. No scleral icterus. No injection or drainage. Fundi not examined. ENT: Hearing grossly normal. Nose without bleeding or purulent drainage. Throat without visible erythema, exudates, masses, or lesions. NECK: Trachea midline. Supple, nontender. No palpable thyroid enlargement or nodularity. CARDIOVASCULAR: S1, S2 with no murmurs, gallops, or rubs. No JVD. Peripheral pulses symmetric. RESPIRATORY/CHEST: Symmetric, unlabored respirations. Clear to auscultation. Slightly diminished. No rhonchi, no wheezing GASTROINTESTINAL: Abdomen soft, non-tender, nondistended. No guarding. Bowel sounds present. GENITOURINARY: Without palpable bladder distension. MUSCULOSKELETAL: Extremities without clubbing, cyanosis, or edema. No joint tenderness or effusion noted. No calf tenderness. No mottling or clubbing. NEUROLOGICAL: Awake and alert. Motor and sensory grossly within normal limits. Follows commands. Cognitively sharp. Moves all extremities. PSYCHIATRIC: No obvious anxiety/depression. no apparent hallucinations or other psychotic thought process. Diagnostic Tests Laboratory: Laboratory Results - last 72 hr 02/14/18 02/14/18 02/14/18 02:22 22:25 22:25 WBC 9.6 RBC 4.02 Hgb 13.3 Hct 38.3 MCV 95.5 MCH 33.1 MCHC 34.7 RDW 15.1 Plt Count 614 H MPV 8.6 Neut % (Auto) 76.5 H Lymph % (Auto) 15.6 [place] % (Auto) 5.0 Eos % (Auto) 2.2 Baso % (Auto) 0.7 Neut # (Auto) 7.3 Lymph # (Auto) 1.5 [place] # (Auto) 0.5 Eos # (Auto) 0.2 Baso # (Auto) 0.1 WBC Differential . Differential Comment Auto diff final PT 10.9 INR 1.1 APTT 28.5 Sodium Potassium Chloride Carbon Dioxide Anion Gap BUN Creatinine Estimated GFR Random Glucose Lactic Acid 2.8 H Calcium Magnesium Total Bilirubin AST ALT Alkaline Phosphatase Total Creatine Kinase CK-MB (CK-2) CK-MB (CK-2) % Troponin I B-Natriuretic Peptide Total Protein Albumin Lipase 02/14/18 02/14/18 02/15/18 22:25 22:25 01:05 WBC RBC Hgb Hct MCV MCH MCHC RDW Plt Count MPV Neut % (Auto) Lymph % (Auto) [place] % (Auto) Eos % (Auto) Baso % (Auto) Neut # (Auto) Lymph # (Auto) [place] # (Auto) Eos # (Auto) Baso # (Auto) WBC Differential Differential Comment PT INR APTT Sodium 140 Potassium 3.1 L Chloride 101 Carbon Dioxide 27.6 Anion Gap 11 BUN 12 Creatinine 0.76 Estimated GFR 77 L Random Glucose 158 H Lactic Acid 1.6 Calcium 9.1 Magnesium 1.9 Total Bilirubin 0.1 L AST 31 ALT 19 Alkaline Phosphatase 120 H Total Creatine Kinase 461 H CK-MB (CK-2) 3.3 CK-MB (CK-2) % 0.7 Troponin I Less than 0.02 L B-Natriuretic Peptide 11 Total Protein 8.1 Albumin 2.7 L Lipase 57 L 02/16/18 04:54 WBC RBC Hgb Hct MCV MCH MCHC RDW Plt Count MPV Neut % (Auto) Lymph % (Auto) [place] % (Auto) Eos % (Auto) Baso % (Auto) Neut # (Auto) Lymph # (Auto) [place] # (Auto) Eos # (Auto) Baso # (Auto) WBC Differential Differential Comment PT INR APTT Sodium 141 Potassium 3.5 Chloride 104 Carbon Dioxide 27.0 Anion Gap 10 BUN 7 Creatinine 0.39 L Estimated GFR Greater than 89 Random Glucose 91 Lactic Acid Calcium 8.8 Magnesium Total Bilirubin AST ALT Alkaline Phosphatase Total Creatine Kinase CK-MB (CK-2) CK-MB (CK-2) % Troponin I B-Natriuretic Peptide Total Protein Albumin Lipase Result Diagrams: 02/14/18 22:25 02/16/18 04:54 Microbiology: Microbiology 02/14/18 22:10 Aerobic Blood Culture - Preliminary Blood - Peripheral No growth in 3 days Anaerobic Blood Culture - Preliminary No growth in 3 days 02/14/18 22:00 Aerobic Blood Culture - Preliminary Blood - Peripheral No growth in 3 days Anaerobic Blood Culture - Preliminary No growth in 3 days Imaging: Venous Doppler Study 02/14/18 22:17 CONCLUSION: 1. The study is negative for bilateral lower extremity deep venous thrombosis. Chest CT 02/15/18 00:00 CONCLUSION: 1. Obstruction of the right upper lobe, right middle lobe and right lower lobe bronchi with complete atelectasis and consolidation of the right lung and moderate to large right pleural effusion. No significant mediastinal shift. Lobar bronchial obstruction probably related to mucoid plugging but cannot exclude endobronchial mass. 2. Nodular opacities and distal airway disease at the left lung base appears stable to slightly worse. Upper lung nodules also present. Differential diagnosis includes postinflammatory changes but cannot exclude metastatic disease. Chest X-Ray 02/16/18 00:00 CONCLUSION: 1. No significant pneumothorax following right-sided thoracentesis. 2. Slight improved aeration of a portion of the right upper lobe with persistent significant volume loss and near complete opacification of the right hemithorax. Thoracentesis Ultrasound 02/16/18 00:00 CONCLUSION: 1. Uncomplicated ultrasound-guided right-sided thoracentesis. Procedures: 02/16/1879-[id number] thoracentesis for right pleural effusion(1200ML removed) Assessment and Plan - Disease Oriented Problem List (1) Pleural effusion, right (2) Recurrent pneumonia (3) Chronic obstructive pulmonary disease (4) Coronary artery disease (5) Hypertension - Symptom Scale (1) Pain 0-10 Scale: 3 Comment: Patient came in complaining of chest pain to the right side and is s/p thoracentesis of right pleural effusion. Pain described as sharp to right chest wall, exacerbated with movement or cough. (2) Shortness of breath 0-10 Scale: Unable to quantify Comment: Came in with complaints of shortness of breath and intermittent cough. (3) Anxiety 0-10 Scale: Unable to quantify Comment: Most likely due to shortness of breath history of COPD Pertinent Non-Medical Issues: Psychosocial: Patient was born and raised in [place], [place]. Patient moved to [place] 10 years ago. Patient is . She has 2 sons and 4 grandchildren. 1 of her sons is mentally challenged-his bipolar. Patient lives with her son who is mentally challenged and 2 grandchildren from his old son ages 1 and 2. 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 Spiritual: Patient is Anabaptism. Legal: Completed healthcare surrogate today Ethical issues impacting care: None identified at this time Important Contacts: healthcare surrogate -Granddaughter-Rodrigo Valadezno [phone] Alternate healthcare surrogate-Molina Ruiz Prognosis: Mrs Alanis is a 62-year-old patient with a medical history significant of recent diagnosis of lung cancer, recurrent pneumonia, hypertension, neuropathy, anxiety, coronary artery disease, chronic obstructive pulmonary disease, hiatal hernia and arthritis. Patient presented to the ER on 02/14/18 with complaints of worsening shortness of breath and right sided sharp chest pain. Clinical course complicated with pain and shortness of breath from pleural effusion. Given ongoing comorbidities, patient remains at high risk for complications, deterioration and decline. If patient continues to strongly feel that she does not want to pursue aggressive treatment, she would be appropriate for hospice. Code Status: No Code DNR Plan: PLAN: Legal decision maker: Patient is currently able to participate in medical decision making. In the event that she is deemed incapacitated, patient has designated her granddaughter Yenny Valadez is here healthcare surrogate and Molina Ruiz is here alternate healthcare surrogate Goals: Aggressive short of no code. Discussed patient's discussion with oncologist and she is willing to try targeted cancer therapy. Patient signed her [facility] DNR today-placed on a chart. Provided patient with a copy of 5 wishes to review and complete at her on time. CODE STATUS: No code DNR/DNI SYMPTOMS: * Pain: Patient came in with complaints of sharp chest pain. Chest x-ray showed right pleural effusion. Patient underwent ultrasound-guided thoracentesis today. Patient is currently endorsing sharp pain to thoracentesis site worsened by movement and cough. Patient states that at least she is no longer coughing like she was before. Patient is on hydrocodone 10/ 325 every 4 prn. Pain medication appears to be adequate at this time. * Shortness of breath: Patient has lung cancer and had right pleural effusion. Underwent ultrasound-guided thoracentesis 02/16. Patient endorsing improvement in the breathing. Patient is currently on room air with no signs of respiratory distress. No recommendations at this time. ==Patient has not informed her family about her recent diagnosis of lung cancer. She feels she is not ready yet to inform her family of her recent lung cancer diagnosis. Patient has requested that any medical steam drier operator who comes to see her does not discuss her medical condition in front of her family. Patient stated that it is acceptable with her for medical staff to request her family to give them and patient privacy during their visit. Palliative care will continue to follow the patient during hospital course as condition evolves, to assist patient/decision-maker with understanding of their medical conditions, weighing benefits/burdens of treatment options, for clarification of goals of treatment. Additionally will assist with any symptoms of palliative concern Attestation Attestation: To help prompt me to consider important information that might be impacting today's encounter and assessment, information from prior notes written by myself or my colleagues may have been "brought forward" into today's note. My signature on this note, however, is an attestation that I personally performed the exam, history, and/or decision-making noted today, and, unless otherwise indicated, the interactions with patient, family, and staff as well as the review of records all occurred today. I also attest that the listed assessment and stated plan reflect my best clinical judgment today based on the combination of historical information, prior notes, and today's exam/ interactions. When time spent is documented, it refers only to time spent today by the signer, or if indicated, combined time spent today by collaborating physician/nurse practitioner.
[2018-02-17] MEDS: MethylPREDNISolone Sod Succinate Inj 125 MG/2 ML Vial IV.PUSH SCH ×2 (17:48→23:18)
[2018-02-17] MEDS: Amitriptyline 25 MG Tablet PO SCH (23:20)
[2018-02-18] MEDS: Pantoprazole Sodium 20 MG DR Tablet PO SCH (09:30)
[2018-02-18] MEDS: Potassium Chloride 10 MEQ ER Capsule PO SCH (09:30)
[2018-02-18] MEDS: hydroCHLOROthiazide 25 MG Tablet PO SCH (09:30)
[2018-02-18] MEDS: Aspirin 325 MG Tablet PO SCH (09:31)
[2018-02-18] MEDS: ALPRAZolam 0.25 MG Tablet PO PRN ×2 (09:35→17:30)
[2018-02-18] MEDS: Enoxaparin Inj 40 MG/0.4 ML Syringe SQ SCH (09:36)
--- NOTE | 2018-02-18 09:39 | P.PNIM ---
Subjective Interval history: still with right chest pain with inspiration. coughing more. Physical Exam Vital signs: Vital Signs 02/17/18 11:31 02/17/18 11:45 02/17/18 16:42 Temperature 97.3 F L 98.4 F Pulse Rate 88 43 L 105 H Respiratory Rate 16 19 16 Blood Pressure 123/92 H 124/95 H Pulse Oximetry 95 97 02/17/18 16:47 02/17/18 19:55 02/17/18 20:00 Temperature 98.5 F Pulse Rate 108 H 100 H 116 H Respiratory Rate 16 21 18 Blood Pressure 118/87 Pulse Oximetry 98 02/17/18 23:57 02/17/18 23:58 02/18/18 04:00 Temperature 98.1 F 99 F Pulse Rate 98 H 116 H 108 H Respiratory Rate 19 18 17 Blood Pressure 143/85 H 96/65 L Pulse Oximetry 97 97 02/18/18 07:59 Temperature Pulse Rate 104 H Respiratory Rate 16 Blood Pressure Pulse Oximetry 97 Intake & Output 02/17/18 02/18/18 02/18/18 18:59 06:59 18:59 Intake Total 1200 / 1200 240 / 240 Balance 1200 / 1200 240 / 240 Intake: Oral 1200 / 1200 240 / 240 Other: # Voids 3 2 # Bowel Movements 0 oriented heart reg lung course bs right lung abd s/nt ext no edema Results - Labs CBC & Chem 7: 02/14/18 22:25 02/16/18 04:54 Microbiology 02/14/18 22:10 Blood - Peripheral Aerobic Blood Culture - Preliminary No growth in 3 days 02/14/18 22:10 Blood - Peripheral Anaerobic Blood Culture - Preliminary No growth in 3 days 02/14/18 22:00 Blood - Peripheral Aerobic Blood Culture - Preliminary No growth in 3 days 02/14/18 22:00 Blood - Peripheral Anaerobic Blood Culture - Preliminary No growth in 3 days Assessment and Plan - Assessment (1) Adenocarcinoma Code(s): C80.1 - Malignant (primary) neoplasm, unspecified Status: Acute Plan: Adenocarcinoma - Pt had hospitalization September 2017 and December 2017 for similar complaints. - CT thorax 09/2017 showed abnormal right lung process - Pt underwent Bronchoscopy [address] Trejo - no malignant cells identified - Pt somewhat lost to f/u following hospitalization d/t social issues - Pt presented to PCP, Dr. Cowan, with c/o continued SOB - Chest CT with IV Contrast 12/30/17 1. Most of the increasing opacity in the right mid and lower lungs is due to pulmonary consolidation. There is a small right pleural effusion. 2. Multiple nodular densities in the lower left lung similar to prior. - Concern that right lung process might represent postobstructive process with underlying malignancy - Appreciate input from Pulmonary Medicine - Hold ASA/plavix - sputum- gram stain --> mixed ace, few WBCs - sputum Cx --> with heavy growth of normal respiratory ace - Urine legionella/pneumococcal --> negative - Pt underwent bronchoscopy on 01/07/[address] Anthony --> Moderate tracheobronchitis, no obstruction, no mass lesion. Hyperemia, edema, right middle, less so lower lobes. - Pt insisting on leaving on 01/08/18 due to some social issues at home with her son, who is reportedly bipolar and ran out of medications last night. - Discussed with the patient that we don't yet know what the underlying cause for her recurrent pneumonia is as cultures are still pending and there is still concern regarding possible inflammatory process vs. malignancy. She states that she will followup closely with Dr. Cowan and Dr. Anthony but we do not feel that the pt is clinically ready for discharge. If she insists on leaving today she will have to leave AMA. - On January 11, 2018 patient's primary care provider Dr. Cowan reviewed pathology results including adenocarcinoma of the lung with patient. Per primary care dictation patient initially stated she did not want any treatment for this but later agreed to see an oncologist to determine treatment options. Patient was referred to hematology/oncology but there is no record of appointment made or visit. -CT chest 02/15: CONCLUSION: 1. Obstruction of the right upper lobe, right middle lobe and right lower lobe bronchi with complete atelectasis and consolidation of the right lung and moderate to large right pleural effusion. No significant mediastinal shift. Lobar bronchial obstruction probably related to mucoid plugging but cannot exclude endobronchial mass. 2. Nodular opacities and distal airway disease at the left lung base appears stable to slightly worse. Upper lung nodules also present. Differential diagnosis includes postinflammatory changes but cannot exclude metastatic disease. -s/p right thoracentesis 02/16. red colored fluid. 1200cc. - Consulted oncology Dr Gutierrez. Awaiting further testing to decide on targeted therapy Pt remains undecided about chemoradiation. would need more staging. -The patient continues to refuse telling family of her diagnosis. She specifically told them she has no cancer. I had long discussion with her in presence of the RN..pt is clear and wants DNR status. -She is willing to discuss with Oncology and Palliative about her goals moving forward...but pt seems to be leaning away from chemoradiation. -Her repack room worker was consulted - Duonebs Q4H while awake and PRN - [place] as needed for pain - Supportive care - Lovenox for DVT prophylaxis tried solumedrol for pleuritic pain. try iv toradol again. place fentanyl patch today and cont norco prn pt wants to go home but no hospice decision yet. awaiting oncology decisions regarding any chemo rx. R Pleural effusion - CXR: Chest X-Ray 02/14/18: Complete opacification of the right hemithorax probably from right effusion and lung consolidation/atelectasis. Cannot exclude underlying lung mass. Stable reticulonodular pattern left lung base. - US guided thoracentesis ordered ...see above. Hypokalemia potassium 3.1 on admission replaced (2) Recurrent pneumonia Code(s): J18.9 - Pneumonia, unspecified organism Status: Acute
[2018-02-18] MEDS ORDERED: Ketorolac Inj 30 MG/ML (IVP) Vial IV.PUSH ONE (10:30)
--- NOTE | 2018-02-18 12:29 | P.PNPL ---
Subjective Interval history: Patient is lying in bed in NAD. Denies any SOB/CP. Afebrile. Physical Exam Vital signs: Vital Signs 02/17/18 16:42 02/17/18 16:47 02/17/18 19:55 Temperature 98.4 F Pulse Rate 105 H 108 H 100 H Respiratory Rate 16 16 21 Blood Pressure 124/95 H Pulse Oximetry 97 02/17/18 20:00 02/17/18 23:57 02/17/18 23:58 Temperature 98.5 F 98.1 F Pulse Rate 116 H 98 H 116 H Respiratory Rate 18 19 18 Blood Pressure 118/87 143/85 H Pulse Oximetry 98 97 02/18/18 04:00 02/18/18 07:59 02/18/18 08:00 Temperature 99 F 98.5 F Pulse Rate 108 H 104 H 101 H Respiratory Rate 17 16 17 Blood Pressure 96/65 L 107/76 Pulse Oximetry 97 97 95 Intake & Output 02/17/18 02/18/18 02/18/18 18:59 06:59 18:59 Intake Total 1200 / 1200 240 / 240 Balance 1200 / 1200 240 / 240 Intake: Oral 1200 / 1200 240 / 240 Other: # Voids 3 2 # Bowel Movements 0 - Constitutional no acute distress - Routine HEENT Exam Head: Present: normocephalic, atraumatic Eye: Present: EOMI, PERRL, normal accommodation ENT: Present: mucous membranes moist - Routine Neck Exam Present: supple, full ROM, trachea midline - Routine Respiratory Exam Present: CTA bilaterally - Routine Cardiovascular Exam Present: RRR, S1, S2 - Routine Abdominal Exam Present: soft, normoactive bowel sounds - Routine Extremities Exam Present: full ROM, pulses intact - Routine Skin Exam Present: intact, dry - Routine Neurological Exam Present: alert, oriented X3, CN II-XII intact - Routine Psychiatric Exam Present: normal affect Assessment and Plan - Plan 1)Resp Insuff 2) Lung adenocarcinoma, 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 3)COPD 4)Pleural effusion s/p US guided thoracentesis 5)Opacification of right hemithorax 6)Nodular opacities left lung base and nodules RIP Plan Oxygen to keep sats >92% Bronchodilators, s/p solumederol s/p US guided right thoracentesis with removal 1200ml pleural fluid Check US chest Patient declined staging workup ( MRI brain, PET CT) Onc is following - Chemo per Onc Radiation Oncology eval. Place on empiric abx ( Levaquin) possible postobstructive pneumonia, check sputum cx Palliative care is following- Patient is no code DNR
--- NOTE | 2018-02-18 13:37 | US ---
EXAM DATE: 02/18/2018 12:58 PM EDT AGE/SEX: 62 years / Female INDICATIONS: Right pleural effusion. CLINICAL DATA: This is the patient's subsequent encounter. Patient reports that signs and symptoms h ave been present for 1 day and indicates a pain score of 6/10. MEDICAL/SURGICAL HISTORY: . . Hypercholesterolemia. Hypertension. Anxiety. Arthritis. Bulging d isc. Coronary artery disease. Claustrophobia. Hiatal hernia. Pneumonia. Kidney stones. Neuropathy. Ul cer. Lung cancer. . section. Tonsillectomy. Neck surgery. Renal stent. Cardiac catheteriza tion. Cervical spine surgery COMPARISON: [facility] [place]ST [place]/O CONTRAST, 02/15/2018. . MEASUREMENTS: Skin To Parietal Pleura:__n/a cm Skin To Max Safe Depth:__n/a cm Estimated Fluid Volume:__195 cc Fluid Composition:__simple FINDINGS: No marking was performed. CONCLUSION: Very small recurrence of the patient's previous large right effusion. There does not appear to be franco ugh volume to safely drain percutaneously at this point. No marking was performed. Electronically signed by: Philip Mederos MD 02/18/2018 1:35 PM EDT
--- NOTE | 2018-02-18 15:15 | P.PNPAL ---
Reason for Visit Reason for visit: a. To assist with evaluation and management of symptoms including:Pain, shortness of breath, anxiety b. To assist medical decision maker(s) with: better understanding of current medical conditions; weighing benefits/burdens of medical treatment options; making medical treatment decisions. Subjective Subjective/Interval History: Follow-up medically necessary for symptom management. Patient seen and examined in her room in the presence of her grand daughter. Conversation limited to assessment of pain level which is currently 3 out of 10. Patient states that she has been coughing more and that had been exacerbating the pain to the left chest wall. Patient required 5 as needed doses of hydrocodone in the past 24 hours. She was started today 02/18/18 on fentanyl patch 25 mcg every 72 hours and also received a one-time dose of Toradol 15 mg IV push. Patient is also on Lyrica daily at hour of sleep. Patient denies feeling anxious, sparingly needing Xanax prn, she has only used 2 doses since the . Denies shortness of breath, O2 saturation in the mid to high 90s. Tachycardic low 100s. Ultrasound of the chest today revealed an estimated fluid volume of 195ml -very small recurrence and not enough volume to safely drain percutaneously at this point. Pulmonology following. Patient stated that she is willing to stay a few more days in the hospital to make sure that his symptoms are managed before discharge home. No further discussion during patient`s granddaughters` visit. . Family/Friend Interactions: Patient's granddaughter who is the healthcare surrogate at bedside. Limited conversation during granddaughters visit per patient's request. Advance Directives Living Will: Never completed Health Care Surrogate: Copy in medical record Durable Power of Body Shop Mechanic: Never completed Advance Directives Date on File: 02/16/18 (HCS COMPLETED) Health Care Surrogate Name and Number: [facility]:Yenny Valadez [phone] Alt: Moilna Ruiz Objective Vital Signs: Vital Signs 02/17/18 16:42 02/17/18 16:47 02/17/18 19:55 Temperature 98.4 F Pulse Rate 105 H 108 H 100 H Respiratory Rate 16 16 21 Blood Pressure 124/95 H Pulse Oximetry 97 02/17/18 20:00 02/17/18 23:57 02/17/18 23:58 Temperature 98.5 F 98.1 F Pulse Rate 116 H 98 H 116 H Respiratory Rate 18 19 18 Blood Pressure 118/87 143/85 H Pulse Oximetry 98 97 02/18/18 04:00 02/18/18 07:59 02/18/18 08:00 Temperature 99 F 98.5 F Pulse Rate 108 H 104 H 101 H Respiratory Rate 17 16 17 Blood Pressure 96/65 L 107/76 Pulse Oximetry 97 97 95 02/18/18 12:00 02/18/18 12:19 Temperature 98.2 F Pulse Rate 106 H 105 H Respiratory Rate 16 16 Blood Pressure 117/78 Pulse Oximetry 95 Intake & Output 02/17/18 02/18/18 02/18/18 18:59 06:59 18:59 Intake Total 1200 / 1200 240 / 240 Balance 1200 / 1200 240 / 240 Intake: Oral 1200 / 1200 240 / 240 Other: # Voids 3 2 # Bowel Movements 0 Physical Exam: CONSTITUTIONAL/GENERAL: This is an adequately nourished patient, in no apparent distress. TUBES/LINES/DRAINS:PIV SKIN: No jaundice, rashes, or lesions. Ecchymoses on upper extremities. No wounds seen anteriorly. Skin temperature appropriate. Documented sacral wound in EMR. HEAD: Atraumatic. Normocephalic. EYES: PERRLA. No scleral icterus. No injection or drainage. Fundi not examined. ENT: Hearing grossly normal. No nasal bleeding. Moist oral mucosa NECK: Trachea midline. Supple, nontender. CARDIOVASCULAR: S1, S2 with no murmurs, gallops, or rubs. No JVD. Peripheral pulses symmetric. RESPIRATORY/CHEST: Symmetric, unlabored respirations. Slightly diminished to the right side. No rhonchi, no wheezing GASTROINTESTINAL: Abdomen soft, non-tender, nondistended. No guarding. Bowel sounds present. GENITOURINARY: Without palpable bladder distension. MUSCULOSKELETAL: Extremities without clubbing, cyanosis, or edema. No joint tenderness or effusion noted. No calf tenderness. No mottling or clubbing. NEUROLOGICAL: Awake and alert. Motor and sensory grossly within normal limits. Follows commands. Cognitively sharp. Moves all extremities. PSYCHIATRIC: No obvious anxiety/depression. no apparent hallucinations or other psychotic thought process. Diagnostic Tests Laboratory: Laboratory Results - last 72 hr 02/16/18 04:54 Sodium 141 Potassium 3.5 Chloride 104 Carbon Dioxide 27.0 Anion Gap 10 BUN 7 Creatinine 0.39 L Estimated GFR Greater than 89 Random Glucose 91 Calcium 8.8 Result Diagrams: 02/14/18 22:25 02/16/18 04:54 Microbiology: Microbiology 02/14/18 22:10 Aerobic Blood Culture - Preliminary Blood - Peripheral No growth in 4 days Anaerobic Blood Culture - Preliminary No growth in 4 days 02/14/18 22:00 Aerobic Blood Culture - Preliminary Blood - Peripheral No growth in 4 days Anaerobic Blood Culture - Preliminary No growth in 4 days Imaging: Venous Doppler Study 02/14/18 22:17 CONCLUSION: 1. The study is negative for bilateral lower extremity deep venous thrombosis. Chest CT 02/15/18 00:00 CONCLUSION: 1. Obstruction of the right upper lobe, right middle lobe and right lower lobe bronchi with complete atelectasis and consolidation of the right lung and moderate to large right pleural effusion. No significant mediastinal shift. Lobar bronchial obstruction probably related to mucoid plugging but cannot exclude endobronchial mass. 2. Nodular opacities and distal airway disease at the left lung base appears stable to slightly worse. Upper lung nodules also present. Differential diagnosis includes postinflammatory changes but cannot exclude metastatic disease. Chest X-Ray 02/16/18 00:00 CONCLUSION: 1. No significant pneumothorax following right-sided thoracentesis. 2. Slight improved aeration of a portion of the right upper lobe with persistent significant volume loss and near complete opacification of the right hemithorax. Thoracentesis Ultrasound 02/16/18 00:00 CONCLUSION: 1. Uncomplicated ultrasound-guided right-sided thoracentesis. Chest Ultrasound 02/18/18 12:22 CONCLUSION: Very small recurrence of the patient's previous large right effusion. There does not appear to be enough volume to safely drain percutaneously at this point. No marking was performed. Procedures: 02/16/[id number] thoracentesis for right pleural effusion(1200ML removed) Assessment and Plan - Disease Oriented Problem List (1) Pleural effusion, right (2) Recurrent pneumonia (3) Chronic obstructive pulmonary disease (4) Coronary artery disease (5) Hypertension - Symptom Scale (1) Pain 0-10 Scale: 5 Comment: Patient came in complaining of chest pain to the right side and is s/p thoracentesis of right pleural effusion. Pain described as sharp to right chest wall, exacerbated with movement or cough. (2) Shortness of breath 0-10 Scale: Unable to quantify Comment: Came in with complaints of shortness of breath and intermittent cough. (3) Anxiety 0-10 Scale: Unable to quantify Comment: Most likely due to shortness of breath history of COPD Pertinent Non-Medical Issues: Psychosocial: Patient was born and raised in [place], [place]. Patient moved to [place] 10 years ago. Patient is . She has 2 sons and 4 grandchildren. 1 of her sons is mentally challenged-his bipolar. Patient lives with her son who is mentally challenged and 2 grandchildren from his old son ages 1 and 2. 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 Spiritual: Patient is Religion. Legal: Completed healthcare surrogate today Ethical issues impacting care: None identified at this time Important Contacts: healthcare surrogate -Granddaughter-Yenny Valadez [phone] Alternate healthcare surrogate-Molina Ruiz Prognosis: Mrs Alanis is a 62-year-old patient with a medical history significant of recent diagnosis of lung cancer, recurrent pneumonia, hypertension, neuropathy, anxiety, coronary artery disease, chronic obstructive pulmonary disease, hiatal hernia and arthritis. Patient presented to the ER on 02/14/18 with complaints of worsening shortness of breath and right sided sharp chest pain. Clinical course complicated with pain and shortness of breath from pleural effusion. Given ongoing comorbidities, patient remains at high risk for complications, deterioration and decline. If patient continues to strongly feel that she does not want to pursue aggressive treatment, she would be appropriate for hospice. Code Status: No Code DNR Plan: PLAN: Legal decision maker: Patient is currently able to participate in medical decision making. In the event that she is deemed incapacitated, patient has designated her granddaughter Yenny Valadez is here healthcare surrogate and Molina Ruiz is here alternate healthcare surrogate Goals: Aggressive short of no code. Discussed patient's discussion with oncologist and she is willing to try targeted cancer therapy. Patient signed her [facility] DNR today-placed on a chart. Provided patient with a copy of 5 wishes to review and complete at her on time. CODE STATUS: No code DNR/DNI SYMPTOMS: * Pain: Patient has history of rheumatoid arthritis and she came in with complaints of sharp chest pain. Chest x-ray showed right pleural effusion. Patient underwent ultrasound-guided thoracentesis today. Patient reporting that pain is exacerbated with coughing and movement. Patient received tramadol 15 mg IV push 1 dose today and was started on a fentanyl patch 25 mcg every 72 hours. She is required 5 as needed doses of hydrocodone in the past 24 hours. Continue to monitor for pain. * Anxiety: Currently denies anxiety. Patient is required 2 prn doses of Xanax since 02/16/18. Medication appendectomy is adequate at this time. * Shortness of breath: Patient has lung cancer and had right pleural effusion. Underwent ultrasound-guided thoracentesis 02/16. Patient endorsing improvement in the breathing. Patient is currently on room air with no signs of respiratory distress. No recommendations at this time. ==Patient has not informed her family about her recent diagnosis of lung cancer. She feels she is not ready yet to inform her family of her recent lung cancer diagnosis. Patient has requested that any medical logistics team leader who comes to see her does not discuss her medical condition in front of her family. Patient stated that it is acceptable with her for medical staff to request her family to give them and patient privacy during their visit. Palliative care will continue to follow the patient during hospital course as condition evolves, to assist patient/decision-maker with understanding of their medical conditions, weighing benefits/burdens of treatment options, for clarification of goals of treatment. Additionally will assist with any symptoms of palliative concern Attestation Attestation: To help prompt me to consider important information that might be impacting today's encounter and assessment, information from prior notes written by myself or my colleagues may have been "brought forward" into today's note. My signature on this note, however, is an attestation that I personally performed the exam, history, and/or decision-making noted today, and, unless otherwise indicated, the interactions with patient, family, and staff as well as the review of records all occurred today. I also attest that the listed assessment and stated plan reflect my best clinical judgment today based on the combination of historical information, prior notes, and today's exam/ interactions. When time spent is documented, it refers only to time spent today by the signer, or if indicated, combined time spent today by collaborating physician/nurse practitioner.
--- NOTE | 2018-02-18 15:40 | P.CON ---
History of Present Illness Service: radiation oncology Primary Care Provider: Eric Newton Family Provider: Eric Newton History of Present Illness: ASked to see ms wilkins. She is inpatient. With apparent malignant effusion. Cells suspicious malignancy. [facility] - History History Provided By: Patient, Medical Record - Medical History Medical History: Medical History (Last Reviewed 02/15/18 @ 03:50 by Ramona Galeas RN) Joint pain (Acute) Claustrophobia (Acute) Arthritis (Acute) Kidney stones (Acute) Hiatal hernia (Acute) Ulcer (Acute) Bulging disc CAD (coronary artery disease) COPD (chronic obstructive pulmonary disease) High cholesterol Hx of recurrent pneumonia Hypertension Neuropathy - Surgical History Surgical History: Surgical History (Last Reviewed 02/15/18 @ 03:50 by Ramona Galeas RN) Hx of cervical spine surgery (Acute) History of renal stent (Acute) Hx of section (Acute) H/O neck surgery Hx of cardiac cath Hx of heart artery stent Hx of tonsillectomy - Tobacco History Second Hand Smoke Exposure: No Tobacco Use In Past 30 Days: Yes Smoking Status: Former smoker Tobacco Type: Cigarettes - Alcohol History How Often Do You Have a Drink Containing Alcohol: Monthly or less - Substance Use History Substance History: No History of Abuse - Travel History Recent Travel in the [place] Within the Last 8 Weeks: No Recent Travel Out of the Country Within the Last 8 Weeks: No - Immunization History Tetanus Immunization: Unsure Medications and Allergies Active Medications: Active Medications Hydrocodone Bitart/Acetaminophen ([place] 10/325) 1 tab PO Q4H PRN PRN Reason: PAIN 3-10 Last Admin: 02/18/18 09:34 Dose: 1 tab Albuterol (Duoneb Neb (Prn)) 1 ampul NEB Q2HR NEB PRN PRN Reason: SHORTNESS OF BREATH Last Admin: 02/17/18 23:56 Dose: 1 ampul Albuterol (Duoneb Neb (Carmencita)) 1 ampul NEB Q4HR WHILE AWAKE NEB CARMENCITA Last Admin: 02/18/18 12:18 Dose: 1 ampul Alprazolam (Xanax) 0.25 mg PO Q8HR PRN PRN Reason: ANXIETY AND/OR AGITATION Last Admin: 02/18/18 09:35 Dose: 0.25 mg Amitriptyline HCl (Elavil) 50 mg PO HS CARMENCITA Last Admin: 02/17/18 23:20 Dose: 50 mg Aspirin (Aspirin) 325 mg PO DAILY [facility] Last Admin: 02/18/18 09:31 Dose: 325 mg Enoxaparin Sodium (Lovenox Inj) 40 mg SQ DAILY [facility] Last Admin: 02/18/18 09:36 Dose: 40 mg Fentanyl (Duragesic 25 Mcg Patch.72hr) 1 patch T-DERMAL Q3D [facility] Last Admin: 02/18/18 11:42 Dose: 1 patch Hydrochlorothiazide (Hydrodiuril) 25 mg PO DAILY [facility] Last Admin: 02/18/18 09:30 Dose: 25 mg Levofloxacin (Levaquin) 500 mg PO DAILY [facility] Stop: 02/24/18 12:59 Ondansetron HCl (Zofran Inj) 4 mg IV.PUSH Q6H PRN PRN Reason: Nausea And Vomiting Pantoprazole Sodium (Protonix) 20 mg PO DAILY [facility] Last Admin: 02/18/18 09:30 Dose: 20 mg Patch Removal (Remove Old Patch) 1 each T-DERMAL Q3D [facility] Potassium Chloride (Kcl) 10 meq PO DAILY [facility] Last Admin: 02/18/18 09:30 Dose: 10 meq Pravastatin Sodium (Pravachol) 80 mg PO QPM [facility] Last Admin: 02/17/18 17:48 Dose: 80 mg Pregabalin (Lyrica) 100 mg PO HS [facility] Last Admin: 02/17/18 23:19 Dose: 100 mg Temazepam (Restoril) 15 mg PO HS PRN PRN Reason: INSOMNIA Allergies Allergy/AdvReac Type Severity Reaction Status Date / Time terbutaline Allergy Intermediate Nausea Verified 02/14/18 20:54 gabapentin Allergy Mild Nausea Verified 02/14/18 20:54 metoclopramide [From Reglan] AdvReac Bleeding Verified 02/14/18 20:54 Home Medications Medication Instructions Recorded Confirmed Type amitriptyline 50 mg PO HS 12/30/17 02/15/18 History hydrocodone-acetaminophen 2 tab PO Q8H PRN 12/30/17 02/15/18 History potassium chloride 10 meq PO DAILY 12/30/17 02/15/18 History pregabalin [Lyrica] 100 mg PO HS 12/30/17 02/15/18 History aspirin 325 mg PO DAILY 02/15/18 02/15/18 History clopidogrel [Plavix] 75 mg PO DAILY 02/15/18 02/15/18 History hydrochlorothiazide 25 mg PO DAILY 02/15/18 02/15/18 History ipratropium-albuterol 3 ml INHALATION Q4-6H PRN 02/15/18 02/15/18 History meprobamate 400 mg PO QID PRN 02/15/18 02/15/18 History omeprazole 20 mg PO DAILY 02/15/18 02/15/18 History simvastatin 40 mg PO QPM 02/15/18 02/15/18 History Physical Exam Vital signs: Vital Signs 02/17/18 16:42 02/17/18 16:47 02/17/18 19:55 Temperature 98.4 F Pulse Rate 105 H 108 H 100 H Respiratory Rate 16 16 21 Blood Pressure 124/95 H Pulse Oximetry 97 02/17/18 20:00 02/17/18 23:57 02/17/18 23:58 Temperature 98.5 F 98.1 F Pulse Rate 116 H 98 H 116 H Respiratory Rate 18 19 18 Blood Pressure 118/87 143/85 H Pulse Oximetry 98 97 02/18/18 04:00 02/18/18 07:59 02/18/18 08:00 Temperature 99 F 98.5 F Pulse Rate 108 H 104 H 101 H Respiratory Rate 17 16 17 Blood Pressure 96/65 L 107/76 Pulse Oximetry 97 97 95 02/18/18 12:00 02/18/18 12:19 Temperature 98.2 F Pulse Rate 106 H 105 H Respiratory Rate 16 16 Blood Pressure 117/78 Pulse Oximetry 95 Intake & Output 02/17/18 02/18/18 02/18/18 18:59 06:59 18:59 Intake Total 1200 / 1200 240 / 240 Balance 1200 / 1200 240 / 240 Intake: Oral 1200 / 1200 240 / 240 Other: # Voids 3 2 # Bowel Movements 0 Assessment and Plan - Plan We do not recommend palliative xrt to the chest/lung. Discussed with Evan Zeke and grand-daughter present. Discussed with dr sadler. discussed risk of metastatic disease.. 25 minutes present.
[2018-02-18] MEDS: levoFLOXacin 500 MG Tablet PO SCH (17:34)
--- NOTE | 2018-02-18 20:01 | P.PNONC ---
Subjective Interval history: Resting comfortably in bed. Objective Vital Signs/Intake & Output: Vital Signs 02/17/18 20:00 02/17/18 23:57 02/17/18 23:58 Temperature 98.5 F 98.1 F Pulse Rate 116 H 98 H 116 H Respiratory Rate 18 19 18 Blood Pressure 118/87 143/85 H Pulse Oximetry 98 97 02/18/18 04:00 02/18/18 07:59 02/18/18 08:00 Temperature 99 F 98.5 F Pulse Rate 108 H 104 H 101 H Respiratory Rate 17 16 17 Blood Pressure 96/65 L 107/76 Pulse Oximetry 97 97 95 02/18/18 12:00 02/18/18 12:19 02/18/18 16:00 Temperature 98.2 F 97.6 F Pulse Rate 106 H 105 H 114 H Respiratory Rate 16 16 16 Blood Pressure 117/78 114/73 Pulse Oximetry 95 95 Intake & Output 02/18/18 02/18/18 02/19/18 06:59 18:59 06:59 Intake Total 240 / 240 Balance 240 / 240 Intake: Oral 240 / 240 Other: # Voids 2 Result Diagrams: 02/14/18 22:25 02/19/18 04:22 Culture Results: Microbiology 02/14/18 22:10 Aerobic Blood Culture - Preliminary Blood - Peripheral No growth in 4 days Anaerobic Blood Culture - Preliminary No growth in 4 days 02/14/18 22:00 Aerobic Blood Culture - Preliminary Blood - Peripheral No growth in 4 days Anaerobic Blood Culture - Preliminary No growth in 4 days Imaging Studies: Impressions Chest Ultrasound 02/18/18 12:22 CONCLUSION: Very small recurrence of the patient's previous large right effusion. There does not appear to be enough volume to safely drain percutaneously at this point. No marking was performed. Medications: Active Medications Generic Name Dose Route Start Last Admin Trade Name Freq PRN Reason Stop Dose Admin Hydrocodone Bitart/Acetaminophen 1 tab 02/15/18 00:19 02/18/18 17:30 [place] 10/325 PO 1 tab Q4H PRN Administration PAIN 3-10 Albuterol 1 ampul 02/15/18 00:20 02/17/18 23:56 Duoneb Neb (Prn) NEB 1 ampul Q2HR NEB PRN Administration SHORTNESS OF BREATH Albuterol 1 ampul 02/15/18 08:00 02/18/18 16:44 Duoneb Neb (Carmencita) NEB Not Given Q4HR WHILE AWAKE NEB CARMENCITA Alprazolam 0.25 mg 02/15/18 15:49 02/18/18 17:30 Xanax PO 0.25 mg Q8HR PRN Administration ANXIETY AND/OR AGITATION Amitriptyline HCl 50 mg 02/15/18 21:00 02/17/18 23:20 Elavil PO 50 mg HS CARMENCITA Administration Aspirin 325 mg 02/16/18 09:00 02/18/18 09:31 Aspirin PO 325 mg DAILY CARMEN[facility]A Administration Enoxaparin Sodium 40 mg 02/15/18 09:00 02/18/18 09:36 Lovenox Inj SQ 40 mg DAILY [facility] Administration Fentanyl 1 patch 02/18/18 11:01 02/18/18 11:42 Duragesic 25 Mcg Patch.72hr T-DERMAL 1 patch Q3D [facility] Administration Hydrochlorothiazide 25 mg 02/16/18 09:00 02/18/18 09:30 Hydrodiuril PO 25 mg DAILY [facility] Administration Levofloxacin 500 mg 02/18/18 13:00 02/18/18 17:34 Levaquin PO 02/24/18 12:59 500 mg DAILY CARMEN[facility]A Administration Pantoprazole Sodium 20 mg 02/16/18 09:00 02/18/18 09:30 Protonix PO 20 mg DAILY [facility] Administration Potassium Chloride 10 meq 02/16/18 09:00 02/18/18 09:30 Kcl PO 10 meq DAILY [facility] Administration Pravastatin Sodium 80 mg 02/15/18 18:00 02/17/18 17:48 Pravachol PO 80 mg QPM CARMEN[facility]A Administration Pregabalin 100 mg 02/15/18 21:00 02/17/18 23:19 Lyrica PO 100 mg HS CARMENCITA Administration Objective Remarks: GENERAL: thin chronically ill appearing lady SKIN: Warm and dry. HEAD: Normocephalic. RESPIRATORY: No respiratory distress EXTREMITIES: No cyanosis, or edema. MUSCULOSKELETAL: Adequate muscle tone. NEUROLOGICAL: No obvious focal deficit. Awake, alert, and oriented x3. PSYCHIATRIC: Appropriate mood and affect; insight and judgment normal. Assessment/Plan - Plan 1. Metastatic lung cancer: awaiting results of mutation testing. At this time patient declines treatment with chemtherapy and immunotherapy. She would consider targeted therapy is mutational testing returned positive. Will arrange close follow up in oncology clinic. Inpatient oncology service will continue to follow peripherally.
[2018-02-18] MEDS: Amitriptyline 25 MG Tablet PO SCH (21:45)
[2018-02-19] MEDS: guaiFENesin/Codeine Syrup 200 MG/20 MG 10 ML UDC PO PRN ×3 (01:08→16:54)
[2018-02-19 05:29] LABS: Anion Gap 9 meq/L (5-15); Blood Urea Nitrogen 13 mg/dL (7-18); Calcium 8.5 mg/dL (8.5-10.1); Carbon Dioxide 31.3 meq/L (21.0-32.0); Chloride 100 meq/L (98-107); Glomerular Filtration Rate Greater Than 89 mL/min (>89); Glucose,Random 95 mg/dL (74-106); Potassium 3.6 meq/L (3.5-5.1); Sodium 140 meq/L (136-145)
[2018-02-19] MEDS: Potassium Chloride 10 MEQ ER Capsule PO SCH (09:44)
[2018-02-19] MEDS: hydroCHLOROthiazide 25 MG Tablet PO SCH (09:44)
[2018-02-19] MEDS: Pantoprazole Sodium 20 MG DR Tablet PO SCH (09:44)
[2018-02-19] MEDS: Aspirin 325 MG Tablet PO SCH (09:44)
[2018-02-19] MEDS: levoFLOXacin 500 MG Tablet PO SCH (09:44)
[2018-02-19] MEDS: Enoxaparin Inj 40 MG/0.4 ML Syringe SQ SCH (09:46)
--- NOTE | 2018-02-19 11:03 | P.PNPL ---
Subjective Interval history: Patient is lying in bed in NAD. On room air oxygen. Afebrile. Physical Exam Vital signs: Vital Signs 02/18/18 12:00 02/18/18 12:19 02/18/18 16:00 Temperature 98.2 F 97.6 F Pulse Rate 106 H 105 H 114 H Respiratory Rate 16 16 16 Blood Pressure 117/78 114/73 Pulse Oximetry 95 95 02/18/18 20:00 02/18/18 20:20 02/19/18 00:00 Temperature 97.4 F L 97.8 F Pulse Rate 111 H 114 H 106 H Respiratory Rate 18 16 17 Blood Pressure 136/84 111/74 Pulse Oximetry 96 95 02/19/18 08:00 Temperature 97.6 F Pulse Rate 94 H Respiratory Rate 16 Blood Pressure 128/86 Pulse Oximetry 95 Intake & Output 02/18/18 02/19/18 02/19/18 18:59 06:59 18:59 Weight 47.2 kg Other: # Voids 3 4 - Constitutional no acute distress - Routine HEENT Exam Head: Present: normocephalic, atraumatic Eye: Present: EOMI, PERRL, normal accommodation, conjunctivae pink ENT: Present: mucous membranes moist - Routine Neck Exam Present: supple, full ROM, trachea midline - Routine Respiratory Exam Present: CTA bilaterally - Routine Cardiovascular Exam Present: RRR, S1, S2 - Routine Abdominal Exam Present: soft, normoactive bowel sounds - Routine Extremities Exam Present: full ROM, pulses intact - Routine Skin Exam Present: intact, dry - Routine Neurological Exam Present: alert, oriented X3, CN II-XII intact - Routine Psychiatric Exam Present: normal affect Assessment and Plan - Plan 1)Resp Insuff 2) Lung adenocarcinoma, 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 3)COPD 4)Pleural effusion s/p US guided thoracentesis 5)Opacification of right hemithorax 6)Nodular opacities left lung base and nodules RIP Plan Oxygen PRN to keep sats >92% Bronchodilators, s/p solumederol s/p US guided right thoracentesis on 02/16 with removal 1200ml pleural fluid US chest 02/18 not enough fluid for safe drainage. She had previous bronch x2 by Dr. Anthony Patient declined staging workup ( MRI brain, PET CT) Onc is following - waiting results of mutation testing. She would consider targeted therapy if mutational testing returned positive. Seen by Radiation Oncology - Not a candidate for palliative XRT. Continue abx ( Levaquin) possible postobstructive pneumonia, check sputum cx Palliative care is following- Patient is no code DNR
--- NOTE | 2018-02-19 11:49 | P.PNIM ---
Subjective Interval history: pt will alot of right chest/pleuritic pain. Physical Exam Vital signs: Vital Signs 02/18/18 12:00 02/18/18 12:19 02/18/18 16:00 Temperature 98.2 F 97.6 F Pulse Rate 106 H 105 H 114 H Respiratory Rate 16 16 16 Blood Pressure 117/78 114/73 Pulse Oximetry 95 95 02/18/18 20:00 02/18/18 20:20 02/19/18 00:00 Temperature 97.4 F L 97.8 F Pulse Rate 111 H 114 H 106 H Respiratory Rate 18 16 17 Blood Pressure 136/84 111/74 Pulse Oximetry 96 95 02/19/18 08:00 02/19/18 10:14 Temperature 97.6 F Pulse Rate 94 H Respiratory Rate 16 16 Blood Pressure 128/86 Pulse Oximetry 95 Intake & Output 02/18/18 02/19/18 02/19/18 18:59 06:59 18:59 Weight 47.2 kg Other: # Voids 3 4 Date of Last Bowel Movement 02/18/18 heart reg lung course bs right lung wincing with inspiration abd s/nt ext no edema Results - Labs CBC & Chem 7: 02/14/18 22:25 02/19/18 04:22 Laboratory Results - last 24 hr 02/19/18 04:22 Sodium 140 Potassium 3.6 Chloride 100 Carbon Dioxide 31.3 Anion Gap 9 BUN 13 Creatinine 0.48 L Estimated GFR Greater than 89 Random Glucose 95 Calcium 8.5 Microbiology 02/14/18 22:10 Blood - Peripheral Aerobic Blood Culture - Final No growth in 5 days 02/14/18 22:10 Blood - Peripheral Anaerobic Blood Culture - Final No growth in 5 days 02/14/18 22:00 Blood - Peripheral Aerobic Blood Culture - Final No growth in 5 days 02/14/18 22:00 Blood - Peripheral Anaerobic Blood Culture - Final No growth in 5 days - Imaging Impressions Chest Ultrasound 02/18/18 12:22 CONCLUSION: Very small recurrence of the patient's previous large right effusion. There does not appear to be enough volume to safely drain percutaneously at this point. No marking was performed. Assessment and Plan - Assessment (1) Adenocarcinoma Code(s): C80.1 - Malignant (primary) neoplasm, unspecified Status: Acute Plan: Adenocarcinoma - Pt had hospitalization September 2017 and December 2017 for similar complaints. - CT thorax 09/2017 showed abnormal right lung process - Pt underwent Bronchoscopy September [address] Trejo - no malignant cells identified - Pt somewhat lost to f/u following hospitalization d/t social issues - Pt presented to PCP, Dr. Cowan, with c/o continued SOB - Chest CT with IV Contrast 12/30/17 1. Most of the increasing opacity in the right mid and lower lungs is due to pulmonary consolidation. There is a small right pleural effusion. 2. Multiple nodular densities in the lower left lung similar to prior. - Concern that right lung process might represent postobstructive process with underlying malignancy - Appreciate input from Pulmonary Medicine - Hold ASA/plavix - sputum- gram stain --> mixed ace, few WBCs - sputum Cx --> with heavy growth of normal respiratory ace - Urine legionella/pneumococcal --> negative - Pt underwent bronchoscopy on 01/07/[address] Anthony --> Moderate tracheobronchitis, no obstruction, no mass lesion. Hyperemia, edema, right middle, less so lower lobes. - Pt insisting on leaving on 01/08/18 due to some social issues at home with her son, who is reportedly bipolar and ran out of medications last night. - Discussed with the patient that we don't yet know what the underlying cause for her recurrent pneumonia is as cultures are still pending and there is still concern regarding possible inflammatory process vs. malignancy. She states that she will followup closely with Dr. Cowan and Dr. Anthony but we do not feel that the pt is clinically ready for discharge. If she insists on leaving today she will have to leave AMA. - On January 11, 2018 patient's primary care provider Dr. Cowan reviewed pathology results including adenocarcinoma of the lung with patient. Per primary care dictation patient initially stated she did not want any treatment for this but later agreed to see an oncologist to determine treatment options. Patient was referred to hematology/oncology but there is no record of appointment made or visit. -CT chest 02/15: CONCLUSION: 1. Obstruction of the right upper lobe, right middle lobe and right lower lobe bronchi with complete atelectasis and consolidation of the right lung and moderate to large right pleural effusion. No significant mediastinal shift. Lobar bronchial obstruction probably related to mucoid plugging but cannot exclude endobronchial mass. 2. Nodular opacities and distal airway disease at the left lung base appears stable to slightly worse. Upper lung nodules also present. Differential diagnosis includes postinflammatory changes but cannot exclude metastatic disease. -s/p right thoracentesis 02/16. red colored fluid. 1200cc. - Consulted oncology Dr Gutierrez. Awaiting further testing to decide on targeted therapy Pt remains undecided about chemoradiation. would need more staging. -The patient continues to refuse telling family of her diagnosis. She specifically told them she has no cancer. I had long discussion with her in presence of the RN..pt is clear and wants DNR status. -She is willing to discuss with Oncology and Palliative about her goals moving forward...but pt seems to be leaning away from chemoradiation. -Her audio visual collections coordinator was consulted - Duonebs Q4H while awake and PRN - [place] as needed for pain - Supportive care - Lovenox for DVT prophylaxis tried toradol/solumedrol for pleuritic pain place fentanyl patch started 02/18. titrating up increase her prn norco pt wants to go home but no hospice decision yet. awaiting oncology decisions regarding any chemo rx. overall poor prognosis. R Pleural effusion - CXR: Chest X-Ray 02/14/18: Complete opacification of the right hemithorax probably from right effusion and lung consolidation/atelectasis. Cannot exclude underlying lung mass. Stable reticulonodular pattern left lung base. - US guided thoracentesis ordered ...see above. Hypokalemia potassium 3.1 on admission replaced (2) Recurrent pneumonia Code(s): J18.9 - Pneumonia, unspecified organism Status: Acute
[2018-02-19] MEDS: Benzonatate 100 MG Capsule PO SCH ×2 (12:23→18:46)
[2018-02-19] MEDS: Amitriptyline 25 MG Tablet PO SCH (20:53)
[2018-02-20] MEDS: Benzonatate 100 MG Capsule PO SCH ×3 (05:38→21:17)
[2018-02-20] MEDS: ALPRAZolam 0.25 MG Tablet PO PRN (05:47)
[2018-02-20] MEDS: Pantoprazole Sodium 20 MG DR Tablet PO SCH (09:11)
[2018-02-20] MEDS: Potassium Chloride 10 MEQ ER Capsule PO SCH (09:11)
[2018-02-20] MEDS: levoFLOXacin 500 MG Tablet PO SCH (09:11)
[2018-02-20] MEDS: Aspirin 325 MG Tablet PO SCH (09:11)
[2018-02-20] MEDS: hydroCHLOROthiazide 25 MG Tablet PO SCH (09:11)
[2018-02-20] MEDS: guaiFENesin/Codeine Syrup 200 MG/20 MG 10 ML UDC PO PRN ×2 (09:15→21:15)
[2018-02-20] MEDS: Enoxaparin Inj 40 MG/0.4 ML Syringe SQ SCH (09:18)
--- NOTE | 2018-02-20 10:28 | P.PNPL ---
Subjective Interval history: Patient is lying in bed in NAD.On room air oxygen Physical Exam Vital signs: Vital Signs 02/19/18 11:58 02/19/18 12:00 02/19/18 16:00 Temperature 97.4 F L 98.6 F Pulse Rate 87 96 H 94 H Respiratory Rate 16 18 18 Blood Pressure 114/80 114/82 Pulse Oximetry 95 94 L 02/19/18 16:50 02/19/18 19:03 02/19/18 20:35 Temperature 97.9 F Pulse Rate 112 H 88 90 Respiratory Rate 16 17 12 Blood Pressure 136/89 Pulse Oximetry 98 02/19/18 23:16 02/20/18 03:05 02/20/18 08:00 Temperature 98.1 F 98.2 F 98.0 F Pulse Rate 99 H 107 H 105 H Respiratory Rate 18 18 16 Blood Pressure 136/75 137/88 131/82 Pulse Oximetry 96 92 L 92 L 02/20/18 08:02 Temperature Pulse Rate 103 H Respiratory Rate 16 Blood Pressure Pulse Oximetry 95 Intake & Output 02/19/18 02/20/18 02/20/18 18:59 06:59 18:59 Intake Total 240 / 240 Balance 240 / 240 Weight 47.2 kg Intake: Oral 240 / 240 Other: # Voids 3 Date of Last Bowel Movement 02/18/18 02/18/18 # Bowel Movements 0 - Constitutional no acute distress - Routine HEENT Exam Head: Present: normocephalic, atraumatic Eye: Present: EOMI, PERRL, normal accommodation ENT: Present: mucous membranes moist - Routine Neck Exam Present: supple, full ROM, trachea midline - Routine Respiratory Exam Present: CTA bilaterally - Routine Cardiovascular Exam Present: RRR, S1, S2 - Routine Abdominal Exam Present: soft, normoactive bowel sounds - Routine Skin Exam Present: intact, dry - Routine Neurological Exam Present: alert, oriented X3, CN II-XII intact Assessment and Plan - Plan 1)Resp Insuff 2) Lung adenocarcinoma, 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 3)COPD 4)Pleural effusion s/p US guided thoracentesis 5)Opacification of right hemithorax 6)Nodular opacities left lung base and nodules RIP Plan Oxygen PRN to keep sats >92% Bronchodilators, s/p solumederol s/p US guided right thoracentesis on 02/16 with removal 1200ml pleural fluid US chest 02/18 not enough fluid for safe drainage. She had previous bronch x2 by Dr. Anthony Patient declined staging workup ( MRI brain, PET CT) Onc is following - waiting results of mutation testing. She would consider targeted therapy if mutational testing returned positive. Seen by Radiation Oncology - Not a candidate for palliative XRT. Continue abx ( Levaquin x 7 days) possible postobstructive pneumonia, check sputum cx GI/DVT prophylaxis- On Lovenox 40mg daily Palliative care is following- Patient is no code DNR
--- NOTE | 2018-02-20 11:01 | P.PNIM ---
Subjective Interval history: starting to feel more nauseated. Physical Exam Vital signs: Vital Signs 02/19/18 11:58 02/19/18 12:00 02/19/18 16:00 Temperature 97.4 F L 98.6 F Pulse Rate 87 96 H 94 H Respiratory Rate 16 18 18 Blood Pressure 114/80 114/82 Pulse Oximetry 95 94 L 02/19/18 16:50 02/19/18 19:03 02/19/18 20:35 Temperature 97.9 F Pulse Rate 112 H 88 90 Respiratory Rate 16 17 12 Blood Pressure 136/89 Pulse Oximetry 98 02/19/18 23:16 02/20/18 03:05 02/20/18 08:00 Temperature 98.1 F 98.2 F 98.0 F Pulse Rate 99 H 107 H 105 H Respiratory Rate 18 18 16 Blood Pressure 136/75 137/88 131/82 Pulse Oximetry 96 92 L 92 L 02/20/18 08:02 Temperature Pulse Rate 103 H Respiratory Rate 16 Blood Pressure Pulse Oximetry 95 Intake & Output 02/19/18 02/20/18 02/20/18 18:59 06:59 18:59 Intake Total 240 / 240 Balance 240 / 240 Weight 47.2 kg Intake: Oral 240 / 240 Other: # Voids 3 Date of Last Bowel Movement 02/18/18 02/18/18 # Bowel Movements 0 heart reg lung course bs right lung abd s/nt ext no edema Results - Labs CBC & Chem 7: 02/14/18 22:25 02/19/18 04:22 Microbiology 02/14/18 22:10 Blood - Peripheral Aerobic Blood Culture - Final No growth in 5 days 02/14/18 22:10 Blood - Peripheral Anaerobic Blood Culture - Final No growth in 5 days 02/14/18 22:00 Blood - Peripheral Aerobic Blood Culture - Final No growth in 5 days 02/14/18 22:00 Blood - Peripheral Anaerobic Blood Culture - Final No growth in 5 days Assessment and Plan - Assessment (1) Adenocarcinoma Code(s): C80.1 - Malignant (primary) neoplasm, unspecified Status: Acute Plan: Adenocarcinoma - Pt had hospitalization September 2017 and December 2017 for similar complaints. - CT thorax 09/2017 showed abnormal right lung process - Pt underwent Bronchoscopy September [address] Trejo - no malignant cells identified - Pt somewhat lost to f/u following hospitalization d/t social issues - Pt presented to PCP, Dr. Cowan, with c/o continued SOB - Chest CT with IV Contrast 12/30/17 1. Most of the increasing opacity in the right mid and lower lungs is due to pulmonary consolidation. There is a small right pleural effusion. 2. Multiple nodular densities in the lower left lung similar to prior. - Concern that right lung process might represent postobstructive process with underlying malignancy - Appreciate input from Pulmonary Medicine - Hold ASA/plavix - sputum- gram stain --> mixed ace, few WBCs - sputum Cx --> with heavy growth of normal respiratory ace - Urine legionella/pneumococcal --> negative - Pt underwent bronchoscopy on 01/07/[address] Anthony --> Moderate tracheobronchitis, no obstruction, no mass lesion. Hyperemia, edema, right middle, less so lower lobes. - Pt insisting on leaving on 01/08/18 due to some social issues at home with her son, who is reportedly bipolar and ran out of medications last night. - Discussed with the patient that we don't yet know what the underlying cause for her recurrent pneumonia is as cultures are still pending and there is still concern regarding possible inflammatory process vs. malignancy. She states that she will followup closely with Dr. Cowan and Dr. Anthony but we do not feel that the pt is clinically ready for discharge. If she insists on leaving today she will have to leave AMA. - On January 11, 2018 patient's primary care provider Dr. Cowan reviewed pathology results including adenocarcinoma of the lung with patient. Per primary care dictation patient initially stated she did not want any treatment for this but later agreed to see an oncologist to determine treatment options. Patient was referred to hematology/oncology but there is no record of appointment made or visit. -CT chest 02/15: CONCLUSION: 1. Obstruction of the right upper lobe, right middle lobe and right lower lobe bronchi with complete atelectasis and consolidation of the right lung and moderate to large right pleural effusion. No significant mediastinal shift. Lobar bronchial obstruction probably related to mucoid plugging but cannot exclude endobronchial mass. 2. Nodular opacities and distal airway disease at the left lung base appears stable to slightly worse. Upper lung nodules also present. Differential diagnosis includes postinflammatory changes but cannot exclude metastatic disease. -s/p right thoracentesis 02/16. red colored fluid. 1200cc. - Consulted oncology Dr Gutierrez. Awaiting further testing to decide on targeted therapy Pt remains undecided about chemoradiation. would need more staging. -The patient continues to refuse telling family of her diagnosis. She specifically told them she has no cancer. I had long discussion with her in presence of the RN..pt is clear and wants DNR status. -She is willing to discuss with Oncology and Palliative about her goals moving forward...but pt seems to be leaning away from chemoradiation. -Her presentation manager was consulted - Duonebs Q4H while awake and PRN - [place] as needed for pain - Supportive care - Lovenox for DVT prophylaxis tried toradol/solumedrol for pleuritic pain place fentanyl patch started 02/18. titrating up increased her prn norco will schedule some phenergan pt wants to go home but no hospice decision yet. awaiting oncology decisions regarding any chemo rx. overall poor prognosis. R Pleural effusion - CXR: Chest X-Ray 02/14/18: Complete opacification of the right hemithorax probably from right effusion and lung consolidation/atelectasis. Cannot exclude underlying lung mass. Stable reticulonodular pattern left lung base. - US guided thoracentesis ordered ...see above. Hypokalemia potassium 3.1 on admission replaced (2) Recurrent pneumonia Code(s): J18.9 - Pneumonia, unspecified organism Status: Acute
[2018-02-20] MEDS: Amitriptyline 25 MG Tablet PO SCH (21:16)
[2018-02-20] MEDS: Temazepam 15 MG Capsule PO PRN (21:17)
[2018-02-21] MEDS: Benzonatate 100 MG Capsule PO SCH ×3 (04:14→18:09)
[2018-02-21 06:31] LABS: Anion Gap 11 meq/L (5-15); Blood Urea Nitrogen 10 mg/dL (7-18); Carbon Dioxide 31.6 meq/L (21.0-32.0); Chloride 95 meq/L (98-107); Glomerular Filtration Rate Greater Than 89 mL/min (>89); Glucose,Random 87 mg/dL (74-106); Potassium 3.4 meq/L (3.5-5.1); Sodium 138 meq/L (136-145)
[2018-02-21] MEDS: Enoxaparin Inj 40 MG/0.4 ML Syringe SQ SCH (10:14)
[2018-02-21] MEDS: hydroCHLOROthiazide 25 MG Tablet PO SCH (10:15)
[2018-02-21] MEDS: Potassium Chloride 10 MEQ ER Capsule PO SCH (10:15)
[2018-02-21] MEDS: Pantoprazole Sodium 20 MG DR Tablet PO SCH (10:15)
[2018-02-21] MEDS: levoFLOXacin 500 MG Tablet PO SCH (10:15)
[2018-02-21] MEDS: Aspirin 325 MG Tablet PO SCH (10:15)
[2018-02-21] MEDS ORDERED: Potassium Chloride 10 MEQ ER Capsule PO ONE (11:30)
--- NOTE | 2018-02-21 11:59 | P.PNIM ---
Subjective Interval history: Pt has NOT been eating well for the last several days, but states that she finished her eggs at breakfast. Pt voices NO new complaints at this time & is hoping for discharge to home as soon as possible. Physical Exam Vital signs: 02/20/18 23:12 02/21/18 08:00 02/21/18 08:28 Temperature 98.1 F 98.5 F Pulse Rate 115 H 103 H 101 H Respiratory Rate 18 18 20 Blood Pressure 111/73 122/82 Pulse Oximetry 94 L 90 L 91 L Narrative: GENERAL: This is a well-nourished, well-developed patient, in no apparent distress. CARDIOVASCULAR: Regular rate and rhythm without murmurs, gallops, or rubs. RESPIRATORY: Clear to auscultation. Breath sounds equal bilaterally. No wheezes , rales, or rhonchi. GASTROINTESTINAL: Abdomen soft, non-tender, nondistended. Normal active bowel sounds MUSCULOSKELETAL: Extremities without clubbing, cyanosis, or edema. NEURO: Alert & Oriented x4 to person, place, time, situation. Moves all ext x4 Results - Labs CBC & Chem 7: 02/14/18 22:25 02/21/18 05:01 - Imaging Chest X-Ray 02/14/18 20:56 Complete opacification of the right hemithorax probably from right effusion and lung consolidation/atelectasis. Cannot exclude underlying lung mass. Stable reticulonodular pattern left lung base. Venous Doppler Study 02/14/18 22:17 1. The study is negative for bilateral lower extremity deep venous thrombosis. Chest CT 02/15/18 00:00 1. Obstruction of the right upper lobe, right middle lobe and right lower lobe bronchi with complete atelectasis and consolidation of the right lung and moderate to large right pleural effusion. No significant mediastinal shift. Lobar bronchial obstruction probably related to mucoid plugging but cannot exclude endobronchial mass. 2. Nodular opacities and distal airway disease at the left lung base appears stable to slightly worse. Upper lung nodules also present. Differential diagnosis includes postinflammatory changes but cannot exclude metastatic disease. Chest X-Ray 02/16/18 00:00 1. No significant pneumothorax following right-sided thoracentesis. 2. Slight improved aeration of a portion of the right upper lobe with persistent significant volume loss and near complete opacification of the right hemithorax. Thoracentesis Ultrasound 02/16/18 00:00 1. Uncomplicated ultrasound-guided right-sided thoracentesis. Chest Ultrasound 02/18/18 12:22 Very small recurrence of the patient's previous large right effusion. There does not appear to be enough volume to safely drain percutaneously at this point. No marking was performed. Assessment and Plan - Assessment (1) Adenocarcinoma Code(s): C80.1 - Malignant (primary) neoplasm, unspecified Status: Acute Plan: Adenocarcinoma - Pt had hospitalization September 2017 and December 2017 for similar complaints. - CT thorax 09/2017 showed abnormal right lung process - Pt underwent Bronchoscopy September [address] Trejo - no malignant cells identified - Pt somewhat lost to f/u following hospitalization d/t social issues - Pt presented to PCP, Dr. Cowan, with c/o continued SOB - Chest CT with IV Contrast 12/30/17 1. Most of the increasing opacity in the right mid and lower lungs is due to pulmonary consolidation. There is a small right pleural effusion. 2. Multiple nodular densities in the lower left lung similar to prior. - Concern that right lung process might represent postobstructive process with underlying malignancy - sputum- gram stain --> mixed ace, few WBCs - sputum Cx --> with heavy growth of normal respiratory ace - Urine legionella/pneumococcal --> negative - Pt underwent bronchoscopy on 01/07/[address] Anthony --> Moderate tracheobronchitis, no obstruction, no mass lesion. Hyperemia, edema, right middle, less so lower lobes. - Pt insisting on leaving on 01/08/18 due to some social issues at home with her son, who is reportedly bipolar and ran out of medications -Pt left AMA, last admission December 2017 - On January 11, 2018 patient's primary care provider Dr. Cowan reviewed pathology results including adenocarcinoma of the lung with patient. Per primary care dictation patient initially stated she did not want any treatment for this but later agreed to see an oncologist to determine treatment options. Patient was referred to hematology/oncology but there is no record of appointment made or visit. -CT chest 02/15 1. Obstruction of the right upper lobe, right middle lobe and right lower lobe bronchi with complete atelectasis and consolidation of the right lung and moderate to large right pleural effusion. No significant mediastinal shift. Lobar bronchial obstruction probably related to mucoid plugging but cannot exclude endobronchial mass. 2. Nodular opacities and distal airway disease at the left lung base appears stable to slightly worse. Upper lung nodules also present. Differential diagnosis includes postinflammatory changes but cannot exclude metastatic disease. -s/p right thoracentesis 02/16. red colored fluid. 1200cc. - Consulted oncology Dr Gutierrez. Awaiting further testing to decide on targeted therapy - Per Radiation Oncology, pt is NOT a candidate for Radiation -The patient continues to refuse telling family of her diagnosis. She specifically told them she has no cancer. - DNR - Case d/w Pulmonary Medicine (02/21) Dr. Anthony. Dr. Anthony will perform thoracentesis (02/21/18). Perhaps some mucous plugging which could be addressed to help right lung. - Case d/w Dr. Ariana Gutierrez (02/21). Awaiting cancer markers for possible targeted therapy. Pt can f/u with Dr. Gutierrez outpt. - Pt agrees to hospice consult and would like discharge REBA - Duonebs Q4H while awake and PRN - [place] as needed for pain - fentanyl transdermal - phenergan - Supportive care - Lovenox for DVT prophylaxis - overall poor prognosis R Pleural effusion - CXR: Chest X-Ray 02/14/18: Complete opacification of the right hemithorax probably from right effusion and lung consolidation/atelectasis. Cannot exclude underlying lung mass. Stable reticulonodular pattern left lung base. - US guided thoracentesis ordered ...see above. Hypokalemia - repleted (2) Recurrent pneumonia Code(s): J18.9 - Pneumonia, unspecified organism Status: Acute
--- NOTE | 2018-02-21 13:42 | P.PNPAL ---
Reason for Visit Reason for visit: a. To assist with evaluation and management of symptoms including:Pain, nausea/ vomiting, shortness of breath, anxiety, constipation b. To assist medical decision maker(s) with: better understanding of current medical conditions; weighing benefits/burdens of medical treatment options; making medical treatment decisions. Subjective Subjective/Interval History: Follow-up medically necessary for symptom management and clarification of medical treatment. Patient seen and examined in her room. Patient reported that she has been having problems with nausea and vomiting as well as decreased oral intake. Patient reporting that she has been able to eat and keep her food down after she was started on Phenergan. Last BM per patient was 02/18/18. Patient states that pain seems to be bearable at this time, rates it as 3/10. Patient was started on Phenergan 25mg p.o q 6 hours around the clock. She has required x 3 doses prn Hydrocodone in the past 24hrs. Fentanyl patch dosage was increased to 50mcg on 02/19/18. Mutational testing pending. Laboratory workup revealing Na+ 138, K+ 3.4, Bun/ Creat 10/0.54. Per previous conversations, patient had stated that she would consider targeted therapy if mutational therapy had returned positive. Today patient stated that she had been searching more about lung cancer and she now feels that she is giving up on herself by not trying therapies she was offered and would like to hear again from oncology. She is now considering chemotherapy and immunotherapy. Case discussed with bedside RN and Dr. Gutierrez. Family/Friend Interactions: No family at bedside. . Advance Directives Living Will: Never completed Health Care Surrogate: Copy in medical record Durable Power of Career Professional: Never completed Advance Directives Date on File: 02/16/18 (HCS COMPLETED) Health Care Surrogate Name and Number: [facility]:Yenny Valadez [phone] Alt: Molina Ruiz Objective Vital Signs: Vital Signs 02/20/18 16:00 02/20/18 16:19 02/20/18 19:02 Temperature 98.2 F 97.9 F Pulse Rate 114 H 54 L 122 H Respiratory Rate 16 22 18 Blood Pressure 127/83 133/87 Pulse Oximetry 91 L 97 02/20/18 21:17 02/20/18 22:29 02/20/18 23:12 Temperature 98.1 F Pulse Rate 134 H 115 H Respiratory Rate 16 18 18 Blood Pressure 111/73 Pulse Oximetry 94 L 02/21/18 08:00 02/21/18 08:28 02/21/18 11:48 Temperature 98.5 F Pulse Rate 103 H 101 H 80 Respiratory Rate 18 20 20 Blood Pressure 122/82 Pulse Oximetry 90 L 91 L 02/21/18 12:00 Temperature 98.6 F Pulse Rate 103 H Respiratory Rate 18 Blood Pressure 105/65 Pulse Oximetry 90 L Intake & Output 02/20/18 02/21/18 02/21/18 18:59 06:59 18:59 Intake Total 1600 / 1600 480 / 480 Balance 1600 / 1600 480 / 480 Weight 47.2 kg Intake: Oral 1600 / 1600 480 / 480 Other: # Voids 3 2 Date of Last Bowel Movement 02/18/18 02/18/18 02/18/18 # Bowel Movements 0 Physical Exam: CONSTITUTIONAL/GENERAL: This is an adequately nourished patient, in no acute distress. TUBES/LINES/DRAINS:PIV SKIN: No jaundice, rashes, or lesions. Ecchymoses on upper extremities. No wounds seen anteriorly. Skin temperature appropriate. Documented sacral wound in EMR. HEAD: Atraumatic. Normocephalic. EYES: PERRLA. No scleral icterus. No injection or drainage. Fundi not examined. ENT: Hearing grossly normal. No nasal bleeding. Moist oral mucosa NECK: Trachea midline. Supple, nontender. CARDIOVASCULAR: S1, S2 with no murmurs, gallops, or rubs. No JVD. Peripheral pulses symmetric. RESPIRATORY/CHEST: Symmetric, unlabored respirations. Slightly diminished to the right side. No rhonchi, no wheezing GASTROINTESTINAL: Abdomen soft, non-tender, nondistended. No guarding. Bowel sounds present. GENITOURINARY: Without palpable bladder distension. MUSCULOSKELETAL: Extremities without clubbing, cyanosis, or edema. No mottling or clubbing. NEUROLOGICAL: Awake and alert. Motor and sensory grossly within normal limits. Follows commands. Cognitively sharp. Moves all extremities. PSYCHIATRIC: No obvious anxiety/depression. no apparent hallucinations or other psychotic thought process. Diagnostic Tests Laboratory: Laboratory Results - last 72 hr 02/19/18 02/21/18 04:22 05:01 Sodium 140 138 Potassium 3.6 3.4 L Chloride 100 95 L Carbon Dioxide 31.3 31.6 Anion Gap 9 11 BUN 13 10 Creatinine 0.48 L 0.54 Estimated GFR Greater than 89 Greater than 89 Random Glucose 95 87 Calcium 8.5 9.0 Result Diagrams: 02/14/18 22:25 02/21/18 05:01 Microbiology: Microbiology 02/14/18 22:10 Aerobic Blood Culture - Final Blood - Peripheral No growth in 5 days Anaerobic Blood Culture - Final No growth in 5 days 02/14/18 22:00 Aerobic Blood Culture - Final Blood - Peripheral No growth in 5 days Anaerobic Blood Culture - Final No growth in 5 days Imaging: Venous Doppler Study 02/14/18 22:17 CONCLUSION: 1. The study is negative for bilateral lower extremity deep venous thrombosis. Chest CT 02/15/18 00:00 CONCLUSION: 1. Obstruction of the right upper lobe, right middle lobe and right lower lobe bronchi with complete atelectasis and consolidation of the right lung and moderate to large right pleural effusion. No significant mediastinal shift. Lobar bronchial obstruction probably related to mucoid plugging but cannot exclude endobronchial mass. 2. Nodular opacities and distal airway disease at the left lung base appears stable to slightly worse. Upper lung nodules also present. Differential diagnosis includes postinflammatory changes but cannot exclude metastatic disease. Chest X-Ray 02/16/18 00:00 CONCLUSION: 1. No significant pneumothorax following right-sided thoracentesis. 2. Slight improved aeration of a portion of the right upper lobe with persistent significant volume loss and near complete opacification of the right hemithorax. Thoracentesis Ultrasound 02/16/18 00:00 CONCLUSION: 1. Uncomplicated ultrasound-guided right-sided thoracentesis. Chest Ultrasound 02/18/18 12:22 CONCLUSION: Very small recurrence of the patient's previous large right effusion. There does not appear to be enough volume to safely drain percutaneously at this point. No marking was performed. Procedures: 02/16/[id number] thoracentesis for right pleural effusion(1200ML removed) Assessment and Plan - Disease Oriented Problem List (1) Pleural effusion, right (2) Recurrent pneumonia (3) Chronic obstructive pulmonary disease (4) Coronary artery disease (5) Hypertension - Symptom Scale (1) Pain 0-10 Scale: 3 Comment: Patient came in complaining of chest pain to the right side and is s/p thoracentesis of right pleural effusion. Pain described as sharp to right chest wall, exacerbated with movement or cough. (2) Shortness of breath 0-10 Scale: Unable to quantify Comment: Came in with complaints of shortness of breath and intermittent cough. (3) Anxiety 0-10 Scale: Unable to quantify Comment: Most likely due to shortness of breath history of COPD (4) Nausea & vomiting 0-10 Scale: Unable to quantify (5) Constipation 0-10 Scale: Unable to quantify Pertinent Non-Medical Issues: Psychosocial: Patient was born and raised in [place], [place]. Patient moved to [place] 10 years ago. Patient is . She has 2 sons and 4 grandchildren. 1 of her sons is mentally challenged-his bipolar. Patient lives with her son who is mentally challenged and 2 grandchildren from his old son ages 1 and 2. 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 Spiritual: Patient is [employer]. Legal: Completed healthcare surrogate today Ethical issues impacting care: None identified at this time Important Contacts: healthcare surrogate -Granddaughter-Yenny Valadez [phone] Alternate healthcare surrogate-Molina Ruiz Prognosis: Mrs Alanis is a 62-year-old patient with a medical history significant of recent diagnosis of lung cancer, recurrent pneumonia, hypertension, neuropathy, anxiety, coronary artery disease, chronic obstructive pulmonary disease, hiatal hernia and arthritis. Patient presented to the ER on 02/14/18 with complaints of worsening shortness of breath and right sided sharp chest pain. Clinical course complicated with pain and shortness of breath from pleural effusion. Given ongoing comorbidities, patient remains at high risk for complications, deterioration and decline. If patient continues to strongly feel that she does not want to pursue aggressive treatment, she would be appropriate for hospice. Code Status: No Code DNR Plan: PLAN: Legal decision maker: Patient is currently able to participate in medical decision making. In the event that she is deemed incapacitated, patient has designated her granddaughter Yenny Valadez is here healthcare surrogate and Molina Ruiz is here alternate healthcare surrogate Goals: Aggressive short of no code. Per previous conversations, patient had stated that she would consider targeted therapy if mutational therapy had returned positive. Today patient stated that she had been searching more about lung cancer and she now feels that she is giving up on herself by not trying therapies she was offered and would like to hear again from oncology. She is now considering chemotherapy and immunotherapy. CODE STATUS: No code DNR/DNI SYMPTOMS: * Pain: Patient has history of rheumatoid arthritis and she came in with complaints of sharp chest pain. Chest x-ray showed right pleural effusion. Patient underwent ultrasound-guided thoracentesis today. Patient reporting that pain is exacerbated with coughing and movement. Fentanyl patch increased to 50mcg q 72hrs on 02/19 and required x 3 doses prn Hydrocodone in the past 24hrs. Continue to monitor for pain. * Anxiety: Currently denies anxiety. Patient sparingly needing prn Xanax. Medication appears adequate at this time. * Shortness of breath: Patient has lung cancer and had right pleural effusion. Underwent ultrasound-guided thoracentesis 02/16. Patient endorsing improvement in the breathing. Patient is currently on room air with no signs of respiratory distress. No recommendations at this time. * Nausea/vomiting: Patient has had nausea and vomiting since 02/19/18 and decreased oral intake. She was started on Phenergan 25mg po ATC. * Constipation: Last BM on 02/18/18. This might have been due to increased used of pain medication. Patient is on a Fentanyl patch q 72 hrs and prn Hydrocodone. Recommending starting patient on daily Senna, prn MOM, prn Lactulose, prn Dulcolax suppository ==Patient has not informed her family about her recent diagnosis of lung cancer. She feels she is not ready yet to inform her family of her recent lung cancer diagnosis. Patient has requested that any medical support team member who comes to see her does not discuss her medical condition in front of her family. Patient stated that it is acceptable with her for medical staff to request her family to give them and patient privacy during their visit. Palliative care will continue to follow the patient during hospital course as condition evolves, to assist patient/decision-maker with understanding of their medical conditions, weighing benefits/burdens of treatment options, for clarification of goals of treatment. Additionally will assist with any symptoms of palliative concern Attestation Attestation: To help prompt me to consider important information that might be impacting today's encounter and assessment, information from prior notes written by myself or my colleagues may have been "brought forward" into today's note. My signature on this note, however, is an attestation that I personally performed the exam, history, and/or decision-making noted today, and, unless otherwise indicated, the interactions with patient, family, and staff as well as the review of records all occurred today. I also attest that the listed assessment and stated plan reflect my best clinical judgment today based on the combination of historical information, prior notes, and today's exam/ interactions. When time spent is documented, it refers only to time spent today by the signer, or if indicated, combined time spent today by collaborating physician/nurse practitioner.
--- NOTE | 2018-02-21 14:05 | P.PN ---
Subjective Interval history: ALERT NAD Physical Exam Vital signs: Vital Signs 02/20/18 16:00 02/20/18 16:19 02/20/18 19:02 Temperature 98.2 F 97.9 F Pulse Rate 114 H 54 L 122 H Respiratory Rate 16 22 18 Blood Pressure 127/83 133/87 Pulse Oximetry 91 L 97 02/20/18 21:17 02/20/18 22:29 02/20/18 23:12 Temperature 98.1 F Pulse Rate 134 H 115 H Respiratory Rate 16 18 18 Blood Pressure 111/73 Pulse Oximetry 94 L 02/21/18 08:00 02/21/18 08:28 02/21/18 11:48 Temperature 98.5 F Pulse Rate 103 H 101 H 80 Respiratory Rate 18 20 20 Blood Pressure 122/82 Pulse Oximetry 90 L 91 L 02/21/18 12:00 Temperature 98.6 F Pulse Rate 103 H Respiratory Rate 18 Blood Pressure 105/65 Pulse Oximetry 90 L Intake & Output 02/20/18 02/21/18 02/21/18 18:59 06:59 18:59 Intake Total 1600 / 1600 480 / 480 Balance 1600 / 1600 480 / 480 Weight 47.2 kg Intake: Oral 1600 / 1600 480 / 480 Other: # Voids 3 2 Date of Last Bowel Movement 02/18/18 02/18/18 02/18/18 # Bowel Movements 0 Narrative: GENERAL: This is a well-nourished, well-developed patient, in no apparent distress. CARDIOVASCULAR: Regular rate and rhythm without murmurs, gallops, or rubs. RESPIRATORY: . DECREASE BREATH SOUNDS RIGHT CHEST GASTROINTESTINAL: Abdomen soft, non-tender, nondistended. Normal active bowel sounds MUSCULOSKELETAL: Extremities without clubbing, cyanosis, or edema. NEURO: Alert & Oriented x4 to person, place, time, situation. Moves all ext x4 Results - Labs CBC & Chem 7: 02/14/18 22:25 02/21/18 05:01 Laboratory Results - last 24 hr 02/21/18 05:01 Sodium 138 Potassium 3.4 L Chloride 95 L Carbon Dioxide 31.6 Anion Gap 11 BUN 10 Creatinine 0.54 Estimated GFR Greater than 89 Random Glucose 87 Calcium 9.0 Assessment and Plan - Plan LUNG CA NON SMALL CELL PERSISTENT ATELECTASIS COPD PLAN BRONCHODILATOR THERAP BRONCHOSCOPY AN IN HOPES OF IMPROVING LUNG AERATION
--- NOTE | 2018-02-21 18:49 | P.PNONC ---
Subjective Interval history: Resting comfortably in bed. Dinner at bedside. Nausea improved. Objective Vital Signs/Intake & Output: Vital Signs 02/20/18 19:02 02/20/18 21:17 02/20/18 22:29 Temperature 97.9 F Pulse Rate 122 H 134 H Respiratory Rate 18 16 18 Blood Pressure 133/87 Pulse Oximetry 97 02/20/18 23:12 02/21/18 08:00 02/21/18 08:28 Temperature 98.1 F 98.5 F Pulse Rate 115 H 103 H 101 H Respiratory Rate 18 18 20 Blood Pressure 111/73 122/82 Pulse Oximetry 94 L 90 L 91 L 02/21/18 11:48 02/21/18 12:00 02/21/18 15:31 Temperature 98.6 F Pulse Rate 80 103 H 117 H Respiratory Rate 20 18 18 Blood Pressure 105/65 Pulse Oximetry 90 L 90 L 02/21/18 16:00 Temperature 98.5 F Pulse Rate 116 H Respiratory Rate 18 Blood Pressure 131/91 H Pulse Oximetry 90 L Intake & Output 02/20/18 02/21/18 02/21/18 18:59 06:59 18:59 Intake Total 1600 / 1600 480 / 480 Balance 1600 / 1600 480 / 480 Weight 47.2 kg Intake: Oral 1600 / 1600 480 / 480 Other: # Voids 3 2 Date of Last Bowel Movement 02/18/18 02/18/18 02/18/18 # Bowel Movements 0 Result Diagrams: 02/14/18 22:25 02/21/18 05:01 Laboratory Results: Laboratory Results - last 24 hr 02/21/18 05:01 Sodium 138 Potassium 3.4 L Chloride 95 L Carbon Dioxide 31.6 Anion Gap 11 BUN 10 Creatinine 0.54 Estimated GFR Greater than 89 Random Glucose 87 Calcium 9.0 Culture Results: Microbiology 02/14/18 22:10 Aerobic Blood Culture - Final Blood - Peripheral No growth in 5 days Anaerobic Blood Culture - Final No growth in 5 days 02/14/18 22:00 Aerobic Blood Culture - Final Blood - Peripheral No growth in 5 days Anaerobic Blood Culture - Final No growth in 5 days Medications: Active Medications Generic Name Dose Route Start Last Admin Trade Name Freq PRN Reason Stop Dose Admin Hydrocodone Bitart/Acetaminophen 1 tab 02/15/18 00:19 02/21/18 18:10 [place] 10/325 PO 1 tab Q4H PRN Administration pain 3-6 Hydrocodone Bitart/Acetaminophen 2 tab 02/19/18 11:42 02/21/18 10:33 [place] 10/325 PO 2 tab Q4H PRN Administration pain 7-10 Albuterol 1 ampul 02/15/18 00:20 02/17/18 23:56 Duoneb Neb (Prn) NEB 1 ampul Q2HR NEB PRN Administration SHORTNESS OF BREATH Albuterol 1 ampul 02/19/18 12:00 02/21/18 15:28 Duoneb Neb (Carmencita) NEB 1 ampul Q4HR WHILE AWAKE NEB CARMENCITA Administration Alprazolam 0.25 mg 02/15/18 15:49 02/20/18 05:47 Xanax PO 0.25 mg Q8HR PRN Administration ANXIETY AND/OR AGITATION Amitriptyline HCl 50 mg 02/15/18 21:00 02/20/18 21:16 Elavil PO 50 mg HS CARMENCITA Administration Aspirin 325 mg 02/16/18 09:00 02/21/18 10:15 Aspirin PO 325 mg DAILY CARMENCITA Administration Benzonatate 200 mg 02/19/18 11:00 02/21/18 18:09 Tessalon Perles PO 200 mg Q8H CARMENCITA Administration Enoxaparin Sodium 40 mg 02/15/18 09:00 02/21/18 10:14 Lovenox Inj SQ 40 mg DAILY CARMENCITA Administration Fentanyl 1 patch 02/19/18 11:00 02/19/18 12:24 Duragesic 50 Mcg Patch.72hr T-DERMAL 1 patch Q3D CARMENCITA Administration Guaifenesin/Codeine Phosphate 10 ml 02/18/18 23:27 02/20/18 21:15 Robitussin Ac 200/20 Mg/10 Ml Liq PO 10 ml Q4H PRN Administration COUGH Hydrochlorothiazide 25 mg 02/16/18 09:00 02/21/18 10:15 Hydrodiuril PO 25 mg DAILY CARMENCITA Administration Levofloxacin 500 mg 02/18/18 13:00 02/21/18 10:15 Levaquin PO 02/24/18 12:59 500 mg DAILY CARMENCITA Administration Ondansetron HCl 4 mg 02/15/18 00:18 02/20/18 09:15 Zofran Inj IV.PUSH 4 mg Q6H PRN Administration Nausea And Vomiting Pantoprazole Sodium 20 mg 02/16/18 09:00 02/21/18 10:15 Protonix PO 20 mg DAILY CARMENCITA Administration Patch Removal 1 each 02/19/18 11:00 02/19/18 12:27 Remove Old Patch T-DERMAL 1 each Q3D CARMENCITA Administration Potassium Chloride 10 meq 02/16/18 09:00 02/21/18 10:15 Kcl PO 10 meq DAILY CARMENCITA Administration Pravastatin Sodium 80 mg 02/15/18 18:00 02/21/18 18:09 Pravachol PO 80 mg QPM CARMENCITA Administration Pregabalin 100 mg 02/15/18 21:00 02/20/18 21:17 Lyrica PO 100 mg HS CARMENCITA Administration Promethazine HCl 25 mg 02/20/18 12:00 02/21/18 18:09 Phenergan PO 25 mg Q6H CARMENCITA Administration Temazepam 15 mg 02/15/18 00:23 02/20/18 21:17 Restoril PO 15 mg HS PRN Administration INSOMNIA Objective Remarks: GENERAL: Well-nourished, well-developed patient. SKIN: Warm and dry. HEAD: Normocephalic. EYES: No scleral icterus. No injection or drainage. NECK: Supple, trachea midline. No JVD or lymphadenopathy. RESPIRATORY: No accessory muscle use. EXTREMITIES: No cyanosis, or edema. MUSCULOSKELETAL: Adequate muscle tone. NEUROLOGICAL: No obvious focal deficit. Awake, alert, and oriented x3. Assessment/Plan - Plan 1. Metastatic lung cancer: awaiting results of mutation testing. Again an extensive discussion with patient regarding treatment of metastatic lung cancer. Discussed that we are awaiting results of mutation testing that if positive would make patient a candidate for targeted oral therapy. Discussed that it takes time for mutational testing to return and then to obtain the oral therapy from the outpatient specitalty pharmacy. Again reviewed side effects of chemotherapy and immunotherapy. Patient reports that she "does not want to just go home and ." Dr. Anthony will plan to perform brochoscopy tomorrow. On Wednesday will plan to initate chemotherapy in our oncology floor. Patient will have close follow up in oncology clinic.
[2018-02-21] MEDS: Amitriptyline 25 MG Tablet PO SCH (23:04)
[2018-02-21] MEDS: Temazepam 15 MG Capsule PO PRN (23:04)
[2018-02-21] MEDS: guaiFENesin/Codeine Syrup 200 MG/20 MG 10 ML UDC PO PRN (23:11)
[2018-02-22 04:47] LABS: Baso # (Auto) 0.1 th/mm3 (0.0-0.2); Baso % (Auto) 0.5 % (0.0-2.0); Eos # (Auto) 0.9 th/mm3 (0.0-0.4); Eos % (Auto) 6.8 % (0.0-4.0); Hematocrit 30.2 % (35.0-46.0); Hemoglobin 10.5 gm/dL (11.6-15.3); Lymph # (Auto) 1.4 th/mm3 (1.0-4.8); Lymph % (Auto) 10.7 % (9.0-44.0); Mean Corpuscular HGB Conc 34.8 % (32.0-36.0); Mean Corpuscular Hemoglobin 32.6 pg (27.0-34.0); Mean Corpuscular Volume 93.5 fL (80.0-100.0); Mono # (Auto) 0.8 th/mm3 (0.0-0.9); Mono % (Auto) 5.8 % (0.0-8.0); Neut # (Auto) 10.1 th/mm3 (1.8-7.7); Neut % (Auto) 76.2 % (16.0-70.0); Platelet Count 578 th/mm3 (150-450); Red Blood Count 3.23 mil/mm3 (4.00-5.30); Red Cell Distribution Width 15.3 % (11.6-17.2); White Blood Count 13.2 th/mm3 (4.0-11.0)
[2018-02-22 05:05] LABS: Activated Partial Thrombo Time 29.1 sec (24.3-30.1); INR 1.1 Ratio; Prothrombin Time 11.3 sec (9.8-11.6)
[2018-02-22] MEDS: Benzonatate 100 MG Capsule PO SCH ×3 (05:18→18:24)
[2018-02-22] MEDS ORDERED: Metoprolol Tartrate 25 MG Tablet PO ONE (06:00)
[2018-02-22] MEDS ORDERED: Sodium Chlor 0.9% Inj 500 ML IV.CONT ONE (06:00)
[2018-02-22] MEDS ORDERED: Chlorhexidine Gluconate 2% 1 Pack (2 Cloths) TOPICAL ONE (06:00)
[2018-02-22] MEDS ORDERED: Lidocaine PF 1% Inj 5 ML Syringe OTHER ONE (07:35)
[2018-02-22] MEDS ORDERED: Glycopyrrolate Inj 1 MG/5 ML Syringe IV.PUSH ONE (07:35)
[2018-02-22] MEDS ORDERED: *Meperidine Inj 25 MG/ML Vial PERIprocedural Use ONLY ONE (08:26)
[2018-02-22] MEDS ORDERED: *Ondansetron Inj 4 MG/2 ML Vial PERIprocedural Use ONLY ONE (08:26)
[2018-02-22] MEDS ORDERED: Bisacodyl 10 MG Supp RECTAL PRN (09:00)
--- NOTE | 2018-02-22 10:02 | XR ---
EXAM DATE: 02/22/2018 9:58 AM EDT AGE/SEX: 62 years / Female INDICATIONS: Post bronchoscopy, short of breath CLINICAL DATA: This is the patient's subsequent encounter. Patient reports that signs and symptoms h ave been present for 4 - 6 days and indicates a pain score of 0/10. MEDICAL/SURGICAL HISTORY: Carcinoma, lung. Hiatal hernia. Hypertension. renal stones, olmstead ry artery disease Tonsillectomy. section. cervical fusion COMPARISON: [facility] [place], CHEST EXPIRATION ONLY, 02/16/2018. . FINDINGS: Patient status post a bronchoscopy. There continues to be volume loss with opacification of the right hemithorax system consistent with air volume loss/atelectasis. There is no evidence of pneumothorax. The right lung is grossly clear and stable compared to the prior study. The heart size is stable. CONCLUSION: Status post bronchoscopy. No evidence of pneumothorax. There continues to be almost complete opacification of the right hemithorax suggestive of air volume loss. Electronically signed by: Jasbir Suarez MD 02/22/2018 10:01 AM EDT
[2018-02-22] MEDS: Senna/Docusate Sodium 8.6/50 MG Tablet PO SCH ×2 (10:12→21:07)
[2018-02-22] MEDS: Aspirin 325 MG Tablet PO SCH (10:12)
[2018-02-22] MEDS: Potassium Chloride 10 MEQ ER Capsule PO SCH (10:13)
[2018-02-22] MEDS: hydroCHLOROthiazide 25 MG Tablet PO SCH (10:13)
[2018-02-22] MEDS: levoFLOXacin 500 MG Tablet PO SCH (10:13)
[2018-02-22] MEDS: Pantoprazole Sodium 20 MG DR Tablet PO SCH (10:14)
--- NOTE | 2018-02-22 10:59 | MR ---
cc: Gabrielle Anthony MD DATE: 02/22/2018 PROCEDURE: Fiberoptic bronchoscopy, flexible. REASON FOR BRONCHOSCOPY: Atelectasis of the right lung, rule out endobronchial obstruction and or mucus plugging. DETAILS OF PROCEDURE: Fiberoptic bronchoscopy performed via LMA. Vocal cords intact. Trachea mildly hyperemic. Neda sharp. Left main bronchus, left upper and lower lobes, without obstruction or mass lesion. Right main stem bronchus diffusely hyperemic and edematous. Right upper, middle, and lower lobes all hyperemic with quite significant diffuse obstruction; however, no endobronchial obstruction or mass lesion per se identified. The mucosa appears quite irregular and widening of all bifurcations. Washings obtained from right upper, middle, and lower lobes. A cytologic brush biopsy of right upper lobe obtained for cytological exam. A biopsy of bronchus intermedius between bifurcation of middle and lower lobes obtained as well as biopsy of the right upper lobe. The procedure well tolerated. The patient was transferred to the recovery room in stable condition. IMPRESSION: 1. Diffuse hyperemia edematous change right main bronchus, right upper, middle, and lower lobes. No endobronchial obstruction or mass lesions seen; however, diffuse narrowing and irregularity of the mucosa was noted. 2. Sample obtained as above. 3. Procedure well tolerated. 4. The patient was transferred to the recovery room in stable condition. Gabrielle Anthony MD WWW/temi , 08:02 AM , 08:09 AM
--- NOTE | 2018-02-22 11:06 | P.PN ---
Subjective Interval history: METASTATIC LUNG CA COPD ATELECTASIS RIGHT LUNG PLAN BRONCHODILATOR THERAPY BRONCHOSCOPY TODAY Physical Exam Vital signs: Vital Signs 02/21/18 11:48 02/21/18 12:00 02/21/18 15:31 Temperature 98.6 F Pulse Rate 80 103 H 117 H Respiratory Rate 20 18 18 Blood Pressure 105/65 Pulse Oximetry 90 L 90 L 02/21/18 16:00 02/21/18 19:30 02/21/18 20:00 Temperature 98.5 F Pulse Rate 116 H 116 H 112 H Respiratory Rate 18 20 16 Blood Pressure 131/91 H 131/86 Pulse Oximetry 90 L 94 L 02/22/18 00:00 02/22/18 07:05 02/22/18 08:15 Temperature 98.4 F 98.9 F 98.5 F Pulse Rate 105 H 92 H 137 H Respiratory Rate 17 18 28 H Blood Pressure 115/80 114/89 119/98 H Pulse Oximetry 93 L 92 L 97 02/22/18 08:30 02/22/18 08:40 02/22/18 08:41 Temperature 98.5 F Pulse Rate 124 H 120 H Respiratory Rate 20 15 Blood Pressure 146/84 H 116/92 H Pulse Oximetry 95 95 99 Intake & Output 02/21/18 02/22/18 02/22/18 18:59 06:59 18:59 Intake Total 1200 / 1200 Balance 1200 / 1200 Weight 47.3 kg Intake: Oral 1200 / 1200 Other: # Urine Diapers 3 Date of Last Bowel Movement 02/21/18 # Bowel Movements 1 Results - Labs CBC & Chem 7: 02/22/18 04:24 02/21/18 05:01 Laboratory Results - last 24 hr 02/22/18 02/22/18 04:24 04:24 WBC 13.2 H RBC 3.23 L Hgb 10.5 L Hct 30.2 L MCV 93.5 MCH 32.6 MCHC 34.8 RDW 15.3 Plt Count 578 H MPV 8.0 Neut % (Auto) 76.2 H Lymph % (Auto) 10.7 [place] % (Auto) 5.8 Eos % (Auto) 6.8 H Baso % (Auto) 0.5 Neut # (Auto) 10.1 H Lymph # (Auto) 1.4 [place] # (Auto) 0.8 Eos # (Auto) 0.9 H Baso # (Auto) 0.1 WBC Differential . Differential Comment Auto diff final PT 11.3 INR 1.1 APTT 29.1 - Imaging Impressions Chest X-Ray 02/22/18 00:00 CONCLUSION: Status post bronchoscopy. No evidence of pneumothorax. There continues to be almost complete opacification of the right hemithorax suggestive of air volume loss. Assessment and Plan - Plan LUNG CA NON SMALL CELL PERSISTENT ATELECTASIS COPD PLAN BRONCHODILATOR THERAP BRONCHOSCOPY AN IN HOPES OF IMPROVING LUNG AERATION
[2018-02-22] MEDS: guaiFENesin/Codeine Syrup 200 MG/20 MG 10 ML UDC PO PRN ×2 (12:41→22:25)
[2018-02-22] MEDS ORDERED: Simethicone 80 MG Chew Tablet PO PRN (12:59)
--- NOTE | 2018-02-22 13:08 | P.PNIM ---
Subjective Interval history: Follow up Adenocarcinoma Patient reports feeling, "the same." Denies SOB Endorses that pain has improved with fentanyl patch and nausea improved with Zofran Patient reports that she agrees to chemo Wednesday but wants to be DC on Physical Exam Vital signs: Vital Signs 02/21/18 15:31 02/21/18 16:00 02/21/18 19:30 Temperature 98.5 F Pulse Rate 117 H 116 H 116 H Respiratory Rate 18 18 20 Blood Pressure 131/91 H Pulse Oximetry 90 L 90 L 02/21/18 20:00 02/22/18 00:00 02/22/18 07:05 Temperature 98.4 F 98.9 F Pulse Rate 112 H 105 H 92 H Respiratory Rate 16 17 18 Blood Pressure 131/86 115/80 114/89 Pulse Oximetry 94 L 93 L 92 L 02/22/18 08:15 02/22/18 08:30 02/22/18 08:40 Temperature 98.5 F Pulse Rate 137 H 124 H Respiratory Rate 28 H 20 Blood Pressure 119/98 H 146/84 H Pulse Oximetry 97 95 95 02/22/18 08:41 02/22/18 11:16 02/22/18 12:00 Temperature 98.5 F 98.2 F Pulse Rate 120 H 98 H 101 H Respiratory Rate 15 14 22 Blood Pressure 116/92 H 94/64 L Pulse Oximetry 99 90 L 90 L Intake & Output 02/21/18 02/22/18 02/22/18 18:59 06:59 18:59 Intake Total 1200 / 1200 Balance 1200 / 1200 Weight 47.3 kg Intake: Oral 1200 / 1200 Other: # Urine Diapers 3 Date of Last Bowel Movement 02/21/18 # Bowel Movements 1 Narrative: GENERAL: This is a thin 62 year old female, in no apparent distress. CARDIOVASCULAR: Regular rate and rhythm RESPIRATORY: diminished RLL GASTROINTESTINAL: Abdomen soft, non-tender, nondistended. Normal active bowel sounds MUSCULOSKELETAL: Extremities without clubbing, cyanosis, or edema. NEURO: Alert & Oriented. Moves all ext x4 Results - Labs CBC & Chem 7: 02/23/18 09:38 02/23/18 09:38 Laboratory Results - last 24 hr 02/22/18 02/22/18 04:24 04:24 WBC 13.2 H RBC 3.23 L Hgb 10.5 L Hct 30.2 L MCV 93.5 MCH 32.6 MCHC 34.8 RDW 15.3 Plt Count 578 H MPV 8.0 Neut % (Auto) 76.2 H Lymph % (Auto) 10.7 [place] % (Auto) 5.8 Eos % (Auto) 6.8 H Baso % (Auto) 0.5 Neut # (Auto) 10.1 H Lymph # (Auto) 1.4 [place] # (Auto) 0.8 Eos # (Auto) 0.9 H Baso # (Auto) 0.1 WBC Differential . Differential Comment Auto diff final PT 11.3 INR 1.1 APTT 29.1 - Imaging Impressions Chest X-Ray 02/22/18 00:00 CONCLUSION: Status post bronchoscopy. No evidence of pneumothorax. There continues to be almost complete opacification of the right hemithorax suggestive of air volume loss. Assessment and Plan - Assessment (1) Adenocarcinoma Code(s): C80.1 - Malignant (primary) neoplasm, unspecified Status: Acute Plan: Adenocarcinoma - Pt had hospitalization September 2017 and December 2017 for similar complaints. - CT thorax 09/2017 showed abnormal right lung process - Pt underwent Bronchoscopy September [address] Trejo - no malignant cells identified - Pt somewhat lost to f/u following hospitalization d/t social issues - Pt presented to PCP, Dr. Cowan, with c/o continued SOB - Chest CT with IV Contrast 12/30/17 1. Most of the increasing opacity in the right mid and lower lungs is due to pulmonary consolidation. There is a small right pleural effusion. 2. Multiple nodular densities in the lower left lung similar to prior. - Concern that right lung process might represent postobstructive process with underlying malignancy - sputum- gram stain --> mixed ace, few WBCs - sputum Cx --> with heavy growth of normal respiratory ace - Urine legionella/pneumococcal --> negative - Pt underwent bronchoscopy on 01/07/[address] Anthony --> Moderate tracheobronchitis, no obstruction, no mass lesion. Hyperemia, edema, right middle, less so lower lobes. - Pt insisting on leaving on 01/08/18 due to some social issues at home with her son, who is reportedly bipolar and ran out of medications -Pt left AMA, last admission December 2017 - On January 11, 2018 patient's primary care provider Dr. Cowan reviewed pathology results including adenocarcinoma of the lung with patient. Per primary care dictation patient initially stated she did not want any treatment for this but later agreed to see an oncologist to determine treatment options. Patient was referred to hematology/oncology but there is no record of appointment made or visit. -CT chest 02/15 1. Obstruction of the right upper lobe, right middle lobe and right lower lobe bronchi with complete atelectasis and consolidation of the right lung and moderate to large right pleural effusion. No significant mediastinal shift. Lobar bronchial obstruction probably related to mucoid plugging but cannot exclude endobronchial mass. 2. Nodular opacities and distal airway disease at the left lung base appears stable to slightly worse. Upper lung nodules also present. Differential diagnosis includes postinflammatory changes but cannot exclude metastatic disease. -s/p right thoracentesis 02/16. red colored fluid. 1200cc. - Consulted oncology Dr Gutierrez. Awaiting further testing to decide on targeted therapy - Per Radiation Oncology, pt is NOT a candidate for Radiation -The patient continues to refuse telling family of her diagnosis. She specifically told them she has no cancer. - DNR - Case d/w Pulmonary Medicine (02/21) Dr. Anthony. - 02/22 patient S/P Bronchoscopy with Dr. Anthony Impression: 1. Diffuse hyperemia edematous change right main bronchus, right upper, middle, and lower lobes. No endobronchial obstruction or mass lesions seen; however, diffuse narrowing and irregularity of the mucosa was noted. 2. Sample obtained as above. Pathology pending - Case d/w Dr. Ariana Gutierrez (02/21). Awaiting cancer markers for possible targeted therapy. Pt can f/u with Dr. Gutierrez outpt. - Pt agrees to hospice consult and would like discharge REBA - Patient reports that she agrees to chemo Wednesday but wants to be DC on - Duonebs Q4H while awake and PRN - [place] as needed for pain - fentanyl transdermal - phenergan - Supportive care - Lovenox for DVT prophylaxis - overall poor prognosis R Pleural effusion - CXR: Chest X-Ray 02/14/18: Complete opacification of the right hemithorax probably from right effusion and lung consolidation/atelectasis. Cannot exclude underlying lung mass. Stable reticulonodular pattern left lung base. - US guided thoracentesis ordered ...see above. Hypokalemia - repleted (2) Recurrent pneumonia Code(s): J18.9 - Pneumonia, unspecified organism Status: Acute - Attending Attestation Patient examined. Assessment and plan formulated with Yelena Arteaga PA-C. I agree with the above.
[2018-02-22] MEDS ORDERED: Simethicone 80 MG Chew Tablet PO ONE (14:15)
[2018-02-22] MEDS: Enoxaparin Inj 40 MG/0.4 ML Syringe SQ SCH (19:42)
[2018-02-22] MEDS: Amitriptyline 25 MG Tablet PO SCH (21:07)
[2018-02-22] MEDS: Temazepam 15 MG Capsule PO PRN (21:15)
[2018-02-23] MEDS ORDERED: Sodium Chloride 0.9% 2 ML Flush PRN IV.FLUSH (00:50)
[2018-02-23] MEDS: Benzonatate 100 MG Capsule PO SCH ×2 (03:36→10:00)
--- NOTE | 2018-02-23 08:36 | P.PN ---
Subjective Interval history: ALERT NAD STABLE POST BRONCHOSCOPY Physical Exam Vital signs: Vital Signs 02/22/18 08:40 02/22/18 08:41 02/22/18 11:16 Temperature 98.5 F Pulse Rate 120 H 98 H Respiratory Rate 15 14 Blood Pressure 116/92 H Pulse Oximetry 95 99 90 L 02/22/18 12:00 02/22/18 16:00 02/22/18 19:39 Temperature 98.2 F 98.2 F 98.1 F Pulse Rate 101 H 95 H 115 H Respiratory Rate 22 20 17 Blood Pressure 94/64 L 108/78 117/84 Pulse Oximetry 90 L 92 L 97 02/22/18 21:15 02/22/18 23:52 Temperature 98.2 F Pulse Rate 101 H Respiratory Rate 8 L 17 Blood Pressure 102/65 Pulse Oximetry 94 L Intake & Output 02/22/18 02/23/18 02/23/18 18:59 06:59 18:59 Intake Total 480 / 480 Balance 480 / 480 Weight 47.3 kg Intake: Oral 480 / 480 Other: # Voids 1 2 Date of Last Bowel Movement 02/22/18 # Bowel Movements 0 Narrative: GENERAL: This is a thin 62 year old female, in no apparent distress. CARDIOVASCULAR: Regular rate and rhythm RESPIRATORY: diminished RLL GASTROINTESTINAL: Abdomen soft, non-tender, nondistended. Normal active bowel sounds MUSCULOSKELETAL: Extremities without clubbing, cyanosis, or edema. NEURO: Alert & Oriented. Moves all ext x4 Results - Labs CBC & Chem 7: 02/22/18 04:24 02/21/18 05:01 - Imaging Impressions Chest X-Ray 02/22/18 00:00 CONCLUSION: Status post bronchoscopy. No evidence of pneumothorax. There continues to be almost complete opacification of the right hemithorax suggestive of air volume loss. Assessment and Plan - Plan LUNG CA NON SMALL CELL PERSISTENT ATELECTASIS COPD TOLERATED BRONCHOSCOPY WELL PLAN BRONCHODILATOR THERAPY CHECK PATH INCREASE ACTIVITY ONCPLOGY FOLLOWING
[2018-02-23 08:40] VITALS: TEMP 98.1
[2018-02-23] MEDS ORDERED: Sodium Chloride 0.9% 2 ML Flush BID IV.FLUSH SCH (09:00)
[2018-02-23] MEDS ORDERED: Folic Acid 1 MG Tablet PO SCH (09:00)
[2018-02-23] MEDS ORDERED: Enoxaparin Inj 40 MG/0.4 ML Syringe SQ SCH (09:00)
[2018-02-23] MEDS: hydroCHLOROthiazide 25 MG Tablet PO SCH (09:44)
[2018-02-23] MEDS: Senna/Docusate Sodium 8.6/50 MG Tablet PO SCH (09:44)
[2018-02-23] MEDS: levoFLOXacin 500 MG Tablet PO SCH (09:44)
[2018-02-23] MEDS: Aspirin 325 MG Tablet PO SCH (09:44)
[2018-02-23] MEDS: Potassium Chloride 10 MEQ ER Capsule PO SCH (09:44)
[2018-02-23] MEDS: Pantoprazole Sodium 20 MG DR Tablet PO SCH (09:44)
[2018-02-23 09:51] LABS: Baso # (Auto) 0.1 th/mm3 (0.0-0.2); Baso % (Auto) 0.4 % (0.0-2.0); Eos % (Auto) 8.1 % (0.0-4.0); Hematocrit 32.2 % (35.0-46.0); Lymph # (Auto) 1.4 th/mm3 (1.0-4.8); Lymph % (Auto) 11.7 % (9.0-44.0); Mean Corpuscular HGB Conc 34.1 % (32.0-36.0); Mean Corpuscular Hemoglobin 31.6 pg (27.0-34.0); Mean Corpuscular Volume 92.5 fL (80.0-100.0); Mean Platelet Volume 7.9 fL (7.0-11.0); Mono # (Auto) 0.7 th/mm3 (0.0-0.9); Mono % (Auto) 6.2 % (0.0-8.0); Neut # (Auto) 8.8 th/mm3 (1.8-7.7); Neut % (Auto) 73.6 % (16.0-70.0); Platelet Count 629 th/mm3 (150-450); Red Blood Count 3.48 mil/mm3 (4.00-5.30); Red Cell Distribution Width 15.4 % (11.6-17.2); White Blood Count 11.9 th/mm3 (4.0-11.0)
[2018-02-23 10:23] LABS: Alanine Aminotransferase 29 U/L (10-53); Albumin 2.3 g/dL (3.4-5.0); Anion Gap 9 meq/L (5-15); Aspartate Aminotransferase 35 U/L (15-37); Blood Urea Nitrogen 8 mg/dL (7-18); Calcium 9.1 mg/dL (8.5-10.1); Carbon Dioxide 30.1 meq/L (21.0-32.0); Chloride 93 meq/L (98-107); Glomerular Filtration Rate Greater Than 89 mL/min (>89); Glucose,Random 116 mg/dL (74-106); Potassium 3.4 meq/L (3.5-5.1); Sodium 132 meq/L (136-145)
[2018-02-23 10:26] LABS: Alkaline Phosphatase 144 U/L (45-117); Total Protein 6.8 g/dL (6.4-8.2)
--- NOTE | 2018-02-23 11:11 | P.PNPAL ---
Reason for Visit Reason for visit: a. To assist with evaluation and management of symptoms including:Pain, nausea/ vomiting, shortness of breath, anxiety, constipation b. To assist medical decision maker(s) with: better understanding of current medical conditions; weighing benefits/burdens of medical treatment options; making medical treatment decisions. Subjective Subjective/Interval History: Follow-up medically necessary for symptom management. Patient seen and examined in her room. Patient is dressed in her street clothes waiting to be medically discharged home. Patient states that she has already been seen this morning by oncology and has been cleared to go home and follow up with oncology outpatient. Patient started on Folic acid today. Patient states that she has to take it prior to starting treatment. Patient denies pain at this time, states that whenever she feels pain it is bearable. Pain managed with Hydrocodone/ acetaminophen 10/325- 2 tabs 10/325 q 4 hrs prn and Fentanyl 50mcg patch q 72 hrs. Patient denies shortness of breath, nausea/vomiting and constipation. Nausea managed with Phenergan 25mg po q 6 hrs ATC. Constipation managed with Justina-Colace BID, Dulcolax suppository daily prn and Lactulose prn. Endorsing improved oral intake. Last BM recorded was on 02/23/18. Vital signs stable. Patient underwent bronchoscopy on 02/22/18 and tolerated procedure well, cytology pending. Case discussed with bedside RN. Family/Friend Interactions: See interval note. Advance Directives Living Will: Never completed Health Care Surrogate: Copy in medical record Durable Power of Environmental Control Administrator: Never completed Advance Directives Date on File: 02/16/18 ([facility] COMPLETED) Health Care Surrogate Name and Number: [facility]:Yenny Valadez [phone] Alt: Molina Ruiz Objective Vital Signs: Vital Signs 02/22/18 11:16 02/22/18 12:00 02/22/18 16:00 Temperature 98.2 F 98.2 F Pulse Rate 98 H 101 H 95 H Respiratory Rate 14 22 20 Blood Pressure 94/64 L 108/78 Pulse Oximetry 90 L 90 L 92 L 02/22/18 19:39 02/22/18 21:15 02/22/18 23:52 Temperature 98.1 F 98.2 F Pulse Rate 115 H 101 H Respiratory Rate 17 8 L 17 Blood Pressure 117/84 102/65 Pulse Oximetry 97 94 L 02/23/18 08:00 02/23/18 08:35 Temperature 98.1 F Pulse Rate 95 H 101 H Respiratory Rate 18 14 Blood Pressure 103/72 Pulse Oximetry 88 L Intake & Output 02/22/18 02/23/18 02/23/18 18:59 06:59 18:59 Intake Total 480 / 480 Balance 480 / 480 Weight 47.3 kg Intake: Oral 480 / 480 Other: # Voids 1 2 Date of Last Bowel Movement 02/22/18 02/21/18 # Bowel Movements 0 Physical Exam: CONSTITUTIONAL/GENERAL: This is an adequately nourished patient, in no acute distress. TUBES/LINES/DRAINS:PIV SKIN: No jaundice, rashes, or lesions. Ecchymoses on upper extremities. No wounds seen anteriorly. Skin temperature appropriate. Documented sacral wound in EMR. HEAD: Atraumatic. Normocephalic. EYES: PERRLA. No scleral icterus. No injection or drainage. Fundi not examined. ENT: Hearing grossly normal. No nasal bleeding. Moist oral mucosa NECK: Trachea midline. Supple, nontender. CARDIOVASCULAR: S1, S2 with no murmurs, gallops, or rubs. No JVD. Peripheral pulses symmetric. RESPIRATORY/CHEST: Symmetric, unlabored respirations. Clear CTA.No wheezing, rhonchi or rales. GASTROINTESTINAL: Abdomen soft, non-tender, nondistended. No guarding. Bowel sounds present. GENITOURINARY: Without palpable bladder distension. MUSCULOSKELETAL: Extremities without clubbing, cyanosis, or edema. No mottling or clubbing. NEUROLOGICAL: Awake and alert. Motor and sensory grossly within normal limits. Follows commands. Cognitively sharp. Moves all extremities. PSYCHIATRIC: No obvious anxiety/depression. no apparent hallucinations or other psychotic thought process. Diagnostic Tests Laboratory: Laboratory Results - last 72 hr 02/21/18 02/22/18 02/22/18 05:01 04:24 04:24 WBC 13.2 H RBC 3.23 L Hgb 10.5 L Hct 30.2 L MCV 93.5 MCH 32.6 MCHC 34.8 RDW 15.3 Plt Count 578 H MPV 8.0 Neut % (Auto) 76.2 H Lymph % (Auto) 10.7 [place] % (Auto) 5.8 Eos % (Auto) 6.8 H Baso % (Auto) 0.5 Neut # (Auto) 10.1 H Lymph # (Auto) 1.4 [place] # (Auto) 0.8 Eos # (Auto) 0.9 H Baso # (Auto) 0.1 WBC Differential . Differential Comment Auto diff final PT 11.3 INR 1.1 APTT 29.1 Sodium 138 Potassium 3.4 L Chloride 95 L Carbon Dioxide 31.6 Anion Gap 11 BUN 10 Creatinine 0.54 Estimated GFR Greater than 89 Random Glucose 87 Calcium 9.0 Total Bilirubin AST ALT Alkaline Phosphatase Total Protein Albumin 02/23/18 02/23/18 09:38 09:38 WBC 11.9 H RBC 3.48 L Hgb 11.0 L Hct 32.2 L MCV 92.5 MCH 31.6 MCHC 34.1 RDW 15.4 Plt Count 629 H MPV 7.9 Neut % (Auto) 73.6 H Lymph % (Auto) 11.7 [place] % (Auto) 6.2 Eos % (Auto) 8.1 H Baso % (Auto) 0.4 Neut # (Auto) 8.8 H Lymph # (Auto) 1.4 [place] # (Auto) 0.7 Eos # (Auto) 1.0 H Baso # (Auto) 0.1 WBC Differential . Differential Comment Auto diff final PT INR APTT Sodium 132 L Potassium 3.4 L Chloride 93 L Carbon Dioxide 30.1 Anion Gap 9 BUN 8 Creatinine 0.47 L Estimated GFR Greater than 89 Random Glucose 116 H Calcium 9.1 Total Bilirubin 0.2 AST 35 ALT 29 Alkaline Phosphatase 144 H Total Protein 6.8 Albumin 2.3 L Result Diagrams: 02/23/18 09:38 02/23/18 09:38 Imaging: Venous Doppler Study 02/14/18 22:17 CONCLUSION: 1. The study is negative for bilateral lower extremity deep venous thrombosis. Chest CT 02/15/18 00:00 CONCLUSION: 1. Obstruction of the right upper lobe, right middle lobe and right lower lobe bronchi with complete atelectasis and consolidation of the right lung and moderate to large right pleural effusion. No significant mediastinal shift. Lobar bronchial obstruction probably related to mucoid plugging but cannot exclude endobronchial mass. 2. Nodular opacities and distal airway disease at the left lung base appears stable to slightly worse. Upper lung nodules also present. Differential diagnosis includes postinflammatory changes but cannot exclude metastatic disease. Thoracentesis Ultrasound 02/16/18 00:00 CONCLUSION: 1. Uncomplicated ultrasound-guided right-sided thoracentesis. Chest Ultrasound 02/18/18 12:22 CONCLUSION: Very small recurrence of the patient's previous large right effusion. There does not appear to be enough volume to safely drain percutaneously at this point. No marking was performed. Chest X-Ray 02/22/18 00:00 CONCLUSION: Status post bronchoscopy. No evidence of pneumothorax. There continues to be almost complete opacification of the right hemithorax suggestive of air volume loss. Procedures: 02/16/[id number] thoracentesis for right pleural effusion(1200ML removed) 02/22/18- bronchoscopy Assessment and Plan - Disease Oriented Problem List (1) Pleural effusion, right (2) Recurrent pneumonia (3) Chronic obstructive pulmonary disease (4) Coronary artery disease (5) Hypertension - Symptom Scale (1) Pain 0-10 Scale: 4 Comment: Patient came in complaining of chest pain to the right side and is s/p thoracentesis of right pleural effusion. Pain described as sharp to right chest wall, exacerbated with movement or cough. (2) Shortness of breath 0-10 Scale: Unable to quantify Comment: Came in with complaints of shortness of breath and intermittent cough. (3) Anxiety 0-10 Scale: Unable to quantify Comment: Most likely due to shortness of breath history of COPD (4) Nausea & vomiting 0-10 Scale: Unable to quantify (5) Constipation 0-10 Scale: Unable to quantify Pertinent Non-Medical Issues: Psychosocial: Patient was born and raised in [place], [place]. Patient moved to [place] 10 years ago. Patient is . She has 2 sons and 4 grandchildren. 1 of her sons is mentally challenged-his bipolar. Patient lives with her son who is mentally challenged and 2 grandchildren from his old son ages 1 and 2. 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 Spiritual: Patient is Jew. Legal: Completed healthcare surrogate today Ethical issues impacting care: None identified at this time Important Contacts: healthcare surrogate -Granddaughter-Yenny Valadez [phone] Alternate healthcare surrogate-Molina Ruiz Prognosis: Mrs Alanis is a 62-year-old patient with a medical history significant of recent diagnosis of lung cancer, recurrent pneumonia, hypertension, neuropathy, anxiety, coronary artery disease, chronic obstructive pulmonary disease, hiatal hernia and arthritis. Patient presented to the ER on 02/14/18 with complaints of worsening shortness of breath and right sided sharp chest pain. Clinical course complicated with pain and shortness of breath from pleural effusion. Given ongoing comorbidities, patient remains at high risk for complications, deterioration and decline. If patient continues to strongly feel that she does not want to pursue aggressive treatment, she would be appropriate for hospice. Code Status: No Code DNR Plan: PLAN: Legal decision maker: Patient is currently able to participate in medical decision making. In the event that she is deemed incapacitated, patient has designated her granddaughter Yenny Valadez is here healthcare surrogate and Molina Ruiz is here alternate healthcare surrogate Goals: Aggressive short of no code. Per previous conversations, patient had stated that she would consider targeted therapy if mutational therapy had returned positive. Today patient stated that she had been searching more about lung cancer and she now feels that she is giving up on herself by not trying therapies she was offered and would like to hear again from oncology. She is now considering chemotherapy and immunotherapy. CODE STATUS: No code DNR/DNI SYMPTOMS: * Pain: Patient has history of rheumatoid arthritis and she came in with complaints of sharp chest pain. Chest x-ray showed right pleural effusion. Patient underwent ultrasound-guided thoracentesis today. Patient reporting that pain is exacerbated with coughing and movement. Pain managed with Hydrocodone/acetaminophen 10/325- 2 tabs 10/325 q 4 hrs prn and Fentanyl 50mcg patch q 72 hrs. Continue to monitor for pain. * Anxiety: Currently denies anxiety. Patient sparingly needing prn Xanax. Medication appears adequate at this time. * Shortness of breath: Patient has lung cancer and had right pleural effusion. Underwent ultrasound-guided thoracentesis 02/16. Patient endorsing improvement in the breathing s/p bronchoscopy 02/22/18. Patient is currently on room air with no signs of respiratory distress. No recommendations at this time. * Nausea/vomiting: Patient has had nausea and vomiting since 02/19/18 and decreased oral intake. Nausea managed with Phenergan 25mg po q 6 hrs ATC. Denies nausea today. No recommendations. * Constipation: Last BM on 02/18/18. This might have been due to increased used of pain medication. Patient is on a Fentanyl patch q 72 hrs and prn Hydrocodone. Constipation managed with Justina-Colace BID, Dulcolax suppository daily prn and Lactulose prn.Last BM recorded was on 02/23/18. ==Patient has not informed her family about her recent diagnosis of lung cancer. She feels she is not ready yet to inform her family of her recent lung cancer diagnosis. Patient has requested that any medical telesales team leader who comes to see her does not discuss her medical condition in front of her family. Patient stated that it is acceptable with her for medical staff to request her family to give them and patient privacy during their visit. Palliative care will continue to follow the patient during hospital course as condition evolves, to assist patient/decision-maker with understanding of their medical conditions, weighing benefits/burdens of treatment options, for clarification of goals of treatment. Additionally will assist with any symptoms of palliative concern Attestation Attestation: To help prompt me to consider important information that might be impacting today's encounter and assessment, information from prior notes written by myself or my colleagues may have been "brought forward" into today's note. My signature on this note, however, is an attestation that I personally performed the exam, history, and/or decision-making noted today, and, unless otherwise indicated, the interactions with patient, family, and staff as well as the review of records all occurred today. I also attest that the listed assessment and stated plan reflect my best clinical judgment today based on the combination of historical information, prior notes, and today's exam/ interactions. When time spent is documented, it refers only to time spent today by the signer, or if indicated, combined time spent today by collaborating physician/nurse practitioner.
--- NOTE | 2018-02-23 11:49 | P.DS ---
Date of admission: 02/15/18 00:09 Primary care physician: Eric Newton Attending physician on discharge: Pietro Wood Anticipated date of discharge: 02/23/18 Brief History from admission: Patient did initially diagnosed with pneumonia of the right lobe September 2017 underwent bronchoscopy at that time no endobronchial lesions noted in bronchial washings negative for fungal growth, no AFB and late strep species growth. Patient had 4 courses of antibiotics including Levaquin and Augmentin. Patient was admitted again to [facility] from December 31, 2017 to December. During that hospitalization patient underwent repeat bronchoscopy [address] Anthony which revealed: Moderate tracheobronchitis, no obstruction, no mass lesion. Hyperemia, edema, right middle, less so lower lobes. Pt insisting on leaving on 01/08/18 due to some social issues at home with her son, who is reportedly bipolar and ran out of medications last night. Discussed with the patient that we don't yet know what the underlying cause for her recurrent pneumonia is as cultures are still pending and there is still concern regarding possible inflammatory process vs. malignancy. She states that she will followup closely with Dr. Newton and Dr. Anthony but we do not feel that the pt is clinically ready for discharge. If she insists on leaving today she will have to leave A. Pathology from bronchoscopy 01/07/2018 was positive for malignant cells consistent with adenocarcinoma. On January 11, 2018 patient's primary care provider Dr. Newton reviewed pathology results including adenocarcinoma of the lung with patient. Per primary care dictation patient initially stated she did not want any treatment for this but later agreed to see an oncologist to determine treatment options. Patient was referred to hematology/oncology but there is no record of appointment made or visit. Patient presents to [facility] 02/14/18 due to SOB and right sided chest pain. The patient reports that the pain is in the right side of the chest. She reports that it is sharp in character. She reports that it radiates around to the back of her chest. She reports that it is worse with taking a deep breath or moving. The patient reports having an associated cough that at times is productive. The patient reports that she has also had a low-grade fever with a T-max of 99.9, 2 days ago. She denies having any nausea, vomiting, or diarrhea. She reports that she has been moving her bowels regularly and last moved her bowels yesterday. The patient reports that she has had some lower extremity edema and was scheduled for an ultrasound, however she has not obtained it yet. She denies having any prior history of DVT or PE. Patient also denies having any neck pain, abdominal pain, vomiting, diarrhea, urinary symptoms, or neurologic symptoms. Chest X-Ray 02/14/18 20:56 CONCLUSION: Complete opacification of the right hemithorax probably from right effusion and lung consolidation/atelectasis. Cannot exclude underlying lung mass. Stable reticulonodular pattern left lung base. Venous Doppler Study 02/14/18 22:17 CONCLUSION: 1. The study is negative for bilateral lower extremity deep venous thrombosis. PMH: cad. pci ruthy ramus intermedius. renal art. stent right iliac stent. pad cervical neck fusion anxiety gerd "gastric ulcer" says she had egd and colon 4 or 5 yrs ago. polyps hemorrhoids. RA htn hyperlipidemia adenocarcinoma of the lung PSH: [facility] bronchoscopy with biopsy (09/2017) bronchoscopy with biopsy (12/2017) FXH: She had 2 sons. Her son who is mentally challenged lives with her and other son who left 2 of his children with her. Has a granddaughter living with her. SHX: She has history of smoking, which she quit 1 month ago. No alcohol abuse. 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 She said she is . ALLERGEIS: TO TERBUTALINE AND GABAPENTIN. DS: Diagnosis - Discharge Diagnosis (1) Adenocarcinoma Status: Acute (2) Recurrent pneumonia Status: Acute DS: Medications - Discharge Medications Prescriptions: codeine-guaifenesin 10 ml PO Q4H PRN #120 ml PRN Reason: Cough docusate sodium [Colace] 100 mg PO BID 30 Days #60 cap fentanyl [Duragesic] 1 patch TRANSDERMAL Q3D #10 ea folic acid 1 mg PO DAILY 30 Days #30 tab hydrocodone-acetaminophen 1 tab PO Q4H PRN #20 tab PRN Reason: pain 3-6 lactulose 10 g PO DAILY PRN 15 Days ml PRN Reason: Constipation promethazine 25 mg PO Q6H #10 tab DS: Summary Hospital Course: (1) Adenocarcinoma Code(s): C80.1 - Malignant (primary) neoplasm, unspecified Status: Acute Plan: Adenocarcinoma - Pt had hospitalization September 2017 and December 2017 for similar complaints. - CT thorax 09/2017 showed abnormal right lung process - Pt underwent Bronchoscopy September [address] Trejo - no malignant cells identified - Pt somewhat lost to f/u following hospitalization d/t social issues - Pt presented to PCP, Dr. Newton, with c/o continued SOB - Chest CT with IV Contrast 12/30/17 1. Most of the increasing opacity in the right mid and lower lungs is due to pulmonary consolidation. There is a small right pleural effusion. 2. Multiple nodular densities in the lower left lung similar to prior. - Concern that right lung process might represent postobstructive process with underlying malignancy - sputum- gram stain --> mixed ace, few WBCs - sputum Cx --> with heavy growth of normal respiratory ace - Urine legionella/pneumococcal --> negative - Pt underwent bronchoscopy on 01/07/[address] Anthony --> Moderate tracheobronchitis, no obstruction, no mass lesion. Hyperemia, edema, right middle, less so lower lobes. - Pt insisting on leaving on 01/08/18 due to some social issues at home with her son, who is reportedly bipolar and ran out of medications -Pt left AMA, last admission December 2017 - On January 11, 2018 patient's primary care provider Dr. Newton reviewed pathology results including adenocarcinoma of the lung with patient. Per primary care dictation patient initially stated she did not want any treatment for this but later agreed to see an oncologist to determine treatment options. Patient was referred to hematology/oncology but there is no record of appointment made or visit. -CT chest 02/15 1. Obstruction of the right upper lobe, right middle lobe and right lower lobe bronchi with complete atelectasis and consolidation of the right lung and moderate to large right pleural effusion. No significant mediastinal shift. Lobar bronchial obstruction probably related to mucoid plugging but cannot exclude endobronchial mass. 2. Nodular opacities and distal airway disease at the left lung base appears stable to slightly worse. Upper lung nodules also present. Differential diagnosis includes postinflammatory changes but cannot exclude metastatic disease. -s/p right thoracentesis 02/16. red colored fluid. 1200cc. - Consulted oncology Dr Gutierrez. Awaiting further testing to decide on targeted therapy - Per Radiation Oncology, pt is NOT a candidate for Radiation -The patient continues to refuse telling family of her diagnosis. She specifically told them she has no cancer. - DNR - Case d/w Pulmonary Medicine (02/21) Dr. Anthony. - 02/22 patient S/P Bronchoscopy with Dr. Anthony Impression: 1. Diffuse hyperemia edematous change right main bronchus, right upper, middle, and lower lobes. No endobronchial obstruction or mass lesions seen; however, diffuse narrowing and irregularity of the mucosa was noted. 2. Sample obtained as above. Pathology pending - Case d/w Dr. Ariana Gutierrez (02/21). Awaiting cancer markers for possible targeted therapy. Pt can f/u with Dr. Gutierrez outpt. - Pt agrees to hospice consult and would like discharge REBA - Case d/w Dr. Gutierrez (02/22). Pt refusing to start chemotherapy agent inpatient since regimen would cause hair loss. Pt to f/u with Dr. Gutierrez in one week to start different chemotherapy agent hopefully without hair loss. Please see oncology note. - Pt to continue Albuterol/atrovent nebules at home Q4H while awake and PRN - Basalt as needed for pain - fentanyl transdermal - start colace 100mg BID - lactulose prn - phenergan prn - overall poor prognosis - Pt offered hospice but she is NOT interested at this time - [place] [facility] to arrange [facility] services upon discharge. - Pt is at high risk for readmission - Please see discharge orders R Pleural effusion - CXR: Chest X-Ray 02/14/18: Complete opacification of the right hemithorax probably from right effusion and lung consolidation/atelectasis. Cannot exclude underlying lung mass. Stable reticulonodular pattern left lung base. - US guided thoracentesis ordered ...see above. Hypokalemia - repleted - Time Spent with Patient Total time spent providing and/or coordinating discharge services: Greater than 30 minutes - Quality: VTE Deep Vein Thrombosis/Pulmonary Embolism Present on Admission: No Exam Vital signs: Vital Signs 02/22/18 12:00 02/22/18 16:00 02/22/18 19:39 Temperature 98.2 F 98.2 F 98.1 F Pulse Rate 101 H 95 H 115 H Respiratory Rate 22 20 17 Blood Pressure 94/64 L 108/78 117/84 Pulse Oximetry 90 L 92 L 97 02/22/18 21:15 02/22/18 23:52 02/23/18 08:00 Temperature 98.2 F 98.1 F Pulse Rate 101 H 95 H Respiratory Rate 8 L 17 18 Blood Pressure 102/65 103/72 Pulse Oximetry 94 L 88 L 02/23/18 08:35 Temperature Pulse Rate 101 H Respiratory Rate 14 Blood Pressure Pulse Oximetry Intake & Output 02/22/18 02/23/18 02/23/18 18:59 06:59 18:59 Intake Total 480 / 480 Balance 480 / 480 Weight 47.3 kg Intake: Oral 480 / 480 Other: # Voids 1 2 Date of Last Bowel Movement 02/22/18 02/21/18 # Bowel Movements 0 Results Procedures completed during hospitalization: n/a Labs on day of discharge: Labs from last 24 hours 02/23/18 02/23/18 09:38 09:38 WBC 11.9 H RBC 3.48 L Hgb 11.0 L Hct 32.2 L MCV 92.5 MCH 31.6 MCHC 34.1 RDW 15.4 Plt Count 629 H MPV 7.9 Neut % (Auto) 73.6 H Lymph % (Auto) 11.7 [place] % (Auto) 6.2 Eos % (Auto) 8.1 H Baso % (Auto) 0.4 Neut # (Auto) 8.8 H Lymph # (Auto) 1.4 [place] # (Auto) 0.7 Eos # (Auto) 1.0 H Baso # (Auto) 0.1 WBC Differential . Differential Comment Auto diff final Sodium 132 L Potassium 3.4 L Chloride 93 L Carbon Dioxide 30.1 Anion Gap 9 BUN 8 Creatinine 0.47 L Estimated GFR Greater than 89 Random Glucose 116 H Calcium 9.1 Total Bilirubin 0.2 AST 35 ALT 29 Alkaline Phosphatase 144 H Total Protein 6.8 Albumin 2.3 L - Impressions ITS Impressions Venous Doppler Study 02/14/18 22:17 CONCLUSION: 1. The study is negative for bilateral lower extremity deep venous thrombosis. Chest CT 02/15/18 00:00 CONCLUSION: 1. Obstruction of the right upper lobe, right middle lobe and right lower lobe bronchi with complete atelectasis and consolidation of the right lung and moderate to large right pleural effusion. No significant mediastinal shift. Lobar bronchial obstruction probably related to mucoid plugging but cannot exclude endobronchial mass. 2. Nodular opacities and distal airway disease at the left lung base appears stable to slightly worse. Upper lung nodules also present. Differential diagnosis includes postinflammatory changes but cannot exclude metastatic disease. Thoracentesis Ultrasound 02/16/18 00:00 CONCLUSION: 1. Uncomplicated ultrasound-guided right-sided thoracentesis. Chest Ultrasound 02/18/18 12:22 CONCLUSION: Very small recurrence of the patient's previous large right effusion. There does not appear to be enough volume to safely drain percutaneously at this point. No marking was performed. Chest X-Ray 02/22/18 00:00 CONCLUSION: Status post bronchoscopy. No evidence of pneumothorax. There continues to be almost complete opacification of the right hemithorax suggestive of air volume loss. Discharge Plan - Discharge Disposition Patient Disposition: /Home [facility] Service - Discharge Condition Condition: Stable - Discharge Order Discharge Orders: Discharge Order (Routine); Ordered 02/23/18 Ordered By: Yelena Arteaga - Discharge Details Anticipated Discharge Date: 02/23/18 - Physicians Team Primary Care Provider: Eric Newton Attending Provider: James Olivier Other Providers: Ariana Gutierrez ; Gabrielle Anthony MD ; Jesus Fofana MD ; [facility],Agency
--- NOTE | 2018-02-23 12:08 | P.DCO ---
- Home Health Nursing Order: Medical education, Signs/symptoms of disease process, Medication education-adverse effect - [employer] Order: To evaluate: Living conditions/environment, Support services Order: To provide: Long range planning - Case Management Consult No - Certification I have seen patient Yessica Alanis on 02/23/18. My clinical findings support the need for the requested home health care services because: Patient has SOB, Deconditioned with increased weakness I certify that my clinical findings support that this patient is homebound because: Unable to use public transportation
[2018-02-23 16:04] VITALS: BP 115/77; O2SAT 93
[2018-02-23 18:41] VITALS: PULSE 106; RESP 18
--- NOTE | 2018-02-23 19:51 | P.PNONC ---
Subjective Interval history: Resting comfortably in bed. No distress. S/p bronch yesterday Late note entry. Patient seen at bedside at approximately 8 AM. Objective Vital Signs/Intake & Output: Vital Signs 02/22/18 19:39 02/22/18 21:15 02/22/18 23:52 Temperature 98.1 F 98.2 F Pulse Rate 115 H 101 H Respiratory Rate 17 8 L 17 Blood Pressure 117/84 102/65 Pulse Oximetry 97 94 L 02/23/18 08:00 02/23/18 08:35 02/23/18 12:00 Temperature 98.1 F 98.1 F Pulse Rate 95 H 101 H 106 H Respiratory Rate 18 14 18 Blood Pressure 103/72 115/77 Pulse Oximetry 88 L 93 L Intake & Output 02/23/18 02/23/18 02/24/18 06:59 18:59 06:59 Intake Total 480 / 480 Balance 480 / 480 Weight 47.3 kg Intake: Oral 480 / 480 Other: # Voids 2 Date of Last Bowel Movement 02/22/18 02/21/18 # Bowel Movements 0 Result Diagrams: 02/23/18 09:38 02/23/18 09:38 Laboratory Results: Laboratory Results - last 24 hr 02/23/18 02/23/18 09:38 09:38 WBC 11.9 H RBC 3.48 L Hgb 11.0 L Hct 32.2 L MCV 92.5 MCH 31.6 MCHC 34.1 RDW 15.4 Plt Count 629 H MPV 7.9 Neut % (Auto) 73.6 H Lymph % (Auto) 11.7 [place] % (Auto) 6.2 Eos % (Auto) 8.1 H Baso % (Auto) 0.4 Neut # (Auto) 8.8 H Lymph # (Auto) 1.4 [place] # (Auto) 0.7 Eos # (Auto) 1.0 H Baso # (Auto) 0.1 WBC Differential . Differential Comment Auto diff final Sodium 132 L Potassium 3.4 L Chloride 93 L Carbon Dioxide 30.1 Anion Gap 9 BUN 8 Creatinine 0.47 L Estimated GFR Greater than 89 Random Glucose 116 H Calcium 9.1 Total Bilirubin 0.2 AST 35 ALT 29 Alkaline Phosphatase 144 H Total Protein 6.8 Albumin 2.3 L Medications: Active Medications Generic Name Dose Route Start Last Admin Trade Name Freq PRN Reason Stop Dose Admin Hydrocodone Bitart/Acetaminophen 1 tab 02/15/18 00:19 02/22/18 05:19 [place] 10/325 PO 1 tab Q4H PRN Administration pain 3-6 Hydrocodone Bitart/Acetaminophen 2 tab 02/19/18 11:42 02/23/18 09:54 [place] 10/325 PO 2 tab Q4H PRN Administration pain 7-10 Albuterol 1 ampul 02/15/18 00:20 02/17/18 23:56 Duoneb Neb (Prn) NEB 1 ampul Q2HR NEB PRN Administration SHORTNESS OF BREATH Alprazolam 0.25 mg 02/15/18 15:49 02/20/18 05:47 Xanax PO 0.25 mg Q8HR PRN Administration ANXIETY AND/OR AGITATION Amitriptyline HCl 50 mg 02/15/18 21:00 02/22/18 21:07 Elavil PO 50 mg HS GILMER Administration Aspirin 325 mg 02/16/18 09:00 02/23/18 09:44 Aspirin PO 325 mg DAILY GILMER Administration Benzonatate 200 mg 02/19/18 11:00 02/23/18 10:00 Tessalon Perles PO 200 mg Q8H GILMER Administration Enoxaparin Sodium 40 mg 02/23/18 09:00 02/23/18 09:43 Lovenox Inj SQ Not Given DAILY GILMER Fentanyl 1 patch 02/19/18 11:00 02/22/18 10:14 Duragesic 50 Mcg Patch.72hr T-DERMAL 1 patch Q3D GILMER Administration Folic Acid 1 mg 02/23/18 09:00 02/23/18 09:44 Folic Acid PO 1 mg DAILY GILMER Administration Guaifenesin/Codeine Phosphate 10 ml 02/18/18 23:27 02/22/18 22:25 Robitussin Ac 200/20 Mg/10 Ml Liq PO 10 ml Q4H PRN Administration COUGH Hydrochlorothiazide 25 mg 02/16/18 09:00 02/23/18 09:44 Hydrodiuril PO 25 mg DAILY GILMER Administration Levofloxacin 500 mg 02/18/18 13:00 02/23/18 09:44 Levaquin PO 02/24/18 12:59 500 mg DAILY GILMER Administration Ondansetron HCl 4 mg 02/15/18 00:18 02/20/18 09:15 Zofran Inj IV.PUSH 4 mg Q6H PRN Administration Nausea And Vomiting Pantoprazole Sodium 20 mg 02/16/18 09:00 02/23/18 09:44 Protonix PO 20 mg DAILY GILMER Administration Patch Removal 1 each 02/19/18 11:00 02/22/18 14:06 Remove Old Patch T-DERMAL 1 each Q3D GILMER Administration Potassium Chloride 10 meq 02/16/18 09:00 02/23/18 09:44 Kcl PO 10 meq DAILY GILMER Administration Pravastatin Sodium 80 mg 02/15/18 18:00 02/22/18 18:24 Pravachol PO 80 mg QPM GILMER Administration Pregabalin 100 mg 02/15/18 21:00 02/22/18 21:07 Lyrica PO 100 mg HS GILMER Administration Promethazine HCl 25 mg 02/20/18 12:00 02/23/18 15:05 Phenergan PO Not Given Q6H GILMER Senna/Docusate Sodium 1 tab 02/22/18 09:00 02/23/18 09:44 Justina-Colace PO 1 tab BID GILMER Administration Simethicone 80 mg 02/22/18 12:59 02/22/18 16:26 Mylicon Chew PO 80 mg Q8H PRN Administration GAS RETENTION Sodium Chloride 2 ml 02/23/18 09:00 02/23/18 09:48 Ns Flush IV.FLUSH 2 ml BID GILMER Administration Temazepam 15 mg 02/15/18 00:23 02/22/18 21:15 Restoril PO 15 mg HS PRN Administration INSOMNIA Objective Remarks: GENERAL: Well-nourished, well-developed patient. SKIN: Warm and dry. HEAD: Normocephalic. EYES: No scleral icterus. No injection or drainage. RESPIRATORY: Breath sounds equal bilaterally. No accessory muscle use. NEUROLOGICAL: No obvious focal deficit. Awake, alert, and oriented x3. PSYCHIATRIC: Appropriate mood and affect; insight and judgment normal. Assessment/Plan - Plan 1. Metastatic lung cancer: awaiting results of mutation testing. Again an extensive discussion with patient regarding treatment of metastatic lung cancer. Discussed that we are awaiting results of mutation testing that if positive would make patient a candidate for targeted oral therapy. Given histoyr of severe rheumatoid arthritis will hold on immune therapy at this time. If PD L1 returns positive will discuss further with patients. Discussed that it takes time for mutational testing to return and then to obtain the oral therapy from the outpatient specitalty pharmacy. Again reviewed side effects of chemotherapy and immunotherapy. Patient reports that she "does not want to just go home and ." Will plan to pursue treatment with carboplatin and pemetrexed in the outpatient setting. Will give vitamin B12, folate. Case discussed with Dr. Wood, Dr. Anthony
== END 2018-02-23 15:48 | disposition home health service (06) ==
LOC: NEPE 19:56 → NEDA 02-15 00:09 → N06 02-15 03:20
PROVIDERS: ADMIT Hospitalist; ATTEND Hospitalist
DX: I25.10 Atherosclerotic heart disease of native coronary artery without angina pectoris; K21.9 Gastro-esophageal reflux disease without esophagitis; E78.5 Hyperlipidemia, unspecified; E87.6 Hypokalemia; J18.9 Pneumonia, unspecified organism; M19.90 Unspecified osteoarthritis, unspecified site; Z79.02 Long term (current) use of antithrombotics/antiplatelets; J98.11 Atelectasis; M06.9 Rheumatoid arthritis, unspecified; K44.9 Diaphragmatic hernia without obstruction or gangrene; I10 Essential (primary) hypertension; Z87.01 Personal history of pneumonia (recurrent); R60.0 Localized edema; K59.00 Constipation, unspecified; Z79.82 Long term (current) use of aspirin; C34.11 Malignant neoplasm of upper lobe, right bronchus or lung; L89.152 Pressure ulcer of sacral region, stage 2; Z95.5 Presence of coronary angioplasty implant and graft; F40.240 Claustrophobia; Z66 Do not resuscitate; J91.0 Malignant pleural effusion; G62.9 Polyneuropathy, unspecified; J44.0 Chronic obstructive pulmonary disease with (acute) lower respiratory infection; Z87.891 Personal history of nicotine dependence

== ENCOUNTER 2018-03-21 10:28 | Observation (INO) ==
[2018-03-21 11:59] LABS: Baso % (Auto) 0.4 % (0.0-2.0); Eos % (Auto) 0.2 % (0.0-4.0); Hematocrit 35.6 % (35.0-46.0); Hemoglobin 11.9 gm/dL (11.6-15.3); Lymph # (Auto) 0.9 th/mm3 (1.0-4.8); Lymph % (Auto) 7.7 % (9.0-44.0); Mean Corpuscular HGB Conc 33.4 % (32.0-36.0); Mean Corpuscular Hemoglobin 30.6 pg (27.0-34.0); Mean Corpuscular Volume 91.5 fL (80.0-100.0); Mean Platelet Volume 9.1 fL (7.0-11.0); Mono # (Auto) 0.5 th/mm3 (0.0-0.9); Mono % (Auto) 4.1 % (0.0-8.0); Neut # (Auto) 10.8 th/mm3 (1.8-7.7); Neut % (Auto) 87.6 % (16.0-70.0); Platelet Count 675 th/mm3 (150-450); Red Blood Count 3.89 mil/mm3 (4.00-5.30); Red Cell Distribution Width 17.1 % (11.6-17.2); White Blood Count 12.3 th/mm3 (4.0-11.0)
--- NOTE | 2018-03-21 11:59 | XR ---
EXAM DATE: 03/21/2018 10:44 AM EDT AGE/SEX: 62 years / Female INDICATIONS: Short of breath. CLINICAL DATA: This is the patient's initial encounter. Patient reports that signs and symptoms have been present for 1 day and indicates a pain score of 0/10. MEDICAL/SURGICAL HISTORY: Chronic obstructive pulmonary disease. diagnosed about 10 days ago wi th lung cancer . 2 coronary artery stents [place] [facility] [place]22/2018. . FINDINGS: Today's exam is compared to the prior study. There continues to be complete opacification of the righ t hemithorax. This is not significantly changed compared to the prior examination. There is a mild in filtrate in the left lung base which appears to be new compared to the prior exam. Otherwise the rest of the left lung is grossly clear. No definite left-sided pleural effusion is seen. The heart size r emains within normal limits. There is no evidence of pneumothorax. The bony structures are stable. CONCLUSION: 1. No change in the complete opacification of the right hemithorax compared to the prior study. 2. Mild infiltrate in the left lower lung. Electronically signed by: Jasbir Suarez MD 03/21/2018 11:58 AM EDT
--- NOTE | 2018-03-21 12:01 | XR ---
EXAM DATE: 03/21/2018 10:53 AM EDT AGE/SEX: 62 years / Female INDICATIONS: Fell 2 weeks ago. CLINICAL DATA: This is the patient's initial encounter. Patient reports that signs and symptoms have been present for 2 weeks and indicates a pain score of 10/10. MEDICAL/SURGICAL HISTORY: Chronic obstructive pulmonary disease. diagnosed with lung cancer 10 days ago. . 2 coronary artery stents COMPARISON: No prior exams available for comparison. FINDINGS: Bony structures are intact and in normal alignment. Joints are intact without dislocation or signifi cant arthropathy. Osseous density is normal. Soft tissues are unremarkable. No radiopaque foreign bodies seen. There is a arterial stent seen in the left mid pelvis. There are calcifications in the s oft tissues consistent with peripheral vascular disease. CONCLUSION: No acute fracture or joint dislocation. Electronically signed by: Jasbir Suarez MD 03/21/2018 12:00 PM EDT
[2018-03-21 12:07] LABS: Activated Partial Thrombo Time 26.8 sec (24.3-30.1); INR 1.2 Ratio; Prothrombin Time 12.4 sec (9.8-11.6)
--- NOTE | 2018-03-21 12:33 | ED ---
HPI General Chief complaint: Respiratory Symptoms Stated complaint: SOB/Chest Pain Complaint Time Seen by Provider: 03/21/18 10:44 Source: patient Mode of arrival: ambulatory Limitations: no limitations History of Present Illness HPI narrative: 62-year-old female states that she has been having chest pain and shortness of breath over the past couple weeks. She states she talked with her primary care physician and they advised for her to come in and had already talked with the admitting physician. She states that she is not sure if she is had results of the test that they were waiting on last time she was here in the hospital. She denies any fever or other concurrent complaints. She states that she does have lung cancer. MD complaint: Shortness of breath Onset (ago): week(s) Radiation: non-radiation Relieving factors: none Exacerbating factors: movement Associated symptoms: Reports denies other symptoms Related Data Home Medications Medication Instructions Recorded Confirmed amitriptyline 50 mg PO HS 12/30/17 02/15/18 hydrocodone-acetaminophen 2 tab PO Q8H PRN 12/30/17 02/15/18 potassium chloride 10 meq PO DAILY 12/30/17 02/15/18 pregabalin [Lyrica] 100 mg PO HS 12/30/17 02/15/18 aspirin 325 mg PO DAILY 02/15/18 02/15/18 clopidogrel [Plavix] 75 mg PO DAILY 02/15/18 02/15/18 hydrochlorothiazide 25 mg PO DAILY 02/15/18 02/15/18 ipratropium-albuterol 3 ml INHALATION Q4-6H PRN 02/15/18 02/15/18 meprobamate 400 mg PO QID PRN 02/15/18 02/15/18 omeprazole 20 mg PO DAILY 02/15/18 02/15/18 simvastatin 40 mg PO QPM 02/15/18 02/15/18 Previous Rx's Medication Instructions Recorded codeine-guaifenesin 10 ml PO Q4H PRN #120 ml 02/23/18 docusate sodium [Colace] 100 mg PO BID 30 Days #60 cap 02/23/18 fentanyl [Duragesic] 1 patch TRANSDERMAL Q3D #10 ea 02/23/18 folic acid 1 mg PO DAILY 30 Days #30 tab 02/23/18 hydrocodone-acetaminophen 1 tab PO Q4H PRN #20 tab 02/23/18 promethazine 25 mg PO Q6H #10 tab 02/23/18 Allergies Allergy/AdvReac Type Severity Reaction Status Date / Time terbutaline Allergy Intermediate Nausea Verified 02/14/18 20:54 gabapentin Allergy Mild Nausea Verified 02/14/18 20:54 metoclopramide [From Reglan] AdvReac Bleeding Verified 02/14/18 20:54 Review of Systems ROS: all other systems reviewed are negative [facility] Medical History Medical History Joint pain (Acute) Claustrophobia (Acute) Arthritis (Acute) Kidney stones (Acute) Hiatal hernia (Acute) Ulcer (Acute) Lung cancer (Acute) Bulging disc (Acute) CAD (coronary artery disease) (Acute) COPD (chronic obstructive pulmonary disease) (Acute) High cholesterol (Acute) Hx of recurrent pneumonia (Acute) Hypertension (Acute) Neuropathy (Acute) Surgical History Surgical History Hx of cervical spine surgery (Acute) History of renal stent (Acute) Hx of section (Acute) H/O neck surgery (Acute) Hx of cardiac cath (Acute) Hx of heart artery stent (Acute) Hx of tonsillectomy (Acute) Social History Social History Substance History: No History of Abuse Second Hand Smoke Exposure: Yes Smoking Status: Former smoker Tobacco Type: Cigarettes How Often Do You Have a Drink Containing Alcohol: Never Recent Travel in [facility] within the Last 8 Weeks: No Recent Out of Country Travel within the Last 8 Weeks: No Immunization History Tetanus Immunization: Unsure Exam Narrative Exam Narrative: GENERAL: 62-year-old female in no apparent distress SKIN: Focused skin assessment warm/dry. HEAD: Atraumatic. Normocephalic. EYES: Pupils equal and round. No scleral icterus. No injection or drainage. ENT: No nasal bleeding or discharge. Mucous membranes pink and moist. NECK: Trachea midline. No JVD. CARDIOVASCULAR: Regular rate and rhythm. No murmur appreciated. RESPIRATORY: No accessory muscle use. Clear to auscultation. Breath sounds equal bilaterally. GASTROINTESTINAL: Abdomen soft, non-tender, nondistended. MUSCULOSKELETAL: No obvious deformities. No clubbing. No cyanosis. NEUROLOGICAL: Awake and alert. Motor grossly within normal limits. Normal speech. PSYCHIATRIC: Appropriate mood and affect; insight and judgment normal. Course Reevaluation(s) Reevaluation #1: Patient states she is still having pain in her left hip and cannot walk. Will add on CT hip. Patient also has pleural effusion on CT. Case discussed with her primary doctor and admitting doctor and patient agrees to admission Consultations Consultation #1: Primary doctor states that patient talked with nursing given she was short of breath they advised her to come to the emergency room. Patient previously was on hospice but currently no longer wanting that. They state that she was not wanting chemotherapy before and to talk with her about what care she would like Consultation #2: Dr. Wood agrees to observation Initial Documented Vital Signs Temperature 98.1 F 03/21/18 10:34 Pulse Rate 100 H 03/21/18 10:34 Respiratory Rate 16 03/21/18 10:34 Blood Pressure 161/90 H 03/21/18 10:34 Pulse Oximetry 94 L 03/21/18 10:34 Last Documented Vital Signs Temperature 98.1 F 03/21/18 10:34 Pulse Rate 95 H 03/21/18 14:44 Respiratory Rate 18 03/21/18 14:44 Blood Pressure 134/94 H 03/21/18 14:44 Pulse Oximetry 97 03/21/18 14:44 Medical Decision Making [facility] Narrative Medical decision making narrative: Will check blood work, imaging and reevaluate Medical Screen Exam Complete: Yes Emergency Medical Condition: Yes Differential Diagnosis Differential Diagnosis: Effusion, pneumonia, PE, lung cancer Lab Data Lab results reviewed: Yes I reviewed the patient's lab results. Result diagrams: 03/21/18 11:13 03/21/18 12:48 Lab Results 03/21/18 03/21/18 03/21/18 Range/Units 11:13 11:13 11:13 WBC 12.3 H (4.0-11.0) th/mm3 RBC 3.89 L (4.00-5.30) mil/mm3 Hgb 11.9 (11.6-15.3) gm/dL Hct 35.6 (35.0-46.0) % MCV 91.5 (80.0-100.0) fL MCH 30.6 (27.0-34.0) pg MCHC 33.4 (32.0-36.0) % RDW 17.1 (11.6-17.2) % Plt Count 675 H (150-450) th/mm3 MPV 9.1 (7.0-11.0) fL Neut % (Auto) 87.6 H (16.0-70.0) % Lymph % (Auto) 7.7 L (9.0-44.0) % Clarke % (Auto) 4.1 (0.0-8.0) % Eos % (Auto) 0.2 (0.0-4.0) % Baso % (Auto) 0.4 (0.0-2.0) % Neut # (Auto) 10.8 H (1.8-7.7) th/mm3 Lymph # (Auto) 0.9 L (1.0-4.8) th/mm3 Clarke # (Auto) 0.5 (0.0-0.9) th/mm3 Eos # (Auto) 0.0 (0.0-0.4) th/mm3 Baso # (Auto) 0.0 (0.0-0.2) th/mm3 WBC Differential . Differential Comment Auto diff final PT 12.4 H (9.8-11.6) sec INR 1.2 Ratio APTT 26.8 (24.3-30.1) sec Sodium (136-145) meq/L Potassium (3.5-5.1) meq/L Chloride (98-107) meq/L Carbon Dioxide (21.0-32.0) meq/L Anion Gap (5-15) meq/L BUN (7-18) mg/dL Creatinine (0.50-1.00) mg/dL Estimated GFR (>89) mL/min Random Glucose (74-106) mg/dL Calcium (8.5-10.1) mg/dL Magnesium (1.5-2.5) mg/dL Total Bilirubin (0.2-1.0) mg/dL AST (15-37) U/L ALT (10-53) U/L Alkaline Phosphatase (45-117) U/L Total Creatine Kinase (26-192) U/L Troponin I (0.02-0.05) ng/mL B-Natriuretic Peptide 33 (0-100) pg/mL Total Protein (6.4-8.2) g/dL Albumin (3.4-5.0) g/dL 03/21/18 Range/Units 12:48 WBC (4.0-11.0) th/mm3 RBC (4.00-5.30) mil/mm3 Hgb (11.6-15.3) gm/dL Hct (35.0-46.0) % MCV (80.0-100.0) fL MCH (27.0-34.0) pg MCHC (32.0-36.0) % RDW (11.6-17.2) % Plt Count (150-450) th/mm3 MPV (7.0-11.0) fL Neut % (Auto) (16.0-70.0) % Lymph % (Auto) (9.0-44.0) % Clarke % (Auto) (0.0-8.0) % Eos % (Auto) (0.0-4.0) % Baso % (Auto) (0.0-2.0) % Neut # (Auto) (1.8-7.7) th/mm3 Lymph # (Auto) (1.0-4.8) th/mm3 Clarke # (Auto) (0.0-0.9) th/mm3 Eos # (Auto) (0.0-0.4) th/mm3 Baso # (Auto) (0.0-0.2) th/mm3 WBC Differential Differential Comment PT (9.8-11.6) sec INR Ratio APTT (24.3-30.1) sec Sodium 132 L (136-145) meq/L Potassium 3.4 L (3.5-5.1) meq/L Chloride 86 L (98-107) meq/L Carbon Dioxide 31.7 (21.0-32.0) meq/L Anion Gap 14 (5-15) meq/L BUN 9 (7-18) mg/dL Creatinine 0.51 (0.50-1.00) mg/dL Estimated GFR Greater than 89 (>89) mL/min Random Glucose 94 (74-106) mg/dL Calcium 9.4 (8.5-10.1) mg/dL Magnesium 1.5 (1.5-2.5) mg/dL Total Bilirubin 0.4 (0.2-1.0) mg/dL AST 26 (15-37) U/L ALT 14 (10-53) U/L Alkaline Phosphatase 119 H (45-117) U/L Total Creatine Kinase 67 (26-192) U/L Troponin I Less than 0.02 L (0.02-0.05) ng/mL B-Natriuretic Peptide (0-100) pg/mL Total Protein 7.6 (6.4-8.2) g/dL Albumin 2.5 L (3.4-5.0) g/dL Imaging Data Attestation: I personally reviewed and interpreted this imaging study as follows : Radiologist's impression: Chest CTA 03/21/18 10:44 CONCLUSION: 1. No CT evidence for pulmonary artery embolus some. 2. Redemonstration of complete right lung collapse likely secondary to segmental bronchial obstruction with associated moderate size right-sided pleural effusion. 3. Redemonstration of numerous left-sided subcentimeter pulmonary nodules consistent with patient's history of stage IV lung CA. Chest X-Ray 03/21/18 10:44 CONCLUSION: 1. No change in the complete opacification of the right hemithorax compared to the prior study. 2. Mild infiltrate in the left lower lung. Hip X-Ray 03/21/18 10:53 CONCLUSION: No acute fracture or joint dislocation. Discharge Plan Discharge Disposition Patient Disposition: 30 Still Patient Discharge Details Diagnosis: Shortness of breath, Pleural effusion, Lung cancer, Acute hip pain Physicians Team ED Provider: Fany Wilks Primary Care Provider: UNKNOWN, Attending Provider: Pietro Wood Discharge Interventions Interventions: Vital Signs Last Done: 03/21/18 14:44 Status ED Status: Admitted Observation Patient
[2018-03-21 13:20] LABS: Alanine Aminotransferase 14 U/L (10-53)
[2018-03-21 13:25] LABS: Alkaline Phosphatase 119 U/L (45-117); Total Protein 7.6 g/dL (6.4-8.2)
[2018-03-21 13:31] LABS: Albumin 2.5 g/dL (3.4-5.0); Anion Gap 14 meq/L (5-15); Aspartate Aminotransferase 26 U/L (15-37); Blood Urea Nitrogen 9 mg/dL (7-18); Calcium 9.4 mg/dL (8.5-10.1); Carbon Dioxide 31.7 meq/L (21.0-32.0); Chloride 86 meq/L (98-107); Glomerular Filtration Rate Greater Than 89 mL/min (>89); Glucose,Random 94 mg/dL (74-106); Magnesium 1.5 mg/dL (1.5-2.5); Potassium 3.4 meq/L (3.5-5.1); Sodium 132 meq/L (136-145)
[2018-03-21 13:32] LABS: Creatine Kinase 67 U/L (26-192)
--- NOTE | 2018-03-21 14:34 | CT ---
EXAM DATE: 03/21/2018 1:38 PM EDT AGE/SEX: 62 years / Female INDICATIONS: Shortness of breath for one week. CLINICAL DATA: This is the patient's initial encounter. Patient reports that signs and symptoms have been present for 1 week and indicates a pain score of 8/10. MEDICAL/SURGICAL HISTORY: Chronic obstructive pulmonary disease. Cardiovascular disease. Hiatal h ernia. Stage four lung cancer, asthma, hypertension. Coronary artery stent. Tonsillectomy. El an section. RADIATION DOSE: 6.32 CTDI (mGy) COMPARISON: [facility] [place], CT CHEST W/O CONTRAST, 02/15/2018. . TECHNIQUE: Volumetric scanning was performed using a multi-row detector CT scanner during bolus infu enoc of 50 ml Omnipaque 350 (iohexol) nonionic water-soluble contrast as a single exam dose. The sandi a was post processed with a variety of visualization algorithms including full volume maximum intensi ty projection and sliding thin slab reformation. Using automated exposure control and adjustment of the mA and/or kV according to patient size, radiation dose was kept as low as reasonably achievable t o obtain optimal diagnostic quality images. DICOM format image data is available electronically for review and comparison. FINDINGS: Pulmonary Arteries: No filling defects are seen in the pulmonary arteries through the segmental vess els. The main pulmonary artery is normal in diameter. Lung: Redemonstration of complete right lung collapse likely secondary to segmental bronchial obstru ction. There are numerous subcentimeter nodules throughout the left lung which appear largely stable since prior exam. Pleura: There is an associated moderate-sized right-sided pleural effusion. Mediastinum: Heart is unremarkable without significant pericardial effusion. Prominence of the right hilum. Osseous Structures: No abnormal focal lytic or blastic bony lesions. Other: Visulaized upper abdomen is unremarkable. CONCLUSION: 1. No CT evidence for pulmonary artery embolus some. 2. Redemonstration of complete right lung collapse likely secondary to segmental bronchial obstructi on with associated moderate size right-sided pleural effusion. 3. Redemonstration of numerous left-sided subcentimeter pulmonary nodules consistent with patient's history of stage IV lung CA. Electronically signed by: Sunil Heller MD 03/21/2018 2:33 PM EDT
--- NOTE | 2018-03-21 16:42 | ECG ---
Date Performed: 03/21/2018 Time Performed: 11:05:26 PTAGE: 62 years EKG: Sinus rhythm MINIMAL ST DEPRESSION Since the previous tracing, no significant change noted BORDERLINE ECG PREVIOUS TRACING : 02/15/2018 00.28 DOCTOR: Ivon Newberry Interpretating Date/Time 03/21/2018 16:38:51
--- NOTE | 2018-03-21 17:04 | P.HPIM ---
History of Present Illness Primary Care Physician: UNKNOWN History of Present Illness: Patient presented to the ER today with a potpourri of complaints including chest pain, shortness of breath, hip pain. Patient states that she spoke with her primary care physician's office who recommended that she come to the ER for evaluation. Patient recently diagnosed with adenocarcinoma lung cancer, but social issues have precluded close follow-up. Patient will be admitted to [facility] for further evaluation and treatment. PMH: cad. pci ruthy ramus intermedius. renal art. stent right iliac stent. pad cervical neck fusion anxiety gerd "gastric ulcer" says she had egd and colon 4 or 5 yrs ago. polyps hemorrhoids. RA htn hyperlipidemia adenocarcinoma of the lung PSH: [facility] bronchoscopy with biopsy (09/2017) bronchoscopy with biopsy (12/2017) FXH: She had 2 sons. Her son who is mentally challenged lives with her and other son who left 2 of his children with her. Has a granddaughter living with her. SHX: She has history of smoking, which she quit 1 month ago. No alcohol abuse. 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 She said she is . ALLERGEIS: TO TERBUTALINE AND GABAPENTIN. - Diagnosis (1) Adenocarcinoma Review of Systems Constitutional: Denies anorexia, Denies body ache(s), Denies chills, Denies fever(s), Denies night sweats, Denies poor appetite, Denies weight gain, Denies weight loss Eyes: Denies blind spots, Denies blurry vision, Denies change in vision, Denies double vision, Denies discharge, Denies loss of peripheral vision, Denies loss of vision, Denies other visual disturbances, Denies pain Ears, Nose, Mouth, and Throat: Denies bleeding gums, Denies difficulty swallowing, Denies dizziness, Denies headache(s), Denies hearing loss, Denies pain with swallowing, Denies poor balance, Denies ringing in the ears, Denies sore throat, Denies throat swelling, Denies tongue swelling Cardiovascular: Denies chest pain, Denies excessive sweating, Denies fainting, Denies fast heart rate, Denies generalized swelling, Denies irregular heart rhythm, Denies leg swelling, Denies lightheadedness, Denies slow heart rate Respiratory: Denies cough, Denies shortness of breath, Denies snoring, Denies wheezing Gastrointestinal: Denies abdominal pain, Denies belching, Denies black, tarry stools, Denies bright, red blood in stools, Denies change in bowel habits, Denies change in stools, Denies coffee ground vomit, Denies constipation, Denies cramping, Denies difficulty swallowing, Denies heartburn, Denies incontinent of stools, Denies loose stools, Denies nausea, Denies pain with swallowing, Denies vomiting, Denies vomiting blood Genitourinary: Denies abnormal vaginal bleeding, Denies blood in urine, Denies difficulty starting urination, Denies difficulty urinating, Denies frequent nighttime urination, Denies painful urination, Denies pelvic pain, Denies side pain, Denies urinary incontinence, Denies urinary hesitancy, Denies urinary urgency Musculoskeletal: Denies abnormal walking, Denies back pain, Denies body aches, Denies decreased muscle mass, Denies joint pain, Denies joint swelling, Denies muscle weakness, Denies neck pain, Denies numbness, Denies stiffness, Denies tingling Skin/Breast: Denies bleeding lesions, Denies change in skin color, Denies changing lesions, Denies itching, Denies lesions, Denies new lesions, Denies non -healing lesions, Denies redness, Denies sensitivity to light, Denies rash, Denies skin pain, Denies skin swelling, Denies skin ulcer, Denies sores, Denies unusual bruising, Denies wounds, Denies yellowing of the skin Neurologic: Denies abnormal hearing, Denies abnormal movements, Denies abnormal speech, Denies abnormal walking, Denies behavioral changes, Denies burning sensations, Denies confusion, Denies dizziness, Denies fainting, Denies frequent falls, Denies headache(s), Denies lack of coordination, Denies localized weakness, Denies loss of vision, Denies memory loss, Denies numbness, Denies other visual disturbances, Denies radiating pain, Denies restless legs, Denies convulsions, Denies seizure-like activity, Denies sensory deficit, Denies tingling/numbness/burning sensations, Denies tremor(s), Denies unsteadiness, Denies weakness Psychiatric: Denies abnormal sleep pattern, Denies anxiety, Denies behavioral changes, Denies change in appetite, Denies confusion, Denies depression, Denies difficulty concentrating, Denies hearing things others do not hear, Denies irritability, Denies lack of enjoyment, Denies memory loss, Denies mood swings, Denies panic attacks, Denies paranoia, Denies seeing things others do not see, Denies thoughts of hurting/killing others, Denies thoughts of hurting/killing yourself Endocrine: Denies cold intolerance, Denies excessive sweating, Denies fatigue, Denies flushing, Denies heat intolerance, Denies increased hunger, Denies increased thirst, Denies increased urination, Denies rapid, pounding, or irregular heartbeat Hematologic/Lymphatic: Denies easy bleeding, Denies easy bruising, Denies enlarged lymph nodes Allergic/Immunologic: Denies hives, Denies lip swelling, Denies throat swelling , Denies wheezing PMFSH - History History Provided By: Patient - Medical History Medical History: Medical History (Last Reviewed 03/25/18 @ 07:48 by Scout Martinez, PT) Joint pain (Acute) Claustrophobia (Acute) Arthritis (Acute) Kidney stones (Acute) Hiatal hernia (Acute) Ulcer (Acute) Bulging disc CAD (coronary artery disease) COPD (chronic obstructive pulmonary disease) High cholesterol Hx of recurrent pneumonia Hypertension Lung cancer Neuropathy - Surgical History Surgical History: Surgical History (Last Updated 03/23/18 @ 10:41 by Leslie Devlin) Hx of cervical spine surgery (Acute) History of renal stent (Acute) Hx of section (Acute) H/O neck surgery History of bronchoscopy History of thoracentesis Hx of cardiac cath Hx of heart artery stent Hx of tonsillectomy - Family History Family History: Family History (Last Updated 03/23/18 @ 18:38 by Leslie Devlin) Son Schizophrenia in children Bipolar 1 disorder Other Has 2 living children - Tobacco History Second Hand Smoke Exposure: Yes Tobacco Use In Past 30 Days: Yes Smoking Status: Former smoker Tobacco Type: Cigarettes - Alcohol History How Often Do You Have a Drink Containing Alcohol: Never - Substance Use History Substance History: No History of Abuse - Travel History Recent Travel in the [place] Within the Last 8 Weeks: No Recent Travel Out of the Country Within the Last 8 Weeks: No - Immunization History Tetanus Immunization: Unsure Medications and Allergies Allergies Allergy/AdvReac Type Severity Reaction Status Date / Time terbutaline Allergy Intermediate Nausea Verified 02/14/18 20:54 gabapentin Allergy Mild Nausea Verified 02/14/18 20:54 metoclopramide [From Reglan] AdvReac Bleeding Verified 02/14/18 20:54 Home Medications Medication Instructions Recorded Confirmed Type amitriptyline 50 mg PO HS 12/30/17 03/22/18 History potassium chloride 10 meq PO DAILY 12/30/17 03/22/18 History pregabalin [Lyrica] 100 mg PO HS 12/30/17 03/22/18 History aspirin 325 mg PO DAILY 02/15/18 03/22/18 History clopidogrel [Plavix] 75 mg PO DAILY 02/15/18 03/22/18 History hydrochlorothiazide 25 mg PO DAILY 02/15/18 03/22/18 History ipratropium-albuterol 3 ml INHALATION Q4-6H PRN 02/15/18 03/22/18 History meprobamate 400 mg PO QID PRN 02/15/18 03/22/18 History omeprazole 20 mg PO DAILY 02/15/18 03/22/18 History simvastatin 40 mg PO QPM 02/15/18 03/22/18 History nitroglycerin 1 patch TRANSDERMAL DAILY 03/23/18 03/23/18 History Exam Vital signs: 03/21/18 12:15 03/21/18 14:44 Temperature Pulse Rate 76 95 H Respiratory Rate 18 18 Blood Pressure 162/87 H 134/94 H Pulse Oximetry 95 97 Narrative: GENERAL: This is a well-nourished, well-developed patient, in no apparent distress. CARDIOVASCULAR: Regular rate and rhythm without murmurs, gallops, or rubs. RESPIRATORY: Clear to auscultation. Breath sounds equal bilaterally. No wheezes , rales, or rhonchi. GASTROINTESTINAL: Abdomen soft, non-tender, nondistended. Normal active bowel sounds MUSCULOSKELETAL: Extremities without clubbing, cyanosis, or edema. NEURO: Alert & Oriented x4 to person, place, time, situation. Moves all ext x4 Results - Labs CBC & Chem 7: 03/24/18 15:31 03/24/18 15:31 - Imaging Chest CTA 03/21/18 10:[address] evidence for pulmonary artery embolus some. 2. Redemonstration of complete right lung collapse likely secondary to segmental bronchial obstruction with associated moderate size right-sided pleural effusion. 3. Redemonstration of numerous left-sided subcentimeter pulmonary nodules consistent with patient's history of stage IV lung CA. Chest X-Ray 03/21/18 10:44 1. No change in the complete opacification of the right hemithorax compared to the prior study. 2. Mild infiltrate in the left lower lung. hip X-Ray 03/21/18 10:53 No acute fracture or joint dislocation. Caprini VTE Risk Assessment Caprini VTE Risk Assessment: Moderate/High Risk (score >= 2) Caprini Risk Assessment Model: Point Value = 1 Point Value = 2 Point Value = 3 Point Value = 5 Age 41-60 Minor surgery BMI > 25 kg/m2 Swollen legs Varicose veins or History of unexplained or recurrent spontaneous Oral contraceptives or hormone replacement Sepsis (< 1 month) Serious lung disease, including pneumonia (< 1 month) Abnormal pulmonary function Acute myocardial infarction Congestive heart failure (< 1 month) History of inflammatory bowel disease Medical patient at bed rest Age 61-74 Arthroscopic surgery Major open surgery (> 45 min) Laparoscopic surgery (> 45 min) Malignancy Confined to bed (> 72 hours) Immobilizing plaster cast Central venous access Age >= 75 History of VTE Family history of VTE Factor V Leiden Prothrombin [id number] Lupus anticoagulant Anticardiolipin antibodies Elevated serum homocysteine Heparin-induced thrombocytopenia Other congenital or acquired thrombophilia Stroke (< 1 month) Elective arthroplasty Hip, pelvis, or leg fracture Acute spinal cord injury (< 1 month) Prophylaxis Regimen: Total Risk Factor Score Risk Level Prophylaxis Regimen 0-1 Low Early ambulation 2 Moderate Order ONE of the following: *Sequential Compression Device (SCD) *Heparin 5000 units SQ BID 3-4 Higher Order ONE of the following medications: *Heparin 5000 units SQ TID *Enoxaparin/Lovenox 40 mg SQ daily (WT < 150 kg, CrCl > 30 mL/min) *Enoxaparin/Lovenox 30 mg SQ daily (WT < 150 kg, CrCl > 10-29 mL/min) *Enoxaparin/Lovenox 30 mg SQ BID (WT < 150 kg, CrCl > 30 mL/min) AND/OR *Sequential Compression Device (SCD) 5 or more Highest Order ONE of the following medications: *Heparin 5000 units SQ TID (Preferred with Epidurals) *Enoxaparin/Lovenox 40 mg SQ daily (WT < 150 kg, CrCl > 30 mL/min) *Enoxaparin/Lovenox 30 mg SQ daily (WT < 150 kg, CrCl > 10-29 mL/min) *Enoxaparin/Lovenox 30 mg SQ BID (WT < 150 kg, CrCl > 30 mL/min) AND *Sequential Compression Device (SCD) Assessment and Plan - Assessment (1) Adenocarcinoma Code(s): C80.1 - Malignant (primary) neoplasm, unspecified Status: Acute Plan: Patient presented to the ER today with a potpourri of complaints including chest pain, shortness of breath, hip pain. Patient states that she spoke with her primary care physician's office who recommended that she come to the ER for evaluation. Patient recently diagnosed with adenocarcinoma lung cancer, but social issues have precluded close follow-up. Patient will be admitted to [facility] for further evaluation and treatment. - resume home medications - consider hospice - lovenox for DVT prophylaxis - supportive care
[2018-03-21] MEDS ORDERED: Acetaminophen 325 MG Tablet PO PRN (17:08)
--- NOTE | 2018-03-21 17:22 | CT ---
EXAM DATE: 03/21/2018 3:39 PM EDT AGE/SEX: 62 years / Female INDICATIONS: Fall left hip pain CLINICAL DATA: This is the patient's initial encounter. Patient reports that signs and symptoms have been present for 1 day and indicates a pain score of 4/10. MEDICAL/SURGICAL HISTORY: Cardiovascular disease. Cardiovascular disease. Hiatal hernia. Hyperte nsion lung ca None. RADIATION DOSE: 13.98 CTDI (mGy) COMPARISON: [facility], HIP LEFT W AP PELVIS 2V, 03/21/2018. . TECHNIQUE: Multiple contiguous axial images were acquired using a multirow detector CT scanner witho ut contrast. Multiplanar reconstruction was performed in the sagittal and coronal planes. Using aut omated exposure control and adjustment of the mA and/or kV according to patient size, radiation dose was kept as low as reasonably achievable to obtain optimal diagnostic quality images. DICOM format i mage data is available electronically for review and comparison. FINDINGS: Bones: The bony structures about the hip are in normal alignment. The trabecular pattern of the fem oral neck is intact. No fracture is seen. The bony pelvic ring is intact. Tiny bone island in the femoral head. There is also a small bone island in the anterior left iliac wing. Joints: No significant arthropathy or bony hypertrophy is seen. The articular surface of the femora l head is smooth. Soft Tissues: Unremarkable for a non-contrast study. Other: No foreign bodies seen. CONCLUSION: 1. No acute fracture or joint dislocation. Electronically signed by: Jasbir Suarez MD 03/21/2018 5:21 PM EDT
[2018-03-21] MEDS: Temazepam 15 MG Capsule PO PRN (21:26)
[2018-03-21] MEDS: Senna/Docusate Sodium 8.6/50 MG Tablet PO SCH (21:48)
[2018-03-21] MEDS: Enoxaparin Inj 30 MG/0.3 ML Syringe SQ SCH (21:48)
[2018-03-22] MEDS: Senna/Docusate Sodium 8.6/50 MG Tablet PO SCH ×2 (10:26→19:59)
--- NOTE | 2018-03-22 10:31 | P.PNIM ---
Subjective Interval history: Pt reports that her pain is still poorly controlled She was started on [place] 5/325 but was on the 10/325 at home She had accepted Hospice recently but then revoked it Pt never followed up with Heme/Onc for any further recommendations. Discussed Hospice again as a means of pain control as well but pt refusing at this time. She was upset about her experience with Hospice and states that the Morphine they gave her did not work for her pain. During her last hospitalization she was also on Fentanyl patch for pain control Physical Exam Vital signs: Vital Signs 03/21/18 10:34 03/21/18 11:04 03/21/18 11:05 Temperature 98.1 F Pulse Rate 100 H 93 H Respiratory Rate 16 18 Blood Pressure 161/90 H 156/93 H Pulse Oximetry 94 L 96 95 03/21/18 12:15 03/21/18 14:44 03/21/18 17:48 Temperature Pulse Rate 76 95 H 96 H Respiratory Rate 18 18 18 Blood Pressure 162/87 H 134/94 H 161/94 H Pulse Oximetry 95 97 95 03/21/18 20:00 03/21/18 23:45 03/22/18 00:00 Temperature 98.3 F 98.2 F Pulse Rate 90 92 H Respiratory Rate 16 16 16 Blood Pressure 161/89 H 112/74 Pulse Oximetry 95 95 03/22/18 02:15 03/22/18 04:33 03/22/18 07:19 Temperature 98.8 F Pulse Rate 83 Respiratory Rate 16 16 16 Blood Pressure 116/82 Pulse Oximetry 89 L Intake & Output 03/21/18 03/22/18 03/22/18 18:59 06:59 18:59 Intake Total 240 / 240 Balance 240 / 240 Weight 40.823 kg 40.823 kg Intake: Oral 240 / 240 Other: # Voids 2 Weight On Admission 40.823 kg Narrative: General: Cachectic female in NAD, AAOx3 Chest: Decreased air movement on the right chest, good air movement on the left Cardiac: Regular Abd: +BS, soft ND/NT Ext: No edema Results - Labs CBC & Chem 7: 03/24/18 15:31 03/24/18 15:31 Laboratory Results - last 24 hr 03/21/18 03/21/18 03/21/18 11:13 11:13 11:13 WBC 12.3 H RBC 3.89 L Hgb 11.9 Hct 35.6 MCV 91.5 MCH 30.6 MCHC 33.4 RDW 17.1 Plt Count 675 H MPV 9.1 Neut % (Auto) 87.6 H Lymph % (Auto) 7.7 L [place] % (Auto) 4.1 Eos % (Auto) 0.2 Baso % (Auto) 0.4 Neut # (Auto) 10.8 H Lymph # (Auto) 0.9 L [place] # (Auto) 0.5 Eos # (Auto) 0.0 Baso # (Auto) 0.0 WBC Differential . Differential Comment Auto diff final PT 12.4 H INR 1.2 APTT 26.8 Sodium Potassium Chloride Carbon Dioxide Anion Gap BUN Creatinine Estimated GFR Random Glucose Calcium Magnesium Total Bilirubin AST ALT Alkaline Phosphatase Total Creatine Kinase Troponin I B-Natriuretic Peptide 33 Total Protein Albumin 03/21/18 12:48 WBC RBC Hgb Hct MCV MCH MCHC RDW Plt Count MPV Neut % (Auto) Lymph % (Auto) [place] % (Auto) Eos % (Auto) Baso % (Auto) Neut # (Auto) Lymph # (Auto) [place] # (Auto) Eos # (Auto) Baso # (Auto) WBC Differential Differential Comment PT INR APTT Sodium 132 L Potassium 3.4 L Chloride 86 L Carbon Dioxide 31.7 Anion Gap 14 BUN 9 Creatinine 0.51 Estimated GFR Greater than 89 Random Glucose 94 Calcium 9.4 Magnesium 1.5 Total Bilirubin 0.4 AST 26 ALT 14 Alkaline Phosphatase 119 H Total Creatine Kinase 67 Troponin I Less than 0.02 L B-Natriuretic Peptide Total Protein 7.6 Albumin 2.5 L - Imaging Impressions Chest CTA 03/21/18 10:44 CONCLUSION: 1. No CT evidence for pulmonary artery embolus some. 2. Redemonstration of complete right lung collapse likely secondary to segmental bronchial obstruction with associated moderate size right-sided pleural effusion. 3. Redemonstration of numerous left-sided subcentimeter pulmonary nodules consistent with patient's history of stage IV lung CA. Chest X-Ray 03/21/18 10:44 CONCLUSION: 1. No change in the complete opacification of the right hemithorax compared to the prior study. 2. Mild infiltrate in the left lower lung. Hip X-Ray 03/21/18 10:53 CONCLUSION: No acute fracture or joint dislocation. Hip CT 03/21/18 15:36 CONCLUSION: 1. No acute fracture or joint dislocation. Assessment and Plan - Assessment (1) Adenocarcinoma Code(s): C80.1 - Malignant (primary) neoplasm, unspecified Status: Acute Plan: Metastatic adenocarcinoma of the lung - Pt is a 62 y/o female with recent diagnosis of lung cancer, recurrent pneumonia, hypertension, neuropathy, anxiety, coronary artery disease, chronic obstructive pulmonary disease, hiatal hernia and arthritis. - Patient presented to the ER on 03/21/18 with complaints of worsening shortness of breath, right sided sharp chest pain and hip pain. Patient states that she spoke with her primary care physician's office who recommended that she come to the ER for evaluation. Patient recently diagnosed with adenocarcinoma lung cancer, but social issues have precluded close follow-up. - She had recently accepted Hospice recently but then revoked it. She was upset about her experience with Hospice and states that the Morphine they gave her did not work for her pain. - Pt never followed up with Heme/Onc for any further recommendations. Her genetic workup was negative for mutation. - Pts main complaint is pain control - Stop the Oxycodone. - Start [place] 10/325 Q4H PRN pain and pt asking for IV med for breakthrough. She did not get any relief with Morphine in the past. We will add Dilaudid 1mg IV Q6H for breakthrough. - During her last hospitalization she was also on Fentanyl patch for pain control and this may need to be resumed. - Pt is refusing Hospice at this time. - Palliative Care consultation, they were following during last hospitalization. - Case discussed with Dr. Gutierrez on 03/22/18 and she will come by to speak with the pt today - Lovenox for DVT prophylaxis - supportive care - Attending Attestation The exam, history, and the medical decision-making described in the above note were completed with the assistance of the mid-level provider. I reviewed and agree with the findings presented. I attest that I had a [id number] encounter with the patient on the same day, and personally performed and documented my assessment and findings in the medical record. Patient examined. Assessment and plan formulated with Nisa Salmon PA-C. I agree with the above.
[2018-03-22 11:19] LABS: Anion Gap 8 meq/L (5-15); Blood Urea Nitrogen 8 mg/dL (7-18); Carbon Dioxide 34.7 meq/L (21.0-32.0); Chloride 91 meq/L (98-107); Glomerular Filtration Rate Greater Than 89 mL/min (>89); Glucose,Random 149 mg/dL (74-106); Sodium 134 meq/L (136-145)
--- NOTE | 2018-03-22 11:42 | P.PNPAL ---
Palliative care consulted to assist with pain management and goals of medical treatment. Ms. Alanis is known to palliative care from previous admission last month. Supportive visit with Ms. Alanis today to re-introduce palliative care. She inquires if she has to have palliative care involved. States "I'm fine, I'm going back to sleep now". She is receptive to follow-up by palliative care team tomorrow. CM in providing list of SNFs. Ms. Alanis is in no apparent distress. When asked how she is feeling she answers "ok". Difficult to engage further in conversation. Health care surrogate completed 02/16/2018 and [facility] DNR completed 02/17/2018 during last admission with palliative care. Copies in EMR. Per palliative care [facility] PA[facility] note 02/23/2018: "Patient has not informed her family about her recent diagnosis of lung cancer. She feels she is not ready yet to inform her family of her recent lung cancer diagnosis. Patient has requested that any medical senior project leader/team lead who comes to see her does not discuss her medical condition in front of her family. Patient stated that it is acceptable with her for medical staff to request her family to give them and patient privacy during their visit." Unsure if this remains the same as she would not engage much with me. Recommend discussing with patient prior to conversations in front of others at bedside during visits. Palliative care will continue to follow throughout hospitalization. Full consultation to follow tomorrow per patient's request.
[2018-03-22 11:45] LABS: Potassium 2.6 meq/L (3.5-5.1)
[2018-03-22] MEDS: Pantoprazole Sodium 20 MG DR Tablet PO SCH (12:02)
[2018-03-22] MEDS: Folic Acid 1 MG Tablet PO SCH (12:02)
[2018-03-22] MEDS ORDERED: MEPROBAMATE 400 MG PO PRN (13:00)
[2018-03-22] MEDS: HYDROmorphone PF Inj 2 MG/ML Vial IV.PUSH PRN (16:40)
[2018-03-22] MEDS: Enoxaparin Inj 30 MG/0.3 ML Syringe SQ SCH (19:03)
[2018-03-22] MEDS: ALPRAZolam 0.25 MG Tablet PO PRN (19:58)
[2018-03-22] MEDS: Temazepam 15 MG Capsule PO PRN (20:09)
[2018-03-23] MEDS: HYDROmorphone PF Inj 2 MG/ML Vial IV.PUSH PRN ×2 (01:06→17:56)
[2018-03-23] MEDS: ALPRAZolam 0.25 MG Tablet PO PRN ×3 (02:48→17:56)
[2018-03-23 08:13] LABS: Anion Gap 7 meq/L (5-15); Blood Urea Nitrogen 9 mg/dL (7-18); Calcium 8.9 mg/dL (8.5-10.1); Carbon Dioxide 32.6 meq/L (21.0-32.0); Chloride 94 meq/L (98-107); Glomerular Filtration Rate Greater Than 89 mL/min (>89); Glucose,Random 95 mg/dL (74-106); Sodium 134 meq/L (136-145)
[2018-03-23] MEDS: Aspirin 325 MG Tablet PO SCH (09:18)
[2018-03-23] MEDS: Folic Acid 1 MG Tablet PO SCH (09:18)
[2018-03-23] MEDS: Pantoprazole Sodium 20 MG DR Tablet PO SCH (09:19)
[2018-03-23] MEDS: Senna/Docusate Sodium 8.6/50 MG Tablet PO SCH ×2 (09:19→21:26)
--- NOTE | 2018-03-23 11:02 | P.CONPAL ---
Consult Service: Palliative Care Requesting Physician: Pietro Wood Reason for Consult: a. To assist with evaluation and management of symptoms including: Shortness of breath, pain, debility b. To assist medical decision maker(s) with: better understanding of current medical conditions; weighing benefits/burdens of medical treatment options; making medical treatment decisions. Primary Care Provider: Eric Newton History of Present Illness History of Present Illness: Mrs Alanis is a 62-year-old patient with a medical history significant for metastatic stage IV lung cancer, recurrent pneumonia, pleural effusion, hypertension, neuropathy, anxiety, coronary artery disease, chronic obstructive pulmonary disease, hiatal hernia and arthritis. Patient presented to the emergency room on 03/21/18 with complaints of chest pain, shortness of breath over the past couple weeks and left hip pain. She was advised by her primary care physician to go to the hospital. Patient's last hospitalization was in January 2018. At that time she was followed by oncology and palliative care. Patient was to follow with hematology oncology and she never did. ER course: * Vital signs: Temperature 98.1F, pulse 100, respiration rate 16, BP 161/90, O2 saturation 94%. * EKG reveals sinus rhythm with minimal ST depression. * Chest x-ray revealed right hemothorax and mild infiltrate in the left lower lung. * Chest CTA revealed complete right lung collapse likely secondary to bronchial obstruction with associated moderate size right-sided pleural effusion and redemonstration of numerous left-sided subcentimeter pulmonary nodules consistent with patient's history of stage IV lung cancer. * Laboratory workup revealed WBC 12.3, hemoglobin 11.9, hematocrit 35.6, platelet count 675, PT 12.4, INR 1.2, APTT 26.8, sodium 132, potassium 3.4, BUN/ creatinine 9/0.51, random glucose 94, AST 26, ALT 14, alkaline phosphatase 119, troponin less than 0.02, total protein 7.6, albumin 2.5 * Left hip x-ray revealed no acute fracture or joint dislocation. * Left hip CT revealed no acute fracture or joint dislocation with tiny bone island in the femoral head and small bone island in the anterior left iliac wing. * Patient was admitted for further evaluation and treatment According to EMR record patient had been enrolled in hospice services after discharge from a recent hospitalization but revoked it due to hospice service inability to effectively control her pain. Physical therapy consulted recommending physical therapy at rehabilitation. Palliative care consulted to assist with symptom management and establishment of goals of medical treatment. Patient seen and examined in his room in the emergency room. Patient is sleeping, easily arousable, alert, oriented to self, place and situation. Patient currently denies pain though explains that when she experiences pain, it is around the mid sternum area and describes it as stabbing pain as well as pain to her left hip and back. Patient states that her current medication regimen seems to be controlling her pain. She is also complaining of feeling anxious and she feels that being hospitalized is attributing to a feeling more anxious than usual. Patient continues to explain how yesterday she was very anxious to the point of wanting to leave AGAINST MEDICAL ADVICE. She feels that Xanax has helped her feel better. Reintroduced palliative care to patient and its role in symptom management and establishment of goals of medical treatment. Obtained events leading to this hospitalization. Patient is not completed and living will or power of district attorney at this time. Patient states that she has been not feeling well enough to get that done. Patient did not want to discuss why she never followed with oncology. She also was not able to explain circumstances leading to her enrolling in hospice. All patient stated was that she is no longer interested in hospice services at this time. She states that she has been notified that oncology has been consulted. Patient states that at this point she is willing to undergo any treatment offered by oncology, either chemotherapy, radiation or both. Encouraged patient to wait for oncology to speak to her regarding what they have to offer. Patient continues to say that she is not yet ready to give up. She also states that she is amenable to being discharged to a senior living facility for rehabilitation. Patient is also concerned about what would happen if oncology is not able to offer her any treatment. Reintroduced hospice to patient. Explained to patient that she will still be eligible for hospice services if she chooses to pursue comfort measures only. Patient stated that she definitely would not want to be enrolled back to hospice through [place]. Notified patient that the the hospices available locally in case management can assist you with that. Patient stated that so far she has only informed her sister who lives out of state of her lung cancer diagnosis and would want healthcare providers to request her family or any visitors present at bedside at time of visit to step out of the room before discussing anything regarding her medical conditions and treatment plan. Goals are aggressive short of no code. Case discussed with bedside RN and Dr. Wood. . Function/Cognitive Trajectory: Patient was hospitalized in September and December 2017 with complaints of chest pain and shortness of breath. CT thorax in September 2017 showed abnormal right lung mass and patient underwent bronchoscopy with Dr. Anthony. Patient did not follow up after discharge from the hospital due to social issues. Patient presented again in December [address] on 12/30/17 showed increasing opacity in the right mid and lower lungs with a small right pleural effusion and multiple nodular densities in the lower left lung. Patient underwent another bronchoscopy on 01/07/[address] Anthony and it showed moderate tracheobronchitis, no obstruction, no mass lesion. Patient left the hospital on 01/08/18 AMA due to social issues and reported that she will follow-up with her primary care doctor and dog or animal sitter. Pathology from bilateral bronchial washing collected on 01/07/18, was positive for malignant cells and consistent with adenocarcinoma. Results were reviewed with the patient by her PCP on . Patient last hospitalization was in January 2018, and a complaints with shortness of breath and right-sided sharp chest pain. Patient was treated for recurrent pneumonia, and right pleural effusion. At that time patient was amenable to starting treatment for metastatic lung cancer depending on genetic workup. Patient's genetic workup was negative for mutation. During her last hospitalization patient underwent ultrasound guided right-sided thoracentesis on 02/16/18 and bronchoscopy on 02/22/18. Pathology results from right mainstem bronchus washing was positive for malignant cells and consistent with adenocarcinoma. Prior to the last hospitalization in January patient was independent of all his ADLs. This hospitalization patient reported difficulty with ambulation due to left hip pain independent of all his ADLs. Review of Systems Constitutional: Reports weakness, Reports weight loss, Denies fever(s) Eyes: Denies blurry vision, Denies double vision Ears, Nose, Mouth, and Throat: Denies abnormal hearing, Denies difficulty swallowing, Denies nasal congestion, Denies nasal discharge Cardiovascular: Reports chest pain, Reports rapid, pounding, or irregular heartbeat, Reports shortness of breath, Reports shortness of breath with activity, Denies foot swelling, Denies leg swelling Respiratory: Reports shortness of breath, Reports shortness of breath with activity, Denies chest congestion, Denies cough, Denies wheezing Gastrointestinal: Denies abdominal pain, Denies loose stools, Denies nausea, Denies vomiting Genitourinary: Denies blood in urine, Denies urinary incontinence Musculoskeletal: Reports back pain, Reports joint pain (Left hip pain) Skin/Breast: Denies dry skin, Denies non-healing lesions, Denies unusual bruising Neurologic: Denies abnormal hearing, Denies confusion Psychiatric: Reports anxiety, Reports depression, Denies change in appetite, Denies confusion Hematologic/Lymphatic: Reports easy bruising PMFSH - History History Provided By: Patient, Medical Record - Medical History Medical History: Medical History (Last Reviewed 03/22/18 @ 07:50 by Tanner Akhtar) Joint pain (Acute) Claustrophobia (Acute) Arthritis (Acute) Kidney stones (Acute) Hiatal hernia (Acute) Ulcer (Acute) Lung cancer Bulging disc CAD (coronary artery disease) COPD (chronic obstructive pulmonary disease) High cholesterol Hx of recurrent pneumonia Hypertension Neuropathy - Surgical History Surgical History: Surgical History (Last Updated 03/23/18 @ 10:41 by Leslie Devlin) Hx of cervical spine surgery (Acute) History of renal stent (Acute) Hx of section (Acute) History of bronchoscopy History of thoracentesis H/O neck surgery Hx of cardiac cath Hx of heart artery stent Hx of tonsillectomy - Family History Family History: Family History (Last Updated 03/23/18 @ 18:38 by Leslie Devlin) Son Schizophrenia in children Bipolar 1 disorder Other Has 2 living children - Social History I have reviewed the patient's Social History: Yes - Tobacco History Second Hand Smoke Exposure: No Tobacco Use In Past 30 Days: Yes Smoking Status: Current every day smoker Tobacco Type: Cigarettes - Alcohol History How Often Do You Have a Drink Containing Alcohol: Monthly or less - Substance Use History Substance History: No History of Abuse - Travel History Recent Travel in the [place] Within the Last 8 Weeks: No Recent Travel Out of the Country Within the Last 8 Weeks: No - Immunization History Tetanus Immunization: Unsure Medications and Allergies Active Medications: Active Medications Acetaminophen (Tylenol) 650 mg PO Q4H PRN PRN Reason: Temp > 100.4 Hydrocodone Bitart/Acetaminophen ([place] 10/325) 1 tab PO Q4H PRN PRN Reason: pain 2-10 Last Admin: 03/23/18 07:02 Dose: 1 tab Al Hydroxide/Mg Hydroxide (Milk Of Julieta Nicholas) 30 ml PO Q12H PRN PRN Reason: Mild Constipation Albuterol (Duoneb Neb (Prn)) 1 ampul NEB Q4HR NEB PRN PRN Reason: SHORTNESS OF BREATH Alprazolam (Xanax) 0.25 mg PO Q6H PRN PRN Reason: ANXIETY AND/OR AGITATION Last Admin: 03/23/18 09:19 Dose: 0.25 mg Amitriptyline HCl (Elavil) 50 mg PO HS [facility] Last Admin: 03/22/18 19:59 Dose: 50 mg Aspirin (Aspirin) 325 mg PO DAILY [facility] Last Admin: 03/23/18 09:18 Dose: 325 mg Clopidogrel Bisulfate (Plavix) 75 mg PO DAILY [facility] Last Admin: 03/23/18 09:18 Dose: 75 mg Cyclobenzaprine HCl (Flexeril) 10 mg PO Q8H PRN PRN Reason: MUSCLE SPASM Last Admin: 03/22/18 20:09 Dose: 10 mg Enoxaparin Sodium (Lovenox Inj) 30 mg SQ Q24H [facility] Last Admin: 03/22/18 19:03 Dose: Not Given Fentanyl (Duragesic 50 Mcg Patch.72hr) 1 patch T-DERMAL Q3D [facility] Last Admin: 03/22/18 12:55 Dose: 1 patch Folic Acid (Folic Acid) 1 mg PO DAILY [facility] Last Admin: 03/23/18 09:18 Dose: 1 mg Hydromorphone HCl (Dilaudid Pf Inj) 1 mg IV.PUSH Q4H PRN PRN Reason: breakthrough pain over 7 Last Admin: 03/23/18 01:06 Dose: 1 mg Ondansetron HCl (Zofran Inj) 4 mg IV.PUSH Q6H PRN PRN Reason: NAUSEA OR VOMITING Last Admin: 03/22/18 12:59 Dose: 4 mg Pantoprazole Sodium (Protonix) 20 mg PO DAILY [facility] Last Admin: 03/23/18 09:19 Dose: 20 mg Patch Removal (Remove Old Patch) 1 each T-DERMAL Q3D [facility] Pt Own Med: (Meprobamate 400 Mg) 0 each PO QID PRN PRN Reason: ANXIETY Potassium Chloride (K-Dur) 20 meq PO DAILY [facility] Last Admin: 03/23/18 09:18 Dose: 20 meq Pravastatin Sodium (Pravachol) 80 mg PO QPM [facility] Last Admin: 03/22/18 19:58 Dose: 80 mg Pregabalin (Lyrica) 100 mg PO HS [facility] Last Admin: 03/22/18 19:59 Dose: 100 mg Senna/Docusate Sodium (Justina-Colace) 1 tab PO BID [facility] Last Admin: 03/23/18 09:19 Dose: 1 tab Temazepam (Restoril) 15 mg PO HS PRN PRN Reason: INSOMNIA Last Admin: 03/22/18 20:09 Dose: 15 mg Allergies Allergy/AdvReac Type Severity Reaction Status Date / Time terbutaline Allergy Intermediate Nausea Verified 02/14/18 20:54 gabapentin Allergy Mild Nausea Verified 02/14/18 20:54 metoclopramide [From Reglan] AdvReac Bleeding Verified 02/14/18 20:54 Home Medications Medication Instructions Recorded Confirmed Type amitriptyline 50 mg PO HS 12/30/17 03/22/18 History potassium chloride 10 meq PO DAILY 12/30/17 03/22/18 History pregabalin [Lyrica] 100 mg PO HS 12/30/17 03/22/18 History aspirin 325 mg PO DAILY 02/15/18 03/22/18 History clopidogrel [Plavix] 75 mg PO DAILY 02/15/18 03/22/18 History hydrochlorothiazide 25 mg PO DAILY 02/15/18 03/22/18 History ipratropium-albuterol 3 ml INHALATION Q4-6H PRN 02/15/18 03/22/18 History meprobamate 400 mg PO QID PRN 02/15/18 03/22/18 History omeprazole 20 mg PO DAILY 02/15/18 03/22/18 History simvastatin 40 mg PO QPM 02/15/18 03/22/18 History hydrocodone-acetaminophen 1 tab PO Q4H PRN 03/22/18 03/22/18 History Advance Directives Advance Directives Date on File: 02/16/18 (Copy on EMR) Living Will: No Healthcare Surrogate: Yes Health Care Surrogate Name and Number: HCS: Yenny Valadez [phone] Alt: Molina Ruiz Power of Fish Peddler: No Today's verbally stated goals: Patient wants aggressive treatment. She is amenable to any treatment offered by oncology. . Family/friends goals: Patient does not want her family involved in her medical care. Ethical and Legal Issues: Patient stated that so far she has only informed her sister who lives out of state of her lung cancer diagnosis and would want healthcare providers to request her family or any visitors present at bedside at time of visit to step out of the room before discussing anything regarding her medical conditions and treatment plan. . Physical Exam Vital Signs: Vital Signs - 24 hr 03/22/18 20:00 03/23/18 00:00 03/23/18 03:13 Temperature 97.5 F L 98.3 F 97.1 F L Pulse Rate 88 98 H 95 H Respiratory Rate 15 14 15 Blood Pressure 127/78 106/77 107/74 Pulse Oximetry 98 93 L 94 L 03/23/18 07:17 Temperature 97.8 F Pulse Rate 98 H Respiratory Rate 16 Blood Pressure 114/81 Pulse Oximetry 92 L I&O: Intake & Output 03/21/18 03/22/18 03/23/18 03/24/18 06:59 06:59 06:59 06:59 Intake Total 240 / 240 Balance 240 / 240 Weight 40.823 kg Physical Exam: CONSTITUTIONAL/GENERAL: This is an adequately nourished patient, in no apparent distress. TUBES/LINES/DRAINS: PIV SKIN: No jaundice, rashes, or lesions. Ecchymoses on upper extremities. No wounds seen anteriorly. Skin temperature appropriate. Not diaphoretic. HEAD: Atraumatic. Normocephalic. EYES: Pupils equal and round and reactive. Extraocular motions intact. No scleral icterus. No injection or drainage. Fundi not examined. ENT: Hearing grossly normal. Nose without bleeding or purulent drainage. Dry lips NECK: Trachea midline. Supple, nontender. CARDIOVASCULAR: Regular rate and rhythm without murmurs, gallops, or rubs. No JVD. Peripheral pulses symmetric. RESPIRATORY/CHEST: Symmetric, unlabored respirations. Clear to auscultation. Breath sounds equal bilaterally. No wheezes, rales, or rhonchi. GASTROINTESTINAL: Abdomen soft, non-tender, nondistended. No guarding. Bowel sounds present. GENITOURINARY: Without palpable bladder distension. MUSCULOSKELETAL: Extremities without clubbing, cyanosis, or edema. No joint tenderness or effusion noted. No calf tenderness. No mottling or clubbing. LYMPHATICS: Did not assess NEUROLOGICAL: Awake and alert. Motor and sensory grossly within normal limits. Follows commands. Cognitively sharp. Moves all extremities. PSYCHIATRIC: No obvious anxiety/depression. no apparent hallucinations or other psychotic thought process. Diagnostic Tests Laboratory: Laboratory Results - last 72 hr 03/21/18 03/21/18 03/21/18 11:13 11:13 11:13 WBC 12.3 H RBC 3.89 L Hgb 11.9 Hct 35.6 MCV 91.5 MCH 30.6 MCHC 33.4 RDW 17.1 Plt Count 675 H MPV 9.1 Neut % (Auto) 87.6 H Lymph % (Auto) 7.7 L Gaines % (Auto) 4.1 Eos % (Auto) 0.2 Baso % (Auto) 0.4 Neut # (Auto) 10.8 H Lymph # (Auto) 0.9 L Gaines # (Auto) 0.5 Eos # (Auto) 0.0 Baso # (Auto) 0.0 WBC Differential . Differential Comment Auto diff final PT 12.4 H INR 1.2 APTT 26.8 Sodium Potassium Chloride Carbon Dioxide Anion Gap BUN Creatinine Estimated GFR Random Glucose Calcium Magnesium Total Bilirubin AST ALT Alkaline Phosphatase Total Creatine Kinase Troponin I B-Natriuretic Peptide 33 Total Protein Albumin 03/21/18 03/22/18 03/23/18 12:48 10:55 06:50 WBC RBC Hgb Hct MCV MCH MCHC RDW Plt Count MPV Neut % (Auto) Lymph % (Auto) Gaines % (Auto) Eos % (Auto) Baso % (Auto) Neut # (Auto) Lymph # (Auto) Gaines # (Auto) Eos # (Auto) Baso # (Auto) WBC Differential Differential Comment PT INR APTT Sodium 132 L 134 L 134 L Potassium 3.4 L 2.6 L* D 3.0 L Chloride 86 L 91 L 94 L Carbon Dioxide 31.7 34.7 H 32.6 H Anion Gap 14 8 7 BUN 9 8 9 Creatinine 0.51 0.41 L 0.40 L Estimated GFR Greater than 89 Greater than 89 Greater than 89 Random Glucose 94 149 H 95 Calcium 9.4 9.0 8.9 Magnesium 1.5 Total Bilirubin 0.4 AST 26 ALT 14 Alkaline Phosphatase 119 H Total Creatine Kinase 67 Troponin I Less than 0.02 L B-Natriuretic Peptide Total Protein 7.6 Albumin 2.5 L Result Diagrams: 03/21/18 11:13 03/23/18 06:50 Imaging: Chest CTA 03/21/18 10:44 CONCLUSION: 1. No CT evidence for pulmonary artery embolus some. 2. Redemonstration of complete right lung collapse likely secondary to segmental bronchial obstruction with associated moderate size right-sided pleural effusion. 3. Redemonstration of numerous left-sided subcentimeter pulmonary nodules consistent with patient's history of stage IV lung CA. Chest X-Ray 03/21/18 10:44 CONCLUSION: 1. No change in the complete opacification of the right hemithorax compared to the prior study. 2. Mild infiltrate in the left lower lung. Hip X-Ray 03/21/18 10:53 CONCLUSION: No acute fracture or joint dislocation. Hip CT 03/21/18 15:36 CONCLUSION: 1. No acute fracture or joint dislocation. Patient/Family Conference Issues Discussed: * Palliative care role, purpose, approach * Additional medical, psychosocial, and spiritual history * Patients general health, functional status, and cognitive changes in the months leading up to the current hospitalization * Patient/family understanding of the current medical problems * Patient/family understanding of prognosis * Patients goals of care as best understood from advance directives and/or conversations and/or values * Current medical treatment options and benefits/burdens of those options * Likely scenarios comparing ongoing aggressive care with a transition to comfort measures only * Questions answered to the best of my ability * Palliative care contact information provided Assessment and Plan - Disease Oriented Problem List (1) Metastatic primary lung cancer (2) Pleural effusion (3) Chronic obstructive pulmonary disease - Symptom Scale (2) Anxiety 0-10 Scale: Unable to quantify Pertinent Non-Medical Issues: Psychosocial: Patient was born and raised in [place], [place]. She moved to [place] 10 years ago. She is and has 2 sons and 4 grandchildren. 1 of her sons is mentally challenged-he has schizophrenia and bipolar. Patient lives with her son who is mentally challenged and 2 grandchildren from her old son -ages 1 and 2 and another adult granddaughter. 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 Spiritual:Patient is Confucianism. Legal:Completed healthcare surrogate and has a State of [place] DNR. Copies on EMR Ethical issues impacting care: Per last visit, patient had not informed her family about her recent diagnosis of lung cancer. She feels she is not ready yet to inform her family of her recent lung cancer diagnosis. Patient has requested that any medical team leader surgery who comes to see her does not discuss her medical condition in front of her family. Patient stated that it is acceptable with her for medical staff to request her family to give them and patient privacy during their visit. Important Contacts: Healthcare surrogate -Granddaughter-Yenny Valadez [phone] Alternate healthcare surrogate-Molina Ruiz Prognosis: Mrs Alanis is a 62-year-old patient with a medical history significant for metastatic stage IV lung cancer, recurrent pneumonia, pleural effusion, hypertension, neuropathy, anxiety, coronary artery disease, chronic obstructive pulmonary disease, hiatal hernia and arthritis. Patient presented to the emergency room on 03/21/18 with complaints of chest pain, shortness of breath over the past couple weeks and left hip pain. Chest CTA revealed right pleural effusion. Given multiple ongoing comorbidities inclusive of recurrent pleural effusion in the setting of metastatic stage IV lung cancer, patient remains at high risk for further complications, deterioration and decline. If goals in line with comfort care patient will be appropriate for hospice services. Code Status: No Code DNR Plan: PLAN: Legal decision maker: Patient is able to participate in making his own medical decisions. In the event that she is incapacitated, designated her granddaughter Yenny Valadez as her healthcare surrogate and SaraMolina is her alternate healthcare surrogate. Goals: Aggressive short of no code. Patient is willing to undergo any treatment offered by oncologist/radiation- be it chemotherapy or radiation. She states that she is not interested in hospice at this time though she will reconsider hospice if oncology has nothing to offer her. She is also amenable to rehabilitation. CODE STATUS: No code DNR-has [facility] DNR SYMPTOMS: * Pain: Patient complaining of pain to your chest, left hip and back. Pain is currently managed with hydrocodone/acetaminophen 10/325 every 4 hours prn and hydromorphone 1 mg IV push every 4 hours as needed. She has required x3 hydromorphone prn doses in the past 24 hours. Patient is his required x4 hydrocodone/acetaminophen as needed doses in the past 24 hours. She is also on a fentanyl patch 50 mcg every 72 hours. We will closely monitor how much patient is needing for breakthrough pain and will adjust current medications accordingly. Patient states that current medication regimen seems to be controlling her pain. * Shortness of breath: Patient has stage IV lung cancer. She is currently on O2 2 L nasal cannula. Patient may benefit from Decadron * Debility: Aggressive. Patient has stage IV lung cancer. Now complaining of left hip pain with difficulty in ambulation in the past 2 weeks. Physical therapy consulted recommending physical therapy at rehabilitation. Patient's goals currently are aggressive and she is amenable to rehabilitation. ==Patient stated that so far she has only informed her sister who lives out of state of her lung cancer diagnosis and would want healthcare providers to request her family or any visitors present at bedside at time of visit to step out of the room before discussing anything regarding her medical conditions and treatment plan. Palliative care will continue to follow the patient during hospital course as condition evolves, to assist patient/decision-maker with understanding of their medical conditions, weighing benefits/burdens of treatment options, for clarification of goals of treatment. Additionally will assist with any symptoms of palliative concern Appreciation Thank you for the opportunity to participate in the care of Yessica Alanis. Attestation Attestation: To help prompt me to consider important information that might be impacting today's encounter and assessment, information from prior notes written by myself or my colleagues may have been "brought forward" into today's note. My signature on this note, however, is an attestation that I personally performed the exam, history, and/or decision-making noted today, and, unless otherwise indicated, the interactions with patient, family, and staff as well as the review of records all occurred today. I also attest that the listed assessment and stated plan reflect my best clinical judgment today based on the combination of historical information, prior notes, and today's exam/ interactions. When time spent is documented, it refers only to time spent today by the signer, or if indicated, combined time spent today by collaborating physician/nurse practitioner.
[2018-03-23] MEDS ORDERED: ALPRAZolam 0.25 MG Tablet PO ONE (13:00)
[2018-03-23] MEDS: Enoxaparin Inj 30 MG/0.3 ML Syringe SQ SCH (19:24)
--- NOTE | 2018-03-23 19:35 | P.PNIM ---
Subjective Interval history: Follow up: Metastatic adenocarcinoma of the lung and uncontrolled pain Patient reports pain better with Duragesic patch request home nitroglycerin patch be resumed report anxiety Physical Exam Vital signs: Vital Signs 03/22/18 20:00 03/23/18 00:00 03/23/18 03:13 Temperature 97.5 F L 98.3 F 97.1 F L Pulse Rate 88 98 H 95 H Respiratory Rate 15 14 15 Blood Pressure 127/78 106/77 107/74 Pulse Oximetry 98 93 L 94 L 03/23/18 07:17 03/23/18 11:22 03/23/18 16:00 Temperature 97.8 F 97.9 F 97.6 F Pulse Rate 98 H 86 93 H Respiratory Rate 16 16 16 Blood Pressure 114/81 113/82 113/77 Pulse Oximetry 92 L 99 100 03/23/18 19:15 Temperature 97.8 F Pulse Rate 96 H Respiratory Rate 18 Blood Pressure 132/94 H Pulse Oximetry 99 Narrative: General: Cachectic female in NAD, AAOx3 Chest: Decreased air movement on the right chest, good air movement on the left Cardiac: Regular Abd: +BS, soft ND/NT Ext: No edema Results - Labs CBC & Chem 7: 03/24/18 15:31 03/24/18 15:31 Laboratory Results - last 24 hr 03/23/18 06:50 Sodium 134 L Potassium 3.0 L Chloride 94 L Carbon Dioxide 32.6 H Anion Gap 7 BUN 9 Creatinine 0.40 L Estimated GFR Greater than 89 Random Glucose 95 Calcium 8.9 Assessment and Plan - Assessment (1) Adenocarcinoma Code(s): C80.1 - Malignant (primary) neoplasm, unspecified Status: Acute Plan: Metastatic adenocarcinoma of the lung - Pt is a 62 y/o female with recent diagnosis of lung cancer, recurrent pneumonia, hypertension, neuropathy, anxiety, coronary artery disease, chronic obstructive pulmonary disease, hiatal hernia and arthritis. - Patient presented to the ER on 03/21/18 with complaints of worsening shortness of breath, right sided sharp chest pain and hip pain. Patient states that she spoke with her primary care physician's office who recommended that she come to the ER for evaluation. Patient recently diagnosed with adenocarcinoma lung cancer, but social issues have precluded close follow-up. - She had recently accepted Hospice recently but then revoked it. She was upset about her experience with Hospice and states that the Morphine they gave her did not work for her pain. - Pt never followed up with Heme/Onc for any further recommendations. Her genetic workup was negative for mutation. - Pts main complaint is pain control - Stop the Oxycodone. - continue [place] 10/325 Q4H PRN pain and pt asking for IV med for breakthrough. She did not get any relief with Morphine in the past. We will add Dilaudid 1mg IV Q6H for breakthrough. - During her last hospitalization she was also on Fentanyl patch for pain control and this may need to be resumed. - Pt is refusing Hospice at this time. - Palliative Care consultation, they were following during last hospitalization. - Case discussed with Dr. Gutierrez on 03/22/18 and she will come by to speak with the pt. Dr. Gutierrez tried to visit with patient 03/22 but patient was unavailable. Patient now willing to speak with Dr. Gutierrez. (03/23) Dr. Wood discussed the case again with who will come see the patient this evening. resume patient's home nitroglycerin patch - start scheduled Xanax 0.25 Q8H - Lovenox for DVT prophylaxis - supportive care - Attending Attestation The exam, history, and the medical decision-making described in the above note were completed with the assistance of the mid-level provider. I reviewed and agree with the findings presented. I attest that I had a [id number] encounter with the patient on the same day, and personally performed and documented my assessment and findings in the medical record. Patient examined. Assessment and plan formulated with Yelena Aretaga PA-C. I agree with the above.
[2018-03-23] MEDS ORDERED: HYDROmorphone PF Inj 1 MG/ML Ampul IV.PUSH PRN (19:36)
[2018-03-23] MEDS ORDERED: ALPRAZolam 0.25 MG Tablet PO PRN (19:36)
[2018-03-23] MEDS: Temazepam 15 MG Capsule PO PRN (21:26)
[2018-03-23] MEDS: ALPRAZolam 0.25 MG Tablet PO SCH (21:26)
[2018-03-24] MEDS: ALPRAZolam 0.25 MG Tablet PO SCH ×3 (03:37→20:32)
[2018-03-24] MEDS: Folic Acid 1 MG Tablet PO SCH (08:38)
[2018-03-24] MEDS: Aspirin 325 MG Tablet PO SCH (08:38)
[2018-03-24] MEDS: Pantoprazole Sodium 20 MG DR Tablet PO SCH (08:38)
[2018-03-24] MEDS: Senna/Docusate Sodium 8.6/50 MG Tablet PO SCH ×2 (08:38→21:42)
--- NOTE | 2018-03-24 10:20 | MB ---
cc: Ariana Gutierrez MD DATE: 03/23/2018 MEDICAL ONCOLOGY CONSULT NOTE CHIEF COMPLAINT: Metastatic lung adenocarcinoma. HISTORY OF PRESENT ILLNESS: Ms. Alanis is a 62-year-old lady with a history of N1A lung adenocarcinoma. She initially presented to the hospital with intermittent cough 9 months duration. She had previous hospitalization from 09/2017 and 12/[address] chest in 09/2017 showed normal right lung process. She underwent bronchoscopy at that time under the direction of Dr. Anthony with no malignant cells identified. She was lost to followup due to social issues. She presented to her primary care doctor with worsening shortness of breath and CT scan from 12/2017 with increasing opacity in the right mid and lower lungs due to pulmonary consolidation, right pleural effusion, multiple nodular densities in lower lung. She underwent bronchoscopy and found a moderate tracheobronchitis; no obstruction, no mass lesion and final pathology showed adenocarcinoma of the lung and she presented to the hospital in 01/2018 with worsening symptoms. At that point in time had an extensive discussion with the patient regarding treatment options, and she reported at that time that she would consider treatment. STUDIES SENT: 1. EGFR mutation not detected. 2. ALK rearrangement not detected. 3. BRAF not detected. 4. KRAS not detected. 5. PD-L1 is 0%. 6. Negative for ROS1. 7. Negative for MET amplification. She presented to the hospital on 03/21/2018 with chest pain, shortness of breath, hip pain. She came to the emergency room for admission and further evaluation. She tripped and fell at home. CT scan of the hip with no acute process. Chest CT with no evidence for PE; right lung collapse secondary to segmental bronchial obstruction with moderate size right effusion. Numerous left-sided pulmonary nodules consistent with lung cancer. PAST MEDICAL HISTORY: Coronary artery disease, peripheral arterial disease, neck surgery, anxiety, acid reflux, rheumatoid arthritis, hypertension, hyperlipidemia, lung adenocarcinoma. PAST SURGICAL HISTORY: Heart catheterization. FAMILY HISTORY: No known family history of malignancy. SOCIAL HISTORY: Recently quit smoking. No alcohol abuse. REVIEW OF SYSTEMS: Significant for right-sided chest pain due to known malignancy. PHYSICAL EXAMINATION: GENERAL: Thin, chronically ill-appearing lady in no distress. HEENT: Head is normocephalic, atraumatic. Eyes: No scleral icterus. CARDIOVASCULAR: Regular rate and rhythm. No murmurs. RESPIRATORY: Clear to auscultation bilaterally. ABDOMEN: Soft, nontender, nondistended. Bowel sounds present. EXTREMITIES: No edema. NEUROLOGIC: Grossly nonfocal. PSYCHIATRIC: Appropriate mood and affect. LABORATORY STUDIES: Reviewed. White blood cell count 12.3, hemoglobin 11.9, platelet count of 675,000 with a normal differential. Liver function tests significant for slightly elevated alkaline phosphatase, normal total bilirubin, AST, ALT; creatinine is 0.4. ASSESSMENT AND PLAN: Metastatic lung adenocarcinoma. Long discussion with the patient and her granddaughter about her disease. Discussed that the purpose of her treatment would be to prolong her life and improve her symptoms. Discussed that we cannot cure her disease. Discussed treatment with carboplatin and pemetrexed to be given every 3 weeks. This will be given pemetrexed 500 mg/m2 and carboplatin at an AUC of 6 every 21 days until evidence of disease progression. The patient voiced understanding. Reviewed side effects of chemotherapy. Reviewed risks, benefits, and alternative therapies. Patient expressed understanding and her desire to proceed. We will plan to administer first cycle of chemotherapy while inpatient due to symptoms. MD JERROD Mortensen/guy , 07:52 AM , 08:01 AM
--- NOTE | 2018-03-24 14:55 | ECG ---
Date Performed: 03/23/2018 Time Performed: 12:17:38 PTAGE: 62 years EKG: Sinus rhythm LOW QRS VOLTAGE IN EXTREMITY LEADS POSSIBLE ANTERIOR MYOCARDIAL INFARCTION BORDERLINE ECG PREVIOUS TRACING 03/21/2018 @ 11.05 Since the previous tracing, no significant change noted DOCTOR: Guerrero Mckeon Interpretating Date/Time 03/24/2018 14:53:57
--- NOTE | 2018-03-24 15:56 | P.PNONC ---
Subjective Interval history: Pt eating lunch. Discussed chemo and treatment plan. Pt's questions were answered. She asks if she can go home after chemo today. Objective Vital Signs/Intake & Output: Vital Signs 03/23/18 16:00 03/23/18 19:15 03/24/18 00:00 Temperature 97.6 F 97.8 F Pulse Rate 93 H 96 H 82 Respiratory Rate 16 18 20 Blood Pressure 113/77 132/94 H Pulse Oximetry 100 99 03/24/18 01:39 03/24/18 03:29 03/24/18 07:48 Temperature 97.8 F 98.6 F 97.8 F Pulse Rate 63 105 H 99 H Respiratory Rate 20 18 16 Blood Pressure 121/79 133/95 H 124/81 Pulse Oximetry 96 92 L 94 L 03/24/18 12:00 Temperature 98.2 F Pulse Rate 97 H Respiratory Rate 18 Blood Pressure 122/89 Pulse Oximetry 99 Intake & Output 03/23/18 03/24/18 03/24/18 18:59 06:59 18:59 Weight 41.7 kg Other: Date of Last Bowel Movement 03/21/18 03/23/18 Result Diagrams: 03/24/18 15:31 03/24/18 15:31 Medications: Active Medications Generic Name Dose Route Start Last Admin Trade Name Freq PRN Reason Stop Dose Admin Hydrocodone Bitart/Acetaminophen 1 tab 03/22/18 09:55 03/24/18 08:48 [place] 10/325 PO 1 tab Q4H PRN Administration pain 2-10 Alprazolam 0.25 mg 03/23/18 20:00 03/24/18 11:15 Xanax PO 0.25 mg Q8H GILMER Administration Amitriptyline HCl 50 mg 03/22/18 21:00 03/23/18 21:26 Elavil PO 50 mg HS GILMER Administration Aspirin 325 mg 03/23/18 09:00 03/24/18 08:38 Aspirin PO 325 mg DAILY GILMER Administration Clopidogrel Bisulfate 75 mg 03/22/18 11:30 03/24/18 08:38 Plavix PO 75 mg DAILY GILMER Administration Cyclobenzaprine HCl 10 mg 03/22/18 02:58 03/24/18 03:37 Flexeril PO 10 mg Q8H PRN Administration MUSCLE SPASM Enoxaparin Sodium 30 mg 03/21/18 18:00 03/23/18 19:24 Lovenox Inj SQ Not Given Q24H GILMER Fentanyl 1 patch 03/22/18 12:00 03/22/18 12:55 Duragesic 50 Mcg Patch.72hr T-DERMAL 1 patch Q3D GILMER Administration Folic Acid 1 mg 03/22/18 11:30 03/24/18 08:38 Folic Acid PO 1 mg DAILY GILMER Administration Hydromorphone HCl 0.5 mg 03/23/18 19:36 03/23/18 22:04 Dilaudid Pf Inj IV.PUSH 0.5 mg Q4H PRN Administration breakthrough pain over 7 Ondansetron HCl 4 mg 03/21/18 17:08 03/24/18 10:13 Zofran Inj IV.PUSH 4 mg Q6H PRN Administration NAUSEA OR VOMITING Pantoprazole Sodium 20 mg 03/22/18 11:45 03/24/18 08:38 Protonix PO 20 mg DAILY GILMER Administration Potassium Chloride 20 meq 03/23/18 09:00 03/24/18 08:38 K-Dur PO 20 meq DAILY GILMER Administration Pravastatin Sodium 80 mg 03/22/18 18:00 03/23/18 21:26 Pravachol PO 80 mg QPM GILMER Administration Pregabalin 100 mg 03/22/18 21:00 03/23/18 21:26 Lyrica PO 100 mg HS GILMER Administration Senna/Docusate Sodium 1 tab 03/21/18 21:00 03/24/18 08:38 Justina-Colace PO 1 tab BID GILMER Administration Temazepam 15 mg 03/21/18 17:08 03/23/18 21:26 Restoril PO 15 mg HS PRN Administration INSOMNIA Objective Remarks: GENERAL: Chronically ill-appearing female patient, in no acute distress. SKIN: Warm and dry. HEAD: Normocephalic. EYES: No scleral icterus. No injection or drainage. NECK: Supple, trachea midline. CARDIOVASCULAR: Regular rate and rhythm without murmurs. RESPIRATORY: Breath sounds distant. No accessory muscle use. GASTROINTESTINAL: Abdomen soft, non-tender, nondistended. EXTREMITIES: No cyanosis, or edema. MUSCULOSKELETAL: Adequate muscle tone. NEUROLOGICAL: No obvious focal deficit. Awake, alert, and oriented x3. PSYCHIATRIC: Appropriate mood and affect; insight and judgment normal. Assessment/Plan - Plan Ms. Alanis is a 62 year-old female patient, who was diagnosed with lung adenocarcinoma approximately 9 months ago. She was lost to follow-up due to social issues. She then presented to the hospital on 03/21/2018 with increased shortness of breath and hip pain. She has now been willing to proceed with treatment. Plan: 1. Metastatic lung adenocarcinoma, will begin chemo with carboplatin and pemetrexed today. This will be every 21 days. 2. Pt questions have been answered, and will plan for discharge tomorrow, if stable. 3. Pt information has been sent to new pt referrals. She will need outpatient follow-up for labs and cycle 2 chemo. - Attending Statement The exam, history, and the medical decision-making described in the above note were completed with the assistance of the mid-level provider. I reviewed and agree with the findings presented. I attest that I had a [id number] encounter with the patient on the same day, and personally performed and documented my assessment and findings in the medical record. Metastatic lung adenocarcinoma cycle 1 of carboplatin and pemetrexed with 75% dose reduction to start today. She will need close follow up in oncology clnic for cycle 2 o therapy. Continue folate supplementation
[2018-03-24 16:17] LABS: Baso # (Auto) 0.1 th/mm3 (0.0-0.2); Baso % (Auto) 0.6 % (0.0-2.0); Eos # (Auto) 0.1 th/mm3 (0.0-0.4); Eos % (Auto) 1.1 % (0.0-4.0); Hematocrit 32.2 % (35.0-46.0); Hemoglobin 10.9 gm/dL (11.6-15.3); Lymph # (Auto) 1.1 th/mm3 (1.0-4.8); Lymph % (Auto) 9.7 % (9.0-44.0); Mean Corpuscular HGB Conc 33.9 % (32.0-36.0); Mean Corpuscular Hemoglobin 31.2 pg (27.0-34.0); Mean Corpuscular Volume 92.2 fL (80.0-100.0); Mean Platelet Volume 8.9 fL (7.0-11.0); Mono # (Auto) 0.8 th/mm3 (0.0-0.9); Mono % (Auto) 6.8 % (0.0-8.0); Neut # (Auto) 9.1 th/mm3 (1.8-7.7); Neut % (Auto) 81.8 % (16.0-70.0); Platelet Count 531 th/mm3 (150-450); Red Blood Count 3.49 mil/mm3 (4.00-5.30); Red Cell Distribution Width 17.2 % (11.6-17.2); White Blood Count 11.1 th/mm3 (4.0-11.0)
[2018-03-24] MEDS ORDERED: Granisetron 1 MG/ML Vial IV.PUSH ONE (16:30)
[2018-03-24] MEDS ORDERED: Dexamethasone Inj 20 MG in Sodium Chlor 0.9% Inj 50 ML IV.SIG ONE (16:30)
[2018-03-24 16:54] LABS: Anion Gap 9 meq/L (5-15); Blood Urea Nitrogen 11 mg/dL (7-18); Calcium 9.1 mg/dL (8.5-10.1); Carbon Dioxide 30.8 meq/L (21.0-32.0); Chloride 96 meq/L (98-107); Glomerular Filtration Rate Greater Than 89 mL/min (>89); Glucose,Random 122 mg/dL (74-106); Magnesium 1.7 mg/dL (1.5-2.5); Sodium 136 meq/L (136-145)
[2018-03-24] MEDS ORDERED: PEMETREXED IV.SIG ONE (17:00)
[2018-03-24] MEDS ORDERED: SODIUM CHLOR 0.9% IV.SIG ONE ×2 (17:00→17:30)
--- NOTE | 2018-03-24 17:07 | P.PNIM ---
Subjective Interval history: No new complaints. Physical Exam Vital signs: 03/24/18 03:29 03/24/18 07:48 03/24/18 12:00 Temperature 98.6 F 97.8 F 98.2 F Pulse Rate 105 H 99 H 97 H Respiratory Rate 18 16 18 Blood Pressure 133/95 H 124/81 122/89 Pulse Oximetry 92 L 94 L 99 Narrative: General: Cachectic female in NAD, AAOx3 Chest: Decreased air movement on the right chest, good air movement on the left Cardiac: Regular Abd: +BS, soft ND/NT Ext: No edema Results - Labs CBC & Chem 7: 03/24/18 15:31 03/24/18 15:31 Assessment and Plan - Assessment (1) Adenocarcinoma Code(s): C80.1 - Malignant (primary) neoplasm, unspecified Status: Acute Plan: Metastatic adenocarcinoma of the lung - Pt is a 62 y/o female with recent diagnosis of lung cancer, recurrent pneumonia, hypertension, neuropathy, anxiety, coronary artery disease, chronic obstructive pulmonary disease, hiatal hernia and arthritis. - Patient presented to the ER on 03/21/18 with complaints of worsening shortness of breath, right sided sharp chest pain and hip pain. Patient states that she spoke with her primary care physician's office who recommended that she come to the ER for evaluation. Patient recently diagnosed with adenocarcinoma lung cancer, but social issues have precluded close follow-up. - She had recently accepted Hospice recently but then revoked it. She was upset about her experience with Hospice and states that the Morphine they gave her did not work for her pain. - Pt never followed up with Heme/Onc for any further recommendations. Her genetic workup was negative for mutation. - Pts main complaint is pain control - Stop the Oxycodone. - continue [place] 10/325 Q4H PRN pain and pt asking for IV med for breakthrough. She did not get any relief with Morphine in the past. We will add Dilaudid 1mg IV Q6H for breakthrough. - During her last hospitalization she was also on Fentanyl patch for pain control and this may need to be resumed. - Pt is refusing Hospice at this time. - Palliative Care consultation, they were following during last hospitalization. - Case d/w Dr. Gutierrez (03/23/18) - Pt started on chemo with carboplatin and pemetrexed today. This will be every 21 days. - Xanax 0.25 Q8H - Lovenox for DVT prophylaxis - supportive care - Anticipate d/c 03/25/18 home with HHC vs SNF
[2018-03-24] MEDS ORDERED: CARBOPLATIN IV.SIG ONE (17:30)
[2018-03-24] MEDS: Enoxaparin Inj 30 MG/0.3 ML Syringe SQ SCH (17:54)
[2018-03-25 04:16] VITALS: RESP 18
[2018-03-25] MEDS: ALPRAZolam 0.25 MG Tablet PO SCH (04:16)
[2018-03-25] MEDS: Aspirin 325 MG Tablet PO SCH (09:05)
[2018-03-25] MEDS: Pantoprazole Sodium 20 MG DR Tablet PO SCH (09:05)
[2018-03-25] MEDS: Senna/Docusate Sodium 8.6/50 MG Tablet PO SCH (09:06)
[2018-03-25] MEDS: Folic Acid 1 MG Tablet PO SCH (09:06)
[2018-03-25 09:23] VITALS: O2SAT 94
[2018-03-25 09:24] VITALS: BP 128/97; PULSE 103; TEMP 98.5
--- NOTE | 2018-03-25 11:16 | P.DS ---
<Yelena Arteaga W - Last Filed: 03/25/18 11:07> Date of admission: 03/21/18 15:46 Primary care physician: Eric Newton Attending physician on discharge: Pietro Wood Anticipated date of discharge: 03/25/18 Brief History from admission: Patient presented to the ER today with a potpourri of complaints including chest pain, shortness of breath, hip pain. Patient states that she spoke with her primary care physician's office who recommended that she come to the ER for evaluation. Patient recently diagnosed with adenocarcinoma lung cancer, but social issues have precluded close follow-up. Patient will be admitted to [facility] for further evaluation and treatment. PMH: cad. pci ruthy ramus intermedius. renal art. stent right iliac stent. pad cervical neck fusion anxiety gerd "gastric ulcer" says she had egd and colon 4 or 5 yrs ago. polyps hemorrhoids. RA htn hyperlipidemia adenocarcinoma of the lung PSH: [facility] bronchoscopy with biopsy (09/2017) bronchoscopy with biopsy (12/2017) FXH: She had 2 sons. Her son who is mentally challenged lives with her and other son who left 2 of his children with her. Has a granddaughter living with her. SHX: She has history of smoking, which she quit 1 month ago. No alcohol abuse. 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 She said she is . ALLERGEIS: TO TERBUTALINE AND GABAPENTIN. DS: Diagnosis - Discharge Diagnosis (2) Adenocarcinoma Status: Acute DS: Medications - Discharge Medications Prescriptions: alprazolam [Xanax] 0.25 mg PO Q8H #20 tab fentanyl [Duragesic] 1 patch TRANSDERMAL Q3D #10 ea hydrocodone-acetaminophen 1 tab PO Q4H PRN #14 tab PRN Reason: Pain DS: Summary Hospital Course: Metastatic adenocarcinoma of the lung - Pt is a 62 y/o female with recent diagnosis of lung cancer, recurrent pneumonia, hypertension, neuropathy, anxiety, coronary artery disease, chronic obstructive pulmonary disease, hiatal hernia and arthritis. - Patient presented to the ER on 03/21/18 with complaints of worsening shortness of breath, right sided sharp chest pain and hip pain. Patient states that she spoke with her primary care physician's office who recommended that she come to the ER for evaluation. Patient recently diagnosed with adenocarcinoma lung cancer, but social issues have precluded close follow-up. - She had recently accepted Hospice recently but then revoked it. She was upset about her experience with Hospice and states that the Morphine they gave her did not work for her pain. - Pt never followed up with Heme/Onc for any further recommendations. Her genetic workup was negative for mutation. - Pts main complaint is pain control - Stop the Oxycodone. - continue [place] 10/325 Q4H PRN pain and pt asking for IV med for breakthrough. She did not get any relief with Morphine in the past. We will add Dilaudid 1mg IV Q6H for breakthrough. - During her last hospitalization she was also on Fentanyl patch for pain control and this may need to be resumed. - Pt is refusing Hospice at this time. - Palliative Care consultation, they were following during last hospitalization. - Case discussed with Dr. Gutierrez on 03/22/18 and she will come by to speak with the pt. Dr. Gutierrez tried to visit with patient 03/22 but patient was unavailable. Patient now willing to speak with Dr. Gutierrez. (03/23) Dr. Wood discussed the case again with who will come see the patient this evening. - resume patient's home nitroglycerin patch - started on scheduled Xanax 0.25 Q8H - Patient started chemotherapy with carboplatin and pemetrexed 03/24/18. This will be every 21 days, per oncology. - Lovenox for DVT prophylaxis - supportive care 03/25 Patient cleared for DC per Oncology, patient will need to follow up with oncology for further management - Time Spent with Patient Total time spent providing and/or coordinating discharge services: Greater than 30 minutes - Quality: VTE Deep Vein Thrombosis/Pulmonary Embolism Present on Admission: No Exam Vital signs: Vital Signs 03/24/18 12:00 03/24/18 16:00 03/24/18 20:45 Temperature 98.2 F 98.6 F 98.4 F Pulse Rate 97 H 115 H 115 H Respiratory Rate 18 20 18 Blood Pressure 122/89 125/92 H 137/103 H Pulse Oximetry 99 94 L 94 L 03/25/18 00:00 03/25/18 04:12 03/25/18 08:00 Temperature 98.1 F 98.6 F 98.5 F Pulse Rate 102 H 102 H 103 H Respiratory Rate 16 18 18 Blood Pressure 119/89 106/84 128/97 H Pulse Oximetry 97 95 94 L 03/25/18 09:00 Temperature Pulse Rate Respiratory Rate Blood Pressure Pulse Oximetry 94 L Intake & Output 03/24/18 03/25/18 03/25/18 18:59 06:59 18:59 Intake Total 1523.9 / 1523.9 240 / 240 Balance 1523.9 / 1523.9 240 / 240 Weight 41.7 kg 40.5 kg Intake: IV 449.9 / 449.9 Paraplatin Inj 449 MG In NS Inj 294.9 / 294.9 250 ML @ 589.8 mls/hr IV.SIG ONCE ONE Rx#:[id number] Decadron Inj 20 MG In NS Inj 50 55 / 55 ML @ 165 mls/hr IV.SIG ONCE ONE Rx#:[id number] Alimta Inj 513 MG In NS Inj 100 100 / 100 ML @ 600 mls/hr IV.SIG ONCE ONE Rx#:[id number] Oral 1074 / 1074 240 / 240 Other: # Voids 2 3 Date of Last Bowel Movement 03/23/18 03/15/18 Narrative: General: Cachectic female in NAD, AAOx3 Chest: Decreased air movement on the right chest, good air movement on the left Cardiac: Regular Abd: +BS, soft ND/NT Ext: No edema Results Procedures completed during hospitalization: none Labs on day of discharge: Labs from last 24 hours 03/24/18 03/24/18 15:31 15:31 WBC 11.1 H RBC 3.49 L Hgb 10.9 L Hct 32.2 L MCV 92.2 MCH 31.2 MCHC 33.9 RDW 17.2 Plt Count 531 H MPV 8.9 Neut % (Auto) 81.8 H Lymph % (Auto) 9.7 [place] % (Auto) 6.8 Eos % (Auto) 1.1 Baso % (Auto) 0.6 Neut # (Auto) 9.1 H Lymph # (Auto) 1.1 [place] # (Auto) 0.8 Eos # (Auto) 0.1 Baso # (Auto) 0.1 WBC Differential . Differential Comment Auto diff final Sodium 136 Potassium 4.0 D Chloride 96 L Carbon Dioxide 30.8 Anion Gap 9 BUN 11 Creatinine 0.46 L Estimated GFR Greater than 89 Random Glucose 122 H Calcium 9.1 Magnesium 1.7 - Impressions ITS Impressions Chest CTA 03/21/18 10:44 CONCLUSION: 1. No CT evidence for pulmonary artery embolus some. 2. Redemonstration of complete right lung collapse likely secondary to segmental bronchial obstruction with associated moderate size right-sided pleural effusion. 3. Redemonstration of numerous left-sided subcentimeter pulmonary nodules consistent with patient's history of stage IV lung CA. Chest X-Ray 03/21/18 10:44 CONCLUSION: 1. No change in the complete opacification of the right hemithorax compared to the prior study. 2. Mild infiltrate in the left lower lung. Hip X-Ray 03/21/18 10:53 CONCLUSION: No acute fracture or joint dislocation. Hip CT 03/21/18 15:36 CONCLUSION: 1. No acute fracture or joint dislocation. <Pietro Wood B - Last Filed: 03/27/18 07:25> Date of admission: 03/21/18 15:46 Primary care physician: Eric Newton DS: Diagnosis - Discharge Diagnosis (1) Adenocarcinoma Status: Acute DS: Summary Hospital Course: The exam, history, and the medical decision-making described in the above note were completed with the assistance of the mid-level provider. I reviewed and agree with the findings presented. I attest that I had a [id number] encounter with the patient on the same day, and personally performed and documented my assessment and findings in the medical record. Patient examined. Assessment and plan formulated with Yelena Arteaga PA-C. I agree with the above. - Time Spent with Patient Total time spent providing and/or coordinating discharge services: Greater than 30 minutes Results - Impressions ITS Impressions Chest CTA 03/21/18 10:44 CONCLUSION: 1. No CT evidence for pulmonary artery embolus some. 2. Redemonstration of complete right lung collapse likely secondary to segmental bronchial obstruction with associated moderate size right-sided pleural effusion. 3. Redemonstration of numerous left-sided subcentimeter pulmonary nodules consistent with patient's history of stage IV lung CA. Chest X-Ray 03/21/18 10:44 CONCLUSION: 1. No change in the complete opacification of the right hemithorax compared to the prior study. 2. Mild infiltrate in the left lower lung. Hip X-Ray 03/21/18 10:53 CONCLUSION: No acute fracture or joint dislocation. Hip CT 03/21/18 15:36 CONCLUSION: 1. No acute fracture or joint dislocation. Discharge Plan - Discharge Order Discharge Orders: Discharge Order (Routine); Ordered 03/25/18 Ordered By: Pietro Wood - Discharge Details Anticipated Discharge Date: 03/25/18 - Physicians Team Primary Care Provider: Eric Newton Attending Provider: Pietro Wood Other Providers: Malik Monroe MD ; Ariana Gutierrez ; [facility]
--- NOTE | 2018-03-25 11:18 | P.DCO ---
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 My clinical findings support the need for the requested home health care services because: Limited mobility due to disease progression, Deconditioned with increased weakness, Medication compliance is questionable I certify that my clinical findings support that this patient is homebound because: Need for psychosocial assistance
== END 2018-03-25 14:20 | disposition home health service (06) ==
LOC: NEDA 10:28 → NEPC 10:28 → NEDA 18:41 → NEPGCP 19:46 → UNDODISOB 19:53 → HCIN 03-24 09:37
PROVIDERS: ADMIT Hospitalist; ATTEND Hospitalist

== ENCOUNTER 2018-03-28 22:14 | Inpatient (IN) ==
[2018-03-28 23:09] LABS: Baso # (Auto) 0.1 th/mm3 (0.0-0.2); Baso % (Auto) 0.6 % (0.0-2.0); Eos % (Auto) 0.1 % (0.0-4.0); Hemoglobin 11.6 gm/dL (11.6-15.3); Lymph # (Auto) 0.8 th/mm3 (1.0-4.8); Lymph % (Auto) 7.4 % (9.0-44.0); Mean Corpuscular HGB Conc 34.1 % (32.0-36.0); Mean Corpuscular Hemoglobin 30.8 pg (27.0-34.0); Mean Corpuscular Volume 90.3 fL (80.0-100.0); Mean Platelet Volume 8.7 fL (7.0-11.0); Mono # (Auto) 0.1 th/mm3 (0.0-0.9); Mono % (Auto) 0.7 % (0.0-8.0); Neut # (Auto) 10.2 th/mm3 (1.8-7.7); Neut % (Auto) 91.2 % (16.0-70.0); Platelet Count 600 th/mm3 (150-450); Red Blood Count 3.76 mil/mm3 (4.00-5.30); Red Cell Distribution Width 17.4 % (11.6-17.2); White Blood Count 11.2 th/mm3 (4.0-11.0)
--- NOTE | 2018-03-28 23:24 | ED ---
HPI General Chief complaint: Shortness of Breath/Dyspnea Stated complaint: legs swollen-states stage 4 cancer Time Seen by Provider: 03/28/18 23:02 Source: patient, family, RN notes reviewed and old records reviewed Mode of arrival: ambulatory Limitations: altered mental status History of Present Illness HPI narrative: 62yF presenting with shortness of breath, confusion, and bilateral lower extremity edema. The patient has a history of stage IV lung adenocarcinoma and was recently admitted from 03/21-03/25 for dyspnea, found to have persistent right pleural effusion, and received her initial round of chemo (carboplatin and pemetrexed, dosing q3 weeks). The patient had a change in her pain medications at that time and is currently taking [place] PRN and a fentanyl patch, which is currently off. She is on 2L O2 NC around the clock. Her daughter states that the patient always has shortness of breath and mild ankle swelling but that it's been worse over the past 2-3 days. The patient has not been eating or ambulating for 2 days as per her family as well. Her daughter also states that the patient seems "out of it" and is unable to carry on a conversation due to forgetfulness and confusion. The patient is currently confused and will only nod/ shake her head to yes/ no questions during my exam. Related Data Home Medications Medication Instructions Recorded Confirmed amitriptyline 50 mg PO HS 12/30/17 03/28/18 potassium chloride 10 meq PO DAILY 12/30/17 03/28/18 pregabalin [Lyrica] 100 mg PO HS 12/30/17 03/28/18 aspirin 325 mg PO DAILY 02/15/18 03/28/18 clopidogrel [Plavix] 75 mg PO DAILY 02/15/18 03/28/18 hydrochlorothiazide 25 mg PO DAILY 02/15/18 03/28/18 ipratropium-albuterol 3 ml INHALATION Q4-6H PRN 02/15/18 03/28/18 meprobamate 400 mg PO QID PRN 02/15/18 03/28/18 omeprazole 20 mg PO DAILY 02/15/18 03/28/18 simvastatin 40 mg PO QPM 02/15/18 03/28/18 nitroglycerin 1 patch TRANSDERMAL DAILY 03/23/18 03/28/18 Previous Rx's Medication Instructions Recorded promethazine 25 mg PO Q6H #10 tab 02/23/18 alprazolam [Xanax] 0.25 mg PO Q8H #20 tab 03/25/18 fentanyl [Duragesic] 1 patch TRANSDERMAL Q3D #10 ea 03/25/18 hydrocodone-acetaminophen 1 tab PO Q4H PRN #14 tab 03/25/18 Allergies Allergy/AdvReac Type Severity Reaction Status Date / Time terbutaline Allergy Intermediate Nausea Verified 03/28/18 22:22 gabapentin Allergy Mild Nausea Verified 03/28/18 22:22 metoclopramide [From Reglan] AdvReac Bleeding Verified 03/28/18 22:22 Review of Systems ROS Unobtainable ROS Unobtainable: unobtainable due to mental status PMFSH History History Provided By: Family Member and Medical Record Medical History Medical History Joint pain (Acute) Claustrophobia (Acute) Arthritis (Acute) Kidney stones (Acute) Hiatal hernia (Acute) Ulcer (Acute) Bulging disc (Acute) CAD (coronary artery disease) (Acute) COPD (chronic obstructive pulmonary disease) (Acute) High cholesterol (Acute) Hx of recurrent pneumonia (Acute) Hypertension (Acute) Lung cancer (Acute) Neuropathy (Acute) Surgical History Surgical History Hx of cervical spine surgery (Acute) History of renal stent (Acute) Hx of section (Acute) H/O neck surgery (Acute) History of bronchoscopy (Acute) History of thoracentesis (Acute) Hx of cardiac cath (Acute) Hx of heart artery stent (Acute) Hx of tonsillectomy (Acute) Family History Family History Son Schizophrenia in children Bipolar 1 disorder Other Has 2 living children Social History Social History Substance History: No History of Abuse Second Hand Smoke Exposure: Yes Smoking Status: Current every day smoker Tobacco Type: Cigarettes How Often Do You Have a Drink Containing Alcohol: Never Recent Travel in [facility] within the Last 8 Weeks: No Recent Out of Country Travel within the Last 8 Weeks: No Exam Const General: frail appearing and ill appearing Nutritional Appearance: cachectic HENMT Head: normocephalic and atraumatic Other: Mucosa dry Eyes General: appearance normal, both eyes and all related structures Pupils: PERRL Chest Chest: normal inspection of the chest Resp Effort & Inspection: normal respiratory effort Auscultation: no rhonchi and no wheezes Cardio Rate: regular rate Rhythm: regular rhythm GI Inspection: non-distended Palpation: soft and nontender Skin General: no rashes or lesions noted Neuro Other: Awake, oriented to person and place, can name year but not president Stares at stretcher throughout most of the exam, requires frequent redirection Answers questions slowly but mostly appropriately Appears confused Extrem Other: 1+ pitting edema above ankles bilaterally Psych Affect: normal affect Course Initial Documented Vital Signs Temperature 98.2 F 03/28/18 22:22 Pulse Rate 113 H 03/28/18 22:22 Respiratory Rate 17 03/28/18 22:22 Blood Pressure 131/90 03/28/18 22:22 Pulse Oximetry 96 03/28/18 22:22 Last Documented Vital Signs Temperature 98.2 F 03/28/18 22:22 Pulse Rate 102 H 03/28/18 23:30 Respiratory Rate 23 03/28/18 23:30 Blood Pressure 146/97 H 03/28/18 23:30 Pulse Oximetry 98 03/28/18 23:40 Medical Decision Making [facility] Narrative Medical decision making narrative: Assessment: 62yF presenting with confusion, dyspnea, bilateral leg swelling Plan: CXR Labs, including ABG UA CTH Addendum: Patient's workup shows mild leukocytosis and bacteriuria. Unclear if patient's AMS is due to polypharmacy/ recent initiation of chemotherapy or UTI. Case discussed with Dr. Neff, who agrees with keeping the patient for observation. Medical Screen Exam Complete: Yes Emergency Medical Condition: Yes Differential Diagnosis Differential Diagnosis: Differential diagnosis includes, but is not limited to: UTI, pneumonia, worsening pleural effusion, hypercapnea, brain mets, electrolyte abnormality, dehydration, DVT Medical Records Medical records reviewed: Yes I reviewed the patient's medical records. Lab Data Lab results reviewed: Yes I reviewed the patient's lab results. Result diagrams: 03/28/18 23:00 03/28/18 23:00 Lab Results 03/28/18 03/28/18 03/28/18 Range/Units 23:00 23:00 23:24 WBC 11.2 H (4.0-11.0) th/mm3 RBC 3.76 L (4.00-5.30) mil/mm3 Hgb 11.6 (11.6-15.3) gm/dL Hct 34.0 L (35.0-46.0) % MCV 90.3 (80.0-100.0) fL MCH 30.8 (27.0-34.0) pg MCHC 34.1 (32.0-36.0) % RDW 17.4 H (11.6-17.2) % Plt Count 600 H (150-450) th/mm3 MPV 8.7 (7.0-11.0) fL Neut % (Auto) 91.2 H (16.0-70.0) % Lymph % (Auto) 7.4 L (9.0-44.0) % [place] % (Auto) 0.7 (0.0-8.0) % Eos % (Auto) 0.1 (0.0-4.0) % Baso % (Auto) 0.6 (0.0-2.0) % Neut # (Auto) 10.2 H (1.8-7.7) th/mm3 Lymph # (Auto) 0.8 L (1.0-4.8) th/mm3 [place] # (Auto) 0.1 (0.0-0.9) th/mm3 Eos # (Auto) 0.0 (0.0-0.4) th/mm3 Baso # (Auto) 0.1 (0.0-0.2) th/mm3 WBC Differential . Differential Comment Auto diff final Puncture Site Left radial Patient Temperature 98.6 O2 Saturation 90 (90-100) % ABG pH 7.49 H (7.380-7.420) ABG pCO2 29 L (38-42) mmHg ABG pO2 68 (61-120) mmHg ABG HCO3 22 (22-26) mmol/L ABG O2 Content 13.2 (12.0-20.0) Vol % ABG Base Excess -1.4 (-2-2) mmol/L ABG Methemoglobin 0.5 (0-2) % Tavares Test Present Hemoglobin 10.3 L (12.0-16.0) G/DL Carboxyhemoglobin 3.6 (0-4) % Inspired O2 21 % Critical Value No Sodium 131 L (136-145) meq/L Potassium 4.3 (3.5-5.1) meq/L Chloride 92 L (98-107) meq/L Carbon Dioxide 25.4 (21.0-32.0) meq/L Anion Gap 14 (5-15) meq/L BUN 16 (7-18) mg/dL Creatinine 0.57 (0.50-1.00) mg/dL Estimated GFR Greater than 89 (>89) mL/min Random Glucose 117 H (74-106) mg/dL Calcium 9.2 (8.5-10.1) mg/dL Total Bilirubin 0.6 (0.2-1.0) mg/dL AST 40 H (15-37) U/L ALT 23 (10-53) U/L Alkaline Phosphatase 128 H (45-117) U/L Troponin I Less than 0.02 L (0.02-0.05) ng/mL Total Protein 7.9 (6.4-8.2) g/dL Albumin 2.8 L (3.4-5.0) g/dL Urine Color (Yellw/Straw) Urine Clarity (Clear) Urine pH (5.0-8.5) Ur Specific [place] (1.002-1.035) Urine Protein (Neg-Trace) mg/dL Urine Glucose (UA) (Negative) mg/dL Urine Ketones (Negative) mg/dL Urine Occult Blood (Negative) Urine Nitrate (Negative) Urine Bilirubin (Negative) Urine Urobilinogen (Less than 2) mg/dL Ur Leukocyte Esterase (Negative) Urine RBC (0-3) /hpf Urine WBC (0-5) /hpf Ur Squamous Epith Cells (0-5) /hpf Urine Bacteria (None) /hpf Hyaline Casts (0-3) /lpf Urine Mucus (Occasional) /lpf Micro UA Comment Ur Microscopic Review Urine Culture Comments 03/29/18 Range/Units 01:15 WBC (4.0-11.0) th/mm3 RBC (4.00-5.30) mil/mm3 Hgb (11.6-15.3) gm/dL Hct (35.0-46.0) % MCV (80.0-100.0) fL MCH (27.0-34.0) pg MCHC (32.0-36.0) % RDW (11.6-17.2) % Plt Count (150-450) th/mm3 MPV (7.0-11.0) fL Neut % (Auto) (16.0-70.0) % Lymph % (Auto) (9.0-44.0) % [place] % (Auto) (0.0-8.0) % Eos % (Auto) (0.0-4.0) % Baso % (Auto) (0.0-2.0) % Neut # (Auto) (1.8-7.7) th/mm3 Lymph # (Auto) (1.0-4.8) th/mm3 [place] # (Auto) (0.0-0.9) th/mm3 Eos # (Auto) (0.0-0.4) th/mm3 Baso # (Auto) (0.0-0.2) th/mm3 WBC Differential Differential Comment Puncture Site Patient Temperature O2 Saturation (90-100) % ABG pH (7.380-7.420) ABG pCO2 (38-42) mmHg ABG pO2 (61-120) mmHg ABG HCO3 (22-26) mmol/L ABG O2 Content (12.0-20.0) Vol % ABG Base Excess (-2-2) mmol/L ABG Methemoglobin (0-2) % Tavares Test Hemoglobin (12.0-16.0) G/DL Carboxyhemoglobin (0-4) % Inspired O2 % Critical Value Sodium (136-145) meq/L Potassium (3.5-5.1) meq/L Chloride (98-107) meq/L Carbon Dioxide (21.0-32.0) meq/L Anion Gap (5-15) meq/L BUN (7-18) mg/dL Creatinine (0.50-1.00) mg/dL Estimated GFR (>89) mL/min Random Glucose (74-106) mg/dL Calcium (8.5-10.1) mg/dL Total Bilirubin (0.2-1.0) mg/dL AST (15-37) U/L ALT (10-53) U/L Alkaline Phosphatase (45-117) U/L Troponin I (0.02-0.05) ng/mL Total Protein (6.4-8.2) g/dL Albumin (3.4-5.0) g/dL Urine Color Yellow (Yellw/Straw) Urine Clarity Hazy H (Clear) Urine pH 5.0 (5.0-8.5) Ur Specific [place] 1.020 (1.002-1.035) Urine Protein 30 H (Neg-Trace) mg/dL Urine Glucose (UA) Negative (Negative) mg/dL Urine Ketones 80 or greater H (Negative) mg/dL Urine Occult Blood Negative (Negative) Urine Nitrate Negative (Negative) Urine Bilirubin Negative (Negative) Urine Urobilinogen Less than 2 (Less than 2) mg/dL Ur Leukocyte Esterase Negative (Negative) Urine RBC 2 (0-3) /hpf Urine WBC 6 H (0-5) /hpf Ur Squamous Epith Cells 2 (0-5) /hpf Urine Bacteria Rare H (None) /hpf Hyaline Casts 12 (0-3) /lpf Urine Mucus Few H (Occasional) /lpf Micro UA Comment Culture not ind Ur Microscopic Review Not Reportable Urine Culture Comments Culture not ind Imaging Data Radiologist's impression: Chest X-Ray 03/28/18 22:51 CONCLUSION: Complete opacification of the right hemithorax persists. Mild infiltrate left base. Head CT 03/28/18 23:17 CONCLUSION: Negative noncontrast head CT. . Venous Doppler Study 03/29/18 23:24 CONCLUSION: Negative study. No venous thrombosis of either lower extremity. ECG Data Attestation: I personally reviewed and interpreted this ECG as follows: Interpretation: Rate: 111 BPM Rhythm: Sinus [place]: Normal Intervals: Normal intervals, no blocks, QTc 385 ms Q waves: V2 T waves: Upright, no inversions ST segments: No elevations or depressions Impression: Non-specific EKG, low voltage, no changes as compared to EKG from . Discharge Plan Discharge Disposition Patient Disposition: 30 Still Patient Discharge Condition Condition: Stable Discharge Details Diagnosis: Encephalopathy acute, Acute UTI Physicians Team ED Provider: Mora Meléndez Primary Care Provider: Eric Newton Rxs /Orders / Referrals /Forms Prescriptions: No Action aspirin 325 mg Tablet 325 mg PO DAILY RF: 0 clopidogrel [Plavix] 75 mg Tablet 75 mg PO DAILY RF: 0 hydrochlorothiazide 25 mg Tablet 25 mg PO DAILY RF: 0 ipratropium-albuterol 0.5 mg-3 mg(2.5 mg base)/3 mL Solution For Nebulization 3 ml INHALATION Q4-6H PRN (Reason: SOB) RF: 0 meprobamate 400 mg Tablet 400 mg PO QID PRN (Reason: anxiety) RF: 0 simvastatin 40 mg Tablet 40 mg PO QPM RF: 0 omeprazole 20 mg Capsule,Delayed Release(Dr/Ec) 20 mg PO DAILY RF: 0 promethazine 25 mg Tablet 25 mg PO Q6H Qty: 10 RF: 0 potassium chloride 10 mEq Capsule, Extended Release 10 meq PO DAILY RF: 0 amitriptyline 25 mg Tablet 50 mg PO HS RF: 0 pregabalin [Lyrica] 50 mg Capsule 100 mg PO HS RF: 0 nitroglycerin 0.2 mg/hr Patch 24 Hour 1 patch TRANSDERMAL DAILY RF: 0 alprazolam [Xanax] 0.25 mg Tablet 0.25 mg PO Q8H Qty: 20 RF: 0 fentanyl [Duragesic] 50 mcg/hr Patch 72 Hour 1 patch Transdermal Q3D Qty: 10 RF: 0 hydrocodone-acetaminophen 10-325 mg tablet 1 tab PO Q4H PRN (Reason: Pain) Qty: 14 RF: 0 Status ED Status: With Doctor
[2018-03-28 23:29] LABS: Alanine Aminotransferase 23 U/L (10-53); Albumin 2.8 g/dL (3.4-5.0); Anion Gap 14 meq/L (5-15); Aspartate Aminotransferase 40 U/L (15-37); Blood Urea Nitrogen 16 mg/dL (7-18); Calcium 9.2 mg/dL (8.5-10.1); Carbon Dioxide 25.4 meq/L (21.0-32.0); Chloride 92 meq/L (98-107); Glomerular Filtration Rate Greater Than 89 mL/min (>89); Glucose,Random 117 mg/dL (74-106); Potassium 4.3 meq/L (3.5-5.1); Sodium 131 meq/L (136-145)
[2018-03-28 23:33] LABS: Alkaline Phosphatase 128 U/L (45-117); Total Protein 7.9 g/dL (6.4-8.2)
[2018-03-28 23:39] LABS: ABG Base Excess -1.4 mmol/L (-2-2); ABG PCO2 29 mmHg (38-42); ABG PO2 68 mmHg (61-120)
--- NOTE | 2018-03-28 23:41 | XR ---
EXAM DATE: 03/28/2018 11:34 PM EDT AGE/SEX: 62 years / Female INDICATIONS: Short of breath. CLINICAL DATA: This is the patient's initial encounter. Patient reports that signs and symptoms have been present for 1 day and indicates a pain score of 0/10. MEDICAL/SURGICAL HISTORY: Carcinoma, lung. Chronic obstructive pulmonary disease. . 2 coronary artery stents. [place] [facility] [place]. [facility] [place] . . FINDINGS: The right hemithorax remains completely opacified, combination of consolidation and effusion. No medi astinal shift demonstrated.. Very mild infiltrate seen at the left base. No left pleural effusion or pneumothorax seen. Heart size stable, within normal limits. CONCLUSION: Complete opacification of the right hemithorax persists. Mild infiltrate left base. Electronically signed by: Joseph Ledezma MD 03/28/2018 11:40 PM EDT
--- NOTE | 2018-03-29 00:09 | CT ---
EXAM DATE: 03/28/2018 11:55 PM EDT AGE/SEX: 62 years / Female INDICATIONS: Altered mental status. Lethargy. CLINICAL DATA: This is the patient's initial encounter. Patient reports that signs and symptoms have been present for 1 day and indicates a pain score of 0/10. MEDICAL/SURGICAL HISTORY: Carcinoma, lung. Chronic obstructive pulmonary disease. Cardiovascular disease. Hypertension. Fusion, cervical. section. Coronary artery stent. RADIATION DOSE: 34.94 CTDI (mGy) COMPARISON: No prior exams available for comparison. TECHNIQUE: CT of the head without contrast. Using automated exposure control and adjustment of the mA and/or kV according to patient size, radiation dose was kept as low as reasonably achievable to ob tain optimal diagnostic quality images. DICOM format image data is available electronically for revi ew and comparison. FINDINGS: Cerebrum: The ventricles are normal for age. No evidence of midline shift, mass lesion, hemorrhage or acute infarction. No extraaxial fluid collections are seen. Posterior Fossa: The cerebellum and brainstem are intact. The 4th ventricle is midline. The cerebe llopontine angle is unremarkable. Extracranial: The visualized portion of the orbits is intact. Skull: The calvaria is intact. No evidence of skull fracture. CONCLUSION: Negative noncontrast head CT. . Electronically signed by: Joseph Ledezma MD 03/29/2018 12:08 AM EDT
--- NOTE | 2018-03-29 01:07 | US ---
EXAM DATE: 03/29/2018 12:52 AM EDT AGE/SEX: 62 years / Female INDICATIONS: Swelling. CLINICAL DATA: This is the patient's initial encounter. Patient reports that signs and symptoms have been present for 1 day and indicates a pain score of 6/10. MEDICAL/SURGICAL HISTORY: None. Hypercholesterolemia. Hypertension. Anxiety. Arthritis. Bulging disc. Coronary artery disease. Claustrophobia. Hiatal hernia. Pneumonia. Kidney stones. Neuropathy. Ulcer. Lung cancer. . section. Tonsillectomy. Neck surgery. Renal stent. Cardiac catheteriz ation. Cervical spine surgery COMPARISON: [facility] [place] VENOUS DOPPLER LEG BI, 02/14/2018. . TECHNIQUE: Venous ultrasound of both lower extremities was performed from the inguinal ligament to t he proximal calf. Real-time, color Doppler and spectral tracing, compression and augmentation techni ques were used. FINDINGS: Right Leg: Normal compression of the deep venous system from the inguinal region to the proximal iman f. No echogenic clot is seen. Normal response of the venous system to augmentation and respiration. Left Leg: Normal compression of the deep venous system from the inguinal region to the proximal calf . No echogenic clot is seen. Normal response of the venous system to augmentation and respiration. Other: None. CONCLUSION: Negative study. No venous thrombosis of either lower extremity. Electronically signed by: Joseph Ledezma MD 03/29/2018 1:06 AM EDT
[2018-03-29 01:35] LABS: Bacteria,Urine Rare /hpf; Bilirubin,Urine Negative (Negative); Clarity,Urine Hazy (Clear); Color,Urine Yellow (Yellw/Straw); Glucose,Urine (UA) Negative (Negative); Hyaline Casts,Urine 12 /lpf (0-3); Leukocyte Esterase,Urine Negative (Negative); Mucus,Urine Few /lpf (Occasional); Nitrite,Urine Negative (Negative); Squamous Epithelial Cell,Urine 2 /hpf (0-5)
[2018-03-29] MEDS ORDERED: Acetaminophen 325 MG Tablet PO ONE (02:06)
[2018-03-29] MEDS: hydroCHLOROthiazide 25 MG Tablet PO SCH (13:30)
--- NOTE | 2018-03-29 14:07 | P.HP ---
History of Present Illness Primary Care Physician: Eric Newton Chief Complaint: Shortness of breath, altered mental status change History of Present Illness: 62-year-old male who past medical history of 62-year-old female COPD and chronic tobacco use, recent diagnosis of stage IV lung cancer on chemotherapy, and previously admitted to the hospital for recurrent pneumonia; was brought to the ED yesterday for evaluation of shortness of breath, altered mental status change as well as lower extremity swelling times 3 days duration. Per EMR, patient was noted by her daughter to be more forgetful and unable to carry on with the conversation with increasing confusions yesterday. Patient has had decreased appetite as well as lack of ambulation over the past 2 days per family member. Secondary to patient's recent history of stage IV lung cancer she is currently on [place] as needed as well as fentanyl patch. She was recently admitted to the hospital secondary to dyspnea on March 21 and discharged on , and during her stay she received her initial round of chemo ( carboplatin and pemetrexed, dosing every 3 weeks). While in the ED a chest x- ray revealed Complete opacification of the right hemithorax persists. Mild infiltrate left base. Although patient had elevated WBC however she was afebrile. Head CT did not show any intracranial abnormality. During my exam, patient was alert and oriented x3 and complained of episode of diarrhea since admission. Hospice privilege was revoked for this admission, however patient is DNR. Review of Systems All other systems reviewed negative except as stated in HPI PMFSH - History History Provided By: Patient, Medical Record - Medical History Medical History: Medical History (Last Reviewed 03/28/18 @ 23:56 by Mora Meléndez DO) Joint pain (Acute) Claustrophobia (Acute) Arthritis (Acute) Kidney stones (Acute) Hiatal hernia (Acute) Ulcer (Acute) Bulging disc CAD (coronary artery disease) COPD (chronic obstructive pulmonary disease) High cholesterol Hx of recurrent pneumonia Hypertension Lung cancer Neuropathy - Surgical History Surgical History: Surgical History (Last Reviewed 03/28/18 @ 23:56 by Mora Meléndez DO) Hx of cervical spine surgery (Acute) History of renal stent (Acute) Hx of section (Acute) H/O neck surgery History of bronchoscopy History of thoracentesis Hx of cardiac cath Hx of heart artery stent Hx of tonsillectomy - Family History Family History: Family History (Last Reviewed 03/28/18 @ 23:56 by Mora Meléndez DO) Son Schizophrenia in children Bipolar 1 disorder Other Has 2 living children - Tobacco History Second Hand Smoke Exposure: No Tobacco Use In Past 30 Days: No Smoking Status: Former smoker Tobacco Type: Cigarettes - Alcohol History How Often Do You Have a Drink Containing Alcohol: Never - Substance Use History Substance History: No History of Abuse - Travel History Recent Travel in the [place] Within the Last 8 Weeks: No Recent Travel Out of the Country Within the Last 8 Weeks: No - Immunization History Tetanus Immunization: Unsure Medications and Allergies Active Medications: Active Medications Hydrocodone Bitart/Acetaminophen ([place] 5/325) 1 tab PO Q6H PRN PRN Reason: PAIN 1-10 AND/OR FEVER >101F Last Admin: 03/29/18 13:31 Dose: 1 tab Albuterol (Duoneb Neb (Prn)) 1 ampul NEB Q2HR NEB PRN PRN Reason: SHORTNESS OF BREATH Albuterol (Duoneb Neb (Carmencita)) 1 ampul NEB Q6HR NEB CARMENCITA Amitriptyline HCl (Elavil) 50 mg PO HS CARMENCITA Hydrochlorothiazide (Hydrodiuril) 25 mg PO DAILY CARMENCITA Last Admin: 03/29/18 13:30 Dose: 25 mg Potassium Chloride (Kcl) 10 meq PO DAILY CARMENCITA Pravastatin Sodium (Pravachol) 80 mg PO QPM CARMENCITA Pregabalin (Lyrica) 100 mg PO HS CARMENCITA Allergies Allergy/AdvReac Type Severity Reaction Status Date / Time terbutaline Allergy Intermediate Nausea Verified 03/28/18 22:22 gabapentin Allergy Mild Nausea Verified 03/28/18 22:22 metoclopramide [From Reglan] AdvReac Bleeding Verified 03/28/18 22:22 Home Medications Medication Instructions Recorded Confirmed Type amitriptyline 50 mg PO HS 12/30/17 03/28/18 History potassium chloride 10 meq PO DAILY 12/30/17 03/28/18 History pregabalin [Lyrica] 100 mg PO HS 12/30/17 03/28/18 History aspirin 325 mg PO DAILY 02/15/18 03/28/18 History clopidogrel [Plavix] 75 mg PO DAILY 02/15/18 03/28/18 History hydrochlorothiazide 25 mg PO DAILY 02/15/18 03/28/18 History ipratropium-albuterol 3 ml INHALATION Q4-6H PRN 02/15/18 03/28/18 History meprobamate 400 mg PO QID PRN 02/15/18 03/28/18 History omeprazole 20 mg PO DAILY 02/15/18 03/28/18 History simvastatin 40 mg PO QPM 02/15/18 03/28/18 History nitroglycerin 1 patch TRANSDERMAL DAILY 03/23/18 03/28/18 History Exam Vital signs: Vital Signs 03/28/18 22:22 03/28/18 23:30 03/28/18 23:40 Temperature 98.2 F Pulse Rate 113 H 102 H Respiratory Rate 17 23 Blood Pressure 131/90 146/97 H Pulse Oximetry 96 95 98 03/29/18 04:00 03/29/18 07:00 03/29/18 08:23 Temperature 98.4 F 98.4 F Pulse Rate 104 H 103 H 104 H Respiratory Rate 20 18 Blood Pressure 122/89 132/93 H Pulse Oximetry 94 L 96 03/29/18 11:20 Temperature 98 F Pulse Rate 104 H Respiratory Rate 18 Blood Pressure 139/96 H Pulse Oximetry 95 Intake & Output 03/28/18 03/29/18 03/29/18 18:59 06:59 18:59 Output Total 6 / 6 Balance -6 / -6 Weight 42.3 kg Output: Urine 3 / 3 Stool 3 / 3 Other: Date of Last Bowel Movement 03/29/18 # Bowel Movements 1 Weight On Admission 42.3 kg Narrative: GENERAL: NAD SKIN: Warm and dry. HEAD: Atraumatic. Normocephalic. EYES: Pupils equal and round. No scleral icterus. No injection or drainage. ENT: No nasal bleeding or discharge. Mucous membranes pink and moist. NECK: Trachea midline. No JVD. CARDIOVASCULAR: Regular rate and rhythm. RESPIRATORY: No accessory muscle use. Clear to auscultation. Breath sounds decrease bilaterally. GASTROINTESTINAL: Abdomen soft, non-tender, nondistended. Hepatic and splenic margins not palpable. MUSCULOSKELETAL: Extremities without clubbing, cyanosis, or edema. No obvious deformities. NEUROLOGICAL: Awake and alert. No obvious cranial nerve deficits. Motor grossly within normal limits. Five out of 5 muscle strength in the arms and legs. PSYCHIATRIC: Appropriate mood and affect; insight and judgment normal. Results - Labs CBC & Chem 7: 03/28/18 23:00 03/28/18 23:00 Labs: Laboratory Results - last 24 hr 03/28/18 03/28/18 03/28/18 23:00 23:00 23:24 WBC 11.2 H RBC 3.76 L Hgb 11.6 Hct 34.0 L MCV 90.3 MCH 30.8 MCHC 34.1 RDW 17.4 H Plt Count 600 H MPV 8.7 Neut % (Auto) 91.2 H Lymph % (Auto) 7.4 L [place] % (Auto) 0.7 Eos % (Auto) 0.1 Baso % (Auto) 0.6 Neut # (Auto) 10.2 H Lymph # (Auto) 0.8 L [place] # (Auto) 0.1 Eos # (Auto) 0.0 Baso # (Auto) 0.1 WBC Differential . Differential Comment Auto diff final Puncture Site Left radial Patient Temperature 98.6 O2 Saturation 90 ABG pH 7.49 H ABG pCO2 29 L ABG pO2 68 ABG HCO3 22 ABG O2 Content 13.2 ABG Base Excess -1.4 ABG Methemoglobin 0.5 [place] Test Present Hemoglobin 10.3 L Carboxyhemoglobin 3.6 Inspired O2 21 Critical Value No Sodium 131 L Potassium 4.3 Chloride 92 L Carbon Dioxide 25.4 Anion Gap 14 BUN 16 Creatinine 0.57 Estimated GFR Greater than 89 Random Glucose 117 H Calcium 9.2 Total Bilirubin 0.6 AST 40 H ALT 23 Alkaline Phosphatase 128 H Troponin I Less than 0.02 L Total Protein 7.9 Albumin 2.8 L Urine Color Urine Clarity Urine pH Ur Specific [place] Urine Protein Urine Glucose (UA) Urine Ketones Urine Occult Blood Urine Nitrate Urine Bilirubin Urine Urobilinogen Ur Leukocyte Esterase Urine RBC Urine WBC Ur Squamous Epith Cells Urine Bacteria Hyaline Casts Urine Mucus Micro UA Comment Ur Microscopic Review Urine Culture Comments 03/29/18 01:15 WBC RBC Hgb Hct MCV MCH MCHC RDW Plt Count MPV Neut % (Auto) Lymph % (Auto) [place] % (Auto) Eos % (Auto) Baso % (Auto) Neut # (Auto) Lymph # (Auto) [place] # (Auto) Eos # (Auto) Baso # (Auto) WBC Differential Differential Comment Puncture Site Patient Temperature O2 Saturation ABG pH ABG pCO2 ABG pO2 ABG HCO3 ABG O2 Content ABG Base Excess ABG Methemoglobin [place] Test Hemoglobin Carboxyhemoglobin Inspired O2 Critical Value Sodium Potassium Chloride Carbon Dioxide Anion Gap BUN Creatinine Estimated GFR Random Glucose Calcium Total Bilirubin AST ALT Alkaline Phosphatase Troponin I Total Protein Albumin Urine Color Yellow Urine Clarity Hazy H Urine pH 5.0 Ur Specific [place] 1.020 Urine Protein 30 H Urine Glucose (UA) Negative Urine Ketones 80 or greater H Urine Occult Blood Negative Urine Nitrate Negative Urine Bilirubin Negative Urine Urobilinogen Less than 2 Ur Leukocyte Esterase Negative Urine RBC 2 Urine WBC 6 H Ur Squamous Epith Cells 2 Urine Bacteria Rare H Hyaline Casts 12 Urine Mucus Few H Micro UA Comment Culture not ind Ur Microscopic Review Not Reportable Urine Culture Comments Culture not ind - Imaging Impressions Chest X-Ray 03/28/18 22:51 CONCLUSION: Complete opacification of the right hemithorax persists. Mild infiltrate left base. Head CT 03/28/18 23:17 CONCLUSION: Negative noncontrast head CT. . Venous Doppler Study 03/29/18 23:24 CONCLUSION: Negative study. No venous thrombosis of either lower extremity. Caprini VTE Risk Assessment Caprini VTE Risk Assessment: No/Low Risk (score <= 1) Caprini Risk Assessment Model: Point Value = 1 Point Value = 2 Point Value = 3 Point Value = 5 Age 41-60 Minor surgery BMI > 25 kg/m2 Swollen legs Varicose veins or History of unexplained or recurrent spontaneous Oral contraceptives or hormone replacement Sepsis (< 1 month) Serious lung disease, including pneumonia (< 1 month) Abnormal pulmonary function Acute myocardial infarction Congestive heart failure (< 1 month) History of inflammatory bowel disease Medical patient at bed rest Age 61-74 Arthroscopic surgery Major open surgery (> 45 min) Laparoscopic surgery (> 45 min) Malignancy Confined to bed (> 72 hours) Immobilizing plaster cast Central venous access Age >= 75 History of VTE Family history of VTE Factor V Leiden Prothrombin [id number] Lupus anticoagulant Anticardiolipin antibodies Elevated serum homocysteine Heparin-induced thrombocytopenia Other congenital or acquired thrombophilia Stroke (< 1 month) Elective arthroplasty Hip, pelvis, or leg fracture Acute spinal cord injury (< 1 month) Prophylaxis Regimen: Total Risk Factor Score Risk Level Prophylaxis Regimen 0-1 Low Early ambulation 2 Moderate Order ONE of the following: *Sequential Compression Device (SCD) *Heparin 5000 units SQ BID 3-4 Higher Order ONE of the following medications: *Heparin 5000 units SQ TID *Enoxaparin/Lovenox 40 mg SQ daily (WT < 150 kg, CrCl > 30 mL/min) *Enoxaparin/Lovenox 30 mg SQ daily (WT < 150 kg, CrCl > 10-29 mL/min) *Enoxaparin/Lovenox 30 mg SQ BID (WT < 150 kg, CrCl > 30 mL/min) AND/OR *Sequential Compression Device (SCD) 5 or more Highest Order ONE of the following medications: *Heparin 5000 units SQ TID (Preferred with Epidurals) *Enoxaparin/Lovenox 40 mg SQ daily (WT < 150 kg, CrCl > 30 mL/min) *Enoxaparin/Lovenox 30 mg SQ daily (WT < 150 kg, CrCl > 10-29 mL/min) *Enoxaparin/Lovenox 30 mg SQ BID (WT < 150 kg, CrCl > 30 mL/min) AND *Sequential Compression Device (SCD) Assessment and Plan - Plan 62 years old female with Metabolic/Toxic encephalopathy Head CT noted and review by me with no finding of intracranial abnormalities CXR noted and review with finding of Complete opacification of the right hemithorax persists. Mild infiltrate left base Caution with CATERING CHEF depressant medications SIRS Elevated WBC, Elevate HR(>90) Likely 2/2 pulmonary infiltrated Check Lactic acid Continue with Iv antibiotics, IVF hydration History of Recurrent Pneumonia Dyspnea CXR noted and review with finding of Complete opacification of the right hemithorax persists. Mild infiltrate left base Check Chest CT for further evaluation for lung opacity vs other s/p Rocephin and Azithromycin, continue with IV antibiotics Consult Pulmonary Medicine PRN DuoNeb PRN and maintain oxygen saturation above 92% Diarrhea Rule out C. diff with C. difficile PCR and treat accordingly Stage IV Lung Cancer Recently on Hospice, however revoke privileges with this current admission On Chemo (carboplatin and pemetrexed, dosing every 3 weeks); will consult Oncology Caution with pain med; hold Fentanyl patch History anxiety/depression Hold CATERING CHEF depressant medications until metabolic/toxic encephalopathy resolved
--- NOTE | 2018-03-29 15:13 | ECG ---
Date Performed: 03/29/2018 Time Performed: 00:16:12 PTAGE: 62 years EKG: SINUS TACHYCARDIA LOW QRS VOLTAGE IN EXTREMITY LEADS MINIMAL ST DEPRESSION Since the previo us tracing, no significant change noted ABNORMAL RHYTHM ECG PREVIOUS TRACING : 03/23/2018 12.17 DOCTOR: Remberto Washburn Interpretating Date/Time 03/29/2018 14:58:19
[2018-03-29] MEDS: Sod Chloride 0.9% Inj 1,000 ML IV.CONT SCH (15:27)
--- NOTE | 2018-03-29 17:34 | CT ---
EXAM DATE: 03/29/2018 5:29 PM EDT AGE/SEX: 62 years / Female INDICATIONS: Shortness of breath. CLINICAL DATA: This is the patient's initial encounter. Patient reports that signs and symptoms have been present for 1 day and indicates a pain score of 2/10. MEDICAL/SURGICAL HISTORY: Cardiovascular disease. Chronic obstructive pulmonary disease. Carcinom a, lung. Coronary artery stent. Cardiac cath. RADIATION DOSE: 3.52 CTDI (mGy) COMPARISON: [facility], [facility] PULMONARY W CONTRAST W 3D, 03/21/2018. . TECHNIQUE: Multiple contiguous axial images were obtained through the chest without contrast. Image s were obtained in suspended respiration using multiple row detector helical technique. Using automa catarina exposure control and adjustment of the mA and/or kV according to patient size, radiation dose was kept as low as reasonably achievable to obtain optimal diagnostic quality images. DICOM format imag e data is available electronically for review and comparison. FINDINGS: Lungs: The right lung is completely opacified. There is a combination of collapsed lung in a large r ight pleural effusion. There is a small pleural effusion on the left but there are also a number of n oncalcified subcentimeter pulmonary nodules in the periphery of the lung could be metastatic disease. Mediastinum: There is good visualization of the great vessels of the middle mediastinum. No evidenc e of mediastinal or hilar adenopathy/mass. Pleurae: Large right pleural effusion and some areas of thickened pleura. Axillae: Unremarkable. Bony Structures: Unremarkable. Miscellaneous: The examination was extended to include the upper abdomen, and both adrenal glands ar e normal in size and configuration. CONCLUSION: 1. Large right pleural effusion with complete collapse of the right lung. There is some pleural thic kening posteriorly. It is unchanged from the previous study. There is small pleural effusion on the l eft. Multiple tiny nodules scattered throughout the left lung concerning for metastatic disease Electronically signed by: Andrew Griggs MD 03/29/2018 5:33 PM EDT
[2018-03-30] MEDS: Sod Chloride 0.9% Inj 1,000 ML IV.CONT SCH (03:49)
--- NOTE | 2018-03-30 08:21 | MB ---
cc: Ariana Gutierrez MD DATE: 03/30/2018 CHIEF COMPLAINT: Metastatic lung adenocarcinoma. HISTORY OF PRESENT ILLNESS: Ms. Alanis is a 62-year-old lady who initially presented with intermittent cough of 9 months' duration. She had previous hospitalization in September 2017 and December [address] chest in September 2017 showed normal right lung process. She underwent bronchoscopy at that time under the direction of Dr. Anthony with no malignant cells identified. She was lost to follow up due to social issues. She re-presented to her primary care doctor with worsening shortness of breath and CT scan from December 2017 with increasing opacity in the right mid and lower lungs due to pulmonary consolidation, right pleural effusion, multiple nodular densities in the lower left lung similar to prior. She underwent repeat bronchoscopy and pathology showing adenocarcinoma of the lung. She was hospitalized in January 2018. Mutational testing including ALK, EGFR PD-L1, ROS1b with no actionable mutations. She was given chemotherapy on 03/24/2018. She re-presented with increasing confusion and lack of ambulation. REVIEW OF SYSTEMS: As above in the HPI. All others negative. PAST MEDICAL HISTORY: Coronary artery disease, peripheral arterial disease, anxiety, acid reflux, rheumatoid arthritis, hypertension, hyperlipidemia. PAST SURGICAL HISTORY: Heart catheterization. FAMILY HISTORY: No known family history of malignancy. SOCIAL HISTORY: Recently quit smoking. No alcohol abuse. PHYSICAL EXAMINATION: GENERAL: Thin, chronically ill-appearing lady in no distress. HEENT: Head is normocephalic, atraumatic. Eyes: PERRLA. EOMI. CARDIOVASCULAR: Regular rate and rhythm. No murmurs. RESPIRATORY: Clear to auscultation bilaterally. ABDOMEN: Soft, nontender, nondistended. Bowel sounds present. EXTREMITIES: No edema. NEUROLOGIC: Grossly nonfocal. PSYCHIATRIC: Appropriate mood and affect. LABORATORY STUDIES: White blood cell count of 11.2, hemoglobin 11.6, platelet count is 600,000. Chemistry studies with sodium 131, creatinine 0.57, AST 40, alkaline phosphatase of 128. IMAGING STUDIES: Chest CT that showed large right pleural effusion with complete collapse of the right lung, some pleural thickening posteriorly, unchanged from previous study. Multiple tiny nodules scattered throughout the left lung concerning for metastatic disease. Bilateral lower extremity ultrasound with no evidence of thrombus. ASSESSMENT AND PLAN: 1. Metastatic lung adenocarcinoma, currently being treated with carboplatin and pemetrexed with first dose given on 03/24/2018. She will be due 3 weeks after this initial dose for her second dose. It appears from talking to the patient and per my report that she is having difficulty at home. Discussed home hospice and palliative care with the patient, although at this time, it appears that she does not wish to proceed with these options. She will need close follow up in clinic on discharge. 2. Leukocytosis and thrombocytosis, reactive from known lung process, malignancy and chemotherapy. We will continue to monitor. 3. Diarrhea. Stool study is pending. If negative, we will consider giving Imodium. Ariana Gutierrez MD JERROD/sv , 06:36 AM , 06:44 AM MTDD
[2018-03-30] MEDS ORDERED: Loperamide 2 MG Capsule PO PRN (08:38)
[2018-03-30] MEDS: hydroCHLOROthiazide 25 MG Tablet PO SCH (08:39)
[2018-03-30] MEDS ORDERED: Azithromycin Inj 500 MG in Sodium Chlor 0.9% Inj 250 ML IV.SIG SCH (09:00)
[2018-03-30] MEDS ORDERED: Potassium Chloride 10 MEQ ER Capsule PO SCH (09:00)
[2018-03-30] MEDS ORDERED: Aspirin 325 MG Tablet PO SCH (09:00)
--- NOTE | 2018-03-30 09:19 | P.PN ---
Subjective Interval history: Follow-up toxic/Metabolic encephalopathy//history of stage IV lung cancer// right pleural effusion March 30, 2018-patient seen and examined, reports improvement of diarrhea. Denies any shortness of breath. Alert and oriented x3. Physical Exam Vital signs: Vital Signs 03/29/18 11:20 03/29/18 15:24 03/29/18 16:34 Temperature 98 F 98.4 F Pulse Rate 104 H 106 H 108 H Respiratory Rate 18 18 18 Blood Pressure 139/96 H 138/94 H Pulse Oximetry 95 95 03/29/18 20:00 03/29/18 20:17 03/29/18 20:30 Temperature 98 F Pulse Rate 96 H Respiratory Rate 18 16 Blood Pressure Pulse Oximetry 96 97 03/30/18 00:00 03/30/18 03:43 03/30/18 04:00 Temperature 97.6 F 97.9 F Pulse Rate 94 H 101 H 99 H Respiratory Rate 18 17 18 Blood Pressure 140/99 H 141/96 H Pulse Oximetry 100 91 L 03/30/18 05:00 Temperature Pulse Rate Respiratory Rate 16 Blood Pressure Pulse Oximetry Intake & Output 03/29/18 03/30/18 03/30/18 18:59 06:59 18:59 Intake Total 500 / 500 1480 / 1480 Output Total 406 / 406 700 / 700 Balance 94 / 94 780 / 780 Weight 40.5 kg Intake: IV 1000 / 1000 NS Inj 1,000 ML @ 70 mls/hr IV. 1000 / 1000 CONT .[id number] [facility] Rx#:[id number] Oral 500 / 500 480 / 480 Output: Urine 3 / 3 700 / 700 Stool 3 / 3 Urine/Stool Mix 400 / 400 Other: # Voids 1 Date of Last Bowel Movement 03/29/18 03/29/18 # Bowel Movements 4 Narrative: GENERAL: NAD SKIN: Warm and dry. HEAD: Atraumatic. Normocephalic. EYES: Pupils equal and round. No scleral icterus. No injection or drainage. ENT: No nasal bleeding or discharge. Mucous membranes pink and moist. NECK: Trachea midline. No JVD. CARDIOVASCULAR: Regular rate and rhythm. RESPIRATORY: No accessory muscle use. Clear to auscultation. Breath sounds decrease bilaterally. GASTROINTESTINAL: Abdomen soft, non-tender, nondistended. Hepatic and splenic margins not palpable. MUSCULOSKELETAL: Extremities without clubbing, cyanosis, or edema. No obvious deformities. NEUROLOGICAL: Awake and alert. No obvious cranial nerve deficits. Motor grossly within normal limits. Five out of 5 muscle strength in the arms and legs. PSYCHIATRIC: Appropriate mood and affect; insight and judgment normal. Results - Labs CBC & Chem 7: 03/28/18 23:00 03/28/18 23:00 Laboratory Results - last 24 hr 03/29/18 03/29/18 16:22 16:45 Lactic Acid 1.2 Stl C.difficile DNA Amp Negative St C. diff Tox Epid 027 Negative - Imaging Impressions Chest CT 03/29/18 00:00 CONCLUSION: 1. Large right pleural effusion with complete collapse of the right lung. There is some pleural thickening posteriorly. It is unchanged from the previous study. There is small pleural effusion on the left. Multiple tiny nodules scattered throughout the left lung concerning for metastatic disease Assessment and Plan - Plan 62 years old female with Metabolic/Toxic encephalopathy-improving Head CT with no finding of intracranial abnormalities CXR with finding of Complete opacification of the right hemithorax persists. Mild infiltrate left base Caution with BATH STEWARD/STEWARDESS depressant medications SIRS-improved Elevated WBC, Elevate HR(>90) Likely 2/2 pulmonary infiltrated Check Lactic acid Continue with Iv antibiotics, IVF hydration History of Recurrent Pneumonia Dyspnea CXR with finding of Complete opacification of the right hemithorax persists. Mild infiltrate left base Chest CT with finding of Large right pleural effusion with complete collapse of the right lung s/p Rocephin and Azithromycin, continue with IV antibiotics Consult Pulmonary Medicine PRN DuoNeb PRN and maintain oxygen saturation above 92% Large right pleural effusion with complete collapse of the right lung CT chest with finding Large right pleural effusion with complete collapse of the right lung Consult IR for US guided thoracentesis Diarrhea C. difficile PCR negative Start Imodium Stage IV Lung Cancer Recently on Hospice, however revoke privileges with this current admission On Chemo (carboplatin and pemetrexed, dosing every 3 weeks); Appreciate input from Oncology Caution with pain med; hold Fentanyl patch History anxiety/depression Hold BATH STEWARD/STEWARDESS depressant medications until metabolic/toxic encephalopathy resolved
[2018-03-30 09:57] LABS: Baso % (Auto) 0.3 % (0.0-2.0); Eos % (Auto) 0.4 % (0.0-4.0); Hemoglobin 9.5 gm/dL (11.6-15.3); Lymph # (Auto) 0.8 th/mm3 (1.0-4.8); Lymph % (Auto) 8.3 % (9.0-44.0); Mean Corpuscular HGB Conc 33.9 % (32.0-36.0); Mean Corpuscular Hemoglobin 30.6 pg (27.0-34.0); Mean Corpuscular Volume 90.5 fL (80.0-100.0); Mean Platelet Volume 8.9 fL (7.0-11.0); Mono # (Auto) 0.2 th/mm3 (0.0-0.9); Mono % (Auto) 2.4 % (0.0-8.0); Neut # (Auto) 8.9 th/mm3 (1.8-7.7); Neut % (Auto) 88.6 % (16.0-70.0); Platelet Count 401 th/mm3 (150-450); Red Blood Count 3.09 mil/mm3 (4.00-5.30); White Blood Count 10.1 th/mm3 (4.0-11.0)
[2018-03-30 10:17] LABS: Alanine Aminotransferase 16 U/L (10-53); Albumin 2.1 g/dL (3.4-5.0); Alkaline Phosphatase 95 U/L (45-117); Anion Gap 10 meq/L (5-15); Aspartate Aminotransferase 33 U/L (15-37); Blood Urea Nitrogen 6 mg/dL (7-18); Calcium 8.4 mg/dL (8.5-10.1); Carbon Dioxide 26.5 meq/L (21.0-32.0); Chloride 97 meq/L (98-107); Glomerular Filtration Rate Greater Than 89 mL/min (>89); Glucose,Random 105 mg/dL (74-106); Potassium 3.2 meq/L (3.5-5.1); Sodium 133 meq/L (136-145); Total Protein 6.4 g/dL (6.4-8.2)
[2018-03-30 10:56] LABS: Platelet Estimate Normal (Normal); Platelet Morphology Normal (Normal)
[2018-03-30] MEDS ORDERED: ALPRAZolam 0.25 MG Tablet PO SCH (15:00)
== END 2018-03-30 14:47 | disposition left against medical advice (07) ==
LOC: NEDA 22:14 → NEPE 22:14 → HCIN 03-29 03:13
PROVIDERS: ADMIT Hospitalist; ATTEND Hospitalist